=== PATIENT | male | born 1950 | race Caucasian/White ===

== ENCOUNTER 2025-05-05 16:50 | Inpatient (IN) | payer MEDICARE, SELFPAY ==
--- NOTE | ~2025-05-05 | CT_ITS ---
EXAMINATION: CT HEAD WITHOUT CONTRAST CLINICAL INFORMATION: Receptive aphasia, rule out stroke etiology. 75-year-old male. COMPARISON: None available. TECHNIQUE: Contiguous axial imaging was performed from the skull base to vertex without intravenous administration of contrast. This CT examination was performed using dose optimization techniques as appropriate, variously including the following: *Automated exposure control *Adjustment of mA and/or kV according to patient size (this includes techniques or standardized protocols for targeted exams where dose is matched to indication/reason for exam; i.e. extremities or head) *Use of iterative reconstruction technique FINDINGS: There is no evidence of intracranial hemorrhage or extra-axial fluid collection. There is no mass effect, or edema. No CT evidence of acute territorial infarct. Ventricles, sulci, and cisterns are normal in size and configuration for patient age. No hydrocephalus. No midline shift. Negative hyperdense MCA sign. Negative insular ribbon sign. Patchy periventricular and deep white matter hypoattenuation is consistent with moderate small vessel ischemic changes. There is an age-indeterminate lacunar type infarct in the right putamen nucleus. 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 Globes and orbital contents image normally. No extracranial soft tissue abnormalities. The paranasal sinuses, mastoid air cells, and tympanic cavities are normally aerated. No suspicious bony abnormalities. There are no acute fractures evident. CT/CT head/brain wo IV con IMPRESSION: 1. Age-indeterminate lacunar type infarct present in the right putamen nucleus. This could potentially be acute/subacute. 2. No intracranial hemorrhage or mass effect. No CT evidence of acute territorial infarct. 3. Moderate small vessel ischemic changes within the white matter. 4. 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 Electronically signed by: Jarrett Paz MD 05/09/2025 03:22 PM EDT
[2025-05-05 17:05] VITALS: BP 176/98; PULSE 78; RESP 16; TEMP 36.7; O2SAT 99
[2025-05-05 17:46] VITALS: BMI 25.2
--- NOTE | 2025-05-05 18:32 | PC.NURSE ---
pt arrved to unit at 1705. Skin/safety check performed, notable for several scabs on dorsal side of foot. Pt reports its from wearing shoes without socks. Vitals obtained, patient oriented to the unit and dinner order called in. Pts speech is tangential. He states he is here for extreme anxiety. He is currently eating with peers. Admission to be completed by uncoming staff.
[2025-05-05 20:00] VITALS: BP 152/85; PULSE 94; RESP 16; TEMP 36.8; O2SAT 98
--- NOTE | 2025-05-05 23:25 | PC.ADMIT ---
Per report from previous shift, Pt arrived on the unit at 1705. Transfer from [facility], admitting diagnosis Adjustment disorder with anxiety. Skin/safety check performed, notable for several scabs on dorsal side of foot. Pt reports its from wearing shoes without socks. Vitals obtained, patient oriented to the unit and dinner order called in. Pts speech is tangential. He states he is here for extreme anxiety. He is currently eating with peers. Per history given by patient, he was brought by ambulance to [facility] emergency room, after experiencing Gigantic anxiety , depression and insomnia, whereby he had not slept for two days. 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 Patient denies SI, HI and AVH. He requested medication to help him sleep, and got PRN Trazodone. Patient denies any medical diagnosis, and states that he is not currently prescribed any medications. Placed on 15 minute checks.
[2025-05-06 08:00] VITALS: BP 154/91; PULSE 80; RESP 18; TEMP 36.9; O2SAT 98
[2025-05-06 09:17] LABS: Hemoglobin A1C 133.3542 umol/L; Total Hemoglobin (HGBA1C) 3670.2182 umol/L
[2025-05-06 09:27] LABS: Cholesterol 167 mg/dL (<200); HDL Cholesterol 60 mg/dL (>40); Magnesium 2.0 mg/dL (1.6-2.6); Triglycerides 74 mg/dL (<150)
[2025-05-06 09:41] LABS: Free T4 (Free Thyroxine) 1.21 ng/dL (0.71-1.85); Thyroid Stimulating Hormone 0.85 uIU/mL (0.32-4.0)
[2025-05-06 09:57] LABS: Folate 9.8 ng/mL (> or = 4.0); Vitamin B12 213 pg/mL (200-900)
--- NOTE | 2025-05-06 10:33 | HO.PM.IMCN ---
History of Present Illness Data of Consult Service Date: 05/06/25 Primary Care Provider: Unknown Physician HPI Reason for consult: Medical management 75-year-old male with past medical history of adjustment disorder with anxiety admitted to [facility] with increased anxiety, depression and insomnia. He denied any suicidal ideation. He is admitted here for further treatment. Patient reports that he feels well, he is concerned about memory issues. Denies any medical problems, does not take any medications at home. On exam he denies any shortness of breath, chest pain, abdominal pain, or any other concerning symptoms. Does report that he has occasional dysuria. Denies any burning or pain with urination just reports that it takes him a little bit longer to void. He otherwise feels well, speech is rapid, anxious on exam. Review of Systems Review of Systems: Denies any shortness of breath, chest pain, dizziness, lightheadedness, abdominal pain or discomfort, nausea vomiting or diarrhea PMFSH Social History Household Members: Spouse Housing: Apartment Do you presently have visiting nurse or other home services: No Patient Tobacco Use Status: Never used Tobacco Smoked in Last 30 Days: No e-Cigarette/Vaping Use: Never Used Second Hand Smoke Exposure: No Currently Displaying Signs/Symptoms of Drug Intoxication Withdrawal: No Have you been hit, kicked, punched, or otherwise hurt by someone within the past year? If so, by whom?: No Do you feel safe in your current relationship?: Yes Is there a partner from a previous relationship who is making you feel unsafe now?: No Are you made to feel afraid or neglected: No Advance Directives: No Advance Directives Information Provided: Yes Do you have thoughts of harming others: None Do you have a plan to hurt others: No Plan Recently lost weight without trying: No How much weight loss: Not applicable Eating poorly because of decreased appetite: No Nutrition screen score: 0 Nutrition Risks: No Nutritional Risk Poor oral hygiene: No Meds Allergies Allergy/AdvReac Type Severity Reaction Status Date / Time No Known Allergies Allergy Verified 05/05/25 17:00 Active Medications: Current Medications Acetaminophen (Acetaminophen 325 Mg Tablet) 650 mg PO Q6H PRN PRN Reason: Headache/Pain, Scale 1-10 Al Hydroxide/Mg Hydroxide (Magnesium Hydrox/Alum Hydrox 30 Ml Oral.Susp) 30 ml PO Q6H PRN PRN Reason: Heartburn/Nausea Hydroxyzine HCl (Hydroxyzine Hcl 25 Mg Tablet) 25 mg PO Q6H PRN PRN Reason: mild anxiety Magnesium Hydroxide (Milk Of Magnesia 30 Ml Oral.Susp) 30 ml PO DAILY PRN PRN Reason: Constipation Nicotine Polacrilex (Nicotine Polacrilex 2 Mg Gum) 4 mg BUCCAL Q2H PRN PRN Reason: Nicotine Cravings Trazodone HCl (Trazodone Hcl 50 Mg Tablet) 50 mg PO BEDTIME MRX1 PRN PRN Reason: Insomnia Last Admin: 05/06/25 01:45 Dose: 50 mg Physical Exam Vital Signs and Narrative: Vital Signs: Last Vital Signs Temp 98.5 F 05/06/25 08:00 Pulse 80 05/06/25 08:00 Resp 18 05/06/25 08:00 BP 154/91 H 05/06/25 08:00 Pulse Ox 98 05/06/25 08:00 O2 Del Method Room Air 05/06/25 08:00 BMI result Body Mass Index 25.2 Alert and oriented X3, able to give good history. Anxious, rapid speech Neuro: CN II-X11 intact, no deficits, visual acuity intact EYES: PERRLA, EOM intact ENT: Hearing intact, lips moist, nares patent no epistaxis Cardiac: S1 S2 RRR, No ectopy Pulmonary: lungs clear to auscultation, No increased WOB. Abdominal: BS active in all 4 quadrants, no guarding or tenderness MSK: Strength 5/5 upper and lower extremities : Deferred Extremities: No edema in lower extremities, Steady gait Psych: mood stable, anxious. Skin: Warm and dry, Intact Results Labs 05/06/25 10:23 Labs: Laboratory Results - last 24 hr 05/06/25 08:33 Estimat Average Glucose 111 Hemoglobin A1c % 5.5 Magnesium 2.0 Triglycerides 74 Cholesterol 167 LDL Cholesterol, Calc 93 HDL Cholesterol 60 Vitamin B12 213 Folate 9.8 TSH 0.85 Free T4 1.21 Assessment and Plan (1) Anxiety: Status: Acute Plan Anxiety and depression Treatment per psychiatric team Consider MOCA Dysuria Check UA and PSA Consider Urology consult if abnormal Thank you for allowing me to participate in the care of this patient. Signing off at this time. Please reconsult of any acute concerns or issues arise
[2025-05-06 10:46] LABS: Anion Gap 12 (12-20); Blood Urea Nitrogen 12 mg/dL (9-16); Calcium 10.0 mg/dL (8.4-10.2); Carbon Dioxide 32 mmol/L (22-29); Chloride 103 mmol/L (96-108); Creatinine Clr Calc Pharmacy 80.3; Estimated Glomerular Filt Rate > 60; Potassium 3.8 mmol/L (3.3-5.1); Sodium 143 mmol/L (135-145)
[2025-05-06 13:43] LABS: Prostate Specific Antigen 1.06 ng/mL (<0.05-4.0)
--- NOTE | 2025-05-06 15:27 | P.HPPS_ITS ---
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 on presentation, pt c/o depression, lack of psych meds for months. no SI/HI. pt reported he had not slept for 2 nights and was experiencing severe anxiety. he reported amotivation and empty feeling. on eval by MD at [facility] [place] [place], pt is hyperverbal and slightly disorganized and hard to follow. he reports he has a poor memory and he clearly struggles to recall biographical facts. he identifies as target Sx said memory deficits, anxiety, and insomnia. he s agreeable to trial of zoloft for depression/anxiety, seroquel PRNs for acute anxiety, and trazodone for insomnia. in addition, he is agreeable to [facility] for cognitive screening. Past Psychiatric History: hosps: IOL for 1.5 years in 1971 SA: denies SIB: denies outpt: sporadic throughout his life. some in the past 5-10 years. reports someone from 5 was prescribing for him. Medical Evaluation Reviewed: Yes [facility] Narrative: Carpal Tunnel Syndrome Family History: brother - h/o psychiatric hospitalization, pt does not know the diagnosis Social History: lives with and their pets in [place]. has SSI income. 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 Substance History: denies use of all substances of abuse Trauma History: denies Diagnostics Vital Signs (24Hr): Vital Signs - 24 hr 05/05/25 17:05 05/05/25 20:00 05/06/25 08:00 Temperature 98.1 F 98.2 F 98.5 F Pulse Rate 78 94 80 Respiratory Rate 16 16 18 Blood Pressure 176/98 H 152/85 H 154/91 H Pulse Oximetry 99 98 98 Oxygen Delivery Method Room Air Room Air Room Air BMI result Body Mass Index 25.2 Labs 05/06/25 10:23 Labs: Laboratory Results - last 48 hr 05/06/25 05/06/25 05/06/25 08:33 10:23 12:52 Sodium 143 Potassium 3.8 Chloride 103 Carbon Dioxide 32 H Anion Gap 12 BUN 12 Creatinine 0.78 Estim Creat Clear Calc 80.3 Estimated GFR > 60 Random Glucose 102 Estimat Average Glucose 111 Hemoglobin A1c % 5.5 Calcium 10.0 Magnesium 2.0 Triglycerides 74 Cholesterol 167 LDL Cholesterol, Calc 93 HDL Cholesterol 60 Prostate Specific Ag 1.06 Vitamin B12 213 Folate 9.8 TSH 0.85 Free T4 1.21 Meds/Allergies Allergies Allergies Allergy/AdvReac Type Severity Reaction Status Date / Time No Known Allergies Allergy Verified 05/05/25 17:00 Mental Status Exam Mental Status Exam Narrative: disheveled, long white hair. cooperative no PMA/PMR. speech incr amount, nml rate and loudness. decr latency. thoughts circumstantial to tangential. affect flexible, normo-intense, non-labile. mood really anxious, haven't slept well. denies SI/SIBI/HI/AVH. Assessment & Plan Assessment & Plan (1) Anxiety disorder: Status: Acute Code(s): F41.9 - Anxiety disorder, unspecified Plan start zoloft 50 mg daily for anxiety/depression. start seroquel 12.5 mg Q4H PRN anxiety. start trazodone 100 mg QHS for insomnia. R/O Bipolar Disorder. unlikely as pt has not been hospitalized since 1971 and not on any mood stablizers for decades. eval cognition. pt likely has some degree of cognitive impairment. Patient educated on: diagnosis and medication risk/benefits Reason for continued inpatient stay Substantial Risk for: inability to function Statement Statement: I have reviewed the history and physical and performed a pertinent examination on my patient. No changes have occurred unless specified. If the History and Physical was not performed prior to admission, the Hospitalist's service will be consulted for completing the admission physical. Time Spent With Patient Time: Total time managing care of this patient today __55__ minutes.
[2025-05-06 19:10] VITALS: BP 157/83; PULSE 76; RESP 16; TEMP 36.7; O2SAT 98
[2025-05-07 07:52] VITALS: BP 132/77; PULSE 75; RESP 16; TEMP 36.6; O2SAT 97
--- NOTE | 2025-05-07 14:08 | HO.PSYCHPN ---
Subjective Subjective Date of Service: 05/07/25 Reason For Visit: adjustment disorder with anxiety Interim History: calm, cooperative, pleasant. agreeable to continue current mgmt aside from increase in HS trazodone to 150 mg for sleep. slept a bit better last night. per staff, poor concentration and memory. anxious energy. social. playing board games. hyperverbal. tangential. got atarax and trazodone last night, slept about 5 hours. Mental Status Exam Mental Status Exam Narrative: disheveled, long white hair. cooperative no PMA/PMR. speech incr amount, nml rate and loudness. decr latency. thoughts circumstantial to tangential. affect flexible, normo-intense, non-labile. mood improved. no SI/SIBI/HI/AVH expressed. Diagnostics Vital Signs (24Hr): Vital Signs - 24 hr 05/06/25 19:10 05/07/25 07:52 Temperature 98.0 F 97.8 F Pulse Rate 76 75 Respiratory Rate 16 16 Blood Pressure 157/83 H 132/77 Pulse Oximetry 98 97 Oxygen Delivery Method Room Air Room Air BMI result Body Mass Index 25.2 Labs 05/06/25 10:23 Labs: Laboratory Results - last 48 hr 05/06/25 05/06/25 05/06/25 08:33 10:23 12:52 Sodium 143 Potassium 3.8 Chloride 103 Carbon Dioxide 32 H Anion Gap 12 BUN 12 Creatinine 0.78 Estim Creat Clear Calc 80.3 Estimated GFR > 60 Random Glucose 102 Estimat Average Glucose 111 Hemoglobin A1c % 5.5 Calcium 10.0 Magnesium 2.0 Triglycerides 74 Cholesterol 167 LDL Cholesterol, Calc 93 HDL Cholesterol 60 Prostate Specific Ag 1.06 Vitamin B12 213 Folate 9.8 TSH 0.85 Free T4 1.21 Medications Medications Current Medications Acetaminophen (Acetaminophen 325 Mg Tablet) 650 mg PO Q6H PRN PRN Reason: Headache/Pain, Scale 1-10 Al Hydroxide/Mg Hydroxide (Magnesium Hydrox/Alum Hydrox 30 Ml Oral.Susp) 30 ml PO Q6H PRN PRN Reason: Heartburn/Nausea Hydroxyzine HCl (Hydroxyzine Hcl 25 Mg Tablet) 25 mg PO Q6H PRN On Hold: 05/07/25 10:13 PRN Reason: mild anxiety Last Admin: 05/07/25 05:03 Dose: 25 mg Magnesium Hydroxide (Milk Of Magnesia 30 Ml Oral.Susp) 30 ml PO DAILY PRN PRN Reason: Constipation Nicotine Polacrilex (Nicotine Polacrilex 2 Mg Gum) 4 mg BUCCAL Q2H PRN PRN Reason: Nicotine Cravings Quetiapine Fumarate (Quetiapine Fumarate 25 Mg Tablet) 12.5 mg PO Q4H PRN PRN Reason: anxiety Sertraline HCl (Sertraline Hcl 50 Mg Tablet) 50 mg PO DAILY [facility] Last Admin: 05/07/25 09:24 Dose: 50 mg Trazodone HCl (Trazodone Hcl 50 Mg Tablet) 50 mg PO BEDTIME PRN PRN Reason: Insomnia Trazodone HCl (Trazodone Hcl 50 Mg Tablet) 150 mg PO BEDTIME PEDRITO Allergies Allergies Allergy/AdvReac Type Severity Reaction Status Date / Time No Known Allergies Allergy Verified 05/05/25 17:00 Assessment & Plan Assessment & Plan (1) Anxiety disorder: Status: Acute Code(s): F41.9 - Anxiety disorder, unspecified Plan 05/06: start zoloft 50 mg daily for anxiety/depression. start seroquel 12.5 mg Q4H PRN anxiety. start trazodone 100 mg QHS for insomnia. R/O Bipolar Disorder. unlikely as pt has not been hospitalized since 1971 and not on any mood stabilizers for decades. eval cognition. pt likely has some degree of cognitive impairment. 05/07: [facility] /30, for moderate cognitive impairment. increase trazodone to 150 QHS for sleep. continue current mgmt otherwise. consider memantine/donepezil. Reason for continued inpatient stay Substantial Risk for: inability to function Time Spent With Patient Time: Total time managing care of this patient today __25__ minutes.
[2025-05-07 19:40] VITALS: BP 133/72; PULSE 97; TEMP 36.5; O2SAT 97
[2025-05-08 07:56] VITALS: BP 129/74; PULSE 67; RESP 18; TEMP 36.7; O2SAT 96
--- NOTE | 2025-05-08 14:51 | HO.PSYCHPN ---
Subjective Subjective Date of Service: 05/08/25 Reason For Visit: adjustment disorder with anxiety Interim History: extremely loquacious, tangential, moderately disorganized. confabulation. declines transfer to [facility]. agreeable to schedule seroquel 50 mg at HS, says he did sleep better last night than prior but awakened in the night still. per staff, +depression. hyperverbal. +anxiety. pleasant. slept 7 hours. got PRN seroquel at HS. Mental Status Exam Mental Status Exam Narrative: disheveled, long white hair. cooperative no PMA/PMR. speech incr amount, incr rate, nml loudness. decr latency. thoughts circumstantial to tangential. confabulation. affect flexible, normo-intense, non-labile. mood improved. no SI/SIBI/HI/AVH expressed. Diagnostics Vital Signs (24Hr): Vital Signs - 24 hr 05/07/25 19:40 05/08/25 07:56 Temperature 97.7 F 98.1 F Pulse Rate 97 67 Respiratory Rate 18 Blood Pressure 133/72 129/74 Pulse Oximetry 97 96 Oxygen Delivery Method Room Air Room Air BMI result Body Mass Index 25.2 Labs 05/06/25 10:23 Medications Medications Current Medications Acetaminophen (Acetaminophen 325 Mg Tablet) 650 mg PO Q6H PRN PRN Reason: Headache/Pain, Scale 1-10 Al Hydroxide/Mg Hydroxide (Magnesium Hydrox/Alum Hydrox 30 Ml Oral.Susp) 30 ml PO Q6H PRN PRN Reason: Heartburn/Nausea Hydroxyzine HCl (Hydroxyzine Hcl 25 Mg Tablet) 25 mg PO Q6H PRN On Hold: 05/07/25 10:13 PRN Reason: mild anxiety Last Admin: 05/07/25 05:03 Dose: 25 mg Magnesium Hydroxide (Milk Of Magnesia 30 Ml Oral.Susp) 30 ml PO DAILY PRN PRN Reason: Constipation Nicotine Polacrilex (Nicotine Polacrilex 2 Mg Gum) 4 mg BUCCAL Q2H PRN PRN Reason: Nicotine Cravings Quetiapine Fumarate (Quetiapine Fumarate 25 Mg Tablet) 12.5 mg PO Q4H PRN PRN Reason: anxiety Last Admin: 05/07/25 22:08 Dose: 12.5 mg Quetiapine Fumarate (Quetiapine Fumarate 50 Mg Tablet) 50 mg PO BEDTIME [facility]RITO Sertraline HCl (Sertraline Hcl 50 Mg Tablet) 50 mg PO DAILY [facility] Last Admin: 05/08/25 08:42 Dose: 50 mg Trazodone HCl (Trazodone Hcl 50 Mg Tablet) 50 mg PO BEDTIME PRN PRN Reason: Insomnia Trazodone HCl (Trazodone Hcl 50 Mg Tablet) 150 mg PO BEDTIME [facility] Last Admin: 05/07/25 22:09 Dose: 150 mg Allergies Allergies Allergy/AdvReac Type Severity Reaction Status Date / Time No Known Allergies Allergy Verified 05/05/25 17:00 Assessment & Plan Assessment & Plan (1) Anxiety disorder: Status: Acute Code(s): F41.9 - Anxiety disorder, unspecified Plan 05/06: start zoloft 50 mg daily for anxiety/depression. start seroquel 12.5 mg Q4H PRN anxiety. start trazodone 100 mg QHS for insomnia. R/O Bipolar Disorder. unlikely as pt has not been hospitalized since 1971 and not on any mood stabilizers for decades. eval cognition. pt likely has some degree of cognitive impairment. 05/07: [facility] 16/30, for moderate cognitive impairment. increase trazodone to 150 QHS for sleep. continue current mgmt otherwise. consider memantine/donepezil. 05/08: check ACLS. schedule seroquel 50 mg at HS to see if volubility and thought organization improve. otherwise continue current mgmt. Reason for continued inpatient stay Substantial Risk for: inability to function Time Spent With Patient Time: Total time managing care of this patient today __35__ minutes.
[2025-05-08 19:30] VITALS: BP 145/64; PULSE 85; RESP 16; TEMP 36.6; O2SAT 97
[2025-05-09 07:55] VITALS: BP 138/65; PULSE 94; RESP 16; TEMP 36.7; O2SAT 96
--- NOTE | 2025-05-09 14:03 | HO.PSYCHPN ---
Subjective Subjective Date of Service: 05/09/25 Reason For Visit: adjustment disorder with anxiety Interim History: slept better but not well. less hyperverbal. still confabulating. per staff, tangential. focused on memory impairment. slept all NOC. amenable to increase HS seroquel and to schedule low-dose seroquel throughout the day. per staff, tangential, focused on memory impairment. slept all NOC. Mental Status Exam Mental Status Exam Narrative: disheveled, long white hair. cooperative no PMA/PMR. speech incr amount, incr rate, nml loudness. decr latency. thoughts circumstantial to tangential. confabulation. affect flexible, normo-intense, non-labile. mood improved. no SI/SIBI/HI/AVH expressed. Diagnostics Vital Signs (24Hr): Vital Signs - 24 hr 05/08/25 19:30 05/09/25 07:55 Temperature 97.8 F 98.0 F Pulse Rate 85 94 Respiratory Rate 16 16 Blood Pressure 145/64 H 138/65 Pulse Oximetry 97 96 Oxygen Delivery Method Room Air Room Air BMI result Body Mass Index 25.2 Labs 05/06/25 10:23 Medications Medications Current Medications Acetaminophen (Acetaminophen 325 Mg Tablet) 650 mg PO Q6H PRN PRN Reason: Headache/Pain, Scale 1-10 Al Hydroxide/Mg Hydroxide (Magnesium Hydrox/Alum Hydrox 30 Ml Oral.Susp) 30 ml PO Q6H PRN PRN Reason: Heartburn/Nausea Hydroxyzine HCl (Hydroxyzine Hcl 25 Mg Tablet) 25 mg PO Q6H PRN On Hold: 05/07/25 10:13 PRN Reason: mild anxiety Last Admin: 05/07/25 05:03 Dose: 25 mg Magnesium Hydroxide (Milk Of Magnesia 30 Ml Oral.Susp) 30 ml PO DAILY PRN PRN Reason: Constipation Nicotine Polacrilex (Nicotine Polacrilex 2 Mg Gum) 4 mg BUCCAL Q2H PRN PRN Reason: Nicotine Cravings Quetiapine Fumarate (Quetiapine Fumarate 25 Mg Tablet) 12.5 mg PO Q4H PRN PRN Reason: anxiety Last Admin: 05/08/25 22:04 Dose: 12.5 mg Quetiapine Fumarate (Quetiapine Fumarate 25 Mg Tablet) 12.5 mg PO TID@0900,1300,1700 [facility] Last Admin: 05/09/25 13:16 Dose: 12.5 mg Quetiapine Fumarate (Quetiapine Fumarate 25 Mg Tablet) 75 mg PO BEDTIME [facility] Sertraline HCl (Sertraline Hcl 50 Mg Tablet) 50 mg PO DAILY [facility] Last Admin: 05/09/25 08:14 Dose: 50 mg Trazodone HCl (Trazodone Hcl 50 Mg Tablet) 50 mg PO BEDTIME PRN PRN Reason: Insomnia Last Admin: 05/08/25 22:03 Dose: 50 mg Trazodone HCl (Trazodone Hcl 50 Mg Tablet) 150 mg PO BEDTIME [facility] Last Admin: 05/08/25 22:03 Dose: 150 mg Allergies Allergies Allergy/AdvReac Type Severity Reaction Status Date / Time No Known Allergies Allergy Verified 05/05/25 17:00 Assessment & Plan Assessment & Plan (1) Anxiety disorder: Status: Acute Code(s): F41.9 - Anxiety disorder, unspecified Plan 05/06: start zoloft 50 mg daily for anxiety/depression. start seroquel 12.5 mg Q4H PRN anxiety. start trazodone 100 mg QHS for insomnia. R/O Bipolar Disorder. unlikely as pt has not been hospitalized since 1971 and not on any mood stabilizers for decades. eval cognition. pt likely has some degree of cognitive impairment. 05/07: [facility] 16/30, for moderate cognitive impairment. increase trazodone to 150 QHS for sleep. continue current mgmt otherwise. consider memantine/donepezil. 05/08: check ACLS. schedule seroquel 50 mg at HS to see if volubility and thought organization improve. otherwise continue current mgmt. 05/09: check ACLS. head CT to R/O stroke due to receptive aphasia. definitely less hyperverbal today. increase HS seroquel to 75 mg and schedule seroquel 12.5 mg TID at 0900, 1300, 1700. Reason for continued inpatient stay Substantial Risk for: inability to function Time Spent With Patient Time: Total time managing care of this patient today __35__ minutes.
[2025-05-09 20:00] VITALS: BP 120/69; PULSE 94; RESP 18; TEMP 36.7; O2SAT 97
[2025-05-10 07:35] VITALS: BP 148/68; PULSE 86; RESP 16; TEMP 36.6; O2SAT 96
--- NOTE | 2025-05-10 11:16 | HO.PSYCHPN ---
Subjective Subjective Date of Service: 05/10/25 Reason For Visit: adjustment disorder with anxiety Subjective Notes: Conditional Voluntary Interim History: Pt reports he is here because he was feeling very anxious. He also notes that he is more forgetful. He reports his mother had Alzheimer's. He does seem somnolent during the day- may decrease dose of seroquel. MOCA shows impairments in executive function (2/5), language repetition (3/6), orientation (3/6) and recall (0/5). Naming, language fluency are intact. He did not seem to have receptive aphasia. 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 Review of Systems Review of Systems Denies any shortness of breath, chest pain, dizziness, lightheadedness, abdominal pain or discomfort, nausea vomiting or diarrhea Mental Status Exam Mental Status Exam Narrative: Appearance: casually groomed, good hygiene, in NAD Behavior: cooperative, friendly Psychomotor: no gait disturbances, no resting or action tremor noted. Speech: mostly clear, regular rate/rhythm/volume, spontaneous TP: mostly linear, appropriate to questions asked TC: some awareness of forgetfulness which may exacerbate anxiety. Mood: better Affect: congruent, brightens at times SI: none HI: none VH/AH: no signs of psychosis Delusions: no overt signs of delusions Insight/judgment: fair x 2. Memory/cog: alert, oriented to idea that he is in the hospital and reason for this (anxiety/memory issues, worries he may have AD like his mother), month and year. MOCA 1630 shows impairments in executive function (2/5), language repetition (3/6), orientation (3/6) and recall (0/5). Naming, language fluency, abstraction are intact. Diagnostics Vital Signs (24Hr): Vital Signs - 24 hr 05/09/25 20:00 05/10/25 07:35 Temperature 98.1 F 97.8 F Pulse Rate 94 86 Respiratory Rate 18 16 Blood Pressure 120/69 148/68 H Pulse Oximetry 97 96 Oxygen Delivery Method Room Air Room Air BMI result Body Mass Index 25.2 Labs 05/06/25 10:23 Imaging Radiology Impressions: ITS Impressions Head CT 05/09/25 14:59 IMPRESSION: 1. Age-indeterminate lacunar type infarct present in the right putamen nucleus. This could potentially be acute/subacute. 2. No intracranial hemorrhage or mass effect. No CT evidence of acute territorial infarct. 3. Moderate small vessel ischemic changes within the white matter. 4. 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 Electronically signed by: Jarrett Paz MD 05/09/2025 03:22 PM EDT Medications Medications Current Medications Acetaminophen (Acetaminophen 325 Mg Tablet) 650 mg PO Q6H PRN PRN Reason: Headache/Pain, Scale 1-10 Al Hydroxide/Mg Hydroxide (Magnesium Hydrox/Alum Hydrox 30 Ml Oral.Susp) 30 ml PO Q6H PRN PRN Reason: Heartburn/Nausea Hydroxyzine HCl (Hydroxyzine Hcl 25 Mg Tablet) 25 mg PO Q6H PRN On Hold: 05/07/25 10:13 PRN Reason: mild anxiety Last Admin: 05/07/25 05:03 Dose: 25 mg Magnesium Hydroxide (Milk Of Magnesia 30 Ml Oral.Susp) 30 ml PO DAILY PRN PRN Reason: Constipation Nicotine Polacrilex (Nicotine Polacrilex 2 Mg Gum) 4 mg BUCCAL Q2H PRN PRN Reason: Nicotine Cravings Quetiapine Fumarate (Quetiapine Fumarate 25 Mg Tablet) 12.5 mg PO Q4H PRN PRN Reason: anxiety Last Admin: 05/08/25 22:04 Dose: 12.5 mg Quetiapine Fumarate (Quetiapine Fumarate 25 Mg Tablet) 12.5 mg PO TID@0900,1300,1700 REPLACED BY [facility] Last Admin: 05/10/25 08:42 Dose: 12.5 mg Quetiapine Fumarate (Quetiapine Fumarate 25 Mg Tablet) 75 mg PO BEDTIME PEDRITO Last Admin: 05/09/25 22:04 Dose: 75 mg Sertraline HCl (Sertraline Hcl 50 Mg Tablet) 50 mg PO DAILY REPLACED BY [facility] Last Admin: 05/10/25 08:41 Dose: 50 mg Trazodone HCl (Trazodone Hcl 50 Mg Tablet) 50 mg PO BEDTIME PRN PRN Reason: Insomnia Last Admin: 05/08/25 22:03 Dose: 50 mg Trazodone HCl (Trazodone Hcl 50 Mg Tablet) 150 mg PO BEDTIME REPLACED BY [facility] Last Admin: 05/09/25 22:03 Dose: 150 mg Allergies Allergies Allergy/AdvReac Type Severity Reaction Status Date / Time No Known Allergies Allergy Verified 05/05/25 17:00 Assessment & Plan Assessment & Plan (1) Major neurocognitive disorder due to multiple etiologies, with anxiety: Status: Acute Code(s): F02.84 - Dementia in other diseases classified elsewhere, unspecified severity, with anxiety (2) Anxiety disorder: Status: Acute Code(s): F41.9 - Anxiety disorder, unspecified Plan 05/06: start zoloft 50 mg daily for anxiety/depression. start seroquel 12.5 mg Q4H PRN anxiety. start trazodone 100 mg QHS for insomnia. R/O Bipolar Disorder. unlikely as pt has not been hospitalized since 1971 and not on any mood stabilizers for decades. eval cognition. pt likely has some degree of cognitive impairment. 05/07: MoCA , for moderate cognitive impairment. increase trazodone to 150 QHS for sleep. continue current mgmt otherwise. consider memantine/donepezil. 05/08: check ACLS. schedule seroquel 50 mg at HS to see if volubility and thought organization improve. otherwise continue current mgmt. 05/09: check ACLS. head CT to R/O stroke due to receptive aphasia. definitely less hyperverbal today. increase HS seroquel to 75 mg and schedule seroquel 12.5 mg TID at 0900, 1300, 1700. 05/10 seems somnolent with current dose of seroquel during the day. pattern of cognitive impairment may be mixed etiology AD/Vascular. start aricept 5mg po qhs. pending collateral information. seems less anxious. If possible complete ACL to assess functional cognitive and services that he may need to be safe in the community. Reason for continued inpatient stay Substantial Risk for: inability to function Time Spent With Patient Time: Total time managing care of this patient today ____ minutes.
--- NOTE | 2025-05-10 14:46 | PC.NURSE ---
Routine Neurology Consult ordered for ?Acute/Subacute Right Putamen Nucleus Infarct on Head CT. [employer] message sent to Dr. Ghislaine Rodriguez to notify.
[2025-05-10 20:00] VITALS: BP 139/76; PULSE 73; RESP 20; TEMP 36.7; O2SAT 98
[2025-05-11 08:00] VITALS: BP 100/62; PULSE 106; RESP 14; TEMP 36.8; O2SAT 96
--- NOTE | 2025-05-11 17:48 | HO.PSYCHPN ---
Subjective Subjective Date of Service: 05/11/25 Reason For Visit: adjustment disorder with anxiety Subjective Notes: Conditional Voluntary Interim History: Pt reports he is here because he was feeling very anxious. He also notes that he is more forgetful. He reports his mother had Alzheimer's. He does seem somnolent during the day- may decrease dose of seroquel. He had visit last evening with his brother. He reports brother has been going to see him more often as he is more forgetful. Review of Systems Review of Systems Denies any shortness of breath, chest pain, dizziness, lightheadedness, abdominal pain or discomfort, nausea vomiting or diarrhea Mental Status Exam Mental Status Exam Narrative: Appearance: casually groomed, good hygiene, in NAD Behavior: cooperative, friendly Psychomotor: no gait disturbances, no resting or action tremor noted. Speech: mostly clear, regular rate/rhythm/volume, spontaneous TP: mostly linear, appropriate to questions asked TC: some awareness of forgetfulness which may exacerbate anxiety. Mood: better Affect: congruent, brightens at times SI: none HI: none VH/AH: no signs of psychosis Delusions: no overt signs of delusions Insight/judgment: fair x 2. Memory/cog: alert, oriented to idea that he is in the hospital and reason for this (anxiety/memory issues, worries he may have AD like his mother), month and year. MOCA 16/30 shows impairments in executive function (2/5), language repetition (3/6), orientation (3/6) and recall (0/5). Naming, language fluency, abstraction are intact. Diagnostics Vital Signs (24Hr): Vital Signs - 24 hr 05/10/25 20:00 05/11/25 08:00 Temperature 98.1 F 98.2 F Pulse Rate 73 106 H Respiratory Rate 20 14 Blood Pressure 139/76 100/62 Pulse Oximetry 98 96 Oxygen Delivery Method Room Air Room Air BMI result Body Mass Index 25.2 Labs 05/06/25 10:23 Imaging Radiology Impressions: ITS Impressions Head CT 05/09/25 14:59 IMPRESSION: 1. Age-indeterminate lacunar type infarct present in the right putamen nucleus. This could potentially be acute/subacute. 2. No intracranial hemorrhage or mass effect. No CT evidence of acute territorial infarct. 3. Moderate small vessel ischemic changes within the white matter. 4. 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 Electronically signed by: Jarrett Paz MD 05/09/2025 03:22 PM EDT RP Medications Medications Current Medications Acetaminophen (Acetaminophen 325 Mg Tablet) 650 mg PO Q6H PRN PRN Reason: Headache/Pain, Scale 1-10 Last Admin: 05/10/25 22:06 Dose: 650 mg Al Hydroxide/Mg Hydroxide (Magnesium Hydrox/Alum Hydrox 30 Ml Oral.Susp) 30 ml PO Q6H PRN PRN Reason: Heartburn/Nausea Hydroxyzine HCl (Hydroxyzine Hcl 25 Mg Tablet) 25 mg PO Q6H PRN On Hold: 05/07/25 10:13 PRN Reason: mild anxiety Last Admin: 05/07/25 05:03 Dose: 25 mg Magnesium Hydroxide (Milk Of Magnesia 30 Ml Oral.Susp) 30 ml PO DAILY PRN PRN Reason: Constipation Nicotine Polacrilex (Nicotine Polacrilex 2 Mg Gum) 4 mg BUCCAL Q2H PRN PRN Reason: Nicotine Cravings Quetiapine Fumarate (Quetiapine Fumarate 25 Mg Tablet) 12.5 mg PO Q4H PRN PRN Reason: anxiety Last Admin: 05/11/25 04:21 Dose: 12.5 mg Quetiapine Fumarate (Quetiapine Fumarate 25 Mg Tablet) 12.5 mg PO TID@0900,1300,1700 [facility] Last Admin: 05/11/25 17:32 Dose: 12.5 mg Quetiapine Fumarate (Quetiapine Fumarate 25 Mg Tablet) 75 mg PO BEDTIME [facility] Last Admin: 05/10/25 22:08 Dose: 75 mg Sertraline HCl (Sertraline Hcl 50 Mg Tablet) 50 mg PO DAILY [facility] Last Admin: 05/11/25 08:50 Dose: 50 mg Trazodone HCl (Trazodone Hcl 50 Mg Tablet) 50 mg PO BEDTIME PRN PRN Reason: Insomnia Last Admin: 05/10/25 22:07 Dose: 50 mg Trazodone HCl (Trazodone Hcl 50 Mg Tablet) 150 mg PO BEDTIME [facility] Last Admin: 05/10/25 22:07 Dose: 150 mg Allergies Allergies Allergy/AdvReac Type Severity Reaction Status Date / Time No Known Allergies Allergy Verified 05/05/25 17:00 Assessment & Plan Assessment & Plan (1) Major neurocognitive disorder due to multiple etiologies, with anxiety: Status: Acute Code(s): F02.84 - Dementia in other diseases classified elsewhere, unspecified severity, with anxiety (2) Anxiety disorder: Status: Acute Code(s): F41.9 - Anxiety disorder, unspecified Plan 05/06: start zoloft 50 mg daily for anxiety/depression. start seroquel 12.5 mg Q4H PRN anxiety. start trazodone 100 mg QHS for insomnia. R/O Bipolar Disorder. unlikely as pt has not been hospitalized since 1971 and not on any mood stabilizers for decades. eval cognition. pt likely has some degree of cognitive impairment. 05/07: MoCA /, for moderate cognitive impairment. increase trazodone to 150 QHS for sleep. continue current mgmt otherwise. consider memantine/donepezil. 05/08: check ACLS. schedule seroquel 50 mg at HS to see if volubility and thought organization improve. otherwise continue current mgmt. 05/09: check ACLS. head CT to R/O stroke due to receptive aphasia. definitely less hyperverbal today. increase HS seroquel to 75 mg and schedule seroquel 12.5 mg TID at 0900, 1300, 1700. 05/10 seems somnolent with current dose of seroquel during the day. pattern of cognitive impairment may be mixed etiology AD/Vascular. start aricept 5mg po qhs. pending collateral information. seems less anxious. If possible complete ACL to assess functional cognitive and services that he may need to be safe in the community. 05/11 decrease seroquel to 12.5mg po daily, d/c other day time doses and continue night time. Reason for continued inpatient stay Substantial Risk for: inability to function Time Spent With Patient Time: Total time managing care of this patient today ____ minutes.
[2025-05-11 19:52] VITALS: BP 106/62; PULSE 86; RESP 16; TEMP 36.2; O2SAT 98
[2025-05-12 07:20] VITALS: BP 97/61; PULSE 93; RESP 14; TEMP 36.7; O2SAT 97
--- NOTE | 2025-05-12 11:11 | P.CNNE_ITS ---
History of Present Illness Data of Consult Service Date: 05/12/25 Primary Care Provider: Unknown Physician HPI Reason for consult: abnormal head CT 75 years old man admitted on psychiatric floor for behavioral symptomatology. For some reason, head CT was done that revealed some finding prompting this consultation. There was no recent complain of stroke-like symptom or seizure- like episode. There was no complaint of headache. Review of Systems 2 Review of Systems: No recent headache or head injury. [facility] Social History Social History Household Members: Spouse Housing: Apartment Do you presently have visiting nurse or other home services: No Patient Tobacco Use Status: Never used Tobacco Smoked in Last 30 Days: No e-Cigarette/Vaping Use: Never Used Second Hand Smoke Exposure: No Currently Displaying Signs/Symptoms of Drug Intoxication Withdrawal: No Have you been hit, kicked, punched, or otherwise hurt by someone within the past year? If so, by whom?: No Do you feel safe in your current relationship?: Yes Is there a partner from a previous relationship who is making you feel unsafe now?: No Are you made to feel afraid or neglected: No Advance Directives: No Advance Directives Information Provided: Yes Do you have thoughts of harming others: None Do you have a plan to hurt others: No Plan Recently lost weight without trying: No How much weight loss: Not applicable Eating poorly because of decreased appetite: No Nutrition screen score: 0 Nutrition Risks: No Nutritional Risk Poor oral hygiene: No service: No Sexual orientation: Straight/Heterosexual Meds Allergies Allergy/AdvReac Type Severity Reaction Status Date / Time No Known Allergies Allergy Verified 05/05/25 17:00 Active Medications: Current Medications Acetaminophen (Acetaminophen 325 Mg Tablet) 650 mg PO Q6H PRN PRN Reason: Headache/Pain, Scale 1-10 Last Admin: 05/10/25 22:06 Dose: 650 mg Al Hydroxide/Mg Hydroxide (Magnesium Hydrox/Alum Hydrox 30 Ml Oral.Susp) 30 ml PO Q6H PRN PRN Reason: Heartburn/Nausea Donepezil HCl (Donepezil Hcl 5 Mg Tablet) 5 mg PO BEDTIME PEDRITO Hydroxyzine HCl (Hydroxyzine Hcl 25 Mg Tablet) 25 mg PO Q6H PRN On Hold: 05/07/25 10:13 PRN Reason: mild anxiety Last Admin: 05/07/25 05:03 Dose: 25 mg Magnesium Hydroxide (Milk Of Magnesia 30 Ml Oral.Susp) 30 ml PO DAILY PRN PRN Reason: Constipation Nicotine Polacrilex (Nicotine Polacrilex 2 Mg Gum) 4 mg BUCCAL Q2H PRN PRN Reason: Nicotine Cravings Quetiapine Fumarate (Quetiapine Fumarate 25 Mg Tablet) 12.5 mg PO Q4H PRN PRN Reason: anxiety Last Admin: 05/11/25 04:21 Dose: 12.5 mg Quetiapine Fumarate (Quetiapine Fumarate 25 Mg Tablet) 75 mg PO BEDTIME PEDRITO Last Admin: 05/11/25 21:57 Dose: 75 mg Quetiapine Fumarate (Quetiapine Fumarate 25 Mg Tablet) 12.5 mg PO DAILY PEDRITO Sertraline HCl (Sertraline Hcl 50 Mg Tablet) 50 mg PO DAILY PEDRITO Last Admin: 05/12/25 08:34 Dose: 50 mg Trazodone HCl (Trazodone Hcl 50 Mg Tablet) 50 mg PO BEDTIME PRN PRN Reason: Insomnia Last Admin: 05/11/25 21:57 Dose: 50 mg Trazodone HCl (Trazodone Hcl 50 Mg Tablet) 150 mg PO BEDTIME PEDRITO Last Admin: 05/11/25 21:57 Dose: 150 mg Physical Exam 2 Vital Signs: Vital Signs: Last Vital Signs Temp 98.0 F 05/12/25 07:20 Pulse 93 05/12/25 07:20 Resp 14 05/12/25 07:20 BP 97/61 05/12/25 07:20 Pulse Ox 97 05/12/25 07:20 O2 Del Method Room Air 05/12/25 07:20 BMI result Body Mass Index 25.2 Neuro: Other: He is alert and awake with normal spontaneity of speech fluency comprehension and affect. When I saw him, he was walking around in the hallway. Affect was okay. Face was symmetrical. Many teeth were missing. Visual ramos are full. Extraocular muscles were intact. There was no pronator drift. Deep tendon reflexes were absent with flexor plantars. Speech was normal. Results Labs 05/06/25 10:23 Labs: His noncontrast head CT revealed moderately severe chronic microvascular ischemic changes including more so in right basal ganglia area. Microbiology Microbiology Results: Microbiology 05/06/25 16:45 Urine clean catch - Clean Catch Midstream Urine Culture - Final No growth. Assessment and Plan (1) Cerebral microvascular disease: Status: Acute likely hypertension related microvascular disease of brain. Mainstay of management is control of vascular risk factors including monitoring for hypertension and appropriate management, baby aspirin daily, and avoidance of chemical agents that could cause this kind of pathology such as alcohol and cocaine. Procedures Date of Service Date of Service: 05/12/25
--- NOTE | 2025-05-12 15:52 | HO.PSYCHPN ---
Subjective Subjective Date of Service: 05/12/25 Reason For Visit: adjustment disorder with anxiety Interim History: sleep improved, but still waking up 2+ times per night. agreeable to increase HS seroquel to 100 mg. per staff, +dep/anx. +meds. + grps. hyperverbal, loose associations. Mental Status Exam Mental Status Exam Narrative: disheveled, long white hair. cooperative no PMA/PMR. speech incr amount, incr rate, nml loudness. decr latency. thoughts circumstantial to tangential. confabulation. affect flexible, normo-intense, non-labile. mood improved. no SI/SIBI/HI/AVH expressed. Diagnostics Vital Signs (24Hr): Vital Signs - 24 hr 05/11/25 19:52 05/12/25 07:20 Temperature 97.1 F 98.0 F Pulse Rate 86 93 Respiratory Rate 16 14 Blood Pressure 106/62 97/61 Pulse Oximetry 98 97 Oxygen Delivery Method Room Air Room Air BMI result Body Mass Index 25.2 Labs 05/06/25 10:23 Imaging Radiology Impressions: ITS Impressions Head CT 05/09/25 14:59 IMPRESSION: 1. Age-indeterminate lacunar type infarct present in the right putamen nucleus. This could potentially be acute/subacute. 2. No intracranial hemorrhage or mass effect. No CT evidence of acute territorial infarct. 3. Moderate small vessel ischemic changes within the white matter. 4. 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 Electronically signed by: Jarrett Paz MD 05/09/2025 03:22 PM EDT Medications Medications Current Medications Acetaminophen (Acetaminophen 325 Mg Tablet) 650 mg PO Q6H PRN PRN Reason: Headache/Pain, Scale 1-10 Last Admin: 05/10/25 22:06 Dose: 650 mg Al Hydroxide/Mg Hydroxide (Magnesium Hydrox/Alum Hydrox 30 Ml Oral.Susp) 30 ml PO Q6H PRN PRN Reason: Heartburn/Nausea Donepezil HCl (Donepezil Hcl 5 Mg Tablet) 5 mg PO BEDTIME PEDRITO Hydroxyzine HCl (Hydroxyzine Hcl 25 Mg Tablet) 25 mg PO Q6H PRN On Hold: 05/07/25 10:13 PRN Reason: mild anxiety Last Admin: 05/07/25 05:03 Dose: 25 mg Magnesium Hydroxide (Milk Of Magnesia 30 Ml Oral.Susp) 30 ml PO DAILY PRN PRN Reason: Constipation Nicotine Polacrilex (Nicotine Polacrilex 2 Mg Gum) 4 mg BUCCAL Q2H PRN PRN Reason: Nicotine Cravings Quetiapine Fumarate (Quetiapine Fumarate 25 Mg Tablet) 12.5 mg PO Q4H PRN PRN Reason: anxiety Last Admin: 05/11/25 04:21 Dose: 12.5 mg Quetiapine Fumarate (Quetiapine Fumarate 25 Mg Tablet) 12.5 mg PO DAILY PEDRITO Quetiapine Fumarate (Quetiapine Fumarate 100 Mg Tablet) 100 mg PO BEDTIME PEDRITO Sertraline HCl (Sertraline Hcl 50 Mg Tablet) 50 mg PO DAILY P[facility]RITO Last Admin: 05/12/25 08:34 Dose: 50 mg Trazodone HCl (Trazodone Hcl 50 Mg Tablet) 50 mg PO BEDTIME PRN PRN Reason: Insomnia Last Admin: 05/11/25 21:57 Dose: 50 mg Trazodone HCl (Trazodone Hcl 50 Mg Tablet) 150 mg PO BEDTIME PEDRITO Last Admin: 05/11/25 21:57 Dose: 150 mg Allergies Allergies Allergy/AdvReac Type Severity Reaction Status Date / Time No Known Allergies Allergy Verified 05/05/25 17:00 Assessment & Plan Assessment & Plan (1) Cerebral microvascular disease: Status: Acute Code(s): I67.89 - Other cerebrovascular disease Assessment and Plan: likely hypertension related microvascular disease of brain. Mainstay of management is control of vascular risk factors including monitoring for hypertension and appropriate management, baby aspirin daily, and avoidance of chemical agents that could cause this kind of pathology such as alcohol and cocaine. (2) Major neurocognitive disorder due to multiple etiologies, with anxiety: Status: Acute Code(s): F02.84 - Dementia in other diseases classified elsewhere, unspecified severity, with anxiety (3) Anxiety disorder: Status: Acute Code(s): F41.9 - Anxiety disorder, unspecified Plan 05/06: start zoloft 50 mg daily for anxiety/depression. start seroquel 12.5 mg Q4H PRN anxiety. start trazodone 100 mg QHS for insomnia. R/O Bipolar Disorder. unlikely as pt has not been hospitalized since 1971 and not on any mood stabilizers for decades. eval cognition. pt likely has some degree of cognitive impairment. 05/07: MoCA , for moderate cognitive impairment. increase trazodone to 150 QHS for sleep. continue current mgmt otherwise. consider memantine/donepezil. 05/08: check ACLS. schedule seroquel 50 mg at HS to see if volubility and thought organization improve. otherwise continue current mgmt. 05/09: check ACLS. head CT to R/O stroke due to receptive aphasia. definitely less hyperverbal today. increase HS seroquel to 75 mg and schedule seroquel 12.5 mg TID at 0900, 1300, 1700. 05/10: seems somnolent with current dose of seroquel during the day. pattern of cognitive impairment may be mixed etiology AD/Vascular. start aricept 5mg po qhs. pending collateral information. seems less anxious. If possible complete ACL to assess functional cognitive and services that he may need to be safe in the community. 05/11: decrease seroquel to 12.5mg po daily, d/c other day time doses and continue night time. 05/12: see above for neuro consult recs. increase HS seroquel to 100 mg for sleep. ACL 4.2. continue current mgmt otherwise. Reason for continued inpatient stay Substantial Risk for: inability to function Time Spent With Patient Time: Total time managing care of this patient today __25__ minutes.
[2025-05-12 19:55] VITALS: BP 128/62; PULSE 80; TEMP 36.4; O2SAT 98
[2025-05-13 07:35] VITALS: BP 115/71; PULSE 97; RESP 16; TEMP 36.3; O2SAT 96
--- NOTE | 2025-05-13 15:25 | HO.PSYCHPN ---
Subjective Subjective Date of Service: 05/13/25 Reason For Visit: adjustment disorder with anxiety Interim History: no change in presentation. slightly slowed and more organized than at admission, but remains hyperverbal and lacking in intelligible content. c/o poor sleep, disrupted sleep. agreeable to increase seroquel to 150 QHS. per staff, social, attending groups. pleasant, brighter. slept 7 hours. D/C . Mental Status Exam Mental Status Exam Narrative: disheveled, long white hair. cooperative no PMA/PMR. speech incr amount, incr rate, nml loudness. decr latency. thoughts circumstantial to tangential. confabulation. affect flexible, normo-intense, non-labile. mood improved. no SI/SIBI/HI/AVH expressed. Diagnostics Vital Signs (24Hr): Vital Signs - 24 hr 05/12/25 19:55 05/13/25 07:35 Temperature 97.6 F 97.4 F Pulse Rate 80 97 Respiratory Rate 16 Blood Pressure 128/62 115/71 Pulse Oximetry 98 96 Oxygen Delivery Method Room Air Room Air BMI result Body Mass Index 25.2 Labs 05/06/25 10:23 Imaging Radiology Impressions: ITS Impressions Head CT 05/09/25 14:59 IMPRESSION: 1. Age-indeterminate lacunar type infarct present in the right putamen nucleus. This could potentially be acute/subacute. 2. No intracranial hemorrhage or mass effect. No CT evidence of acute territorial infarct. 3. Moderate small vessel ischemic changes within the white matter. 4. 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 Electronically signed by: Jarrett Paz MD 05/09/2025 03:22 PM EDT Medications Medications Current Medications Acetaminophen (Acetaminophen 325 Mg Tablet) 650 mg PO Q6H PRN PRN Reason: Headache/Pain, Scale 1-10 Last Admin: 05/10/25 22:06 Dose: 650 mg Al Hydroxide/Mg Hydroxide (Magnesium Hydrox/Alum Hydrox 30 Ml Oral.Susp) 30 ml PO Q6H PRN PRN Reason: Heartburn/Nausea Donepezil HCl (Donepezil Hcl 5 Mg Tablet) 5 mg PO BEDTIME PEDRITO Last Admin: 05/12/25 22:29 Dose: 5 mg Hydroxyzine HCl (Hydroxyzine Hcl 25 Mg Tablet) 25 mg PO Q6H PRN On Hold: 05/07/25 10:13 PRN Reason: mild anxiety Last Admin: 05/07/25 05:03 Dose: 25 mg Magnesium Hydroxide (Milk Of Magnesia 30 Ml Oral.Susp) 30 ml PO DAILY PRN PRN Reason: Constipation Nicotine Polacrilex (Nicotine Polacrilex 2 Mg Gum) 4 mg BUCCAL Q2H PRN PRN Reason: Nicotine Cravings Quetiapine Fumarate (Quetiapine Fumarate 25 Mg Tablet) 12.5 mg PO Q4H PRN PRN Reason: anxiety Last Admin: 05/13/25 15:18 Dose: 12.5 mg Quetiapine Fumarate (Quetiapine Fumarate 25 Mg Tablet) 12.5 mg PO DAILY PEDRITO Last Admin: 05/13/25 08:17 Dose: 12.5 mg Quetiapine Fumarate (Quetiapine Fumarate 50 Mg Tablet) 150 mg PO BEDTIME PEDRITO Sertraline HCl (Sertraline Hcl 50 Mg Tablet) 50 mg PO DAILY PEDRITO Last Admin: 05/13/25 08:17 Dose: 50 mg Trazodone HCl (Trazodone Hcl 50 Mg Tablet) 50 mg PO BEDTIME PRN PRN Reason: Insomnia Last Admin: 05/11/25 21:57 Dose: 50 mg Trazodone HCl (Trazodone Hcl 50 Mg Tablet) 150 mg PO BEDTIME PEDRITO Last Admin: 05/12/25 22:30 Dose: 150 mg Allergies Allergies Allergy/AdvReac Type Severity Reaction Status Date / Time No Known Allergies Allergy Verified 05/05/25 17:00 Assessment & Plan Assessment & Plan (1) Cerebral microvascular disease: Status: Acute Code(s): I67.89 - Other cerebrovascular disease Assessment and Plan: likely hypertension related microvascular disease of brain. Mainstay of management is control of vascular risk factors including monitoring for hypertension and appropriate management, baby aspirin daily, and avoidance of chemical agents that could cause this kind of pathology such as alcohol and cocaine. (2) Major neurocognitive disorder due to multiple etiologies, with anxiety: Status: Acute Code(s): F02.84 - Dementia in other diseases classified elsewhere, unspecified severity, with anxiety (3) Anxiety disorder: Status: Acute Code(s): F41.9 - Anxiety disorder, unspecified Plan 05/06: start zoloft 50 mg daily for anxiety/depression. start seroquel 12.5 mg Q4H PRN anxiety. start trazodone 100 mg QHS for insomnia. R/O Bipolar Disorder. unlikely as pt has not been hospitalized since 1971 and not on any mood stabilizers for decades. eval cognition. pt likely has some degree of cognitive impairment. 05/07: MoCA 30, for moderate cognitive impairment. increase trazodone to 150 QHS for sleep. continue current mgmt otherwise. consider memantine/donepezil. 05/08: check ACLS. schedule seroquel 50 mg at HS to see if volubility and thought organization improve. otherwise continue current mgmt. 05/09: check ACLS. head CT to R/O stroke due to receptive aphasia. definitely less hyperverbal today. increase HS seroquel to 75 mg and schedule seroquel 12.5 mg TID at 0900, 1300, 1700. 05/10: seems somnolent with current dose of seroquel during the day. pattern of cognitive impairment may be mixed etiology AD/Vascular. start aricept 5mg po qhs. pending collateral information. seems less anxious. If possible complete ACL to assess functional cognitive and services that he may need to be safe in the community. 05/11: decrease seroquel to 12.5mg po daily, d/c other day time doses and continue night time. 05/12: see above for neuro consult recs. increase HS seroquel to 100 mg for sleep. ACL 4.2. continue current mgmt otherwise. 05/13: c/o disrupted sleep. increase seroquel to 150 mg QHS. otherwise continue current mgmt. start ASA per neuro rec. Reason for continued inpatient stay Substantial Risk for: inability to function Time Spent With Patient Time: Total time managing care of this patient today __25__ minutes.
[2025-05-13 20:00] VITALS: BP 148/78; PULSE 97; RESP 16; TEMP 36.8; O2SAT 97
[2025-05-14 07:42] VITALS: BP 105/60; PULSE 87; RESP 17; TEMP 36.3; O2SAT 96
--- NOTE | 2025-05-14 13:16 | HO.PSYCHPN ---
Subjective Subjective Date of Service: 05/14/25 Reason For Visit: adjustment disorder with anxiety Interim History: Active on unit. social with peers. attending groups. medication compliant. presents with rapid speech, hyperverbal. circumstantial. Patient reports feeling fine today; denies SI/HI/VH/AH. per nursing, pt slept 8 hours last night. continue current tx plan. Medication Compliance: Yes Side effects from medications: No Attending Groups: Yes Mental Status Exam Mental Status Exam Patient Appearance: Disheveled Patient Orientation: Person, Place, Time and Situation Level of Consciousness: Awake and Alert Patient Behavior: Talkative, Cooperative and Good Eye Contact Mood Description: Calm Affect Description: Calm Ability to Follow Directions: Good Speech Pattern: Clear and Rapid Hallucinations: None Delusions: Not Present Thought Process: Racing Thought Content: positive for Circumstantial Diagnostics Vital Signs (24Hr): Vital Signs - 24 hr 05/13/25 20:00 05/14/25 07:42 Temperature 98.2 F 97.4 F Pulse Rate 97 87 Respiratory Rate 16 17 Blood Pressure 148/78 H 105/60 Pulse Oximetry 97 96 Oxygen Delivery Method Room Air Room Air BMI result Body Mass Index 25.2 Labs 05/06/25 10:23 Imaging Radiology Impressions: ITS Impressions Head CT 05/09/25 14:59 IMPRESSION: 1. Age-indeterminate lacunar type infarct present in the right putamen nucleus. This could potentially be acute/subacute. 2. No intracranial hemorrhage or mass effect. No CT evidence of acute territorial infarct. 3. Moderate small vessel ischemic changes within the white matter. 4. 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 Electronically signed by: Jarrett Paz MD 05/09/2025 03:22 PM EDT Medications Medications Current Medications Acetaminophen (Acetaminophen 325 Mg Tablet) 650 mg PO Q6H PRN PRN Reason: Headache/Pain, Scale 1-10 Last Admin: 05/10/25 22:06 Dose: 650 mg Al Hydroxide/Mg Hydroxide (Magnesium Hydrox/Alum Hydrox 30 Ml Oral.Susp) 30 ml PO Q6H PRN PRN Reason: Heartburn/Nausea Aspirin (Aspirin 81 Mg Tab.Chew) 81 mg PO DAILY REPLACED BY [facility] Last Admin: 05/14/25 09:14 Dose: 81 mg Donepezil HCl (Donepezil Hcl 5 Mg Tablet) 5 mg PO BEDTIME REPLACED BY [facility] Last Admin: 05/13/25 22:14 Dose: 5 mg Hydroxyzine HCl (Hydroxyzine Hcl 25 Mg Tablet) 25 mg PO Q6H PRN On Hold: 05/07/25 10:13 PRN Reason: mild anxiety Last Admin: 05/07/25 05:03 Dose: 25 mg Magnesium Hydroxide (Milk Of Magnesia 30 Ml Oral.Susp) 30 ml PO DAILY PRN PRN Reason: Constipation Nicotine Polacrilex (Nicotine Polacrilex 2 Mg Gum) 4 mg BUCCAL Q2H PRN PRN Reason: Nicotine Cravings Quetiapine Fumarate (Quetiapine Fumarate 25 Mg Tablet) 12.5 mg PO Q4H PRN PRN Reason: anxiety Last Admin: 05/13/25 15:18 Dose: 12.5 mg Quetiapine Fumarate (Quetiapine Fumarate 25 Mg Tablet) 12.5 mg PO DAILY REPLACED BY [facility] Last Admin: 05/14/25 09:13 Dose: 12.5 mg Quetiapine Fumarate (Quetiapine Fumarate 50 Mg Tablet) 150 mg PO BEDTIME PEDRITO Last Admin: 05/13/25 22:13 Dose: 150 mg Sertraline HCl (Sertraline Hcl 50 Mg Tablet) 50 mg PO DAILY PEDRITO Last Admin: 05/14/25 09:15 Dose: 50 mg Trazodone HCl (Trazodone Hcl 50 Mg Tablet) 50 mg PO BEDTIME PRN PRN Reason: Insomnia Last Admin: 05/11/25 21:57 Dose: 50 mg Trazodone HCl (Trazodone Hcl 50 Mg Tablet) 150 mg PO BEDTIME PEDRITO Last Admin: 05/13/25 22:13 Dose: 150 mg Allergies Allergies Allergy/AdvReac Type Severity Reaction Status Date / Time No Known Allergies Allergy Verified 05/05/25 17:00 Assessment & Plan Assessment & Plan (1) Cerebral microvascular disease: Status: Acute Code(s): I67.89 - Other cerebrovascular disease Assessment and Plan: likely hypertension related microvascular disease of brain. Mainstay of management is control of vascular risk factors including monitoring for hypertension and appropriate management, baby aspirin daily, and avoidance of chemical agents that could cause this kind of pathology such as alcohol and cocaine. (2) Major neurocognitive disorder due to multiple etiologies, with anxiety: Status: Acute Code(s): F02.84 - Dementia in other diseases classified elsewhere, unspecified severity, with anxiety (3) Anxiety disorder: Status: Acute Code(s): F41.9 - Anxiety disorder, unspecified Plan 05/06: start zoloft 50 mg daily for anxiety/depression. start seroquel 12.5 mg Q4H PRN anxiety. start trazodone 100 mg QHS for insomnia. R/O Bipolar Disorder. unlikely as pt has not been hospitalized since 1971 and not on any mood stabilizers for decades. eval cognition. pt likely has some degree of cognitive impairment. 05/07: MoCA , for moderate cognitive impairment. increase trazodone to 150 QHS for sleep. continue current mgmt otherwise. consider memantine/donepezil. 05/08: check ACLS. schedule seroquel 50 mg at HS to see if volubility and thought organization improve. otherwise continue current mgmt. 05/09: check ACLS. head CT to R/O stroke due to receptive aphasia. definitely less hyperverbal today. increase HS seroquel to 75 mg and schedule seroquel 12.5 mg TID at 0900, 1300, 1700. 05/10: seems somnolent with current dose of seroquel during the day. pattern of cognitive impairment may be mixed etiology AD/Vascular. start aricept 5mg po qhs. pending collateral information. seems less anxious. If possible complete ACL to assess functional cognitive and services that he may need to be safe in the community. 05/11: decrease seroquel to 12.5mg po daily, d/c other day time doses and continue night time. 05/12: see above for neuro consult recs. increase HS seroquel to 100 mg for sleep. ACL 4.2. continue current mgmt otherwise. 05/13: c/o disrupted sleep. increase seroquel to 150 mg QHS. otherwise continue current mgmt. start ASA per neuro rec. 05/14: Active on unit. social with peers. attending groups. medication compliant. presents with rapid speech, hyperverbal. circumstantial. Patient reports feeling fine today; denies SI/HI/VH/AH. per nursing, pt slept 8 hours last night. continue current tx plan. Patient educated on: diagnosis and medication risk/benefits Reason for continued inpatient stay Substantial Risk for: med/psych decompensation Time Spent With Patient Time: Total time managing care of this patient today _15___ minutes.
[2025-05-14 20:00] VITALS: BP 129/64; PULSE 100; RESP 16; TEMP 36.4; O2SAT 97
[2025-05-15 07:00] VITALS: BMI 25.2
[2025-05-15 07:45] VITALS: BP 138/60; PULSE 98; RESP 16; TEMP 36.4; O2SAT 96
--- NOTE | 2025-05-15 10:08 | PM.PSYDC ---
DS: Providers Provider Date of Service: 05/15/25 Date of admission: 05/05/25 16:50 Date of discharge: 05/15/25 Primary care physician: Unknown Physician Consults: 05/05/25 17:00 Consult to Hospitalist Routine Comment: [place]ing [place] [facility] Reason For Exam: Transfer pt 05/10/25 14:14 Consult to Neurology Routine Consulting Provider: [facility] Reason for consultation: ? acute/subacute R putamen nucleus infarct head CT Has provider been notified: Yes DS: Diagnosis Discharge Diagnosis (1) Cerebral microvascular disease: Status: Acute (2) Major neurocognitive disorder due to multiple etiologies, with anxiety: Status: Acute (3) Anxiety disorder: Status: Acute DS: Medications Discharge Medications Home Medications: Previous Rx's ?Medication ?Instructions ?Recorded aspirin 81 mg chewable tablet 81 mg PO DAILY 30 days #30 tabs 05/15/25 donepezil 5 mg tablet 5 mg PO BEDTIME 30 days #30 tabs 05/15/25 quetiapine 25 mg tablet See Rx Instructions .Route 05/15/25 .COMPLEX 30 days #60 tabs quetiapine 50 mg tablet 150 mg (3 x 50 mg) PO BEDTIME 30 05/15/25 days #90 tabs sertraline 50 mg tablet 50 mg PO DAILY 30 days #30 tabs 05/15/25 trazodone 50 mg tablet 150 mg (3 x 50 mg) PO BEDTIME 30 05/15/25 days #90 tabs Mental Status Exam Mental Status Exam Narrative: disheveled, long white hair. cooperative no PMA/PMR. speech incr amount, incr rate, nml loudness. decr latency. thoughts circumstantial to tangential. confabulation. affect flexible, normo-intense, non-labile. mood i'm happy. no SI/SIBI/HI/AVH. Data Data Completed and Pending Completed studies during hospitalization [Text1]: 05/06/25 16:45 Urine clean catch - Clean Catch Midstream Urine Culture - Final No growth. Imaging Diagnostic Imaging Impressions Head CT 05/09/25 14:59 IMPRESSION: 1. Age-indeterminate lacunar type infarct present in the right putamen nucleus. This could potentially be acute/subacute. 2. No intracranial hemorrhage or mass effect. No CT evidence of acute territorial infarct. 3. Moderate small vessel ischemic changes within the white matter. 4. 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 on presentation, pt c/o depression, lack of psych meds for months. no SI/HI. pt reported he had not slept for 2 nights and was experiencing severe anxiety. he reported amotivation and empty feeling. [place] [facility] is hyperverbal and slightly disorganized and hard to follow. he reports he has a poor memory and he clearly struggles to recall biographical facts. he identifies as target Sx said memory deficits, anxiety, and insomnia. he s agreeable to trial of zoloft for depression/anxiety, seroquel PRNs for acute anxiety, and trazodone for insomnia. in addition, he is agreeable to MoCA for cognitive screening. Past Psychiatric History: hosps: IOL for 1.5 years in 1971 SA: denies SIB: denies outpt: sporadic throughout his life. some in the past 5-10 years. reports someone from was prescribing for him. Medical Evaluation Reviewed: Yes COUNT INCLUDES THE [facility] Narrative: Carpal Tunnel Syndrome Family History: brother - h/o psychiatric hospitalization, pt does not know the diagnosis Social History: lives with and their pets in [place]. has SSI income. 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 Substance History: denies use of all substances of abuse Trauma History: denies Precis: 05/06: start zoloft 50 mg daily for anxiety/depression. start seroquel 12.5 mg Q4H PRN anxiety. start trazodone 100 mg QHS for insomnia. R/O Bipolar Disorder. unlikely as pt has not been hospitalized since 1971 and not on any mood stabilizers for decades. eval cognition. pt likely has some degree of cognitive impairment. 05/07: MoCA 16/30, for moderate cognitive impairment. increase trazodone to 150 QHS for sleep. continue current mgmt otherwise. consider memantine/donepezil. 05/08: check ACLS. schedule seroquel 50 mg at HS to see if volubility and thought organization improve. otherwise continue current mgmt. 05/09: check ACLS. head CT to R/O stroke due to receptive aphasia. definitely less hyperverbal today. increase HS seroquel to 75 mg and schedule seroquel 12.5 mg TID at 0900, 1300, 1700. 05/10: seems somnolent with current dose of seroquel during the day. pattern of cognitive impairment may be mixed etiology AD/Vascular. start aricept 5mg po qhs. pending collateral information. seems less anxious. If possible complete ACL to assess functional cognitive and services that he may need to be safe in the community. 05/11: decrease seroquel to 12.5mg po daily, d/c other day time doses and continue night time. 05/12: see above for neuro consult recs. increase HS seroquel to 100 mg for sleep. ACL 4.2. continue current mgmt otherwise. 05/13: c/o disrupted sleep. increase seroquel to 150 mg QHS. otherwise continue current mgmt. start ASA per neuro rec. 05/14: Active on unit. social with peers. attending groups. medication compliant. presents with rapid speech, hyperverbal. circumstantial. Patient reports feeling fine today; denies SI/HI/VH/AH. per nursing, pt slept 8 hours last night. continue current tx plan. 05/15: safe, stable. slept well. meds reviewed, reconciled, prescribed. discharged to outpt care as per plan. Time Spent with Patient Time attestation: Total time managing care of this patient today __35__ minutes. Discharge Plan Discharge Anticipated Discharge Date/Time: 05/15/25 10:05 Patient Disposition: Home, Self-Care Discharge Diagnosis: Major Neurocognitive Disorder Cerebral Microvascular Disease Anxiety Disorder Referrals: [facility] walk in clinic [Other] - 1 Week Referral Note: walk in hours are Monday-Monday 8am-8pm Please bring your discharge paperwork, ID and insurance card. [facility] [Provider Group] - 1 Week Referral Note: 05-13-25 [facility] was added to patients chart. Please call [phone] to schedule a follow up appt within 7-10 days of discharge. Discharge Medications: New quetiapine 25 mg Tablet See Rx Instructions .ROUTE .COMPLEX 30 Days Qty: 60 0RF Rx Instructions: take one half tab daily in the morning and one half tab three times a day as needed for anxiety. donepezil 5 mg Tablet 5 mg PO BEDTIME 30 Days Qty: 30 0RF trazodone 50 mg Tablet 150 mg PO BEDTIME 30 Days Qty: 90 0RF aspirin 81 mg Tablet,Chewable 81 mg PO DAILY 30 Days Qty: 30 0RF sertraline 50 mg Tablet 50 mg PO DAILY 30 Days Qty: 30 0RF quetiapine 50 mg Tablet 150 mg PO BEDTIME 30 Days Qty: 90 0RF Discharge Orders: Discharge Order (Routine); Ordered 05/15/25 Ordered By: Schuyler Smith Diet: Advance to usual diet Activity on Discharge: As tolerated Stand Alone Forms: Patient Portal Discharge page, Community Support Print Language: Berm[place] Care Plan Goals: remain safe and stable in the outpatient treatment setting Health Concerns: Major Neurocognitive Disorder Cerebral Microvascular Disease Plan of Treatment: take medications as prescribed, establish mental health services in your area Assessment: not at imminent risk of harm to self or others Discharge Date/Time: 05/15/25 10:57
== END 2025-05-15 10:57 | disposition home or self-care (01) | DRG 884 ==
LOC: HO.PM5 05-06 07:23 → HO.PADLT16 05-06 11:52
PROVIDERS: Clinical Nurse Specialist Psychiatric/Mental Health, Adult; Nurse Practitioner Family; Admitting Provider Psychiatry & Neurology Psychiatry; Visit Provider Psychiatry & Neurology Psychiatry
DX: F03.94 Unspecified dementia, unspecified severity, with anxiety (principal); Z79.82 Long term (current) use of aspirin; Z79.899 Other long term (current) drug therapy
CPT/HCPCS: 36415; 70450; 80048; 80061; 82607; 82746; 83036; 83735; 84153; 84439; 84443; 87086

== ENCOUNTER 2025-05-05 16:50 | Outpatient (BNV) | payer MEDICARE, SELFPAY | END 2025-05-09 14:59 | PROVIDERS: Admitting Provider Psychiatry & Neurology Psychiatry; Visit Provider Radiology Diagnostic Radiology | DX: I63.81 Other cerebral infarction due to occlusion or stenosis of small artery (principal) | CPT/HCPCS: 70450 ==

== ENCOUNTER → 2025-05-05 16:50 | Outpatient (BNV) | payer MEDICARE, SELFPAY | PROVIDERS: Admitting Provider Psychiatry & Neurology Psychiatry; Visit Provider Psychiatry & Neurology Psychiatry | DX: F41.9 Anxiety disorder, unspecified (principal) | CPT/HCPCS: 90792; 99232 ==

== ENCOUNTER → 2025-05-05 16:50 | Outpatient (BNV) | payer MEDICARE, SELFPAY | PROVIDERS: Admitting Provider Psychiatry & Neurology Psychiatry; Visit Provider Psychiatry & Neurology Neurology | DX: I67.89 Other cerebrovascular disease (principal) | CPT/HCPCS: 99222 ==

== ENCOUNTER → 2025-05-05 16:50 | Outpatient (BNV) | payer MEDICARE, SELFPAY | PROVIDERS: Admitting Provider Psychiatry & Neurology Psychiatry; Visit Provider Nurse Practitioner Family | DX: F41.9 Anxiety disorder, unspecified (principal) | CPT/HCPCS: 99221 ==

== ENCOUNTER 2025-07-30 10:47 | Inpatient (IN) | payer MEDICARE, SELFPAY ==
--- OUTSIDE RECORDS SUMMARY | 2025-07-28 18:28 | XMS_ITS | Encounter Summary ---
Author Organization [facility] Address [address] [place] [id number] Phone Care Team Providers Care Transfer Driver Name Role Phone Ingris Horn MD Primary Care Provid er Reason for Visit * Reason Comments Numbness Headache Fatigue Abdominal Pain Encounter Details Date Type Department Care Team ([facility] Contact Info) Description 07/28/2025 6:28 PM EDT - 07/28/2025 7:09 PM EDT Emergency [facility] [address] [place] [address] Discharge Disposition: Home or Self Care Social History Tobacco Use Types Packs/Day Years Used Date Smoking Tobacco: Never Smokeless Tobacco: Never Alcohol Use Standard Drinks/Week Comments Not Currently 0 (1 standard drink = 0.6 oz pur e alcohol) Education Answer Date Recorded Are you interested in more education? Not on freida e 05/02/2025 Are you concerned about learning? Not on file 05/02/2025 No 05/02/2025 No 05/02/2025 Food Answer Date Recorded Within the past 6 months we worried whether our food would run out before we got money to buy more. Never True 07/28/2025 Within the past 6 months the food we bought just didn't last and we didn't have enough money to get more. Never True Residential Stability Answer Date Recor ded What is your housing situation today? I have figueroa sing 07/28/2025 How many times have you move d in the past 12 months? Zero (I did not move) 07/28/2025 Paying for Meds Answer Date Recorded Do you have trouble paying for medicines? No 07/28/2025 Paying Utility Bills Answer Date Record ed Do you have trouble paying your heating or elect ricity bill? No 07/28/2025 Transportation Answer Date Recorded Has the lack of transportati on kept you from medical appointments or from getting medications? No 07/28/2025 Digital Access Answer Date Recorded No 07/28/2025 No 07/28/2025 Do you have reliable internet access at home? Un able to assess 07/28/2025 Do you have a device (e.g., phone, tablet, computer) with a working camera? Unable to assess 07/28/2025 Intimate Partner Violence Answer Date R ecorded Are you denied basic needs s uch as food, clothing, or medical care? No 07/28/2025 In the past 12 months have y ou been in a relationship with a person who hurts, threatens, or tries to control you? No 07/28/2025 Are you denied basic needs s uch as food, clothing, or medical care? No 07/28/2025 In the past 12 months have y ou been in a relationship with a person who hurts, threatens, or tries to control you? No 07/28/2025 Sex and Gender Information Value Date Recorded Sex Assigned at Male 06/04/2025 2:47 PM EDT Legal Sex Male 10:01 PM EDT Gender Identity Male 06/04/2025 2:47 PM EDT Sexual Orientation Straight 06/04/2025 2: 47 PM EDT documented as of this encounter Last Filed Vital Signs Vital Sign Reading Time Taken Comments Blood Pressure 138/86 07/28/2025 7:08 PM EDT Pulse 74 07/28/2025 7:08 PM EDT Temperature 36.3 C (97.3 F) 07/28/2025 7:08 PM EDT Respiratory Rate 16 07/28/2025 7:08 PM EDT Oxygen Saturation 98% 07/28/2025 7:08 PM EDT Inhaled Oxygen Concentration - - Weight - - Height - - Body Mass Index - - documented in this encounter Functional Status * Calculated C-SSRS Risk Score (Lifetime/Recent) Answer Date of Assessment Author No Risk Indicated 07/28/2025 11:41 AM EDT Magaly Zuniga RN * [place] Suicide Severity Rating Scale (Screener/Recent Self-Report) Question Answer Date of Assessment Author 1. Wish to be (Past 1 Month) No 07/28/2025 11:41 AM EDT Magaly Zuniga RN 2. Non-Specific Active Suici doris Thoughts (Past 1 Month) No 07/28/2025 11:41 AM EDT Brit Zuniga RN 6. Suicidal Behavior (Lifetime) No 11:41 AM EDT Magaly Zuniga RN documented as of this encounter Discharge Instructions * Discharge Instructions* Terrell Tripp PA-C - 07/28/2025 6:56 PM EDT An order for case management to call you was placed. If you care not contacted you can contact the hospital at the number on the discharge paperwork. * Attachments The following attachments cannot be sent through Care Everywhere. * Diarrhea (Northern Irish) * Memory Problems (PCOI) documented in this encounter Medications at Time of Discharge cholecalciferol (VITAMIN D3) 2,000 unit tablet Take 1 tablet (2,000 Units total) by mouth daily. 30 tablet 2 06/25/2025 docusate sodium (COLACE) 100 MG capsule Take 1 capsule (100 mg total) by mouth 2 (two) times a day. 60 capsule 2 06/25/2025 donepeziL (ARICEPT) 10 MG tablet Take 1 tablet (10 mg total) by mouth nightly at bedtime. 30 tablet 2 06/25/2025 lidocaine 4 % Place 1 patch onto the skin daily as needed for other (free text field) (Lower back pain). 30 patch 2 06/25/2025 QUEtiapine (SEROQUEL) 25 MG tabletIndication s:Severe episode of recurrent major depressive disorder, without psychotic features Take 0.5 tablets (12.5 mg total) by mouth daily with breakfast. Can take an additional 0.5 tablets (12.5 mg total) by mouth daily as needed for anxiety. 30 tablet 2 07/01/2025 QUEtiapine (SEROQUEL) 50 MG tabletIndication s:Severe episode of recurrent major depressive disorder, without psychotic features Take 3 tablets (150 mg total) by mouth nightly at bedtime. 90 tablet 2 07/01/2025 senna (SENOKOT) 8.6 mg tablet Take 2 tablets by mouth nightly at bedtime. 60 tablet 2 06/25/2025 sertraline (ZOLOFT) 100 MG tablet Take 1 tablet (100 mg total) by mouth every morning. 30 tablet 2 06/25/2025 traZODone (DESYREL) 50 MG tabletIndication s:Severe episode of recurrent major depressive disorder, without psychotic features Take 3 tablets (150 mg total) by mouth nightly at bedtime. 90 tablet 2 07/01/2025 documented as of this encounter ED Notes * Milla Lewis RN - 07/28/2025 7:09 PM EDT ED Discharge Nursing Note Reviewed D/C instructions with Pt. Pt verbalized understanding. Pt ambulated out of department withsteady gait. * Magaly Zuniga RN - 07/28/2025 11:38 AM EDT Patient states that he is having heaviness in his head and numbness all over and confusion. Patientalso fatigued and not sleeping well, patient states that he has been in for this before and seen [facility] as well. Also having abdominal pain off and on that he states he is concerned about because he does not have teeth so he cannot digest food as well. Patient states that in April he started having on and off memory issues. The numbness is in bilateral arms and legs. Moving all extremities equally * Terrell Tripp PA-C - 07/28/2025 11:35 AM EDT Chief Complaint Chief Complaint Patient presents with Numbness Headache Fatigue Abdominal Pain History of Present Illness The patient, León Marquez,is a 75 y.o. male who presents for evaluation of Numbness, Headache,Fatigue, and Abdominal Pain The patient presents with multiple complaints, states he is having heaviness in his head and numbness all over and confusion. The symptoms have been going on for many months and he has been seen at several different hospitals including here and at [facility] concerning the symptoms. He has been told to follow-up outpatient, he had also had a few inpatient stays at psychiatric facilities that [facility] and upstairs here. He is denying any suicidal or homicidal ideation but hedoes have bouts of insomnia, also complaining of intermittent bouts of abdominal pain and diarrhea that have been ongoing for some time, he has only 3 teeth left and the food he can eat does not substantial in nature. He does have an appointment next week with dentist/oral surgeon. He is currently living with his brother due to a divorce, he is having trouble caring for himself but his brother isassisting him. There is currently a plan in the works for him to get residence at a [facility] but that has not gone through yet. Patient states that he does not feel he is at risk for falling or accidentally harming himself due to his memory issues. Unless otherwise specified, I have reviewed and agree with the triage and nursing notes. ROS A ten point review of systems was negative except what was noted in the HPI. Review of Systems Past Medical History Past Medical History: Diagnosis Date Generalized anxiety disorder Past Surgical History Past Surgical History: Procedure Laterality Date KIDNEY SURGERY UNCODED SURGICAL HISTORY appdx Home Medications Prior to Admission medications Medication Sig cholecalciferol (VITAMIN D3) 2,000 unit tablet 2,000 Units, Oral, Daily docusate sodium (COLACE) 100 MG capsule 100 mg, Oral, 2 times daily donepeziL (ARICEPT) 10 MG tablet 10 mg, Oral, Nightly lidocaine 4 % 1 patch, Transdermal, Daily as needed QUEtiapine (SEROQUEL) 25 MG tablet 12.5 mg, Oral, Daily with breakfast, Can take an additional 0.5 tablets (12.5 mg total) by mouth daily as needed for anxiety. QUEtiapine (SEROQUEL) 50 MG tablet 150 mg, Oral, Nightly senna (SENOKOT) 8.6 mg tablet 2 tablets, Oral, Nightly sertraline (ZOLOFT) 100 MG tablet 100 mg, Oral, Every morning traZODone (DESYREL) 50 MG tablet 150 mg, Oral, Nightly Allergies No Known Allergies Social and Family History Social History Tobacco Use Smoking status: Never Smokeless tobacco: Never Substance Use Topics Alcohol use: Not Currently Social History Substance and Sexual Activity Drug Use Never No family history on file. Physical Exam Vital Signs: ED Triage Vitals Encounter Vitals Group BP 07/28/25 1138 (!) 154/78 Systolic BP Percentile -- Diastolic BP Percentile -- Heart Rate 07/28/25 1138 75 Respiratory Rate 07/28/25 1138 18 Temperature 07/28/25 1138 36.4 ??C (97.5 ??F) Temp Source 07/28/25 1428 Temporal SpO2 07/28/25 1138 98 % Physical Exam Constitutional: Appearance: He is well-developed. HENT: Head: Normocephalic. Eyes: Extraocular Movements: Extraocular movements intact. Pupils: Pupils are equal, round, and reactive to light. Neck: Trachea: No tracheal deviation. Cardiovascular: Rate and Rhythm: Normal rate. Pulmonary: Effort: Pulmonary effort is normal. No respiratory distress. Breath sounds: Normal breath sounds. Abdominal: Palpations: Abdomen is soft. Tenderness: There is no abdominal tenderness. Musculoskeletal: General: No deformity. Normal range of motion. Cervical back: Normal range of motion. Skin: General: Skin is warm and dry. Neurological: General: No focal deficit present. Mental Status: He is alert and oriented to person, place, and time. Cranial Nerves: No cranial nerve deficit. Coordination: Coordination normal. Laboratory Testing Results for orders placed or performed during the hospital encounter of 07/28/25 ECG 12-LEAD Result Value Ref Range Ventricular Rate EKG/MIN 78 BPM Atrial Rate 78 BPM ME Interval 206 ms QRS Duration 110 ms QT Interval 382 ms QTC Interval 435 ms P Savanna 43 degrees R Wave [place] -2 degrees T Wave [place] 48 degrees Lipase Specimen: Blood Result Value Ref Range LIPASE 53 16 - 63 U/L LFTs (hepatic panel) Specimen: Blood Result Value Ref Range ALKALINE PHOSPHATASE 84 39 - 117 U/L TOTAL BILIRUBIN 0.4 0.0 - 1.2 mg/dL DIRECT BILIRUBIN 0.1 0.0 - 0.2 mg/dL Bilirubin (Indirect) NOT CALCULATED 0 - 1.5 mg/dL AST 21 0 - 37 U/L ALT 16 0 - 40 U/L TOTAL PROTEIN 7.9 6.5 - 8.0 g/dL ALBUMIN 4.5 3.9 - 4.8 g/dL GLOBULIN 3.4 1 - 4.8 g/dL A/G Ratio 1.32 1.00 - 4.80 RATIO Basic metabolic panel Specimen: Blood Result Value Ref Range SODIUM 138 133 - 146 mmol/L CHLORIDE 104 96 - 108 mmol/L POTASSIUM 4.6 3.3 - 5.1 mmol/L CO2 24 21 - 35 mmol/L BUN 15 6 - 19 mg/dL CREATININE 0.70 0.5 - 1.5 mg/dL GLUCOSE 106 (H) 70 - 99 mg/dL CALCIUM 9.7 8.4 - 10.3 mg/dL EGFR 97 >59 mL/min/1.73m2 ANION GAP 15 10 - 20 mmol/L CBC and differential Specimen: Blood Result Value Ref Range WBC 6.81 4.00 - 11.00 K/uL RBC 4.65 4.50 - 5.90 M/uL HGB 14.0 13.5 - 17.5 g/dL HCT 43.6 41.0 - 53.0 % PLT 242 150 - 450 K/uL MCV 93.8 80.0 - 100.0 fL MCH 30.1 27.0 - 31.0 pg MCHC 32.1 32.0 - 36.0 g/dL RDW 14.9 (H) 11.5 - 14.5 % MPV 8.6 8.4 - 12.0 fL NRBC 0.00 0.00 /100 WBCs ABSOLUTE NRBC 0.00 0.00 K/uL DIFF METHOD Auto NEUTS 63.8 48.0 - 76.0 % LYMPHS 25.8 18.0 - 41.0 % MONOS 7.6 4.0 - 11.0 % EOS 1.8 0.0 - 5.0 % BASOS 0.9 0.0 - 1.5 % Granulocytes, immature (%) 0.1 0.0 - 0.9 % ABSOLUTE NEUTS 4.34 1.92 - 7.60 K/uL ABSOLUTE LYMPHS 1.76 0.72 - 4.10 K/uL ABSOLUTE MONOS 0.52 0.16 - 1.10 K/uL ABSOLUTE EOS 0.12 0.00 - 0.50 K/uL ABSOLUTE BASOS 0.06 0.00 - 0.15 K/uL Granulocytes, immature 0.01 0.00 - 0.09 K/uL Radiology Testing No orders to display [facility] Assessment and Plan: Patient evaluated for multiple complaints, concerns of memory issues and difficulty caring for himself thought the moment his housing situation is with his brother and his brother is assisting. Has had abdominal pain nausea and vomiting but this has been going on for months. He is afebrile and hemod ynamically stable here. His neurological and physical exams are reassuring with unremarkable, no focal deficits, no abdominal tenderness. Labs obtained were all within normal limits. Have several appointments coming up with his primary care and with oral surgery. He has had workups that other hospitals concerning the symptoms he is having today with no acute medical findings. Patient does feel safe going home with his brother, does not feel he would injure himself or be at risk for falls. We did discuss having case management contact him in to see if there are any other resources he may benefit from case management is not available at this time of the evening. Discharged in stable condition Attestation: Terrell Moreno PA-C, have seen this patient independently. This is a PA only visit Category 2 and 3: Independent Interpretation of Tests, Consideration of Tests, or External Discussion of Results: ECG: EKG studies were independently interpreted. Rate: 78 Rhythm: sinus rhythm T Wave Inversions: No ST Depressions: No ST Elevations: No Clinical Impressions as of 07/28/251907 Memory change Diarrhea, unspecified type Clinical Impression Diagnosis Description Comment Final diagnoses Memory change Memory change -- Diarrhea, unspecified type Diarrhea, unspecified type -- Disposition: Discharge Terrell Tripp PA-C 07/28/251911 documented in this encounter Plan of Treatment Not on file documented as of this encounter Procedures Procedure Name Priority Date/Time Associated Diagnosis Comments LFTS (HEPATIC PANEL) STAT 07/28/2025 12:18 PM EDT CBC AND DIFFERENTIAL STAT 07/28/2025 12:18 PM EDT LIPASE STAT 07/28/2025 12:18 PM EDT BASIC METABOLIC PANEL STAT 07/28/2025 12:18 PM EDT ECG 12-LEAD STAT 07/28/2025 11:47 AM EDT documented in this encounter Results * Lipase (07/28/2025 12:18 PM EDT) LIPASE 53 16 - 63 U/L [facility] Blood 07/28/2025 12:1 8 PM EDT 07/28/2025 12:27 PM EDT Wilmer Sterling MD LAB BLOOD ORDERABLES Final Result Performing Organization Address [facility] Co de Phone Number [address] [address] * LFTs (hepatic panel) (07/28/2025 12:18 PM EDT) ALKALINE PHOSPHATASE 84 39 - 117 U/L [facility] TOTAL BILIRUBIN 0.4 0.0 - 1.2 mg/dL [facility] DIRECT BILIRUBIN 0.1 0.0 - 0.2 mg/dL [facility] Bilirubin (Indirect) NOT CALCULATED 0 - 1.5 mg/dL [facility] AST 21 0 - 37 U/L [facility] ALT 16 0 - 40 U/L [facility] TOTAL PROTEIN 7.9 6.5 - 8.0 g/dL [facility] ALBUMIN 4.5 3.9 - 4.8 g/dL [facility] GLOBULIN 3.4 1 - 4.8 g/dL [facility] A/G Ratio 1.32 1.00 - 4.80 RATIO [facility] Blood 07/28/2025 12:1 8 PM EDT 07/28/2025 12:27 PM EDT us Wilmer Sterling MD LAB BLOOD ORDERABLES Final Result Performing Organization Address City/[facility] Co de Phone Number [address] [address] * (ABNORMAL) Basic metabolic panel (07/28/2025 12:18 PM EDT) SODIUM 138 133 - 146 mmol/L [facility] CHLORIDE 104 96 - 108 mmol/L [facility] POTASSIUM 4.6 3.3 - 5.1 mmol/L [facility] CO2 24 21 - 35 mmol/L [facility] BUN 15 6 - 19 mg/dL [facility] CREATININE 0.70 0.5 - 1.5 mg/dL [facility] GLUCOSE 106(H) 70 - 99 mg/dL [facility] CALCIUM 9.7 8.4 - 10.3 mg/dL [facility] EGFR 97 >59 mL/min/1.7 3m2 [facility] Comment:Estimated glomerular filtration rate calculated using the CKD-EPI refit equation. ANION GAP 15 10 - 20 mmol/L [facility] Blood 07/28/2025 12:1 8 PM EDT 07/28/2025 12:27 PM EDT us Wilmer Sterling MD LAB BLOOD ORDERABLES Final Result [address] [address] * (ABNORMAL) CBC and differential (07/28/2025 12:18 PM EDT) WBC 6.81 4.00 - 11.00 K/uL [facility] RBC 4.65 4.50 - 5.90 M/uL [facility] HGB 14.0 13.5 - 17.5 g/dL [facility] HCT 43.6 41.0 - 53.0 % [facility] PLT 242 150 - 450 K/uL [facility] MCV 93.8 80.0 - 100.0 fL [facility] MCH 30.1 27.0 - 31.0 pg [facility] MCHC 32.1 32.0 - 36.0 g/dL [facility] RDW 14.9(H) 11.5 - 14.5 % [facility] MPV 8.6 8.4 - 12.0 fL [facility] NRBC 0.00 0.00 /100 WBCs [facility] ABSOLUTE NRBC 0.00 0.00 K/uL [facility] DIFF METHOD Auto [facility] NEUTS 63.8 48.0 - 76.0 % [facility] LYMPHS 25.8 18.0 - 41.0 % [facility] MONOS 7.6 4.0 - 11.0 % [facility] EOS 1.8 0.0 - 5.0 % [facility] BASOS 0.9 0.0 - 1.5 % [facility] Granulocytes, immature (%) 0.1 0.0 - 0.9 % [facility] ABSOLUTE NEUTS 4.34 1.92 - 7.60 K/uL [facility] ABSOLUTE LYMPHS 1.76 0.72 - 4.10 K/uL [facility] ABSOLUTE MONOS 0.52 0.16 - 1.10 K/uL [facility] ABSOLUTE EOS 0.12 0.00 - 0.50 K/uL [facility] ABSOLUTE BASOS 0.06 0.00 - 0.15 K/uL [facility] Granulocytes, immature 0.01 0.00 - 0.09 K/uL [facility] Blood 07/28/2025 12:1 8 PM EDT 07/28/2025 12:27 PM EDT us Wilmer Sterling MD LAB BLOOD ORDERABLES Final Result Performing Organization Address City/State/[facility] Co de Phone Number [address] [address] * ECG 12-LEAD (07/28/2025 11:47 AM EDT) Ventricular Rate EKG/MIN 78 BPM [facility] Atrial Rate 78 BPM [facility] ME Interval 206 ms [facility] QRS Duration 110 ms [facility] QT Interval 382 ms [facility] QTC Interval 435 ms [facility] P [place] 43 degrees [facility] R Wave [place] -2 degrees [facility] T Wave [place] 48 degrees [facility] 07/28/2025 11:4 7 AM EDT 07/28/2025 1:26 PM EDT Narrative [facility] - 07/28/2025 1:26 PM EDT Normal sinus rhythm Possible Inferior infarct Abnormal ECG When compared with ECG of 30-May-2025 10:54, Significant changes have occurred Confirmed by Haseeb Roland ([id number]) on 07/28/2025 1:26:40 PM Wilmer Sterling MD ECG ORDERABLES Final Resul t EDWIN documented in this encounter Visit Diagnoses Diagnosis Memory change- Primary Memory loss Diarrhea, unspecified type documented in this encounter Administered Medications Inactive Administered Medications - up to 3 most recent administrations Medication Order MAR Action Action Date Dose Rate Site sodium chloride (NS) 0.9 % syringe flush 3 mL 3 mL, Intravenous, As needed, line care, Starting on Mon07/28/25 at 1143, Per Institutional IV Line Care Policy. documented in this encounter Active and Recently Administered Medications Times are shown in EDT. PRN Medication Order 07/26/2025 07/27/2025 07/28/2025 sodium chloride (NS) 0.9 % syringe flush 3 mL 3 mL, Intravenous, As needed, line care, Starting on Mon07/28/25 at 1143, Per Institutional IV Line Care Policy. documented in this encounter Care Teams Transfer Driver Relationship Specialty Start Date End Date Ingris Horn MD [address] [place] [address] PCP - General Family Medicine 05/29/25 documented as of this encounter Additional Source Comments The information contained in this document represents components of the legal health record. It is not the complete legal health record[facility]
--- NOTE | ~2025-07-30 | CT_ITS ---
EXAMINATION: CT HEAD WITHOUT CONTRAST CLINICAL INFORMATION: Rule out stroke. COMPARISON: 05/09/2025. TECHNIQUE: Contiguous axial imaging was performed from the skull base to vertex without intravenous administration of contrast. This CT examination was performed using dose optimization techniques as appropriate, variously including the following: *Automated exposure control *Adjustment of mA and/or kV according to patient size (this includes techniques or standardized protocols for targeted exams where dose is matched to indication/reason for exam; i.e. extremities or head) *Use of iterative reconstruction technique FINDINGS: There is no evidence of intracranial hemorrhage or extra-axial fluid collection. There is no mass effect, or edema. No CT evidence of acute territorial infarct. Ventricles, sulci, and cisterns are normal in size and configuration for patient age. No hydrocephalus. No midline shift. Negative hyperdense MCA sign. Negative insular ribbon sign. Patchy periventricular and deep white matter hypoattenuation is consistent with mild to moderate small vessel ischemic changes. 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 There is a small old infarct in the right parietal lobe. Globes and orbital contents image normally. No extracranial soft tissue abnormalities. Mild mucosal thickening present throughout the ethmoid and bilateral maxillary sinuses. The remainder of the paranasal sinuses are aerated normally. Mastoids and tympanic spaces are normally aerated. No suspicious bony abnormalities. There are no acute fractures evident. CT/CT head/brain wo IV con IMPRESSION: 1. No acute intracranial abnormality. 2. Mild to moderate small vessel ischemic changes within the white matter. 3. 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 4. Mild maxillary and ethmoid paranasal sinus disease. Electronically signed by: Jarrett Paz MD 08/06/2025 02:04 PM EDT
[2025-07-30 10:56] VITALS: BP 144/72; PULSE 72; RESP 16; TEMP 36.2; O2SAT 98; BMI 23.0
--- NOTE | 2025-07-30 11:03 | ED.GENADULT ---
HPI - General Adult General Chief complaint: Psychiatric Symptoms Stated complaint: psych eval Time Seen by Provider: 07/30/25 11:10 Source: patient Mode of arrival: ambulatory Limitations: no limitations History of Present Illness ED Provider: Elisha Hernandez PA-C HPI narrative: Patient is a 75 year old assigned male at with a history of anxiety, cerebral microvascular disease, and major neurocognitive disorder presenting to the emergency department today with increased depression. Patient states that he has been feeling more down as of lately. Patient denies any other complaints at this time. Related Data Home Medications ?Medication ?Instructions ?Recorded ?Confirmed donepezil 5 mg tablet 10 mg PO BEDTIME 07/30/25 07/30/25 potassium chloride 20 mEq 20 meq PO BID 07/30/25 07/30/25 tablet,extended release(part/cryst) quetiapine 25 mg tablet 25 mg PO DAILY 07/30/25 07/30/25 quetiapine 25 mg tablet 25 mg PO DAILY PRN Anxiety 07/30/25 07/30/25 sertraline 50 mg tablet 100 mg PO DAILY 07/30/25 07/30/25 Previous Rx's ?Medication ?Instructions ?Recorded quetiapine 50 mg tablet 150 mg (3 x 50 mg) PO BEDTIME 30 05/15/25 days #90 tabs trazodone 50 mg tablet 150 mg (3 x 50 mg) PO BEDTIME 30 05/15/25 days #90 tabs Allergies Allergy/AdvReac Type Severity Reaction Status Date / Time No Known Allergies Allergy Verified 07/30/25 11:00 Review of Systems Constitutional: Constitutional: Reports as per HPI Eyes: Eyes: Reports as per HPI ENT: Reports as per HPI Cardiovascular: Cardiovascular: Reports as per HPI Respiratory: Respiratory: Reports as per HPI Gastrointestinal: Gastrointestinal: Reports as per HPI Genitourinary: Genitourinary: Reports as per HPI Musculoskeletal: Musculoskeletal: Reports as per HPI Integumentary/Breasts: Skin/Breast: Reports as per HPI Neurologic: Reports as per HPI Psychiatric: Psychiatric: Reports as per HPI Endocrine: Endocrine: Reports as per HPI Hematologic/Lymphatic: Hematologic/Lymphatic: Reports as per HPI Allergic/Immunologic: Allergic/Immunologic: Reports as per HPI PMF Past Medical History Attestation statement: The following information was validated with the patient. Source: old records reviewed and nursing notes reviewed Medical History Anxiety Social History Social History Household Members: Family Housing: House Do you presently have visiting nurse or other home services: No Patient Tobacco Use Status: Never used Tobacco Smoked in Last 30 Days: No e-Cigarette/Vaping Use: Never Used Patient Interested in Nicotine Replacement: No Second Hand Smoke Exposure: No Use of substances other than those prescribed or required for medical reasons: No Have you been hit, kicked, punched, or otherwise hurt by someone within the past year? If so, by whom?: No Do you feel safe in your current relationship?: No Current Relationship Is there a partner from a previous relationship who is making you feel unsafe now?: No Are you made to feel afraid or neglected: No Advance Directives: Yes Advance Directives Information Provided: No Advance Directives on File: No Do you have a plan to hurt others: No Plan Recently lost weight without trying: Unsure How much weight loss: Not applicable Eating poorly because of decreased appetite: Yes Nutrition screen score: 3 Nutrition Risks: No Nutritional Risk Poor oral hygiene: No service: No Sexual orientation: Straight/Heterosexual Physical Exam ED Vital Signs: Vital Signs - 24 hr 07/30/25 18:11 07/31/25 06:22 Temperature 97.8 F 98.0 F Pulse Rate 99 71 Respiratory Rate 16 17 Blood Pressure 115/69 135/78 Pulse Oximetry 96 98 Oxygen Delivery Method Room Air Room Air BMI result Body Mass Index 23.0 Const General: cooperative, no acute distress, alert and awake Nutritional Appearance: well nourished Orientation/consciousness: patient oriented x3 HENMT Head: Yes normal to inspection and Yes atraumatic Ears: hearing grossly normal bilaterally and external ears normal General nose exam: Normal external nose present, no nasal discharge noted and no epistaxis Face and sinus: Yes normal facial exam, No abrasion and No laceration Mouth: Normal oral and palatal mucosa present, no drooling and no muffled voice Eyes General: appearance normal, both eyes and all related structures Periorbital: periorbital findings normal Eyelids: Yes eyelids normal Conjunctivae: conjunctivae normal Pupils: Equal, round and reactive pupils present EOM: EOMs intact bilaterally Neck Neck: Yes normal visual inspection and Yes full ROM Resp Effort & Inspection: normal respiratory effort and able to speak in complete sentences Neuro General: patient oriented x3, moves all extremities and CN's II-XI intact bilaterally Cranial nerves: Yes Equal, round and reactive pupils present Cognition (Neuro): normal cognition Extrem General: Yes normal to inspection, Yes full ROM and Yes capillary refill normal Psych Appearance: grossly normal Mental Status: mental status grossly normal Affect: Sad affect present and Anxious affect present Attitude: Guarded attititude/behavior present Course Course Course Narrative: RME: 75-year-old male presents to ED for increased depression and forgetful memories. Patient has had previous psych admissions in the past. Labs care team consult placed Reevaluation(s) Reevaluation #1: Time: 06:12 Date: 07/31/25 Provider: Suri Morrison DO Patient in physician observation for psychiatric evaluation.? No acute events reported overnight. No current complaints. VS stable.? Pending CARE team evaluation. Will continue to monitor. Reevaluation #2: Time: 17:08 Date: 07/31/25 Provider: Suri Morrison DO Physician observation ended at 1126am Patient to be admitted as inpatient to psychiatry. Medications Administered Generic Name Dose Route Start Last Admin Trade Name Freq PRN Reason Stop Dose Admin Donepezil HCl 10 mg 07/30/25 21:00 07/30/25 21:17 Donepezil Hcl 10 Mg Tablet PO 10 mg BEDTIME PEDRITO Administration Potassium Chloride 20 meq 07/30/25 21:00 07/31/25 08:05 Potassium Chloride Er 20 Meq Tab.Er.Prt PO 20 meq BID PEDRITO Administration Quetiapine Fumarate 25 mg 07/31/25 09:00 07/31/25 08:05 Quetiapine Fumarate 25 Mg Tablet PO 25 mg DAILY PEDRITO Administration Trazodone HCl 150 mg 07/30/25 21:00 07/30/25 21:17 Trazodone Hcl 50 Mg Tablet PO 150 mg BEDTIME PEDRITO Administration Discontinued Medications Generic Name Dose Route Start Last Admin Trade Name Freq PRN Reason Stop Dose Admin Influenza Virus Vaccine 0.5 ml 07/31/25 13:37 07/31/25 17:00 Flu Vacc [id number](6mo Up)/Pf 0.5 Ml Syringe IM 07/31/25 13:38 0.5 ml .ONCE ONE Administration Quetiapine Fumarate 150 mg 07/30/25 21:00 07/30/25 21:17 Quetiapine Fumarate 50 Mg Tablet PO 150 mg BEDTIME PEDRITO Administration Sertraline HCl 100 mg 07/31/25 09:00 07/31/25 08:05 Sertraline Hcl 100 Mg Tablet PO 100 mg DAILY PEDRITO Administration Medical Decision Making Medical Decision Making [facility] Narrative: Patient is a 75 year old assigned male at with a history of anxiety, cerebral microvascular disease, and major neurocognitive disorder presenting to the emergency department today with increased depression. Patient's physical exam was as noted in the physical exam portion of this note. Patient's blood work was unremarkable. Patient's urine showed no acute process. I explained my physical exam findings as well as all test results to the patient. I answered all questions asked by the patient. Patient placed in observation pending CARE team evaluation. Patient's disposition will be determined after CARE team evaluation. Differential Diagnosis Differential Diagnoses: The differential diagnosis associated with the presentation includes Depression SI Admission/Observation Consideration of admission/observation: Escalation of care including admission/observation considered Patient's disposition will be determined after CARE team evaluation. Lab Data [facility] Lab Attestation statement: I reviewed the patient's lab results. My interpretation of these results are in the MDM Rationale portion of this note. 07/30/25 12:01 07/30/25 12:01 Labs: Lab Results 07/30/25 Range/Units 12:01 WBC 7.8 (4.8-10.8) X10*3/uL RBC 4.46 L (4.60-5.80) X10*6/uL Hgb 13.8 L (14.0-18.0) g/dl Hct 41.3 L (42.0-52.0) % MCV 92.6 (80.0-98.0) fL MCH 30.9 (27.0-33.0) pg MCHC 33.4 (31.0-36.0) g/dl RDW 14.6 (11.0-16.0) % Plt Count 227 (160-400) X10*3/uL MPV 8.3 L (9.4-12.4) fL Immature Gran % (Auto) 0.4 (0.0-0.4) % Neut % (Auto) 72.8 (45-73) % Lymph % (Auto) 18.2 L (20-40) % [place] % (Auto) 6.0 (2-11) % Eos % (Auto) 1.8 (0-4) % Baso % (Auto) 0.8 (0-2) % Lymph # (Auto) 1.4 (1.2-4.9) X10*3/uL Union # (Auto) 0.5 (0.1-1.2) X10*3/uL Eos # (Auto) 0.1 (0.0-0.4) X10*3/uL Baso # (Auto) 0.1 (0.0-0.2) X10*3/uL Abs Immat Gran (auto) 0.03 (0.00-0.03) X10*3/uL Absolute Neuts (auto) 5.7 (2.0-8.3) x10*3/uL Absolute Nucleated RBC 0.000 (0.0-0.012) X10*3/uL Nucleated RBC % (auto) 0.0 (0.0-0.2) /100WBC Sodium 139 (135-145) mmol/L Potassium 4.2 (3.3-5.1) mmol/L Chloride 107 (96-108) mmol/L Carbon Dioxide 26 (22-29) mmol/L Anion Gap 10 L (12-20) BUN 14 (9-16) mg/dL Creatinine 0.82 (0.5-1.4) mg/dL Estim Creat Clear Calc 81.1 Estimated GFR > 60 Random Glucose 102 (60-115) mg/dL Calcium 9.7 (8.4-10.2) mg/dL Total Bilirubin 0.4 (0.0-1.0) mg/dL AST 21 (5-37) U/L ALT 18 (0-40) U/L Alkaline Phosphatase 77 (39-117) U/L Total Protein 7.7 (6.5-8.0) g/dL Albumin 4.5 (3.5-5.0) g/dL Urine Color Yellow Urine Appearance Clear Urine pH 5.0 (5.0-9.0) Ur Specific [place] 1.025 (1.005-1.025) Urine Protein Negative (Neg-Trace) mg/dL Urine Glucose (UA) Negative (Negative) mg/dL Urine Ketones Negative (Negative) mg/dL Urine Blood Negative (Negative) Urine Nitrite Negative (Negative) Ur Leukocyte Esterase Negative (Negative) Urine Opiates Screen Not Detected (Not Detect) Ur Buprenorphine Scrn Not Detected (Not Detect) ng/mL Ur Oxycodone Screen Not Detected (Not Detect) ng/mL Urine Methadone Screen Not Detected (Not Detect) ng/mL Urine Fentanyl Screen Not Detected (Not Detect) Ur Barbiturates Screen Not Detected (Not Detect) Ur Phencyclidine Scrn Not Detected (Not Detect) Ur Amphetamines Screen Not Detected (Not Detect) U Benzodiazepines Scrn Not Detected (Not Detect) Urine Cocaine Screen Not Detected (Not Detect) U Marijuana (THC) Screen Not Detected (Not Detect) Ethyl Alcohol < 10 mg/dL Discharge Plan Discharge Clinical Impression: Depression Qualifiers: Depression Type: other depression Qualified Code(s): F32.89 - Other specified depressive episodes Patient Disposition: Admitted As Inpatient Interventions: Admission Worksheet (ED) Last Done: 07/31/25 11:26 Discharge Date/Time: 07/31/25 11:27
--- NOTE | 2025-07-30 11:28 | MHC.EDTECH ---
Patient brought over to the POD, security went through patient belongings, belongings list completed,copy placed in chart, locked in the POD in locker # 7. Patient has eye glasses on,RN aware
--- NOTE | 2025-07-30 12:01 | MHC.EDTECH ---
Labs and urine obtained and sent to lab,
[2025-07-30 12:10] LABS: MANUAL DIFF FLAG NO
[2025-07-30 12:11] LABS: Hematocrit 41.3 % (42.0-52.0); Hemoglobin 13.8 g/dl (14.0-18.0); Imm Gran Abs Auto 0.03 X10*3/uL (0.00-0.03); Imm Gran Pct Auto 0.4 % (0.0-0.4); Lymphocytes Absolute Auto 1.4 X10*3/uL (1.2-4.9); Mean Corpuscular HGB Conc 33.4 g/dl (31.0-36.0); Mean Corpuscular Hemoglobin 30.9 pg (27.0-33.0); Mean Corpuscular Volume 92.6 fL (80.0-98.0); NRBC Abs Auto 0.000 X10*3/uL (0.0-0.012); NRBC Pct Auto 0.0 /100WBC (0.0-0.2); Platelet Count 227 X10*3/uL (160-400); Red Blood Count 4.46 X10*6/uL (4.60-5.80); White Blood Count 7.8 X10*3/uL (4.8-10.8)
[2025-07-30 12:14] LABS: Appearance Urine Clear; Glucose Urine UA Negative (Negative); PH 5.0 (5.0-9.0); Specific Gravity - Urine 1.025 (1.005-1.025)
[2025-07-30 12:27] LABS: Alanine Aminotransferase 18 U/L (0-40); Albumin Level 4.5 g/dL (3.5-5.0); Alkaline Phosphatase 77 U/L (39-117); Anion Gap 10 (12-20); Aspartate Amino Transferase 21 U/L (5-37); Blood Urea Nitrogen 14 mg/dL (9-16); Calcium 9.7 mg/dL (8.4-10.2); Carbon Dioxide 26 mmol/L (22-29); Chloride 107 mmol/L (96-108); Creatinine Clr Calc Pharmacy 81.1; Estimated Glomerular Filt Rate > 60; Potassium 4.2 mmol/L (3.3-5.1); Sodium 139 mmol/L (135-145); Total Protein 7.7 g/dL (6.5-8.0)
--- OUTSIDE RECORDS SUMMARY | 2025-07-30 14:25 | XMS_ITS | Clinical Summary ---
Author Organization [facility] Address [address] [facility] [address] [place] [id number] Phone Care Team Providers Care Can Doffer Name Role Phone Ingris Horn MD Primary Care Provid er Allergies No known active allergies Medications * This document contains information received from the source organization and may not represent a complete record from that organization. cholecalcifero l (VITAMIN D3) 2,000 unit tablet Take 1 tablet (2,000 Units total) by mouth daily. 30 tablet 2 5 Active docusate sodium (COLACE) 100 MG capsule Take 1 capsule (100 mg total) by mouth 2 (two) times a day. 60 capsule 2 5 Active donepeziL (ARICEPT) 10 MG tablet Take 1 tablet (10 mg total) by mouth nightly at bedtime. 30 tablet 2 5 Active senna (SENOKOT) 8.6 mg tablet Take 2 tablets by mouth nightly at bedtime. 60 tablet 2 5 Active sertraline (ZOLOFT) 100 MG tablet Take 1 tablet (100 mg total) by mouth every morning. 30 tablet 2 5 Active lidocaine 4 % Place 1 patch onto the skin daily as needed for other (free text field) (Lower back pain). 30 patch 2 5 Active QUEtiapine (SEROQUEL) 50 MG tabletIndicati ons:Severe episode of recurrent major depressive disorder, without psychotic features Take 3 tablets (150 mg total) by mouth nightly at bedtime. 90 tablet 2 5 Active QUEtiapine (SEROQUEL) 25 MG tabletIndicati ons:Severe episode of recurrent major depressive disorder, without psychotic features Take 0.5 tablets (12.5 mg total) by mouth daily with breakfast. Can take an additional 0.5 tablets (12.5 mg total) by mouth daily as needed for anxiety. 30 tablet 2 Active traZODone (DESYREL) 50 MG tabletIndicati ons:Severe episode of recurrent major depressive disorder, without psychotic features Take 3 tablets (150 mg total) by mouth nightly at bedtime. 90 tablet 2 5 Active traZODone (DESYREL) 50 MG tablet Take 150 mg by mouth nightly at bedtime. 07/01/20 25 Discontinu ed(Reorder ) QUEtiapine (SEROQUEL) 50 MG tablet Take 150 mg by mouth nightly at bedtime. 07/01/20 Discontinu ed(Reorder ) QUEtiapine (SEROQUEL) 25 MG tablet Take 12.5 mg by mouth daily with breakfast. 07/01/20 25 Discontinu ed(Reorder ) Active Problems Problem Noted Date Diagnosed Date Unspecified mood (affective) disorder 06/04/2025 Carpal tunnel syndrome 06/04/2025 Elevated blood pressure read ing without diagnosis of hypertension 06/04/2025 Gastroesophageal reflux disease 06/04/2025 Glucose intolerance (impaired glucose tolerance) 06/04/2025 Hyperlipidemia 06/04/2025 Hypertension 06/04/2025 Hypokalemia 06/04/2025 Nephrolithiasis 06/04/2025 Obesity 06/04/2025 Renal mass, right 06/04/2025 Major depressive disorder, recurrent 06/02/2025 Assessment & Plan (06/03/2025 3:47 PM EDT): Depression 05/29/2025 Assessment & Plan (06/03/2025 3:47 PM EDT): Psychiatry following, [facility] worsening psychiatric symptoms, inability to care for self. He expressed suicidal ideation (for access to care), found to meet criteria for geriatric psychiatry following extended ED stay; currently admitted for continued psychiatric stabilization and placement planning. CM and SW following 06/03 Patient now with suicidal ideation. - One-to-one sitter is - Suicide precautions - Psychiatry and RT consult - Continue donepezil, quetiapine, sertraline, trazodone. Assessment & Plan (06/02/2025 12:36 PM EDT): Psychiatry following, planning [facility] for worsening psychiatric symptoms, inability to care for self. He expressed suicidal ideation (for access to care), found to meet criteria for geriatric psychiatry following extended ED stay; currently admitted for continued psychiatric stabilization and placement planning. CM and SW following Continue donepezil, quetiapine, sertraline, trazodone. Assessment & Plan (06/01/2025 11:54 AM EDT): Psychiatry following, planning [facility] admission for worsening psychiatric symptoms, inability to care for self. He expressed suicidal ideation (for access to care), found to meet criteria for geriatric psychiatry following extended ED stay; currently admitted for continued psychiatric stabilization and placement planning. Continue donepezil, quetiapine, sertraline, trazodone. Assessment & Plan (05/31/2025 12:53 PM EDT): Psychiatry following, planning [facility] admission for worsening psychiatric symptoms, inability to care for self. He expressed suicidal ideation (for access to care), found to meet criteria for geriatric psychiatry following extended ED stay; currently admitted for continued psychiatric stabilization and placement planning. Continue donepezil, quetiapine, sertraline, trazodone. Anxiety 05/02/2025 Assessment & Plan (06/03/2025 3:47 PM EDT): Meds as above Assessment & Plan (06/02/2025 12:36 PM EDT): Meds as above Encounters * This document contains information received from the source organization and may not represent a complete record from that organization. Date Type Department Care Team Description 07/28/2025 6:28 PM EDT - 07/28/2025 7:09 PM EDT Emergency [facility] [address] [place] [address] Discharge Disposition: Home or Self Care 06/29/2025 12:37 PM EDT - 06/30/2025 10:57 AM EDT Emergency [facility] Emergency [address] [place] [address] Wei Gasca MD Kanter, MD Polina Kwok Peter, MD Discharge Disposition: Home or Self Care 06/28/2025 Home Care Visit [facility] [address] [place] [address] Chana Guerrero, RN TELEPHONE ENCOUNTER 06/27/2025 Home Care Visit [facility] [address] [place] [address] Radha Farmer, RN TELEPHONE ENCOUNTER 06/18/2025 Orders Only [facility] [address] [place] [address] Homehealth, Francesco Rodgers MD 05/29/2025 9:04 AM EDT - 06/04/2025 10:54 AM EDT Hospital Encounter [facility] [address] [place] [address] Eligio Alcantar MD Wilson, MD Jen Carter, MD Samuel Kwok, MD Campos Flores Olyn Amanda, MD Morse, Peter, MD Arepally, Sandeep, MD Russo, Margaret A, MD Albury, Lois C, MD Discharge Disposition: Psychiatric Hospital 05/02/2025 10:05 AM EDT - 05/05/2025 4:21 PM EDT Emergency [facility] Emergency [address] [place] [id number] Wei Gasca MD Kanter, MD Samuel Kwok, MD Edilia Flores, Evaristo Uribe MD, MPH, NAYELY Joe, Soni Rick MD, PhD Dayana, Dale Brown MD Discharge Disposition: Psychiatric Hospital from Last 3 Months Social History Tobacco Use Types Packs/Day Years Used Date Smoking Tobacco: Never Smokeless Tobacco: Never Tobacco Cessation:Counseling Given: Not Answered Alcohol Use Standard Drinks/Week Comments Not Currently [...] Orientation Straight 06/04/2025 2: 47 PM EDT Last Filed Vital Signs Vital Sign Reading Time Taken Comments Blood Pressure 138/86 07/28/2025 7:08 PM EDT Pulse 74 07/28/2025 7:08 PM EDT Temperature 36.3 C (97.3 F) 07/28/2025 7:08 PM EDT Respiratory Rate 16 07/28/2025 7:08 PM EDT Oxygen Saturation 98% 07/28/2025 7:08 PM EDT Inhaled Oxygen Concentration - - Weight 72.6 kg (160 lb) 06/29/2025 12:33 PM EDT Height 175.3 cm (5' 9 ) 06/29/2025 12:33 PM EDT Body Mass Index 23.63 06/29/2025 12:33 PM EDT Plan of Treatment Health Maintenance Due Date Last Done Comments BLOOD PRESSURE 1951 DEPRESSION SCREENING 1963 HEPATITIS C SCREENING 1969 COLOGUARD 1996 COLONOSCOPY 1996 COLORECTAL CANCER SCREENING 1996 FIT TEST 1996 FOBT 1996 SIGMOIDOSCOPY 1996 VIRTUAL COLONOSCOPY 1996 ZOSTER VACCINES (1 of 2) 2001 PNEUMOCOCCAL VACCINES (50+ years) (2 of 2 - PCV) 08/20/2019 08/20/2018 INFLUENZA VACCINE (#1) 2025 , 10/01/2021, 09/10/2019, Additional history exists COVID-19 VACCINE (4 - 2024- season) 2025 03/22/2022, 06/17/2021, 05/19/2021 RSV VACCINE (1 - 1-dose 75+ series) 2026 LIPID PANEL 06/05/2030 06/05/2025 Adult Td,Tdap Booster 04/01/2034 04/01/2024 SMOKING STATUS SCREENING (Once After 26 Yrs) Completed 06/04/2025 HEPATITIS A VACCINES Aged Out No long er eligible based on patient's age to complete this topic HIB VACCINES Aged Out No longer eligi ble based on patient's age to complete this topic MENINGOCOCCAL VACCINES (ACWY) Aged Out No longer eligible based on patient's age to complete this topic MENINGOCOCCAL VACCINES (B) Aged Out N o longer eligible based on patient's age to complete this topic Medical Devices Not on file Procedures Procedure Name Priority Date/Time Associated Diagnosis Comments LIPASE STAT 07/28/2025 12:18 PM EDT LFTS (HEPATIC PANEL) STAT 07/28/2025 12:18 PM EDT BASIC METABOLIC PANEL STAT 07/28/2025 12:18 PM EDT CBC AND DIFFERENTIAL STAT 07/28/2025 12:18 PM EDT ECG 12-LEAD STAT 07/28/2025 11:47 AM EDT MAGNESIUM STAT 06/29/2025 2:00 PM EDT BASIC METABOLIC PANEL STAT 06/29/2025 2:00 PM EDT CBC AND DIFFERENTIAL STAT 06/29/2025 2:00 PM EDT LAB ADD ON Routine 06/05/2025 6:41 AM EDT SYPHILIS ANTIBODY SCREEN ASSAY Routine 06/05/2025 6:41 AM EDT LAB ADD ON Routine 06/05/2025 6:41 AM EDT VITAMIN B12 Routine 06/05/2025 6:41 AM EDT FOLATE Routine 06/05/2025 6:41 AM EDT 25-OH VITAMIN D Routine 06/05/2025 6:41 AM EDT HEMOGLOBIN A1C Routine 06/05/2025 6:41 AM EDT LIPID PANEL Routine 06/05/2025 6:41 AM EDT TROPONIN STAT 05/30/2025 1:12 PM EDT TSH WITH REFLEX STAT 05/30/2025 11:27 AM EDT TROPONIN STAT 05/30/2025 11:27 AM EDT ECG 12-LEAD STAT 05/30/2025 10:54 AM EDT URINALYSIS W/REFLEX URINE CULTURE STAT 05/29/2025 9:20 AM EDT TOXICOLOGY SCREEN, URINE STAT 05/29/2025 9:20 AM EDT ETHANOL, BLOOD STAT 05/29/2025 8:07 AM EDT LFTS (HEPATIC PANEL) STAT 05/29/2025 8:07 AM EDT BASIC METABOLIC PANEL STAT 05/29/2025 8:07 AM EDT CBC AND DIFFERENTIAL STAT 05/29/2025 8:07 AM EDT URINALYSIS W/REFLEX URINE CULTURE STAT 05/03/2025 6:40 AM EDT TOXICOLOGY SCREEN, URINE STAT 05/03/2025 6:40 AM EDT BASIC METABOLIC PANEL Timed 05/02/2025 10:49 PM EDT MAGNESIUM STAT 05/02/2025 4:52 PM EDT BASIC METABOLIC PANEL STAT 05/02/2025 4:52 PM EDT ETHANOL, BLOOD STAT 05/02/2025 10:45 AM EDT MAGNESIUM STAT 05/02/2025 10:45 AM EDT LFTS (HEPATIC PANEL) STAT 05/02/2025 10:45 AM EDT BASIC METABOLIC PANEL STAT 05/02/2025 10:45 AM EDT CBC AND DIFFERENTIAL STAT 05/02/2025 10:45 AM EDT ECG 12-LEAD STAT 05/02/2025 10:44 AM EDT from Last 3 Months Results * LFTs (hepatic panel) (07/28/2025 12:18 PM EDT) Only the most recent of3 resultswithin the time period is included. ALKALINE PHOSPHATASE 84 39 - 117 U/L [facility] TOTAL BILIRUBIN 0.4 0.0 - 1.2 mg/dL [facility] DIRECT BILIRUBIN 0.1 0.0 - 0.2 mg/dL [facility] Bilirubin (Indirect) NOT CALCULATED 0 - 1.5 mg/dL [facility] AST 21 0 - 37 U/L [facility] ALT 16 0 - 40 U/L [facility] TOTAL PROTEIN 7.9 6.5 - 8.0 g/dL [facility] ALBUMIN 4.5 3.9 - 4.8 g/dL [facility] GLOBULIN 3.4 1 - 4.8 g/dL [facility] A/G Ratio 1.32 1.00 - 4.80 RATIO [facility] Blood 07/28/2025 12:1 8 PM EDT 07/28/2025 12:27 PM EDT us Wilmer Sterling MD LAB BLOOD ORDERABLES Final Result [facility] [address] [place] [address] * (ABNORMAL) CBC and differential (07/28/2025 12:18 PM EDT) Only the most recent of4 resultswithin the time period is included. WBC 6.81 4.00 - 11.00 K/uL [facility] RBC 4.65 4.50 - 5.90 M/uL [facility] HGB 14.0 13.5 - 17.5 g/dL [facility] HCT 43.6 41.0 - 53.0 % [facility] PLT 242 150 - 450 K/uL [facility] MCV 93.8 80.0 - 100.0 fL [facility] MCH 30.1 27.0 - 31.0 pg [facility] MCHC 32.1 32.0 - 36.0 g/dL [facility] RDW 14.9(H) 11.5 - 14.5 % [facility] MPV 8.6 8.4 - 12.0 fL [facility] NRBC 0.00 0.00 /100 WBCs [facility] ABSOLUTE NRBC 0.00 0.00 K/uL [facility] DIFF METHOD Auto [facility] NEUTS 63.8 48.0 - 76.0 % [facility] LYMPHS 25.8 18.0 - 41.0 % [facility] MONOS 7.6 4.0 - 11.0 % [facility] EOS 1.8 0.0 - 5.0 % [facility] BASOS 0.9 0.0 - 1.5 % [facility] Granulocytes, immature (%) 0.1 0.0 - 0.9 % [facility] ABSOLUTE NEUTS 4.34 1.92 - 7.60 K/uL [facility] ABSOLUTE LYMPHS 1.76 0.72 - 4.10 K/uL [facility] ABSOLUTE MONOS 0.52 0.16 - 1.10 K/uL [facility] ABSOLUTE EOS 0.12 0.00 - 0.50 K/uL [facility] ABSOLUTE BASOS 0.06 0.00 - 0.15 K/uL [facility] Granulocytes, immature 0.01 0.00 - 0.09 K/uL [facility] Blood 07/28/2025 12:1 8 PM EDT 07/28/2025 12:27 PM EDT us Wilmer [place] MD LAB BLOOD ORDERABLES Final Result [facility] [address] [place] [address] * Lipase (07/28/2025 12:18 PM EDT) Pathologist [facility] LIPASE 53 16 - 63 U/L [facility] Blood 07/28/2025 12:1 8 PM EDT 07/28/2025 12:27 PM EDT Wilmer [place] MD LAB BLOOD ORDERABLES Final Result Performing Organization Address City/[facility]/ZIP Co de Phone Number [address] [address] * (ABNORMAL) Basic metabolic panel (07/28/2025 12:18 PM EDT) Only the most recent of6 resultswithin the time period is included. [facility] SODIUM 138 133 - 146 mmol/L [facility] CHLORIDE 104 96 - 108 mmol/L [facility] POTASSIUM 4.6 3.3 - 5.1 mmol/L [facility] CO2 24 21 - 35 mmol/L [facility] BUN 15 6 - 19 mg/dL [facility] CREATININE 0.70 0.5 - 1.5 mg/dL [facility] GLUCOSE 106(H) 70 - 99 mg/dL [facility] CALCIUM 9.7 8.4 - 10.3 mg/dL [facility] EGFR 97 >59 mL/min/1.7 3m2 [facility] Comment:Estimated glomerular filtration rate calculated using the CKD-EPI refit equation. ANION GAP 15 10 - 20 mmol/L [facility] Blood 07/28/2025 12:1 8 PM EDT 07/28/2025 12:27 PM EDT Wilmer [place] MD LAB BLOOD ORDERABLES Final Result Performing Organization Address [facility] Co de Phone Number [address] [address] * ECG 12-LEAD (07/28/2025 11:47 AM EDT) Only the most recent of3 resultswithin the time period is included. Pathologist [facility] Ventricular Rate EKG/MIN 78 BPM [facility] Atrial Rate 78 BPM [facility] ND Interval 206 ms [facility] QRS Duration 110 ms [facility] QT Interval 382 ms [facility] QTC Interval 435 ms [facility] P [place] 43 degrees [facility] R Wave [place] -2 degrees [facility] T Wave [place] 48 degrees [facility] 07/28/2025 11:4 7 AM EDT 07/28/2025 1:26 PM EDT Narrative [facility] - 07/28/2025 1:26 PM EDT Normal sinus rhythm Possible Inferior infarct Abnormal ECG When compared with ECG of 30-May-2025 10:54, Significant changes have occurred Confirmed by Haseeb Roland ([id number]) on 07/28/2025 1:26:40 PM us Wilmer [place] MD ECG ORDERABLES Final Resul t Performing Organization Address City/[facility]/ZIP Co de Phone Number [facility] * Magnesium (06/29/2025 2:00 PM EDT) Only the most recent of3 resultswithin the time period is included. [facility] MAGNESIUM 2.0 1.6 - 2.6 mg/dL [facility] 06/29/2025 2:00 PM EDT 06/29/2025 2:08 PM EDT us Wei Gasca MD LAB BLOOD ORDERABLES Mylene l Result Performing Organization Address City/[facility] Co de Phone Number [address] [address] * Syphilis antibody screen (06/05/2025 6:41 AM EDT) [facility] T.PALLIDUM AB NEGATIVE NEGATIVE [facility] [address] Comment: (NOTE) No antibodies to T. pallidum (the agent causing syphilis) were detected in the specimen. This result, however, does not exclude very recent T. pallidum infection; testing of a second specimen, collected 2-4 weeks after this specimen, is recommended if the index of suspicion for recent infection is high. 06/05/2025 6:41 AM EDT 06/05/2025 7:05 AM EDT Fabiola Varner [facility] LAB BLOOD ORDERABLES Final Result [facility] [facility] [address] [facility] [address] [address], [facility] * (ABNORMAL) 25-OH vitamin D (06/05/2025 6:41 AM EDT) 25 OH VIT D (TOTAL) 19(L) 20 - 80 ng/mL [facility] Comment: REFERENCE RANGE: Optimal: 25-80 Suboptimal: 20-24 Deficient: <20 At risk for toxicity: >80 Blood 06/05/2025 6:41 AM EDT 06/05/2025 7:05 AM EDT Fabiola Varner [facility] LAB BLOOD ORDERABLES Final Result Performing Organization Address City/[facility]/ZIP Co de Phone Number [address] [phone] * Lab Add On: Hemoglobin a1c (06/05/2025 6:41 AM EDT) Only the most recent of2 resultswithin the time period is included. Pathologist [facility] TEST REQUESTED HEMOGLOBIN A1C [facility] Comments (Chemistry) UNABLE TO ADD ON TEST. [facility] Comment:TEST ALREADY ORDERED . SEE [id number] 06/05/2025 6:41 AM EDT 06/05/2025 8:56 AM EDT Fabiola Varner [facility] LAB [place] [address], [facility] [phone] * (ABNORMAL) Hemoglobin A1c (06/05/2025 6:41 AM EDT) Pathologist [facility] HEMOGLOBIN A1C 5.8(H) 4.2 - 5.6 % [facility] Comment:Hemoglobin A1c value s between 5.7 and 6.4% indicate an increased risk for diabetes. Values of 6.5% or greater are diagnostic of diabetes. CALC MEAN BLD GLUC 120 mg/dL [facility] Blood 06/05/2025 6:41 AM EDT 06/05/2025 7:06 AM EDT us Fabiolamagdaleno Varner [employer] LAB BLOOD ORDERABLES Final Result [address] [phone] * Folate (06/05/2025 6:41 AM EDT) FOLIC ACID 8.8 ng/mL [facility] Comment: REFERENCE RANGE: Normal: >3.9 Indeterm: 2.0-3.9 Deficient: <2.0 Blood 06/05/2025 6:41 AM EDT 06/05/2025 7:05 AM EDT us Fabiola Varner CNP LAB BLOOD ORDERABLES Final Result Performing Organization Address City/[facility]/ZIP Co de Phone Number [address] [phone] * Vitamin B12 (06/05/2025 6:41 AM EDT) VITAMIN B12 405 251 - 911 pg/mL [facility] Comment: Additional Interpretative Information: Deficiency Unlikely: >300 pg/mL Borderline: 200-300 pg/mL Low (c/w Deficiency): <200 pg/mL Blood 06/05/2025 6:41 AM EDT 06/05/2025 7:05 AM EDT us Fabiola Varner [employer] LAB BLOOD ORDERABLES Final Result [place] [id number] [phone] * Lipid panel (06/05/2025 6:41 AM EDT) HDL 51 >39 mg/dL [facility] CHOLESTEROL 168 0 - 200 mg/dL [facility] TRIGLYCERIDES 69 0 - 150 mg/dL [facility] LDL 103 <130 mg/dL [facility] Comment: REFERENCE RANGE: Adult >= 18 years: - Desirable: <100 - Above desirable: 100-129 - Borderline high: 130-159 - High: 160-189 - Very High: >=190 Pediatric 2-17 years: - Acceptable: <110 - Borderline high: 110-129 - High: >=130 Reference ranges have not been established for patients that are less than 24 months of age. CARDIAC RISK RATIO 3.3 <5 [facility] NON-HDL CHOLESTEROL 117 mg/dL [facility] Comment:Reference Range: The non-HDL Cholesterol value should not exceed the desired LDL-C by more than 30 mg/dl. Blood 06/05/2025 6:41 AM EDT 06/05/2025 7:05 AM EDT us Fabiola Varner CNP LAB BLOOD ORDERABLES Final Result Performing Organization Address [facility] Co de Phone Number [place] [id number], [facility] [phone] * (ABNORMAL) Troponin (05/30/2025 1:12 PM EDT) Only the most recent of2 resultswithin the time period is included. Troponin-T, HS Gen5 20(H) 0 - 14 ng/L [facility] Blood 05/30/2025 1:12 PM EDT 05/30/2025 1:13 PM EDT us Jonh [place] MD LAB BLOOD ORDERABLES Fin al Result [address] [address] * TSH with reflex (05/30/2025 11:27 AM EDT) Pathologist [facility] TSH 1.23 0.27 - 4.20 uIU/mL [facility] Blood 05/30/2025 11:2 7 AM EDT 05/30/2025 11:31 AM EDT us Brianna Lind PA-C LAB BLOOD ORDERABLES Final Result Performing Organization Address [facility] Co de Phone Number [address] [address] * (ABNORMAL) Urinalysis w/reflex Urine Culture (05/29/2025 9:20 AM EDT) Only the most recent of2 resultswithin the time period is included. Pathologist [facility] COLOR Yellow Yellow [facility] CLARITY Clear [facility] GLUCOSE Negative Negative [facility] BILI Negative Negative [facility] KETONES 1+(A) Negative [facility] SPECIFIC GRAVITY 1.010 1.005 - 1.030 [facility] BLOOD Trace(A) Negative [facility] PH 6.0 5.0 - 8.0 [facility] Protein-UA Negative Negative [facility] NITRITE Negative Negative [facility] Leukocyte esterase, ur Negative Negative [facility] Urine (Urine) 05/29/2025 9:2 0 AM EDT 05/29/2025 9:46 AM EDT us Eligio Alcantar MD URINE ORDERABLES F inal Result Performing Organization Address [facility] Co de Phone Number [address] [address] * Toxicology screen, urine (05/29/2025 9:20 AM EDT) Only the most recent of2 resultswithin the time period is included. Pathologist [facility] URINE CANNABINOIDS NONE DETECTED NONE DETECTED [facility] Comment:Cutoff: 50 ng/mL URINE COCAINE METAB NONE DETECTED NONE DETECTED [facility] Comment:Cutoff: 300 ng/mL URINE AMPHETAMINES NONE DETECTED NONE DETECTED [facility] Comment:Cutoff: 1000 ng/mL URINE METHADONE NONE DETECTED NONE DETECTED [facility] Comment:Cutoff: 300 ng/mL URINE OPIATES NONE DETECTED NONE DETECTED [facility] Comment:Cutoff: 300 ng/mL URINE PHENCYCLIDINE NONE DETECTED NONE DETECTED [facility] Comment:Cutoff: 25 ng/mL URINE OXYCODONE NONE DETECTED NONE DETECTED [facility] Comment:Cutoff: 300 ng/mL URINE BARBITURATES NONE DETECTED NONE DETECTED [facility] Comment:Cutoff: 200 ng/mL URINE BENZODIAZEPINE NONE DETECTED NONE DETECTED [facility] Comment:Cutoff: 200 ng/mL URINE BUPRENORPHINE NONE DETECTED NONE DETECTED [facility] Comment:Cutoff: 5 ng/mL Fentanyl, urine NONE DETECTED NONE DETECTED [facility] Comment: Cutoff: 5 ng/mL INTERPRETATION FOR TOXICOLOGY PANEL: These results are unconfirmed and should be used for Medical Treatment purposes only. Urine (Urine) 05/29/2025 9:2 0 AM EDT 05/29/2025 9:46 AM EDT us Eligio Alcantar MD URINE ORDERABLES F inal Result [address] [address] * Ethanol, blood (05/29/2025 8:07 AM EDT) Only the most recent of2 resultswithin the time period is included. ETHANOL <10 <10 mg/dL [facility] Blood 05/29/2025 8:07 AM EDT 05/29/2025 8:28 AM EDT us Eligio Alcantar MD LAB BLOOD ORDERABL ES Final Result Performing Organization Address City/[facility] Co de Phone Number [address] [address] from Last 3 Months Insurance Prem[employer] SUPPLEMENT MEDICARE PART A & B [employer] SUPPLEMENT MEDICARE PART A & B [employer] SUPPLEMENT MEDICARE PART A & B [employer] SUPPLEMENT MEDICARE PART A & B [employer] MEDEX SUPPLEMENT MEDICARE PART A & B [employer] SUPPLEMENT MEDICARE PART A & B Advance Directives For more information, please contact: [phone] (9AM - 5PM [facility], Monday-Monday) Documents on File Type Date Recorded 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 Healthcare Proxy 06/05/2025 11:49 AM Healthcare Proxy 06/02/2025 12:15 PM healt hcare proxy * Full Code (Latest Code Status on File) Date Activated Date Inactivated Comments 06/04/2025 2:21 PM Question Answer Comments Code Status Confirmed With: Other (specify below ) Code Status Communicated To: Other (specify belo w) Code Discussion Comments: Presumed * Full Code Date Activated Date Inactivated Comments 05/31/2025 12:52 PM 06/04/2025 2:21 PM Question Answer Comments Code Status Confirmed With: Patient Care Teams Can Doffer Relationship Specialty Start Date End Date Ingris Horn MD [address] [place] [id number] PCP - General Family Medicine 05/29/25 Additional Source Comments The information contained in this document represents components of the legal health record. It is not the complete legal health record.[facility]
[2025-07-30 14:32] LABS: Cannabinoid Screen Urine Not Detected (Not Detect)
[2025-07-30 18:11] VITALS: BP 115/69; PULSE 99; RESP 16; TEMP 36.6; O2SAT 96
--- NOTE | 2025-07-30 19:30 | PC.NURSE ---
Assumed care of patient at 1845, patient calm and cooperative, offering no complaints to this RN. Continue plan of care for IPLOC
--- NOTE | 2025-07-30 20:26 | PHA.MEDREC ---
Pharmacy Consult ? Medication Reconciliation Pharmacy has reviewed the medication reconciliation completed by nursing. La Nena Henderson, JaredD
[2025-07-30] MEDS: Potassium Chloride ER 20 MEQ TAB.ER.PRT PO (21:17)
--- NOTE | 2025-07-30 21:43 | PHA.MEDREC ---
Pharmacy Consult ? Medication Reconciliation Pharmacy has reviewed the medication reconciliation completed by nursing.
--- NOTE | 2025-07-31 03:57 | PC.NURSE ---
Patient appears to be sleeping, respirations even and unlabored, no apparent distress noted
[2025-07-31 06:22] VITALS: BP 135/78; PULSE 71; RESP 17; TEMP 36.7; O2SAT 98
--- NOTE | 2025-07-31 07:19 | PC.NURSE ---
Assumed care, report received. Pt is calm and cooperative, he is given breakfast, soft foods. He reports his teeth bothering him.
[2025-07-31] MEDS: Potassium Chloride ER 20 MEQ TAB.ER.PRT PO ×2 (08:05→22:00)
--- NOTE | 2025-07-31 09:08 | ECG_ITS ---
Test Reason : MED CLEARANCE Blood Pressure : */* mmHG Vent. Rate : 72 BPM Atrial Rate : 72 BPM P-R Int : 196 ms QRS Dur : 102 ms QT Int : 374 ms P-R-T Axes : 50 8 50 degrees QTcB Int : 409 ms Normal sinus rhythm cannot exclude old; Inferior infarct , age undetermined ; can also be normal variant. Abnormal ECG No previous ECGs available Referred By: Suri Morrison Electronically Signed By: CHRISTI SPARKS
--- NOTE | 2025-07-31 11:25 | P.HPPS_ITS ---
HPI Date of Service: 07/31/25 Chief Complaint: depression HPI Narrative: per CARE team willem pt self-presented c/o worsening depression and severe insomnia. he feels he has not slept in days, and describes himself as feeling empty and numb. he reports he has been having cognitive problems; at his stay on M3 in april of 2025 he was diagnosed with dementia. he endorsed amotivation and anhedonia as well as substantial weight loss from loss of appetite. on interview with MD, pt is a poor historian, appearing not to have access to his memories to a large degree. in addition, his thoughts seem to be somewhat disorganized, and he confabulates to fill the space when his memory fails him. he is able to communicate, however, that he is feeling terribly depressed and suicidal. his appetite has been affected such that he has lost a substantial amount of weight, and he believes he is only sleeping about an hour a night. he is desperate for sleep; he agrees to DC zoloft as there has been some question of bipolar diathesis in the past and to increase HS seroquel from 150 mg to 250 mg. he is open to having staff discuss his Hx and symptoms with his brother Jeannie, with whom pt lives and who has been supervising pt's medication administrations. he is feeling worse than when he left this facility in May, and does appear to be suffering. he was educated re ECT and asked to consider. Past Psychiatric History: hosps: IOL for 1.5 years in [address], [facility] M3 April 2025, [facility] between 05/2025 and 07/2025. SA: denies SIB: denies outpt: sporadic throughout his life. some in the past 5-10 years. presently has [employer] services. Medical Evaluation Reviewed: Yes [facility] Medical History Anxiety Family History: brother - h/o psychiatric hospitalization, pt does not know the diagnosis Social History: from , now living with his brother. has SSI income. Substance History: denies Trauma History: denies Diagnostics Vital Signs (24Hr): Vital Signs - 24 hr 07/30/25 18:11 07/31/25 06:22 Temperature 97.8 F 98.0 F Pulse Rate 99 71 Respiratory Rate 16 17 Blood Pressure 115/69 135/78 Pulse Oximetry 96 98 Oxygen Delivery Method Room Air Room Air BMI result Body Mass Index 23.0 Labs 07/30/25 12:01 07/30/25 12:01 Labs: Laboratory Results - last 48 hr 07/30/25 12:01 WBC 7.8 RBC 4.46 L Hgb 13.8 L Hct 41.3 L MCV 92.6 MCH 30.9 MCHC 33.4 RDW 14.6 Plt Count 227 MPV 8.3 L Immature Gran % (Auto) 0.4 Neut % (Auto) 72.8 Lymph % (Auto) 18.2 L Bates % (Auto) 6.0 Eos % (Auto) 1.8 Baso % (Auto) 0.8 Lymph # (Auto) 1.4 Bates # (Auto) 0.5 Eos # (Auto) 0.1 Baso # (Auto) 0.1 Abs Immat Gran (auto) 0.03 Absolute Neuts (auto) 5.7 Absolute Nucleated RBC 0.000 Nucleated RBC % (auto) 0.0 Sodium 139 Potassium 4.2 Chloride 107 Carbon Dioxide 26 Anion Gap 10 L BUN 14 Creatinine 0.82 Estim Creat Clear Calc 81.1 Estimated GFR > 60 Random Glucose 102 Calcium 9.7 Total Bilirubin 0.4 AST 21 ALT 18 Alkaline Phosphatase 77 Total Protein 7.7 Albumin 4.5 Urine Color Yellow Urine Appearance Clear Urine pH 5.0 Ur Specific Garrison 1.025 Urine Protein Negative Urine Glucose (UA) Negative Urine Ketones Negative Urine Blood Negative Urine Nitrite Negative Ur Leukocyte Esterase Negative Urine Opiates Screen Not Detected Ur Buprenorphine Scrn Not Detected Ur Oxycodone Screen Not Detected Urine Methadone Screen Not Detected Urine Fentanyl Screen Not Detected Ur Barbiturates Screen Not Detected Ur Phencyclidine Scrn Not Detected Ur Amphetamines Screen Not Detected U Benzodiazepines Scrn Not Detected Urine Cocaine Screen Not Detected U Marijuana (THC) Screen Not Detected Ethyl Alcohol < 10 Meds/Allergies Meds Home Medications ?Medication ?Instructions ?Recorded ?Confirmed ?Type donepezil 5 mg tablet 10 mg PO BEDTIME 07/30/25 History potassium chloride 20 mEq 20 meq PO BID 07/30/2507/30 History tablet,extended release(part/cryst) quetiapine 25 mg tablet 25 mg PO DAILY 07/30/2507/14 History quetiapine 25 mg tablet 25 mg PO DAILY PRN Anxiety 0 07/30/25 07/30/25 History sertraline 50 mg tablet 100 mg PO DAILY 07/30/25 History Allergies Allergies Allergy/AdvReac Type Severity Reaction Status Date / Time No Known Allergies Allergy Verified 07/30/25 11:00 Mental Status Exam Mental Status Exam Narrative: disheveled, long white hair. cooperative no PMA/PMR. speech incr amount, incr rate, nml loudness. decr latency. thoughts circumstantial to tangential. confabulation. affect flexible, normo-intense, non-labile. mood lost and out of it. depression. +SI. no SIBI/HI/AVH. Assessment & Plan Assessment & Plan (1) Major neurocognitive disorder due to multiple etiologies, with anxiety: Status: Acute Code(s): F02.84 - Dementia in other diseases classified elsewhere, unspecified severity, with anxiety (2) Cerebral microvascular disease: Status: Acute Code(s): I67.89 - Other cerebrovascular disease (3) Depression: Status: Acute Qualifiers: Depression Type: other depression Qualified Code(s): F32.89 - Other specified depressive episodes Code(s): F32.A - Depression, unspecified (4) Anxiety disorder: Status: Acute Code(s): F41.9 - Anxiety disorder, unspecified Plan stop zoloft due to concern for bipolar illness. increase HS seroquel to 250 mg for sleep. further Hx from brother Jeannie. Patient educated on: diagnosis, medication risk/benefits and ECT Reason for continued inpatient stay Substantial Risk for: harm to self and inability to function Statement Statement: I have reviewed the history and physical and performed a pertinent examination on my patient. No changes have occurred unless specified. If the History and Physical was not performed prior to admission, the Hospitalist's service will be consulted for completing the admission physical. Time Spent With Patient Time: Total time managing care of this patient today __55__ minutes.
[2025-07-31 11:47] VITALS: BP 141/66; PULSE 105; RESP 17; TEMP 36.4; O2SAT 99
[2025-07-31 11:54] VITALS: BMI 21.8
--- NOTE | 2025-07-31 13:48 | HO.PM.IMCN ---
History of Present Illness Data of Consult Service Date: 07/31/25 Primary Care Provider: Unknown Physician HPI Reason for consult: Medical management 75-year-old male with past medical history of adjustment disorder with anxiety, major neurocognitive disorder, cerebral microvascular disease presented to ED with increased depression. Review of initial workup in the ED demonstrates unremarkable blood work, no urine infection. Very mild anemia, no leukocytosis. No evidence of liver or kidney impairment. U tox is negative. No EtOH. Patient reports that he feels well, he is concerned about memory issues. Denies any medical problems, does not take any medications at home. On exam he denies any shortness of breath, chest pain, abdominal pain, or any other concerning symptoms. Does report that he has occasional dysuria. Denies any burning or pain with urination just reports that it takes him a little bit longer to void. He otherwise feels well, speech is rapid, anxious on exam. Reports that he has not been eating and drinking, living with his brother due to him getting a divorce from his . Review of Systems Review of Systems: Denies any shortness of breath, chest pain, dizziness, lightheadedness, abdominal pain or discomfort, nausea vomiting or diarrhea PMFSH Medical History Anxiety Social History Household Members: Family Housing: House Do you presently have visiting nurse or other home services: No Patient Tobacco Use Status: Never used Tobacco Smoked in Last 30 Days: No e-Cigarette/Vaping Use: Never Used Patient Interested in Nicotine Replacement: No Second Hand Smoke Exposure: No Use of substances other than those prescribed or required for medical reasons: No Have you been hit, kicked, punched, or otherwise hurt by someone within the past year? If so, by whom?: No Do you feel safe in your current relationship?: No Current Relationship Is there a partner from a previous relationship who is making you feel unsafe now?: No Are you made to feel afraid or neglected: No Advance Directives: Yes Advance Directives Information Provided: No Advance Directives on File: No Do you have a plan to hurt others: No Plan Recently lost weight without trying: Unsure How much weight loss: Not applicable Eating poorly because of decreased appetite: Yes Nutrition screen score: 3 Nutrition Risks: No Nutritional Risk Poor oral hygiene: No service: No Sexual orientation: Straight/Heterosexual Meds Allergies Allergy/AdvReac Type Severity Reaction Status Date / Time No Known Allergies Allergy Verified 07/30/25 11:00 Active Medications: Current Medications Acetaminophen (Acetaminophen 325 Mg Tablet) 650 mg PO Q6H PRN PRN Reason: Headache/Pain, Scale 1-10 Al Hydroxide/Mg Hydroxide (Magnesium Hydrox/Alum Hydrox 30 Ml Oral.Susp) 30 ml PO Q6H PRN PRN Reason: Heartburn/Nausea Donepezil HCl (Donepezil Hcl 10 Mg Tablet) 10 mg PO BEDTIME [facility] Last Admin: 07/30/25 21:17 Dose: 10 mg Magnesium Hydroxide (Milk Of Magnesia 30 Ml Oral.Susp) 30 ml PO DAILY PRN PRN Reason: Constipation Potassium Chloride (Potassium Chloride Er 20 Meq Tab.Er.Prt) 20 meq PO BID [facility] Last Admin: 07/31/25 08:05 Dose: 20 meq Quetiapine Fumarate (Quetiapine Fumarate 25 Mg Tablet) 25 mg PO DAILY PRN PRN Reason: Anxiety Quetiapine Fumarate (Quetiapine Fumarate 25 Mg Tablet) 25 mg PO DAILY [facility] Last Admin: 07/31/25 08:05 Dose: 25 mg Quetiapine Fumarate 200 mg/ (Quetiapine Fumarate 50 mg) 250 mg PO BEDTIME [facility] Trazodone HCl (Trazodone Hcl 50 Mg Tablet) 150 mg PO BEDTIME [facility] Last Admin: 07/30/25 21:17 Dose: 150 mg Home Medications ?Medication ?Instructions ?Recorded ?Confirmed ?Last Taken ?Type donepezil 5 mg tablet 10 mg PO BEDTIME 07/30/25 07/30/25 07/29/25 History potassium chloride 20 mEq 20 meq PO BID 07/30/25 07/30/25 07/29/25 History tablet,extended release(part/cryst) quetiapine 25 mg tablet 25 mg PO DAILY 07/30/25 07/30/25 07/29/25 History quetiapine 25 mg tablet 25 mg PO DAILY PRN Anxiety 07/30/25 07/30/25 Unknown History sertraline 50 mg tablet 100 mg PO DAILY 07/30/25 07/30/25 07/29/25 History Physical Exam Vital Signs and Narrative: Vital Signs: Last Vital Signs Temp 97.5 F 07/31/25 11:47 Pulse 105 H 07/31/25 11:47 Resp 17 07/31/25 11:47 BP 141/66 H 07/31/25 11:47 Pulse Ox 99 07/31/25 11:47 O2 Del Method Room Air 07/31/25 11:47 BMI result Body Mass Index 21.8 CONST: Alert and oriented, in NAD. Thin, unkempt appearance HEENT: Normocephalic, atraumatic, MMM, Eyes clear, Neck supple RESP: Lungs clear, RRR even and regular HEART:,RRR, S1, S2. No edema GI:Abdomen Soft NT, ND. + BS times four :Deferred SKIN: Warm dry and intact, no visible lesions or rashes NEURO:CN II-XII Intact bilaterally, Sensation intact. Speech clear PSYCH: Anxious Results Labs 07/30/25 12:01 07/30/25 12:01 Labs: Laboratory Results - last 24 hr 07/30/25 12:01 Urine Opiates Screen Not Detected Ur Buprenorphine Scrn Not Detected Ur Oxycodone Screen Not Detected Urine Methadone Screen Not Detected Urine Fentanyl Screen Not Detected Ur Barbiturates Screen Not Detected Ur Phencyclidine Scrn Not Detected Ur Amphetamines Screen Not Detected U Benzodiazepines Scrn Not Detected Urine Cocaine Screen Not Detected U Marijuana (THC) Screen Not Detected Assessment and Plan (1) Anxiety: Status: Inactive (2) Cerebral microvascular disease: Status: Acute Plan 75-year-old male with past medical history of depression and anxiety, cerebral microvascular disease, and major neurocognitive disorder presented to the ED with increased depression. He is admitted for further treatment on inpatient psychiatric unit Anxiety and depression/neurocognitive disorder/cerebral microvascular disease Treatment per psychiatric team Treatment for microvascular disease includes monitoring blood pressure and avoidance of chemical agents such as alcohol or drugs. Baby aspirin daily Continue donepezil Thank you for allowing me to participate in the care of this patient. Will follow as needed, please notify medical provider with any changes in condition or concerns.
[2025-07-31] MEDS: Flu Vacc TS2025-26(6mo up)/PF 0.5 ML SYRINGE IM (17:00)
--- NOTE | 2025-07-31 17:31 | PC.ADMIT ---
Patient was admitted from the POD on a CV for tx of Unspecified Depressive and Anxiety Disorder. Per crisis eval, pt self presented to the ED with reports of worsening depression, not sleeping and ongoing issues with his memory. Patient was most recently on M3 back in April with similar complaints. Patient is pleasant and cooperative during the admission, but a poor historian due to memory impairment. His thoughts are disorganized and he presents with occasional periods of trouble with word finding. Patient states he decided to come to the hospital because he has been feeling lost and out of it . Perseverating on his memory impairment, which he reports has gotten worse since his last admission here. Pt also reports his feelings of depression have increased, along with his lack of motivation . He states he has not been sleeping at night, and though he has been compliant with medications, he feels as though they have not been effective for both his sleep and his depression. Patient's tox screen was negative, BAL<10 and skin check unremarkable. Patient states his appetite has been poor, and was placed on a chopped diet while in the ED due to occasional difficulty with swallowing. He reports feelings of hopelessness and endorses passive SI, stating I just want to join my mom and dad , but denies any plan or intent. Denies HI/AVH, placed on 15 minute checks.
[2025-07-31 19:15] VITALS: BP 135/78; PULSE 86; RESP 16; TEMP 36.7; O2SAT 97
[2025-08-01] MEDS: Milk of Magnesia 30 ML ORAL.SUSP PO (06:06)
[2025-08-01 07:42] VITALS: BP 122/77; PULSE 91; RESP 18; TEMP 36.5; O2SAT 99
--- NOTE | 2025-08-01 09:45 | PC.NURSE ---
León declined morning medications despite education and encouragement. notified.
--- NOTE | 2025-08-01 14:24 | P.PNPSI_ITS ---
Subjective Subjective Date of Service: 08/01/25 Reason For Visit: depression Interim History: no change in presentation. staff report he slept all NOC, he says he didn't sleep at all. advised to let staff know if he is not sleeping. agreeable to more aggressive approach to appetite stimulation and insomnia. to pursue ECT monday if no progress made over the weekend. collateral obtained from brother. Mental Status Exam Mental Status Exam Narrative: disheveled, long white hair. cooperative no PMA/PMR. speech incr amount, incr rate, nml loudness. decr latency. thoughts circumstantial to tangential. confabulation. affect flexible, normo-intense, non-labile. mood depression. +SI. no SIBI/HI/AVH. Diagnostics Vital Signs (24Hr): Vital Signs - 24 hr 07/31/25 19:15 08/01/25 07:42 Temperature 98.0 F 97.7 F Pulse Rate 86 91 Respiratory Rate 16 18 Blood Pressure 135/78 122/77 Pulse Oximetry 97 99 Oxygen Delivery Method Room Air Room Air BMI result Body Mass Index 21.8 Labs 07/30/25 12:01 07/30/25 12:01 Labs: Laboratory Results - last 48 hr 07/30/25 12:01 Urine Opiates Screen Not Detected Ur Buprenorphine Scrn Not Detected Ur Oxycodone Screen Not Detected Urine Methadone Screen Not Detected Urine Fentanyl Screen Not Detected Ur Barbiturates Screen Not Detected Ur Phencyclidine Scrn Not Detected Ur Amphetamines Screen Not Detected U Benzodiazepines Scrn Not Detected Urine Cocaine Screen Not Detected U Marijuana (THC) Screen Not Detected Medications Medications Current Medications Acetaminophen (Acetaminophen 325 Mg Tablet) 650 mg PO Q6H PRN PRN Reason: Headache/Pain, Scale 1-10 Al Hydroxide/Mg Hydroxide (Magnesium Hydrox/Alum Hydrox 30 Ml Oral.Susp) 30 ml PO Q6H PRN PRN Reason: Heartburn/Nausea Aspirin (Aspirin Enteric Coated 81 Mg Tablet.) 81 mg PO DAILY [facility] Last Admin: 08/01/25 08:50 Dose: Not Given Chlorpromazine HCl (Chlorpromazine Hcl 100 Mg Tablet) 200 mg PO BEDTIME [facility] Chlorpromazine HCl (Chlorpromazine Hcl 100 Mg Tablet) 100 mg PO BEDTIME PRN PRN Reason: insomnia Donepezil HCl (Donepezil Hcl 10 Mg Tablet) 10 mg PO BEDTIME [facility] Last Admin: 07/31/25 22:02 Dose: 10 mg Magnesium Hydroxide (Milk Of Magnesia 30 Ml Oral.Susp) 30 ml PO DAILY PRN PRN Reason: Constipation Last Admin: 08/01/25 06:06 Dose: 30 ml Mirtazapine (Mirtazapine 30 Mg Tablet) 30 mg PO BEDTIME [facility] Potassium Chloride (Potassium Chloride Er 20 Meq Tab.Er.Prt) 20 meq PO BID [facility] Last Admin: 08/01/25 08:50 Dose: Not Given Quetiapine Fumarate (Quetiapine Fumarate 25 Mg Tablet) 25 mg PO DAILY PRN PRN Reason: Anxiety Last Admin: 08/01/25 06:06 Dose: 25 mg Allergies Allergies Allergy/AdvReac Type Severity Reaction Status Date / Time No Known Allergies Allergy Verified 07/30/25 11:00 Assessment & Plan Assessment & Plan (1) Major neurocognitive disorder due to multiple etiologies, with anxiety: Status: Acute Code(s): F02.84 - Dementia in other diseases classified elsewhere, unspecified severity, with anxiety (2) Cerebral microvascular disease: Status: Acute Code(s): I67.89 - Other cerebrovascular disease (3) Depression: Qualifiers: Depression Type: other depression Qualified Code(s): F32.89 - Other specified depressive episodes Status: Acute Code(s): F32.A - Depression, unspecified (4) Anxiety disorder: Status: Acute Code(s): F41.9 - Anxiety disorder, unspecified Plan 07/31: stop zoloft due to concern for bipolar illness. increase HS seroquel to 250 mg for sleep. further Hx from brother Jeannie. 08/01: no Hx C/W bipolar disorder per collateral obtained from brother. per brother, pt is low intelligence and marginally functional. he reports gradual cognitive decline but clear depression having developed in the past year or so. supportive of ECT. DC trazodone and seroquel. start remeron 30 QHS and thorazine 200 QHS with repeat of 100 mg as needed. if no progress made in appetite and sleep, pursue ECT as of monday. Reason for continued inpatient stay Substantial Risk for: harm to self and inability to function Time Spent With Patient Time: Total time managing care of this patient today __35__ minutes.
[2025-08-01 20:00] VITALS: BP 136/87; PULSE 88; RESP 16; TEMP 36.9; O2SAT 96
[2025-08-02 08:00] VITALS: BP 135/87; PULSE 95; RESP 20; TEMP 36.9; O2SAT 98
[2025-08-02] MEDS: Potassium Chloride ER 20 MEQ TAB.ER.PRT PO (08:54)
[2025-08-02] MEDS: Aspirin Enteric Coated 81 MG TABLET.DR PO (08:54)
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
[2025-08-02 20:00] VITALS: BP 144/83; PULSE 122; RESP 18; TEMP 36.8; O2SAT 97
[2025-08-02] MEDS: Potassium Chloride Packet 20 MEQ PACKET PO (21:00)
[2025-08-03 07:25] VITALS: BP 118/72; PULSE 124; RESP 14; TEMP 36.5; O2SAT 96
[2025-08-03] MEDS: Aspirin Enteric Coated 81 MG TABLET.DR PO (09:51)
[2025-08-03] MEDS: Potassium Chloride Packet 20 MEQ PACKET PO ×2 (09:51→21:21)
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
[2025-08-03 19:35] VITALS: BP 131/75; PULSE 105; RESP 18; TEMP 36.9; O2SAT 96
[2025-08-04 08:13] VITALS: BP 125/69; PULSE 134; RESP 16; TEMP 36.7; O2SAT 97
[2025-08-04] MEDS: Aspirin Enteric Coated 81 MG TABLET.DR PO (08:41)
[2025-08-04] MEDS: Potassium Chloride Packet 20 MEQ PACKET PO ×2 (08:41→20:52)
--- NOTE | 2025-08-04 11:00 | HO.ECTCONS_ITS ---
History of Present Illness Data of Consult Service Date: 08/04/25 Primary Care Provider: Unknown Physician HPI Reason for consult: ECT consult 75-year-old male with past medical history of adjustment disorder with anxiety, major neurocognitive disorder, cerebral microvascular disease presented to ED with increased depression. Review of initial workup in the ED demonstrates unremarkable blood work, no urine infection. Very mild anemia, no leukocytosis. No evidence of liver or kidney impairment. U tox is negative. No EtOH. Patient reports that he feels well, he is concerned about memory issues. Denies any medical problems, does not take any medications at home. On exam he denies any shortness of breath, chest pain, abdominal pain, or any other concerning symptoms. Patient is being seen due to evaluation for ECT treatment. Patient has never had ECT treatment in the past. Denies any WATKINS, orthopnea, PND. ?Denies history of cerebral hemorrhage or ischemic stroke, space-occupying intracranial lesion, or TBI.? No significant cardiac history including CAD, IA, or heart arrhythmias.? No severe pulmonary conditions.?Denies history PAD or bleeding disorders. No previous complications from anesthesia.? EKG reviewed, NSR, no ischemic changes. QTc 409. ? Patient denies chest pain/pressure, palpitations.? No shortness of breath or difficulty breathing.? Denies lightheadedness or dizziness.? No fever, chills, nausea, vomiting, abdominal pain.? Ambulating with a steady gait on the unit.? Review of Systems 2 Review of Systems: Denies any shortness of breath, chest pain, dizziness, lightheadedness, abdominal pain or discomfort, nausea vomiting or diarrhea PMFSH Medical History Anxiety Social History Household Members: Family Housing: House Do you presently have visiting nurse or other home services: No Comment: 5 min checks Patient Tobacco Use Status: Never used Tobacco Smoked in Last 30 Days: No e-Cigarette/Vaping Use: Never Used Patient Interested in Nicotine Replacement: No Second Hand Smoke Exposure: No Use of substances other than those prescribed or required for medical reasons: No Currently Displaying Signs/Symptoms of Drug Intoxication Withdrawal: No Have you been hit, kicked, punched, or otherwise hurt by someone within the past year? If so, by whom?: No Do you feel safe in your current relationship?: No Current Relationship Is there a partner from a previous relationship who is making you feel unsafe now?: No Are you made to feel afraid or neglected: No Advance Directives: Yes Advance Directives Information Provided: No Advance Directives on File: No Do you have thoughts of harming others: None Do you have a plan to hurt others: No Plan Recently lost weight without trying: Unsure How much weight loss: Not applicable Eating poorly because of decreased appetite: Yes Nutrition screen score: 3 Nutrition Risks: No Nutritional Risk Poor oral hygiene: No service: No Sexual orientation: Straight/Heterosexual Meds Allergies Allergy/AdvReac Type Severity Reaction Status Date / Time No Known Allergies Allergy Verified 07/30/25 11:00 Active Medications: Current Medications Acetaminophen (Acetaminophen 325 Mg Tablet) 650 mg PO Q6H PRN PRN Reason: Headache/Pain, Scale 1-10 Al Hydroxide/Mg Hydroxide (Magnesium Hydrox/Alum Hydrox 30 Ml Oral.Susp) 30 ml PO Q6H PRN PRN Reason: Heartburn/Nausea Aspirin (Aspirin Enteric Coated 81 Mg Tablet.Dr) 81 mg PO DAILY [facility] Last Admin: 08/04/25 08:41 Dose: 81 mg Chlorpromazine HCl (Chlorpromazine Hcl 100 Mg Tablet) 200 mg PO BEDTIME [facility] Last Admin: 08/03/25 21:22 Dose: 200 mg Chlorpromazine HCl (Chlorpromazine Hcl 100 Mg Tablet) 100 mg PO BEDTIME PRN PRN Reason: insomnia Donepezil HCl (Donepezil Hcl 10 Mg Tablet) 10 mg PO BEDTIME [facility] Last Admin: 08/03/25 21:22 Dose: 10 mg Magnesium Hydroxide (Milk Of Magnesia 30 Ml Oral.Susp) 30 ml PO DAILY PRN PRN Reason: Constipation Last Admin: 08/01/25 06:06 Dose: 30 ml Mirtazapine (Mirtazapine 30 Mg Tablet) 30 mg PO BEDTIME [facility] Last Admin: 08/03/25 21:23 Dose: 30 mg Potassium Chloride (Potassium Chloride Packet 20 Meq Packet) 20 meq PO BID [facility] Last Admin: 08/04/25 08:41 Dose: 20 meq Quetiapine Fumarate (Quetiapine Fumarate 25 Mg Tablet) 25 mg PO DAILY PRN PRN Reason: Anxiety Last Admin: 08/02/25 18:58 Dose: 25 mg Home Medications ?Medication ?Instructions ?Recorded ?Confirmed ?Last Taken ?Type donepezil 5 mg tablet 10 mg PO BEDTIME 07/30/2507/29/25 History potassium chloride 20 mEq 20 meq PO BID 07/30/2507/3007/29/25 History tablet,extended release(part/cryst) quetiapine 25 mg tablet 25 mg PO DAILY 07/30/2507/1407/29/25 History quetiapine 25 mg tablet 25 mg PO DAILY PRN Anxiety 0 07/30/25 07/30/25 Unknown History sertraline 50 mg tablet 100 mg PO DAILY 07/30/2507/29/25 History Physical Exam 2 Vital Signs and Narrative: Vital Signs: Last Vital Signs Temp 98.0 F 08/04/25 08:13 Pulse 134 H 08/04/25 08:13 Resp 16 08/04/25 08:13 BP 125/69 08/04/25 08:13 Pulse Ox 97 08/04/25 08:13 O2 Del Method Room Air 08/04/25 08:13 BMI result Body Mass Index 21.8 CONST: Alert and oriented, in NAD. Thin disheveled HEENT: Normocephalic, atraumatic, MMM, Eyes clear, Neck supple RESP: Lungs clear, RRR even and regular HEART:,RRR, S1, S2. No edema GI:Abdomen Soft NT, ND. + BS times four :Deferred SKIN: Warm dry and intact, no visible lesions or rashes NEURO:CN II-XII Intact bilaterally, Sensation intact. Speech clear PSYCH: Anxious Results Labs 07/30/25 12:01 07/30/25 12:01 Assessment and Plan (1) Anxiety: Status: Inactive (2) Cerebral microvascular disease: Status: Acute Plan 75-year-old male with past medical history of depression and anxiety, cerebral microvascular disease, and major neurocognitive disorder presented to the ED with increased depression. He is admitted for further treatment on inpatient psychiatric unit Anxiety and depression/neurocognitive disorder/cerebral microvascular disease Treatment per psychiatric team Treatment for microvascular disease includes monitoring blood pressure and avoidance of chemical agents such as alcohol or drugs. Baby aspirin daily Continue donepezil ECT risk stratification Patient without previous problems with anesthesia, has never had ECT. RCRI 0 points, no further cardiac workup or treatment indicated at this time. Patient denies any past problems with anesthesia. EKG showing QTc 409, no evidence of ischemic changes Based on stated PMH, HPI, and physical exam, there are no There are no obvious contraindications to the planned procedure. Thank you for allowing me to participate in the care of this patient. Will follow as needed, please notify medical provider with any changes in condition or concerns.
--- NOTE | 2025-08-04 12:33 | P.PNPSI_ITS ---
Subjective Subjective Date of Service: 08/04/25 Reason For Visit: depression Interim History: remains tangential, overwrought, depressed, passive SI. reluctantly agreeable to pursue ECT. per staff, pleasant, cooperative. appears sad. some dep/anx. foggy, racing thoughts. slept 8 hours. Mental Status Exam Mental Status Exam Narrative: disheveled, long white hair. cooperative no PMA/PMR. speech incr amount, incr rate, nml loudness. decr latency. thoughts circumstantial to tangential. confabulation. affect flexible, normo-intense, non-labile. mood depression. +SI. no SIBI/HI/AVH. Diagnostics Vital Signs (24Hr): Vital Signs - 24 hr 08/03/25 19:35 08/04/25 08:13 Temperature 98.5 F 98.0 F Pulse Rate 105 H 134 H Respiratory Rate 18 16 Blood Pressure 131/75 125/69 Pulse Oximetry 96 97 Oxygen Delivery Method Room Air Room Air BMI result Body Mass Index 21.8 Labs 07/30/25 12:01 07/30/25 12:01 Medications Medications Current Medications Acetaminophen (Acetaminophen 325 Mg Tablet) 650 mg PO Q6H PRN PRN Reason: Headache/Pain, Scale 1-10 Al Hydroxide/Mg Hydroxide (Magnesium Hydrox/Alum Hydrox 30 Ml Oral.Susp) 30 ml PO Q6H PRN PRN Reason: Heartburn/Nausea Aspirin (Aspirin Enteric Coated 81 Mg Tablet.) 81 mg PO DAILY [facility] Last Admin: 08/04/25 08:41 Dose: 81 mg Chlorpromazine HCl (Chlorpromazine Hcl 100 Mg Tablet) 200 mg PO BEDTIME [facility] Last Admin: 08/03/25 21:22 Dose: 200 mg Chlorpromazine HCl (Chlorpromazine Hcl 100 Mg Tablet) 100 mg PO BEDTIME PRN PRN Reason: insomnia Donepezil HCl (Donepezil Hcl 10 Mg Tablet) 10 mg PO BEDTIME [facility] Last Admin: 08/03/25 21:22 Dose: 10 mg Magnesium Hydroxide (Milk Of Magnesia 30 Ml Oral.Susp) 30 ml PO DAILY PRN PRN Reason: Constipation Last Admin: 08/01/25 06:06 Dose: 30 ml Mirtazapine (Mirtazapine 30 Mg Tablet) 30 mg PO BEDTIME [facility] Last Admin: 08/03/25 21:23 Dose: 30 mg Potassium Chloride (Potassium Chloride Packet 20 Meq Packet) 20 meq PO BID [facility] Last Admin: 08/04/25 08:41 Dose: 20 meq Quetiapine Fumarate (Quetiapine Fumarate 25 Mg Tablet) 25 mg PO DAILY PRN PRN Reason: Anxiety Last Admin: 08/02/25 18:58 Dose: 25 mg Allergies Allergies Allergy/AdvReac Type Severity Reaction Status Date / Time No Known Allergies Allergy Verified 07/30/25 11:00 Assessment & Plan Assessment & Plan (1) Anxiety: Status: Inactive Code(s): F41.9 - Anxiety disorder, unspecified (2) Cerebral microvascular disease: Status: Acute Code(s): I67.89 - Other cerebrovascular disease Assessment and Plan: 75-year-old male with past medical history of depression and anxiety, cerebral microvascular disease, and major neurocognitive disorder presented to the ED with increased depression. He is admitted for further treatment on inpatient psychiatric unit Anxiety and depression/neurocognitive disorder/cerebral microvascular disease Treatment per psychiatric team Treatment for microvascular disease includes monitoring blood pressure and avoidance of chemical agents such as alcohol or drugs. Baby aspirin daily Continue donepezil ECT risk stratification Patient without previous problems with anesthesia, has previously undergone ECT RCRI 0 points, no further cardiac workup or treatment indicated at this time. Patient denies any past problems with anesthesia. EKG showing QTc WNL, no evidence of ischemic changes Based on stated PMH, HPI, and physical exam, there are no There are no obvious contraindications to the planned procedure. Plan 07/31: stop zoloft due to concern for bipolar illness. increase HS seroquel to 250 mg for sleep. further Hx from brother Jeannie. 08/01: no Hx C/W bipolar disorder per collateral obtained from brother. per brother, pt is low intelligence and marginally functional. he reports gradual cognitive decline but clear depression having developed in the past year or so. supportive of ECT. DC trazodone and seroquel. start remeron 30 QHS and thorazine 200 QHS with repeat of 100 mg as needed. if no progress made in appetite and sleep, pursue ECT as of monday. 08/02: Continue current management and treatment plan. ECT considered next week. 08/03: Changed to 5 min checks. continue current management and treatment plan. 08/04: staff charting pt sleeping well, pt states he just lies in bed and does not sleep at all. reporting poor appetite. pt agrees to ECT. per hospitalist note, risk stratification suitable to pursue ECT. will order for weds. Reason for continued inpatient stay Substantial Risk for: harm to self and inability to function Time Spent With Patient Time: Total time managing care of this patient today __25__ minutes.
[2025-08-04 20:00] VITALS: BP 129/75; PULSE 96; RESP 18; TEMP 36.6; O2SAT 97
[2025-08-05 07:34] VITALS: BP 123/80; PULSE 115; RESP 18; TEMP 36.2; O2SAT 98
[2025-08-05] MEDS: Potassium Chloride Packet 20 MEQ PACKET PO ×2 (10:01→21:28)
[2025-08-05] MEDS: Aspirin Enteric Coated 81 MG TABLET.DR PO (10:01)
--- NOTE | 2025-08-05 14:09 | P.PNPSI_ITS ---
Subjective Subjective Date of Service: 08/05/25 Reason For Visit: depression Interim History: c/o poor sleep and appetite. says he slept maybe 1.5-2 hours last night. says he's trying to eat more. agreeable to increase remeron to 45 mg for sleep and appetite. per staff, taking meds. having sexual urges toward roommate. +AH. isolative. ECT [place]. Mental Status Exam Mental Status Exam Narrative: disheveled, long white hair. cooperative no PMA/PMR. speech incr amount, nml rate, nml loudness. decr latency. thoughts circumstantial to tangential. confabulation. affect flexible, normo-intense, non-labile. mood depression. +SI. no SIBI/HI/AVH. Diagnostics Vital Signs (24Hr): Vital Signs - 24 hr 08/04/25 20:00 08/05/25 07:34 Temperature 97.9 F 97.2 F Pulse Rate 96 115 H Respiratory Rate 18 18 Blood Pressure 129/75 123/80 Pulse Oximetry 97 98 Oxygen Delivery Method Room Air Room Air BMI result Body Mass Index 21.8 Labs 07/30/25 12:01 07/30/25 12:01 Medications Medications Current Medications Acetaminophen (Acetaminophen 325 Mg Tablet) 650 mg PO Q6H PRN PRN Reason: Headache/Pain, Scale 1-10 Al Hydroxide/Mg Hydroxide (Magnesium Hydrox/Alum Hydrox 30 Ml Oral.Susp) 30 ml PO Q6H PRN PRN Reason: Heartburn/Nausea Aspirin (Aspirin Enteric Coated 81 Mg Tablet.) 81 mg PO DAILY [facility] Last Admin: 08/05/25 10:01 Dose: 81 mg Chlorpromazine HCl (Chlorpromazine Hcl 100 Mg Tablet) 200 mg PO BEDTIME [facility] Last Admin: 08/04/25 20:53 Dose: 200 mg Chlorpromazine HCl (Chlorpromazine Hcl 100 Mg Tablet) 100 mg PO BEDTIME PRN PRN Reason: insomnia Donepezil HCl (Donepezil Hcl 10 Mg Tablet) 10 mg PO BEDTIME [facility] Last Admin: 08/04/25 20:53 Dose: 10 mg Magnesium Hydroxide (Milk Of Magnesia 30 Ml Oral.Susp) 30 ml PO DAILY PRN PRN Reason: Constipation Last Admin: 08/01/25 06:06 Dose: 30 ml Mirtazapine (Mirtazapine 15 Mg Tablet) 45 mg PO BEDTIME [facility] Potassium Chloride (Potassium Chloride Packet 20 Meq Packet) 20 meq PO BID [facility] Last Admin: 08/05/25 10:01 Dose: 20 meq Quetiapine Fumarate (Quetiapine Fumarate 25 Mg Tablet) 25 mg PO DAILY PRN PRN Reason: Anxiety Last Admin: 08/02/25 18:58 Dose: 25 mg Allergies Allergies Allergy/AdvReac Type Severity Reaction Status Date / Time No Known Allergies Allergy Verified 07/30/25 11:00 Assessment & Plan Assessment & Plan (1) Anxiety: Status: Inactive Code(s): F41.9 - Anxiety disorder, unspecified (2) Cerebral microvascular disease: Status: Acute Code(s): I67.89 - Other cerebrovascular disease Assessment and Plan: 75-year-old male with past medical history of depression and anxiety, cerebral microvascular disease, and major neurocognitive disorder presented to the ED with increased depression. He is admitted for further treatment on inpatient psychiatric unit Anxiety and depression/neurocognitive disorder/cerebral microvascular disease Treatment per psychiatric team Treatment for microvascular disease includes monitoring blood pressure and avoidance of chemical agents such as alcohol or drugs. Baby aspirin daily Continue donepezil ECT risk stratification Patient without previous problems with anesthesia, has never had ECT. RCRI 0 points, no further cardiac workup or treatment indicated at this time. Patient denies any past problems with anesthesia. EKG showing QTc 409, no evidence of ischemic changes Based on stated PMH, HPI, and physical exam, there are no There are no obvious contraindications to the planned procedure. Plan 07/31: stop zoloft due to concern for bipolar illness. increase HS seroquel to 250 mg for sleep. further Hx from brother Jeannie. 08/01: no Hx C/W bipolar disorder per collateral obtained from brother. per brother, pt is low intelligence and marginally functional. he reports gradual cognitive decline but clear depression having developed in the past year or so. supportive of ECT. DC trazodone and seroquel. start remeron 30 QHS and thorazine 200 QHS with repeat of 100 mg as needed. if no progress made in appetite and sleep, pursue ECT as of monday. 08/02: Continue current management and treatment plan. ECT considered next week. 08/03: Changed to 5 min checks. continue current management and treatment plan. 9/22: staff charting pt sleeping well, pt states he just lies in bed and does not sleep at all. reporting poor appetite. pt agrees to ECT. per hospitalist note, risk stratification suitable to pursue ECT. will order for . 08/05: no change in presentation. having sexual urges toward roommate. will plan to sleep in sensory room until single available. NPO past MN in case added on to morning ECT schedule. may be transferring to [facility] soon. Reason for continued inpatient stay Substantial Risk for: harm to self and inability to function Time Spent With Patient Time: Total time managing care of this patient today __35__ minutes.
[2025-08-05 20:00] VITALS: BP 131/75; PULSE 106; RESP 18; TEMP 36.9; O2SAT 97
[2025-08-06] VITALS (11 sets, daily range): BP systolic 96–146; BP diastolic 60–93; PULSE 72–134; RESP 16–26; TEMP 36.2–36.5; O2SAT 95–100
--- NOTE | 2025-08-06 07:25 | MHC.SHP ---
Pre-Procedural Eval Section A - 24 Hr Update-Section A only Date of Service: 08/06/25 The patient is an INPATIENT: Yes Changes since office visit: Yes Changes in Medication and Yes Patient answered all questions; No Cold of Flu in the past 2 weeks and No New Medical Problems The patient has been examined within 24 hours of the surgical procedure. The History & Physical has been completed within 30 days and I have reviewed it.: Yes Section B - Complete if H&P > 30 days Chief Complaint: depression Allergies: Allergies Allergy/AdvReac Type Severity Reaction Status Date / Time No Known Allergies Allergy Verified 07/30/25 11:00 Plan I have reviewed the history and physical and performed a pertinent physical examination on my patient. No changes have occurred unless specified. Time Spent With Patient Time: Total time managing care of this patient today ____ minutes.
--- NOTE | 2025-08-06 08:20 | P.CONAN_ITS ---
[facility] Active Problems Active Problems: All Active Problems (Updated 07/30/25 @ 14:28 by JOE Laura) Depression (Acute) Cerebral microvascular disease (Acute) Major neurocognitive disorder due to multiple etiologies, with anxiety (Acute) Anxiety disorder (Acute) Past Medical History Medical History Anxiety Family History Family history of problems with anesthesia: No Surgical History History of Problems with Anesthesia: No Social History Social History Household Members: Family Housing: House Do you presently have visiting nurse or other home services: No Comment: 5 min checks Patient Tobacco Use Status: Never used Tobacco Smoked in Last 30 Days: No e-Cigarette/Vaping Use: Never Used Patient Interested in Nicotine Replacement: No Second Hand Smoke Exposure: No Use of substances other than those prescribed or required for medical reasons: No Currently Displaying Signs/Symptoms of Drug Intoxication Withdrawal: No Have you been hit, kicked, punched, or otherwise hurt by someone within the past year? If so, by whom?: No Do you feel safe in your current relationship?: No Current Relationship Is there a partner from a previous relationship who is making you feel unsafe now?: No Are you made to feel afraid or neglected: No Advance Directives: Yes Advance Directives Information Provided: No Advance Directives on File: No Do you have thoughts of harming others: None Do you have a plan to hurt others: No Plan Recently lost weight without trying: Unsure How much weight loss: Not applicable Eating poorly because of decreased appetite: Yes Nutrition screen score: 3 Nutrition Risks: No Nutritional Risk Poor oral hygiene: No service: No Sexual orientation: Straight/Heterosexual Meds Allergies Allergy/AdvReac Type Severity Reaction Status Date / Time No Known Allergies Allergy Verified 07/30/25 11:00 Active Medications: Current Medications Acetaminophen (Acetaminophen 325 Mg Tablet) 650 mg PO Q6H PRN PRN Reason: Headache/Pain, Scale 1-10 Al Hydroxide/Mg Hydroxide (Magnesium Hydrox/Alum Hydrox 30 Ml Oral.Susp) 30 ml PO Q6H PRN PRN Reason: Heartburn/Nausea Aspirin (Aspirin Enteric Coated 81 Mg Tablet.Dr) 81 mg PO DAILY [facility] Last Admin: 08/05/25 10:01 Dose: 81 mg Chlorpromazine HCl (Chlorpromazine Hcl 100 Mg Tablet) 200 mg PO BEDTIME [facility] Last Admin: 08/05/25 21:28 Dose: 200 mg Chlorpromazine HCl (Chlorpromazine Hcl 100 Mg Tablet) 100 mg PO BEDTIME PRN PRN Reason: insomnia Donepezil HCl (Donepezil Hcl 10 Mg Tablet) 10 mg PO BEDTIME [facility] Last Admin: 08/05/25 21:28 Dose: 10 mg Lactated Ringer's (Lr) 1,000 mls @ 50 mls/hr IVCONT .Q20H [facility] Magnesium Hydroxide (Milk Of Magnesia 30 Ml Oral.Susp) 30 ml PO DAILY PRN PRN Reason: Constipation Last Admin: 08/01/25 06:06 Dose: 30 ml Mirtazapine (Mirtazapine 15 Mg Tablet) 45 mg PO BEDTIME [facility] Last Admin: 08/05/25 21:28 Dose: 45 mg Naloxone HCl (Naloxone Hcl 0.4 Mg/Ml Vial) 0.04 mg IVPUSH Q5M PRN PRN Reason: Excessive sedation or RR < 8 Potassium Chloride (Potassium Chloride Packet 20 Meq Packet) 20 meq PO BID [facility] Last Admin: 08/05/25 21:28 Dose: 20 meq Quetiapine Fumarate (Quetiapine Fumarate 25 Mg Tablet) 25 mg PO DAILY PRN PRN Reason: Anxiety Last Admin: 08/02/25 18:58 Dose: 25 mg Home Medications ?Medication ?Instructions ?Recorded ?Confirmed ?Last Taken ?Type donepezil 5 mg tablet 10 mg PO BEDTIME 07/30/2507/29/25 History potassium chloride 20 mEq 20 meq PO BID 07/30/2507/3007/29/25 History tablet,extended release(part/cryst) quetiapine 25 mg tablet 25 mg PO DAILY 07/30/2507/1407/29/25 History quetiapine 25 mg tablet 25 mg PO DAILY PRN Anxiety 0 07/30/25 07/30/25 Unknown History sertraline 50 mg tablet 100 mg PO DAILY 07/30/2507/29/25 History Exam Height,Weight and Vital Signs: Height 5 ft 10 in Weight 69.003 kg Last Vital Signs Temp 97.4 F 08/06/25 07:45 Pulse 134 H 08/06/25 07:45 Resp 18 08/06/25 07:45 BP 96/60 08/06/25 07:45 Pulse Ox 96 08/06/25 07:45 O2 Del Method Room Air 08/06/25 07:45 Pertinent Lab Results Pertinent Lab Results: Laboratory Tests 07/30/25 12:01 WBC 7.8 RBC 4.46 L Hgb 13.8 L Hct 41.3 L MCV 92.6 MCH 30.9 MCHC 33.4 RDW 14.6 Plt Count 227 MPV 8.3 L Immature Gran % (Auto) 0.4 Neut % (Auto) 72.8 Lymph % (Auto) 18.2 L [place] % (Auto) 6.0 Eos % (Auto) 1.8 Baso % (Auto) 0.8 Lymph # (Auto) 1.4 [place] # (Auto) 0.5 Eos # (Auto) 0.1 Baso # (Auto) 0.1 Abs Immat Gran (auto) 0.03 Absolute Neuts (auto) 5.7 Absolute Nucleated RBC 0.000 Nucleated RBC % (auto) 0.0 Sodium 139 Potassium 4.2 Chloride 107 Carbon Dioxide 26 Anion Gap 10 L BUN 14 Creatinine 0.82 Estim Creat Clear Calc 81.1 Estimated GFR > 60 Random Glucose 102 Calcium 9.7 Total Bilirubin 0.4 AST 21 ALT 18 Alkaline Phosphatase 77 Total Protein 7.7 Albumin 4.5 Urine Color Yellow Urine Appearance Clear Urine pH 5.0 Ur Specific [place] 1.025 Urine Protein Negative Urine Glucose (UA) Negative Urine Ketones Negative Urine Blood Negative Urine Nitrite Negative Ur Leukocyte Esterase Negative Urine Opiates Screen Not Detected Ur Buprenorphine Scrn Not Detected Ur Oxycodone Screen Not Detected Urine Methadone Screen Not Detected Urine Fentanyl Screen Not Detected Ur Barbiturates Screen Not Detected Ur Phencyclidine Scrn Not Detected Ur Amphetamines Screen Not Detected U Benzodiazepines Scrn Not Detected Urine Cocaine Screen Not Detected U Marijuana (THC) Screen Not Detected Ethyl Alcohol < 10 Airway Mallampati Class: II (missing multiple teeth) TM Dist: >3cm Neck ROM: Full Heart: rrr Lungs: cta Assessment and Plan Assessment Anesthesia Assessment: Anesthesia Plan Discussed and Chart Reviewed Final Anesthetic Review Family History of Problems with Anesthesia: No History of Problems with Anesthesia: No NPO: Yes ASA Class: III Final Preanesthetic Review: No Changes in Pt Med Stat, Meds/Allgs Chart Reviewed and Consent Obtained/Reviewed Patient Risk: Intermediate Procedure Risk: Intermediate Anesthetic Plan Anesthetic Plan: GA Disposition: Standard PACU
--- NOTE | 2025-08-06 08:34 | MHC.SHP ---
Pre-Procedural Eval Section A - 24 Hr Update-Section A only Date of Service: 08/06/25 Changes since office visit: Yes New Medical Problems, Yes Changes in Medication and Yes Patient answered all questions; No Cold of Flu in the past 2 weeks The patient has been examined within 24 hours of the surgical procedure. The History & Physical has been completed within 30 days and I have reviewed it.: Yes Section B - Complete if H&P > 30 days Chief Complaint: depression Allergies: Allergies Allergy/AdvReac Type Severity Reaction Status Date / Time No Known Allergies Allergy Verified 07/30/25 11:00 Plan I have reviewed the history and physical and performed a pertinent physical examination on my patient. No changes have occurred unless specified. Time Spent With Patient Time: Total time managing care of this patient today ____ minutes.
--- NOTE | 2025-08-06 08:55 | HO.ECTPROC ---
ECT Procedure Note Diagnosis/Treatment Date of Service: 08/06/25 Diagnosis: Major Depressive Disorder Current Treatment Number: 1 Treatment: Series Interval Clinical Notes: Patient somewhat lethargic depressed understood treatment of electroconvulsive therapy for depression risks benefits had been reviewed patient able to give informed consent. Some cognitive dulling noted. Patient did have a pause he had been given 5 mg of esmolol pretreatment he did not require atropine or Robinul. His EEG was 100 seconds he was given propofol at 60 seconds to stop Seizure Time: Total time managing care of this patient today _30___ minutes. ECT Settings Device: THYMATRON DGx Program/Pulse Width: 0.25 Energy Percent: 100 Seizure Duration By EEG (in seconds): 100 Medications Administration General Anesthetic: Etomidate (14) Muscle Relaxant: Succinylcholine (80) Ancillary Medications Cardiovascular Medications: Esmolol (10 pre tx do not give next tx) Miscillaneous Medications: Propofol (30) Airway Management Airway Management: Bag Mask Ventilation Treatment Recommendations Notes: Decreased energy next treatment do not give beta-elbert pretreatment have Robinul or atropine on hand Pt Tolerated Procedure w/o Issue: Yes
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
--- NOTE | 2025-08-06 14:26 | HO.PM.IMPN ---
Subjective Subjective Date of Service: 08/06/25 Interval History: Asked by Psychiatry to see patient for question delirium. On exam patient appears to be in psychological distress, feeling depressed about things he has done in his life. He alert and oriented x4. No behavioral issues. Does continue to report that he is having issues with his memory. Denies any shortness of breath, dizziness, lightheadedness or any other concerning symptoms Review of Systems Denies any shortness of breath, chest pain, dizziness, lightheadedness, abdominal pain or discomfort, nausea vomiting or diarrhea Physical Exam Exam: Exam: CONST: Alert and oriented, in NAD. Disheveled HEENT: Normocephalic, atraumatic, MMM, Eyes clear, Neck supple RESP: Lungs clear, RRR even and regular HEART:,RRR, S1, S2. No edema GI:Abdomen Soft NT, ND. + BS times four :Deferred SKIN: Warm dry and intact, no visible lesions or rashes NEURO:CN II-XII Intact bilaterally, Sensation intact. Speech clear PSYCH: Depressed affect Vital Signs: Vital Signs: Last Vital Signs Temp 97.7 F 08/06/25 10:15 Pulse 100 08/06/25 10:15 Resp 16 08/06/25 10:15 BP 132/70 08/06/25 10:15 Pulse Ox 96 08/06/25 10:15 O2 Del Method Room Air 08/06/25 09:45 O2 Flow Rate 4 08/06/25 09:00 BMI result Body Mass Index 21.8 Objective Data Active Medications Acetaminophen (Acetaminophen 325 Mg Tablet) 650 mg PO Q6H PRN PRN Reason: Headache/Pain, Scale 1-10 Al Hydroxide/Mg Hydroxide (Magnesium Hydrox/Alum Hydrox 30 Ml Oral.Susp) 30 ml PO Q6H PRN PRN Reason: Heartburn/Nausea Aspirin (Aspirin Enteric Coated 81 Mg Tablet.) 81 mg PO DAILY [facility], [facility] Last Admin: 08/06/25 10:29 Dose: Not Given Documented By: ONEYDA Non-Admin Reason: Patient Refused Chlorpromazine HCl (Chlorpromazine Hcl 100 Mg Tablet) 200 mg PO BEDTIME PEDRITO Last Admin: 08/05/25 21:28 Dose: 200 mg Documented By: KYAW Chlorpromazine HCl (Chlorpromazine Hcl 100 Mg Tablet) 100 mg PO BEDTIME PRN PRN Reason: insomnia Donepezil HCl (Donepezil Hcl 10 Mg Tablet) 10 mg PO BEDTIME PEDRITO Last Admin: 08/05/25 21:28 Dose: 10 mg Documented By: KYAW Lorazepam (Lorazepam 0.5 Mg Tablet) 0.5 mg PO TID PEDRITO Magnesium Hydroxide (Milk Of Magnesia 30 Ml Oral.Susp) 30 ml PO DAILY PRN PRN Reason: Constipation Last Admin: 08/01/25 06:06 Dose: 30 ml Documented By: EARLENE Mirtazapine (Mirtazapine 15 Mg Tablet) 45 mg PO BEDTIME PEDRITO Last Admin: 08/05/25 21:28 Dose: 45 mg Documented By: KYAW Potassium Chloride (Potassium Chloride Packet 20 Meq Packet) 20 meq PO BID PEDRITO Last Admin: 08/06/25 10:29 Dose: Not Given Documented By: ONEYDA Non-Admin Reason: Patient Refused Quetiapine Fumarate (Quetiapine Fumarate 25 Mg Tablet) 25 mg PO DAILY PRN PRN Reason: Anxiety Last Admin: 08/02/25 18:58 Dose: 25 mg Documented By: DOSTALD Labs 07/30/25 12:01 07/30/25 12:01 Assessment and Plan (1) Major neurocognitive disorder due to multiple etiologies, with anxiety: Status: Acute Plan 75-year-old male with past medical history of depression and anxiety, cerebral microvascular disease, and major neurocognitive disorder presented to the ED with increased depression. He is admitted for further treatment on inpatient psychiatric unit Anxiety and depression/neurocognitive disorder/cerebral microvascular disease Treatment per psychiatric team Treatment for microvascular disease includes monitoring blood pressure and avoidance of chemical agents such as alcohol or drugs. Baby aspirin daily Continue donepezil We will obtain labs to rule out any medical reason for increased depression Was supposed to start ECT treatment however it was felt that he was unable to consent. Recommend MOCA eval for cognition Thank you for allowing me to participate in the care of this patient. Will follow as needed, please notify medical provider with any changes in condition or concerns. Quality Stroke Does the patient have a stroke diagnosis?: No VTE Prior VTE?: No VTE Risk Level:: Medical - low VTE Device Contraindication: Treatment Not Indicated VTE Drug Contraindication: Treatment Not Indicated
[2025-08-06 16:02] LABS: MANUAL DIFF FLAG NO
[2025-08-06 16:04] LABS: Hematocrit 40.8 % (42.0-52.0); Hemoglobin 14.0 g/dl (14.0-18.0); Imm Gran Abs Auto 0.01 X10*3/uL (0.00-0.03); Imm Gran Pct Auto 0.2 % (0.0-0.4); Lymphocytes Absolute Auto 1.0 X10*3/uL (1.2-4.9); Mean Corpuscular HGB Conc 34.3 g/dl (31.0-36.0); Mean Corpuscular Hemoglobin 30.8 pg (27.0-33.0); Mean Corpuscular Volume 89.9 fL (80.0-98.0); NRBC Abs Auto 0.000 X10*3/uL (0.0-0.012); NRBC Pct Auto 0.0 /100WBC (0.0-0.2); Platelet Count 210 X10*3/uL (160-400); Red Blood Count 4.54 X10*6/uL (4.60-5.80); White Blood Count 4.5 X10*3/uL (4.8-10.8)
[2025-08-06 16:18] LABS: Alanine Aminotransferase 11 U/L (0-40); Albumin Level 4.1 g/dL (3.5-5.0); Alkaline Phosphatase 84 U/L (39-117); Anion Gap 11 (12-20); Aspartate Amino Transferase 20 U/L (5-37); Blood Urea Nitrogen 19 mg/dL (9-16); Calcium 9.5 mg/dL (8.4-10.2); Carbon Dioxide 28 mmol/L (22-29); Chloride 102 mmol/L (96-108); Creatinine Clr Calc Pharmacy 72.7; Estimated Glomerular Filt Rate > 60; Potassium 4.4 mmol/L (3.3-5.1); Sodium 137 mmol/L (135-145); Total Protein 7.3 g/dL (6.5-8.0)
[2025-08-06] MEDS: Potassium Chloride Packet 20 MEQ PACKET PO (21:49)
[2025-08-07 07:00] VITALS: BMI 47.2
[2025-08-07 08:00] VITALS: BP 136/84; PULSE 110; RESP 18; TEMP 36.3; O2SAT 95
[2025-08-07] MEDS: Potassium Chloride Packet 20 MEQ PACKET PO ×2 (09:41→21:07)
[2025-08-07] MEDS: Aspirin Enteric Coated 81 MG TABLET.DR PO (09:42)
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
[2025-08-07 15:38] LABS: Appearance Urine Clear; Glucose Urine UA Negative (Negative); PH 5.5 (5.0-9.0); Specific Gravity - Urine 1.025 (1.005-1.025); UMIC TRIGGER UACC YES
[2025-08-07 20:00] VITALS: BP 100/65; PULSE 114; RESP 16; TEMP 36.4; O2SAT 97
[2025-08-08] VITALS (10 sets, daily range): BP systolic 113–158; BP diastolic 73–95; PULSE 73–110; RESP 14–18; TEMP 36.1–36.8; O2SAT 96–100; BMI 20.4
[2025-08-08] MEDS: Lactated Ringers 1,000 ML 50 ML IVCONT (06:47)
--- NOTE | 2025-08-08 07:01 | HO.ANESPROP2 ---
[facility] Active Problems Active Problems: All Active Problems Depression (Acute) Cerebral microvascular disease (Acute) Major neurocognitive disorder due to multiple etiologies, with anxiety (Acute) Anxiety disorder (Acute) Past Medical History Medical History Anxiety Family History Family history of problems with anesthesia: No Surgical History History of Problems with Anesthesia: No Social History Social History Household Members: Family Housing: House Do you presently have visiting nurse or other home services: No Comment: 5 minute safety checks. Patient Tobacco Use Status: Never used Tobacco Smoked in Last 30 Days: No e-Cigarette/Vaping Use: Never Used Patient Interested in Nicotine Replacement: No Second Hand Smoke Exposure: No Use of substances other than those prescribed or required for medical reasons: No Currently Displaying Signs/Symptoms of Drug Intoxication Withdrawal: No Have you been hit, kicked, punched, or otherwise hurt by someone within the past year? If so, by whom?: No Do you feel safe in your current relationship?: No Current Relationship Is there a partner from a previous relationship who is making you feel unsafe now?: No Are you made to feel afraid or neglected: No Are you DNR?: No Advance Directives: No (Pt states Brother is health care proxy, Jeannie Marquez. no copy in chart) Advance Directives Information Provided: No Advance Directives on File: No Do you have thoughts of harming others: None Do you have a plan to hurt others: No Plan Recently lost weight without trying: Unsure How much weight loss: Not applicable Eating poorly because of decreased appetite: Yes Nutrition screen score: 3 Nutrition Risks: No Nutritional Risk Poor oral hygiene: No service: No Sexual orientation: Straight/Heterosexual Meds Allergies Allergy/AdvReac Type Severity Reaction Status Date / Time No Known Allergies Allergy Verified 07/30/25 11:00 Active Medications: Current Medications Acetaminophen (Acetaminophen 325 Mg Tablet) 650 mg PO Q6H PRN PRN Reason: Headache/Pain, Scale 1-10 Al Hydroxide/Mg Hydroxide (Magnesium Hydrox/Alum Hydrox 30 Ml Oral.Susp) 30 ml PO Q6H PRN PRN Reason: Heartburn/Nausea Aspirin (Aspirin Enteric Coated 81 Mg Tablet.) 81 mg PO DAILY PEDRITO Last Admin: 08/07/25 09:42 Dose: 81 mg Chlorpromazine HCl (Chlorpromazine Hcl 100 Mg Tablet) 200 mg PO BEDTIME PEDRITO Last Admin: 08/07/25 21:07 Dose: 200 mg Chlorpromazine HCl (Chlorpromazine Hcl 100 Mg Tablet) 100 mg PO BEDTIME PRN PRN Reason: insomnia Donepezil HCl (Donepezil Hcl 10 Mg Tablet) 10 mg PO BEDTIME PEDRITO Last Admin: 08/07/25 21:07 Dose: 10 mg Lactated Ringer's (Lr) 1,000 mls @ 50 mls/hr IVCONT .Q20H PEDRITO Last Admin: 08/08/25 06:47 Dose: 50 mls/hr Lorazepam (Lorazepam 0.5 Mg Tablet) 0.5 mg PO TID PEDRITO On Hold: 08/07/25 17:00 Last Admin: 08/07/25 16:17 Dose: 0.5 mg Magnesium Hydroxide (Milk Of Magnesia 30 Ml Oral.Susp) 30 ml PO DAILY PRN PRN Reason: Constipation Last Admin: 08/01/25 06:06 Dose: 30 ml Mirtazapine (Mirtazapine 15 Mg Tablet) 45 mg PO BEDTIME PEDRITO Last Admin: 08/07/25 21:07 Dose: 45 mg Naloxone HCl (Naloxone Hcl 0.4 Mg/Ml Vial) 0.04 mg IVPUSH Q5M PRN PRN Reason: Excessive sedation or RR < 8 Potassium Chloride (Potassium Chloride Packet 20 Meq Packet) 20 meq PO BID PEDRITO Last Admin: 08/07/25 21:07 Dose: 20 meq Quetiapine Fumarate (Quetiapine Fumarate 25 Mg Tablet) 25 mg PO DAILY PRN PRN Reason: Anxiety Last Admin: 08/02/25 18:58 Dose: 25 mg Home Medications ?Medication ?Instructions ?Recorded ?Confirmed ?Last Taken ?Type donepezil 5 mg tablet 10 mg PO BEDTIME 07/30/25 07/30/25 07/29/25 History potassium chloride 20 mEq 20 meq PO BID 07/30/25 07/30/25 07/29/25 History tablet,extended release(part/cryst) quetiapine 25 mg tablet 25 mg PO DAILY 07/30/25 07/30/25 07/29/25 History quetiapine 25 mg tablet 25 mg PO DAILY PRN Anxiety 07/30/25 07/30/25 Unknown History sertraline 50 mg tablet 100 mg PO DAILY 07/30/25 07/30/25 07/29/25 History Exam Height,Weight and Vital Signs: Height 5 ft 10 in Weight 64.41 kg Last Vital Signs Temp 97.6 F 08/08/25 06:37 Pulse 104 H 08/08/25 06:37 Resp 18 08/08/25 06:37 BP 115/75 08/08/25 06:37 Pulse Ox 99 08/08/25 06:37 O2 Del Method Room Air 08/07/25 20:00 O2 Flow Rate 4 08/06/25 09:00 Pertinent Lab Results Pertinent Lab Results: Laboratory Tests 07/30/25 08/06/25 08/07/25 12:01 15:31 15:20 WBC 7.8 4.5 L RBC 4.46 L 4.54 L Hgb 13.8 L 14.0 Hct 41.3 L 40.8 L MCV 92.6 89.9 MCH 30.9 30.8 MCHC 33.4 34.3 RDW 14.6 14.7 Plt Count 227 210 MPV 8.3 L 8.8 L Immature Gran % (Auto) 0.4 0.2 Neut % (Auto) 72.8 66.9 Lymph % (Auto) 18.2 L 21.4 [place] % (Auto) 6.0 9.7 Eos % (Auto) 1.8 1.1 Baso % (Auto) 0.8 0.7 Lymph # (Auto) 1.4 1.0 L [place] # (Auto) 0.5 0.4 Eos # (Auto) 0.1 0.1 Baso # (Auto) 0.1 0.0 Abs Immat Gran (auto) 0.03 0.01 Absolute Neuts (auto) 5.7 3.0 Absolute Nucleated RBC 0.000 0.000 Nucleated RBC % (auto) 0.0 0.0 Sodium 139 137 Potassium 4.2 4.4 Chloride 107 102 Carbon Dioxide 26 28 Anion Gap 10 L 11 L BUN 14 19 H Creatinine 0.82 0.87 Estim Creat Clear Calc 81.1 72.7 Estimated GFR > 60 > 60 Random Glucose 102 110 Calcium 9.7 9.5 Total Bilirubin 0.4 0.6 AST 21 20 ALT 18 11 Alkaline Phosphatase 77 84 Total Protein 7.7 7.3 Albumin 4.5 4.1 Urine Color Yellow Cancelled Urine Appearance Clear Urine pH 5.0 Ur Specific [place] 1.025 Urine Protein Negative Urine Glucose (UA) Negative Urine Ketones Negative Urine Blood Negative Urine Nitrite Negative Ur Leukocyte Esterase Negative Urine RBC Urine WBC Ur Squamous Epith Cells Urine Bacteria Hyaline Casts Urine Opiates Screen Not Detected Ur Buprenorphine Scrn Not Detected Ur Oxycodone Screen Not Detected Urine Methadone Screen Not Detected Urine Fentanyl Screen Not Detected Ur Barbiturates Screen Not Detected Ur Phencyclidine Scrn Not Detected Ur Amphetamines Screen Not Detected U Benzodiazepines Scrn Not Detected Urine Cocaine Screen Not Detected U Marijuana (THC) Screen Not Detected Ethyl Alcohol < 10 08/07/25 08/07/25 08/07/25 15:20 15:20 15:20 WBC RBC Hgb Hct MCV MCH MCHC RDW Plt Count MPV Immature Gran % (Auto) Neut % (Auto) Lymph % (Auto) [place] % (Auto) Eos % (Auto) Baso % (Auto) Lymph # (Auto) [place] # (Auto) Eos # (Auto) Baso # (Auto) Abs Immat Gran (auto) Absolute Neuts (auto) Absolute Nucleated RBC Nucleated RBC % (auto) Sodium Potassium Chloride Carbon Dioxide Anion Gap BUN Creatinine Estim Creat Clear Calc Estimated GFR Random Glucose Calcium Total Bilirubin AST ALT Alkaline Phosphatase Total Protein Albumin Urine Color Yellow Urine Appearance Cancelled Clear Urine pH Cancelled 5.5 Ur Specific [place] Cancelled Urine Protein Urine Glucose (UA) Urine Ketones Urine Blood Urine Nitrite Ur Leukocyte Esterase Urine RBC Urine WBC Ur Squamous Epith Cells Urine Bacteria Hyaline Casts Urine Opiates Screen Ur Buprenorphine Scrn Ur Oxycodone Screen Urine Methadone Screen Urine Fentanyl Screen Ur Barbiturates Screen Ur Phencyclidine Scrn Ur Amphetamines Screen U Benzodiazepines Scrn Urine Cocaine Screen U Marijuana (THC) Screen Ethyl Alcohol 08/07/25 08/07/25 08/07/25 15:20 15:20 15:20 WBC RBC Hgb Hct MCV MCH MCHC RDW Plt Count MPV Immature Gran % (Auto) Neut % (Auto) Lymph % (Auto) [place] % (Auto) Eos % (Auto) Baso % (Auto) Lymph # (Auto) [place] # (Auto) Eos # (Auto) Baso # (Auto) Abs Immat Gran (auto) Absolute Neuts (auto) Absolute Nucleated RBC Nucleated RBC % (auto) Sodium Potassium Chloride Carbon Dioxide Anion Gap BUN Creatinine Estim Creat Clear Calc Estimated GFR Random Glucose Calcium Total Bilirubin AST ALT Alkaline Phosphatase Total Protein Albumin Urine Color Urine Appearance Urine pH Ur Specific [place] 1.025 Urine Protein Cancelled Negative Urine Glucose (UA) Cancelled Negative Urine Ketones Cancelled Urine Blood Urine Nitrite Ur Leukocyte Esterase Urine RBC Urine WBC Ur Squamous Epith Cells Urine Bacteria Hyaline Casts Urine Opiates Screen Ur Buprenorphine Scrn Ur Oxycodone Screen Urine Methadone Screen Urine Fentanyl Screen Ur Barbiturates Screen Ur Phencyclidine Scrn Ur Amphetamines Screen U Benzodiazepines Scrn Urine Cocaine Screen U Marijuana (THC) Screen Ethyl Alcohol 08/07/25 08/07/25 08/07/25 15:20 15:20 15:20 WBC RBC Hgb Hct MCV MCH MCHC RDW Plt Count MPV Immature Gran % (Auto) Neut % (Auto) Lymph % (Auto) [place] % (Auto) Eos % (Auto) Baso % (Auto) Lymph # (Auto) [place] # (Auto) Eos # (Auto) Baso # (Auto) Abs Immat Gran (auto) Absolute Neuts (auto) Absolute Nucleated RBC Nucleated RBC % (auto) Sodium Potassium Chloride Carbon Dioxide Anion Gap BUN Creatinine Estim Creat Clear Calc Estimated GFR Random Glucose Calcium Total Bilirubin AST ALT Alkaline Phosphatase Total Protein Albumin Urine Color Urine Appearance Urine pH Ur Specific [place] Urine Protein Urine Glucose (UA) Urine Ketones Trace Urine Blood Cancelled Trace H Urine Nitrite Cancelled Negative Ur Leukocyte Esterase Cancelled Urine RBC Urine WBC Ur Squamous Epith Cells Urine Bacteria Hyaline Casts Urine Opiates Screen Ur Buprenorphine Scrn Ur Oxycodone Screen Urine Methadone Screen Urine Fentanyl Screen Ur Barbiturates Screen Ur Phencyclidine Scrn Ur Amphetamines Screen U Benzodiazepines Scrn Urine Cocaine Screen U Marijuana (THC) Screen Ethyl Alcohol 08/07/25 15:20 WBC RBC Hgb Hct MCV MCH MCHC RDW Plt Count MPV Immature Gran % (Auto) Neut % (Auto) Lymph % (Auto) [place] % (Auto) Eos % (Auto) Baso % (Auto) Lymph # (Auto) [place] # (Auto) Eos # (Auto) Baso # (Auto) Abs Immat Gran (auto) Absolute Neuts (auto) Absolute Nucleated RBC Nucleated RBC % (auto) Sodium Potassium Chloride Carbon Dioxide Anion Gap BUN Creatinine Estim Creat Clear Calc Estimated GFR Random Glucose Calcium Total Bilirubin AST ALT Alkaline Phosphatase Total Protein Albumin Urine Color Urine Appearance Urine pH Ur Specific [place] Urine Protein Urine Glucose (UA) Urine Ketones Urine Blood Urine Nitrite Ur Leukocyte Esterase Negative Urine RBC 3-5 H Urine WBC 0-5 Ur Squamous Epith Cells 0-2 Urine Bacteria None Seen Hyaline Casts 0-2 Urine Opiates Screen Ur Buprenorphine Scrn Ur Oxycodone Screen Urine Methadone Screen Urine Fentanyl Screen Ur Barbiturates Screen Ur Phencyclidine Scrn Ur Amphetamines Screen U Benzodiazepines Scrn Urine Cocaine Screen U Marijuana (THC) Screen Ethyl Alcohol Airway Mallampati Class: II (missing multiple teeth) TM Dist: >3cm Neck ROM: Full Heart: rrr Lungs: cta Assessment and Plan Assessment Anesthesia Assessment: Anesthesia Plan Discussed and Chart Reviewed Final Anesthetic Review Family History of Problems with Anesthesia: No History of Problems with Anesthesia: No NPO: Yes ASA Class: III Final Preanesthetic Review: No Changes in Pt Med Stat, Meds/Allgs Chart Reviewed and Consent Obtained/Reviewed Patient Risk: Intermediate Procedure Risk: Intermediate Anesthetic Plan Anesthetic Plan: GA Disposition: Standard PACU
--- NOTE | 2025-08-08 07:34 | MHC.SHP ---
Pre-Procedural Eval Section A - 24 Hr Update-Section A only Date of Service: 08/08/25 Changes since office visit: Yes New Medical Problems, Yes Changes in Medication and Yes Patient answered all questions; No Cold of Flu in the past 2 weeks The patient has been examined within 24 hours of the surgical procedure. The History & Physical has been completed within 30 days and I have reviewed it.: Yes Section B - Complete if H&P > 30 days Chief Complaint: depression Allergies: Allergies Allergy/AdvReac Type Severity Reaction Status Date / Time No Known Allergies Allergy Verified 07/30/25 11:00 Plan I have reviewed the history and physical and performed a pertinent physical examination on my patient. No changes have occurred unless specified. Time Spent With Patient Time: Total time managing care of this patient today ____ minutes.
--- NOTE | 2025-08-08 07:47 | HO.ECTPROC ---
ECT Procedure Note Diagnosis/Treatment Date of Service: 08/08/25 Diagnosis: Major Depressive Disorder Previous ECT Date: 08/06/25 Current Treatment Number: 2 Treatment: Series Interval Clinical Notes: Patient does seem to have a vega affect more alert esmolol was not given pretreatment for ECT 2. Patient still had a vagal mediated pause. Discussed with anesthesia option of atropine or Robinul pretreatment for the next treatment otherwise the patient did tolerate treatment without difficulty Time: Total time managing care of this patient today ____ minutes. ECT Settings Device: THYMATRON DGx Electrode Placement: Right Unilateral Program/Pulse Width: 0.25 Energy Percent: 60 Seizure Duration By EEG (in seconds): 38 Medications Administration General Anesthetic: Etomidate (14) Muscle Relaxant: Succinylcholine (80) Airway Management Airway Management: Bag Mask Ventilation Treatment Recommendations No Changes Recommended: No change
[2025-08-08] MEDS: Aspirin Enteric Coated 81 MG TABLET.DR PO (09:12)
[2025-08-08] MEDS: Potassium Chloride Packet 20 MEQ PACKET PO ×2 (09:13→22:38)
--- NOTE | 2025-08-08 09:33 | PC.NURSE ---
León returned from ECT to the unit at approximately 9am. He was alert and oriented x 3. He denied any headache but reported a slight upset stomach. He was given his morning medications with water. He is ambulating with a steady gait and used the bathroom. Breakfast was called and awaiting delivery.
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
[2025-08-09 07:34] VITALS: BP 116/70; PULSE 99; RESP 16; TEMP 36.3; O2SAT 96
[2025-08-09] MEDS: Potassium Chloride Packet 20 MEQ PACKET PO ×2 (09:59→21:50)
[2025-08-09] MEDS: Aspirin Enteric Coated 81 MG TABLET.DR PO (10:00)
[2025-08-09 19:15] VITALS: BP 113/66; PULSE 113; RESP 16; TEMP 36.6; O2SAT 98
[2025-08-09 19:59] VITALS: BP 130/77; PULSE 102; RESP 18; O2SAT 97
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
--- NOTE | 2025-08-09 23:40 | PC.NURSE ---
At approx. 1955 pt was sitting in a chair in the common area. Pt was wearing hospital socks, however they appeared to be worn and had lost their industrial analyst. As pt attempted to stand his foot slid, however he was able to maintain his balance against the wall and lower himself onto his buttocks in a controlled fall, which was witnessed by staff members. Pt denied any injury or physical complaints. Vitals were stable: 130/77, 102, 18, O2 97%. No loss of consciousness, pt was a&o x4, talking to staff throughout assessment with clear speech. Provider consultant, , notified, as well as RN production control supervisor, Zarina Collins. Pt was administered new yellow socks, per high fall risk protocol.
[2025-08-10 06:46] VITALS: BP 130/77; PULSE 102; RESP 18; O2SAT 97
[2025-08-10 08:00] VITALS: BP 96/55; PULSE 87; RESP 16; TEMP 36.3; O2SAT 96
[2025-08-10 09:04] VITALS: BP 119/75; PULSE 92; RESP 16; TEMP 36.3; O2SAT 100
[2025-08-10] MEDS: Aspirin Enteric Coated 81 MG TABLET.DR PO (09:07)
[2025-08-10] MEDS: Potassium Chloride Packet 20 MEQ PACKET PO ×2 (09:08→21:03)
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
[2025-08-10 19:43] VITALS: BP 117/67; PULSE 103; RESP 18; TEMP 36.4; O2SAT 99
[2025-08-11] VITALS (10 sets, daily range): BP systolic 99–135; BP diastolic 66–83; PULSE 80–102; RESP 16–23; TEMP 36.3–36.5; O2SAT 96–100
--- NOTE | 2025-08-11 07:07 | HO.ANESPROP2 ---
HPI - Anesthesia Eval Consult details Narrative: for ECT [facility] Active Problems Active Problems: All Active Problems (Updated 07/30/25 @ 14:28 by JOE Laura) Depression (Acute) Cerebral microvascular disease (Acute) Major neurocognitive disorder due to multiple etiologies, with anxiety (Acute) Anxiety disorder (Acute) Past Medical History Medical History Anxiety Family History Family history of problems with anesthesia: No Surgical History History of Problems with Anesthesia: No Social History Social History Household Members: Family Housing: House Do you presently have visiting nurse or other home services: No Patient Tobacco Use Status: Never used Tobacco Smoked in Last 30 Days: No e-Cigarette/Vaping Use: Never Used Patient Interested in Nicotine Replacement: No Second Hand Smoke Exposure: No Use of substances other than those prescribed or required for medical reasons: No Currently Displaying Signs/Symptoms of Drug Intoxication Withdrawal: No Have you been hit, kicked, punched, or otherwise hurt by someone within the past year? If so, by whom?: No Do you feel safe in your current relationship?: No Current Relationship Is there a partner from a previous relationship who is making you feel unsafe now?: No Are you made to feel afraid or neglected: No Are you DNR?: No Advance Directives: No (Pt states Brother is health care proxy, Jeannie Marquez. no copy in chart) Advance Directives Information Provided: No Advance Directives on File: No Do you have thoughts of harming others: None Do you have a plan to hurt others: No Plan Recently lost weight without trying: Unsure How much weight loss: Not applicable Eating poorly because of decreased appetite: Yes Nutrition screen score: 3 Nutrition Risks: No Nutritional Risk Poor oral hygiene: No service: No Sexual orientation: Straight/Heterosexual Meds Allergies Allergy/AdvReac Type Severity Reaction Status Date / Time No Known Allergies Allergy Verified 07/30/25 11:00 Active Medications: Current Medications Acetaminophen (Acetaminophen 325 Mg Tablet) 650 mg PO Q6H PRN PRN Reason: Headache/Pain, Scale 1-10 Al Hydroxide/Mg Hydroxide (Magnesium Hydrox/Alum Hydrox 30 Ml Oral.Susp) 30 ml PO Q6H PRN PRN Reason: Heartburn/Nausea Aspirin (Aspirin Enteric Coated 81 Mg Tablet.) 81 mg PO DAILY [facility] Last Admin: 08/10/25 09:07 Dose: 81 mg Chlorpromazine HCl (Chlorpromazine Hcl 100 Mg Tablet) 100 mg PO BEDTIME PEDRITO Last Admin: 08/10/25 20:47 Dose: 100 mg Chlorpromazine HCl (Chlorpromazine Hcl 25 Mg Tablet) 50 mg PO BEDTIME PRN PRN Reason: insomnia Donepezil HCl (Donepezil Hcl 10 Mg Tablet) 10 mg PO BEDTIME PEDRITO Last Admin: 08/10/25 20:47 Dose: 10 mg Magnesium Hydroxide (Milk Of Magnesia 30 Ml Oral.Susp) 30 ml PO DAILY PRN PRN Reason: Constipation Last Admin: 08/01/25 06:06 Dose: 30 ml Mirtazapine (Mirtazapine 15 Mg Tablet) 45 mg PO BEDTIME PEDRITO Last Admin: 08/10/25 20:47 Dose: 45 mg Potassium Chloride (Potassium Chloride Packet 20 Meq Packet) 20 meq PO BID [facility] Last Admin: 08/10/25 21:03 Dose: 20 meq Quetiapine Fumarate (Quetiapine Fumarate 25 Mg Tablet) 25 mg PO DAILY PRN PRN Reason: Anxiety Last Admin: 08/02/25 18:58 Dose: 25 mg Home Medications ?Medication ?Instructions ?Recorded ?Confirmed ?Last Taken ?Type donepezil 5 mg tablet 10 mg PO BEDTIME 07/30/25 07/30/25 07/29/25 History potassium chloride 20 mEq 20 meq PO BID 07/30/25 07/30/25 07/29/25 History tablet,extended release(part/cryst) quetiapine 25 mg tablet 25 mg PO DAILY 07/30/25 07/30/25 07/29/25 History quetiapine 25 mg tablet 25 mg PO DAILY PRN Anxiety 07/30/25 07/30/25 Unknown History sertraline 50 mg tablet 100 mg PO DAILY 07/30/25 07/30/25 07/29/25 History Exam Height,Weight and Vital Signs: Height 5 ft 10 in Weight 64.41 kg Last Vital Signs Temp 97.3 F 08/11/25 06:23 Pulse 89 08/11/25 06:23 Resp 16 08/11/25 06:23 BP 135/83 08/11/25 05:19 Pulse Ox 98 08/11/25 06:23 O2 Del Method Room Air 08/11/25 06:23 O2 Flow Rate 2 08/08/25 08:19 Pertinent Lab Results Pertinent Lab Results: Laboratory Tests 07/30/25 08/06/25 08/07/25 12:01 15:31 15:20 WBC 7.8 4.5 L RBC 4.46 L 4.54 L Hgb 13.8 L 14.0 Hct 41.3 L 40.8 L MCV 92.6 89.9 MCH 30.9 30.8 MCHC 33.4 34.3 RDW 14.6 14.7 Plt Count 227 210 MPV 8.3 L 8.8 L Immature Gran % (Auto) 0.4 0.2 Neut % (Auto) 72.8 66.9 Lymph % (Auto) 18.2 L 21.4 Imperial % (Auto) 6.0 9.7 Eos % (Auto) 1.8 1.1 Baso % (Auto) 0.8 0.7 Lymph # (Auto) 1.4 1.0 L [place] # (Auto) 0.5 0.4 Eos # (Auto) 0.1 0.1 Baso # (Auto) 0.1 0.0 Abs Immat Gran (auto) 0.03 0.01 Absolute Neuts (auto) 5.7 3.0 Absolute Nucleated RBC 0.000 0.000 Nucleated RBC % (auto) 0.0 0.0 Sodium 139 137 Potassium 4.2 4.4 Chloride 107 102 Carbon Dioxide 26 28 Anion Gap 10 L 11 L BUN 14 19 H Creatinine 0.82 0.87 Estim Creat Clear Calc 81.1 72.7 Estimated GFR > 60 > 60 Random Glucose 102 110 Calcium 9.7 9.5 Total Bilirubin 0.4 0.6 AST 21 20 ALT 18 11 Alkaline Phosphatase 77 84 Total Protein 7.7 7.3 Albumin 4.5 4.1 Urine Color Yellow Cancelled Urine Appearance Clear Urine pH 5.0 Ur Specific [place] 1.025 Urine Protein Negative Urine Glucose (UA) Negative Urine Ketones Negative Urine Blood Negative Urine Nitrite Negative Ur Leukocyte Esterase Negative Urine RBC Urine WBC Ur Squamous Epith Cells Urine Bacteria Hyaline Casts Urine Opiates Screen Not Detected Ur Buprenorphine Scrn Not Detected Ur Oxycodone Screen Not Detected Urine Methadone Screen Not Detected Urine Fentanyl Screen Not Detected Ur Barbiturates Screen Not Detected Ur Phencyclidine Scrn Not Detected Ur Amphetamines Screen Not Detected U Benzodiazepines Scrn Not Detected Urine Cocaine Screen Not Detected U Marijuana (THC) Screen Not Detected Ethyl Alcohol < 10 08/07/25 08/07/25 08/07/25 15:20 15:20 15:20 WBC RBC Hgb Hct MCV MCH MCHC RDW Plt Count MPV Immature Gran % (Auto) Neut % (Auto) Lymph % (Auto) [place] % (Auto) Eos % (Auto) Baso % (Auto) Lymph # (Auto) [place] # (Auto) Eos # (Auto) Baso # (Auto) Abs Immat Gran (auto) Absolute Neuts (auto) Absolute Nucleated RBC Nucleated RBC % (auto) Sodium Potassium Chloride Carbon Dioxide Anion Gap BUN Creatinine Estim Creat Clear Calc Estimated GFR Random Glucose Calcium Total Bilirubin AST ALT Alkaline Phosphatase Total Protein Albumin Urine Color Yellow Urine Appearance Cancelled Clear Urine pH Cancelled 5.5 Ur Specific [place] Cancelled Urine Protein Urine Glucose (UA) Urine Ketones Urine Blood Urine Nitrite Ur Leukocyte Esterase Urine RBC Urine WBC Ur Squamous Epith Cells Urine Bacteria Hyaline Casts Urine Opiates Screen Ur Buprenorphine Scrn Ur Oxycodone Screen Urine Methadone Screen Urine Fentanyl Screen Ur Barbiturates Screen Ur Phencyclidine Scrn Ur Amphetamines Screen U Benzodiazepines Scrn Urine Cocaine Screen U Marijuana (THC) Screen Ethyl Alcohol 08/07/25 08/07/25 08/07/25 15:20 15:20 15:20 WBC RBC Hgb Hct MCV MCH MCHC RDW Plt Count MPV Immature Gran % (Auto) Neut % (Auto) Lymph % (Auto) [place] % (Auto) Eos % (Auto) Baso % (Auto) Lymph # (Auto) [place] # (Auto) Eos # (Auto) Baso # (Auto) Abs Immat Gran (auto) Absolute Neuts (auto) Absolute Nucleated RBC Nucleated RBC % (auto) Sodium Potassium Chloride Carbon Dioxide Anion Gap BUN Creatinine Estim Creat Clear Calc Estimated GFR Random Glucose Calcium Total Bilirubin AST ALT Alkaline Phosphatase Total Protein Albumin Urine Color Urine Appearance Urine pH Ur Specific [place] 1.025 Urine Protein Cancelled Negative Urine Glucose (UA) Cancelled Negative Urine Ketones Cancelled Urine Blood Urine Nitrite Ur Leukocyte Esterase Urine RBC Urine WBC Ur Squamous Epith Cells Urine Bacteria Hyaline Casts Urine Opiates Screen Ur Buprenorphine Scrn Ur Oxycodone Screen Urine Methadone Screen Urine Fentanyl Screen Ur Barbiturates Screen Ur Phencyclidine Scrn Ur Amphetamines Screen U Benzodiazepines Scrn Urine Cocaine Screen U Marijuana (THC) Screen Ethyl Alcohol 08/07/25 08/07/25 08/07/25 15:20 15:20 15:20 WBC RBC Hgb Hct MCV MCH MCHC RDW Plt Count MPV Immature Gran % (Auto) Neut % (Auto) Lymph % (Auto) [place] % (Auto) Eos % (Auto) Baso % (Auto) Lymph # (Auto) [place] # (Auto) Eos # (Auto) Baso # (Auto) Abs Immat Gran (auto) Absolute Neuts (auto) Absolute Nucleated RBC Nucleated RBC % (auto) Sodium Potassium Chloride Carbon Dioxide Anion Gap BUN Creatinine Estim Creat Clear Calc Estimated GFR Random Glucose Calcium Total Bilirubin AST ALT Alkaline Phosphatase Total Protein Albumin Urine Color Urine Appearance Urine pH Ur Specific [place] Urine Protein Urine Glucose (UA) Urine Ketones Trace Urine Blood Cancelled Trace H Urine Nitrite Cancelled Negative Ur Leukocyte Esterase Cancelled Urine RBC Urine WBC Ur Squamous Epith Cells Urine Bacteria Hyaline Casts Urine Opiates Screen Ur Buprenorphine Scrn Ur Oxycodone Screen Urine Methadone Screen Urine Fentanyl Screen Ur Barbiturates Screen Ur Phencyclidine Scrn Ur Amphetamines Screen U Benzodiazepines Scrn Urine Cocaine Screen U Marijuana (THC) Screen Ethyl Alcohol 08/07/25 15:20 WBC RBC Hgb Hct MCV MCH MCHC RDW Plt Count MPV Immature Gran % (Auto) Neut % (Auto) Lymph % (Auto) [place] % (Auto) Eos % (Auto) Baso % (Auto) Lymph # (Auto) [place] # (Auto) Eos # (Auto) Baso # (Auto) Abs Immat Gran (auto) Absolute Neuts (auto) Absolute Nucleated RBC Nucleated RBC % (auto) Sodium Potassium Chloride Carbon Dioxide Anion Gap BUN Creatinine Estim Creat Clear Calc Estimated GFR Random Glucose Calcium Total Bilirubin AST ALT Alkaline Phosphatase Total Protein Albumin Urine Color Urine Appearance Urine pH Ur Specific [place] Urine Protein Urine Glucose (UA) Urine Ketones Urine Blood Urine Nitrite Ur Leukocyte Esterase Negative Urine RBC 3-5 H Urine WBC 0-5 Ur Squamous Epith Cells 0-2 Urine Bacteria None Seen Hyaline Casts 0-2 Urine Opiates Screen Ur Buprenorphine Scrn Ur Oxycodone Screen Urine Methadone Screen Urine Fentanyl Screen Ur Barbiturates Screen Ur Phencyclidine Scrn Ur Amphetamines Screen U Benzodiazepines Scrn Urine Cocaine Screen U Marijuana (THC) Screen Ethyl Alcohol Airway Mallampati Class: II TM Dist: >3cm Neck ROM: Full Denture: Upper Partial: Lower Heart: ok Lungs: ok Assessment and Plan Assessment Anesthesia Assessment: Anesthesia Plan Discussed and Chart Reviewed Final Anesthetic Review Family History of Problems with Anesthesia: No History of Problems with Anesthesia: No NPO: Yes ASA Class: III Final Preanesthetic Review: No Changes in Pt Med Stat, Meds/Allgs Chart Reviewed, Consent Obtained/Reviewed and Anes Risks/Benef Reviewed Patient Risk: Intermediate Procedure Risk: Intermediate Anesthetic Plan Anesthetic Plan: GA and Agree w/ Assess. and Plan Disposition: Standard PACU
--- NOTE | 2025-08-11 07:38 | MHC.SHP ---
Pre-Procedural Eval Section A - 24 Hr Update-Section A only Date of Service: 08/11/25 Changes since office visit: Yes New Medical Problems, Yes Changes in Medication and Yes Patient answered all questions; No Cold of Flu in the past 2 weeks The patient has been examined within 24 hours of the surgical procedure. The History & Physical has been completed within 30 days and I have reviewed it.: Yes Section B - Complete if H&P > 30 days Chief Complaint: depression Allergies: Allergies Allergy/AdvReac Type Severity Reaction Status Date / Time No Known Allergies Allergy Verified 07/30/25 11:00 Plan I have reviewed the history and physical and performed a pertinent physical examination on my patient. No changes have occurred unless specified. Time Spent With Patient Time: Total time managing care of this patient today ____ minutes.
--- NOTE | 2025-08-11 07:43 | HO.ECTPROC ---
ECT Procedure Note Diagnosis/Treatment Date of Service: 08/11/25 Diagnosis: Major Depressive Disorder Current Treatment Number: 3 Treatment: Series Interval Clinical Notes: pt better tolerating tx Time: Total time managing care of this patient today ____ minutes. ECT Settings Device: THYMATRON DGx Electrode Placement: Right Unilateral Program/Pulse Width: 0.25 Energy Percent: 100 Seizure Duration By EEG (in seconds): 64 Medications Administration General Anesthetic: Etomidate (14) Muscle Relaxant: Succinylcholine (80) Airway Management Airway Management: Bag Mask Ventilation Treatment Recommendations No Changes Recommended: No change Pt Tolerated Procedure w/o Issue: Yes
[2025-08-11] MEDS: Aspirin Enteric Coated 81 MG TABLET.DR PO (09:00)
[2025-08-11] MEDS: Potassium Chloride Packet 20 MEQ PACKET PO ×2 (09:00→20:42)
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
[2025-08-11] MEDS: Milk of Magnesia 30 ML ORAL.SUSP PO (11:13)
[2025-08-12 07:46] VITALS: BP 120/67; PULSE 90; RESP 20; TEMP 36.6; O2SAT 98
[2025-08-12] MEDS: Aspirin Enteric Coated 81 MG TABLET.DR PO (08:29)
[2025-08-12] MEDS: Potassium Chloride Packet 20 MEQ PACKET PO ×2 (08:29→20:17)
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
[2025-08-12 20:00] VITALS: BP 105/68; PULSE 95; RESP 16
[2025-08-13] VITALS (9 sets, daily range): BP systolic 100–144; BP diastolic 56–89; PULSE 55–111; RESP 16; TEMP 36.1–36.9; O2SAT 96–98
--- NOTE | 2025-08-13 06:57 | P.CONAN_ITS ---
[facility] Active Problems Active Problems: All Active Problems Depression (Acute) Cerebral microvascular disease (Acute) Major neurocognitive disorder due to multiple etiologies, with anxiety (Acute) Anxiety disorder (Acute) Past Medical History Medical History Anxiety Family History Family history of problems with anesthesia: No Surgical History History of Problems with Anesthesia: No Social History Social History Household Members: Family Housing: House Do you presently have visiting nurse or other home services: No Patient Tobacco Use Status: Never used Tobacco Smoked in Last 30 Days: No e-Cigarette/Vaping Use: Never Used Patient Interested in Nicotine Replacement: No Second Hand Smoke Exposure: No Use of substances other than those prescribed or required for medical reasons: No Currently Displaying Signs/Symptoms of Drug Intoxication Withdrawal: No Have you been hit, kicked, punched, or otherwise hurt by someone within the past year? If so, by whom?: No Do you feel safe in your current relationship?: No Current Relationship Is there a partner from a previous relationship who is making you feel unsafe now?: No Are you made to feel afraid or neglected: No Are you DNR?: No Advance Directives: No (Pt states Brother is health care proxy, Jeannie Marquez. no copy in chart) Advance Directives Information Provided: No Advance Directives on File: No Do you have thoughts of harming others: None Do you have a plan to hurt others: No Plan Recently lost weight without trying: Unsure How much weight loss: Not applicable Eating poorly because of decreased appetite: Yes Nutrition screen score: 3 Nutrition Risks: No Nutritional Risk Poor oral hygiene: No service: No Sexual orientation: Straight/Heterosexual Meds Allergies Allergy/AdvReac Type Severity Reaction Status Date / Time No Known Allergies Allergy Verified 07/30/25 11:00 Active Medications: Current Medications Acetaminophen (Acetaminophen 325 Mg Tablet) 650 mg PO Q6H PRN PRN Reason: Headache/Pain, Scale 1-10 Last Admin: 08/11/25 09:13 Dose: 650 mg Al Hydroxide/Mg Hydroxide (Magnesium Hydrox/Alum Hydrox 30 Ml Oral.Susp) 30 ml PO Q6H PRN PRN Reason: Heartburn/Nausea Artificial Tears (Artificial Tears 15 Ml Drops) 2 drop EYE-BOTH Q4H PRN PRN Reason: Dry Eyes Aspirin (Aspirin Enteric Coated 81 Mg Tablet.Dr) 81 mg PO DAILY [facility] Last Admin: 08/12/25 08:29 Dose: 81 mg Chlorpromazine HCl (Chlorpromazine Hcl 100 Mg Tablet) 100 mg PO BEDTIME [facility] Last Admin: 08/12/25 20:18 Dose: 100 mg Chlorpromazine HCl (Chlorpromazine Hcl 25 Mg Tablet) 50 mg PO BEDTIME PRN PRN Reason: insomnia Docusate Sodium (Docusate Sodium 100 Mg Capsule) 100 mg PO BID PRN PRN Reason: Constipation Last Admin: 08/11/25 13:09 Dose: 100 mg Donepezil HCl (Donepezil Hcl 10 Mg Tablet) 10 mg PO BEDTIME [facility] Last Admin: 08/12/25 20:18 Dose: 10 mg Lactated Ringer's (Lr) 1,000 mls @ 50 mls/hr IVCONT .Q20H [facility] Magnesium Hydroxide (Milk Of Magnesia 30 Ml Oral.Susp) 30 ml PO DAILY PRN PRN Reason: Constipation Last Admin: 08/11/25 11:13 Dose: 30 ml Mirtazapine (Mirtazapine 15 Mg Tablet) 45 mg PO BEDTIME [facility] Last Admin: 08/12/25 20:18 Dose: 45 mg Naloxone HCl (Naloxone Hcl 0.4 Mg/Ml Vial) 0.04 mg IVPUSH Q5M PRN PRN Reason: Excessive sedation or RR < 8 Potassium Chloride (Potassium Chloride Packet 20 Meq Packet) 20 meq PO BID [facility] Last Admin: 08/12/25 20:17 Dose: 20 meq Quetiapine Fumarate (Quetiapine Fumarate 25 Mg Tablet) 25 mg PO DAILY PRN PRN Reason: Anxiety Last Admin: 08/02/25 18:58 Dose: 25 mg Home Medications ?Medication ?Instructions ?Recorded ?Confirmed ?Last Taken ?Type donepezil 5 mg tablet 10 mg PO BEDTIME 07/30/2507/29/25 History potassium chloride 20 mEq 20 meq PO BID 07/30/2507/3007/29/25 History tablet,extended release(part/cryst) quetiapine 25 mg tablet 25 mg PO DAILY 07/30/2507/1407/29/25 History quetiapine 25 mg tablet 25 mg PO DAILY PRN Anxiety 0 07/30/25 07/30/25 Unknown History sertraline 50 mg tablet 100 mg PO DAILY 07/30/2507/29/25 History Exam Height,Weight and Vital Signs: Height 5 ft 10 in Weight 64.41 kg Last Vital Signs Temp 97 F 08/13/25 06:33 Pulse 83 08/13/25 06:33 Resp 16 08/13/25 06:33 BP 132/76 08/13/25 06:33 Pulse Ox 96 08/13/25 06:33 O2 Del Method Room Air 08/13/25 06:33 O2 Flow Rate 2 08/11/25 08:05 Pertinent Lab Results Pertinent Lab Results: Laboratory Tests 07/30/25 08/06/25 08/07/25 12:01 15:31 15:20 WBC 7.8 4.5 L RBC 4.46 L 4.54 L Hgb 13.8 L 14.0 Hct 41.3 L 40.8 L MCV 92.6 89.9 MCH 30.9 30.8 MCHC 33.4 34.3 RDW 14.6 14.7 Plt Count 227 210 MPV 8.3 L 8.8 L Immature Gran % (Auto) 0.4 0.2 Neut % (Auto) 72.8 66.9 Lymph % (Auto) 18.2 L 21.4 [place] % (Auto) 6.0 9.7 Eos % (Auto) 1.8 1.1 Baso % (Auto) 0.8 0.7 Lymph # (Auto) 1.4 1.0 L [place] # (Auto) 0.5 0.4 Eos # (Auto) 0.1 0.1 Baso # (Auto) 0.1 0.0 Abs Immat Gran (auto) 0.03 0.01 Absolute Neuts (auto) 5.7 3.0 Absolute Nucleated RBC 0.000 0.000 Nucleated RBC % (auto) 0.0 0.0 Sodium 139 137 Potassium 4.2 4.4 Chloride 107 102 Carbon Dioxide 26 28 Anion Gap 10 L 11 L BUN 14 19 H Creatinine 0.82 0.87 Estim Creat Clear Calc 81.1 72.7 Estimated GFR > 60 > 60 Random Glucose 102 110 Calcium 9.7 9.5 Total Bilirubin 0.4 0.6 AST 21 20 ALT 18 11 Alkaline Phosphatase 77 84 Total Protein 7.7 7.3 Albumin 4.5 4.1 Urine Color Yellow Cancelled Urine Appearance Clear Urine pH 5.0 Ur Specific [place] 1.025 Urine Protein Negative Urine Glucose (UA) Negative Urine Ketones Negative Urine Blood Negative Urine Nitrite Negative Ur Leukocyte Esterase Negative Urine RBC Urine WBC Ur Squamous Epith Cells Urine Bacteria Hyaline Casts Urine Opiates Screen Not Detected Ur Buprenorphine Scrn Not Detected Ur Oxycodone Screen Not Detected Urine Methadone Screen Not Detected Urine Fentanyl Screen Not Detected Ur Barbiturates Screen Not Detected Ur Phencyclidine Scrn Not Detected Ur Amphetamines Screen Not Detected U Benzodiazepines Scrn Not Detected Urine Cocaine Screen Not Detected U Marijuana (THC) Screen Not Detected Ethyl Alcohol < 10 08/07/25 08/07/25 08/07/25 15:20 15:20 15:20 WBC RBC Hgb Hct MCV MCH MCHC RDW Plt Count MPV Immature Gran % (Auto) Neut % (Auto) Lymph % (Auto) [place] % (Auto) Eos % (Auto) Baso % (Auto) Lymph # (Auto) [place] # (Auto) Eos # (Auto) Baso # (Auto) Abs Immat Gran (auto) Absolute Neuts (auto) Absolute Nucleated RBC Nucleated RBC % (auto) Sodium Potassium Chloride Carbon Dioxide Anion Gap BUN Creatinine Estim Creat Clear Calc Estimated GFR Random Glucose Calcium Total Bilirubin AST ALT Alkaline Phosphatase Total Protein Albumin Urine Color Yellow Urine Appearance Cancelled Clear Urine pH Cancelled 5.5 Ur Specific [place] Cancelled Urine Protein Urine Glucose (UA) Urine Ketones Urine Blood Urine Nitrite Ur Leukocyte Esterase Urine RBC Urine WBC Ur Squamous Epith Cells Urine Bacteria Hyaline Casts Urine Opiates Screen Ur Buprenorphine Scrn Ur Oxycodone Screen Urine Methadone Screen Urine Fentanyl Screen Ur Barbiturates Screen Ur Phencyclidine Scrn Ur Amphetamines Screen U Benzodiazepines Scrn Urine Cocaine Screen U Marijuana (THC) Screen Ethyl Alcohol 08/07/25 08/07/25 08/07/25 15:20 15:20 15:20 WBC RBC Hgb Hct MCV MCH MCHC RDW Plt Count MPV Immature Gran % (Auto) Neut % (Auto) Lymph % (Auto) [place] % (Auto) Eos % (Auto) Baso % (Auto) Lymph # (Auto) [place] # (Auto) Eos # (Auto) Baso # (Auto) Abs Immat Gran (auto) Absolute Neuts (auto) Absolute Nucleated RBC Nucleated RBC % (auto) Sodium Potassium Chloride Carbon Dioxide Anion Gap BUN Creatinine Estim Creat Clear Calc Estimated GFR Random Glucose Calcium Total Bilirubin AST ALT Alkaline Phosphatase Total Protein Albumin Urine Color Urine Appearance Urine pH Ur Specific [place] 1.025 Urine Protein Cancelled Negative Urine Glucose (UA) Cancelled Negative Urine Ketones Cancelled Urine Blood Urine Nitrite Ur Leukocyte Esterase Urine RBC Urine WBC Ur Squamous Epith Cells Urine Bacteria Hyaline Casts Urine Opiates Screen Ur Buprenorphine Scrn Ur Oxycodone Screen Urine Methadone Screen Urine Fentanyl Screen Ur Barbiturates Screen Ur Phencyclidine Scrn Ur Amphetamines Screen U Benzodiazepines Scrn Urine Cocaine Screen U Marijuana (THC) Screen Ethyl Alcohol 08/07/25 08/07/25 08/07/25 15:20 15:20 15:20 WBC RBC Hgb Hct MCV MCH MCHC RDW Plt Count MPV Immature Gran % (Auto) Neut % (Auto) Lymph % (Auto) [place] % (Auto) Eos % (Auto) Baso % (Auto) Lymph # (Auto) [place] # (Auto) Eos # (Auto) Baso # (Auto) Abs Immat Gran (auto) Absolute Neuts (auto) Absolute Nucleated RBC Nucleated RBC % (auto) Sodium Potassium Chloride Carbon Dioxide Anion Gap BUN Creatinine Estim Creat Clear Calc Estimated GFR Random Glucose Calcium Total Bilirubin AST ALT Alkaline Phosphatase Total Protein Albumin Urine Color Urine Appearance Urine pH Ur Specific [place] Urine Protein Urine Glucose (UA) Urine Ketones Trace Urine Blood Cancelled Trace H Urine Nitrite Cancelled Negative Ur Leukocyte Esterase Cancelled Urine RBC Urine WBC Ur Squamous Epith Cells Urine Bacteria Hyaline Casts Urine Opiates Screen Ur Buprenorphine Scrn Ur Oxycodone Screen Urine Methadone Screen Urine Fentanyl Screen Ur Barbiturates Screen Ur Phencyclidine Scrn Ur Amphetamines Screen U Benzodiazepines Scrn Urine Cocaine Screen U Marijuana (THC) Screen Ethyl Alcohol 08/07/25 15:20 WBC RBC Hgb Hct MCV MCH MCHC RDW Plt Count MPV Immature Gran % (Auto) Neut % (Auto) Lymph % (Auto) [place] % (Auto) Eos % (Auto) Baso % (Auto) Lymph # (Auto) [place] # (Auto) Eos # (Auto) Baso # (Auto) Abs Immat Gran (auto) Absolute Neuts (auto) Absolute Nucleated RBC Nucleated RBC % (auto) Sodium Potassium Chloride Carbon Dioxide Anion Gap BUN Creatinine Estim Creat Clear Calc Estimated GFR Random Glucose Calcium Total Bilirubin AST ALT Alkaline Phosphatase Total Protein Albumin Urine Color Urine Appearance Urine pH Ur Specific [place] Urine Protein Urine Glucose (UA) Urine Ketones Urine Blood Urine Nitrite Ur Leukocyte Esterase Negative Urine RBC 3-5 H Urine WBC 0-5 Ur Squamous Epith Cells 0-2 Urine Bacteria None Seen Hyaline Casts 0-2 Urine Opiates Screen Ur Buprenorphine Scrn Ur Oxycodone Screen Urine Methadone Screen Urine Fentanyl Screen Ur Barbiturates Screen Ur Phencyclidine Scrn Ur Amphetamines Screen U Benzodiazepines Scrn Urine Cocaine Screen U Marijuana (THC) Screen Ethyl Alcohol Airway Mallampati Class: II (has three teeth, one bottom, 2 on top) TM Dist: >3cm Neck ROM: Full Heart: rrr Lungs: cta Assessment and Plan Assessment Anesthesia Assessment: Anesthesia Plan Discussed and Chart Reviewed Final Anesthetic Review Family History of Problems with Anesthesia: No History of Problems with Anesthesia: No NPO: Yes ASA Class: III Final Preanesthetic Review: No Changes in Pt Med Stat, Meds/Allgs Chart Reviewed and Consent Obtained/Reviewed Patient Risk: Intermediate Procedure Risk: Intermediate Anesthetic Plan Anesthetic Plan: GA Disposition: Standard PACU
--- NOTE | 2025-08-13 08:08 | MHC.SHP ---
Pre-Procedural Eval Section A - 24 Hr Update-Section A only Date of Service: 08/13/25 Changes since office visit: Yes New Medical Problems, Yes Changes in Medication and Yes Patient answered all questions; No Cold of Flu in the past 2 weeks The patient has been examined within 24 hours of the surgical procedure. The History & Physical has been completed within 30 days and I have reviewed it.: Yes Section B - Complete if H&P > 30 days Chief Complaint: depression Allergies: Allergies Allergy/AdvReac Type Severity Reaction Status Date / Time No Known Allergies Allergy Verified 07/30/25 11:00 Plan I have reviewed the history and physical and performed a pertinent physical examination on my patient. No changes have occurred unless specified. Time Spent With Patient Time: Total time managing care of this patient today ____ minutes.
[2025-08-13] MEDS: Potassium Chloride Packet 20 MEQ PACKET PO ×2 (10:45→21:28)
[2025-08-13] MEDS: Aspirin Enteric Coated 81 MG TABLET.DR PO (10:45)
[2025-08-13 12:45] LABS: MANUAL DIFF FLAG NO
[2025-08-13 12:50] LABS: Hematocrit 43.5 % (42.0-52.0); Hemoglobin 14.4 g/dl (14.0-18.0); Imm Gran Abs Auto 0.02 X10*3/uL (0.00-0.03); Imm Gran Pct Auto 0.2 % (0.0-0.4); Lymphocytes Absolute Auto 1.1 X10*3/uL (1.2-4.9); Mean Corpuscular HGB Conc 33.1 g/dl (31.0-36.0); Mean Corpuscular Hemoglobin 30.4 pg (27.0-33.0); Mean Corpuscular Volume 92.0 fL (80.0-98.0); NRBC Abs Auto 0.000 X10*3/uL (0.0-0.012); NRBC Pct Auto 0.0 /100WBC (0.0-0.2); Platelet Count 289 X10*3/uL (160-400); Red Blood Count 4.73 X10*6/uL (4.60-5.80); White Blood Count 9.2 X10*3/uL (4.8-10.8)
[2025-08-13 13:01] LABS: Alanine Aminotransferase 6 U/L (0-40); Albumin Level 4.4 g/dL (3.5-5.0); Alkaline Phosphatase 101 U/L (39-117); Anion Gap 11 (12-20); Aspartate Amino Transferase 18 U/L (5-37); Blood Urea Nitrogen 13 mg/dL (9-16); Calcium 9.9 mg/dL (8.4-10.2); Carbon Dioxide 31 mmol/L (22-29); Chloride 103 mmol/L (96-108); Creatinine Clr Calc Pharmacy 72.0; Estimated Glomerular Filt Rate > 60; Potassium 4.6 mmol/L (3.3-5.1); Sodium 140 mmol/L (135-145); Total Protein 8.0 g/dL (6.5-8.0)
[2025-08-13] MEDS: Milk of Magnesia 30 ML ORAL.SUSP PO (14:04)
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
[2025-08-14 07:00] VITALS: BMI 21.8
[2025-08-14 07:39] VITALS: BP 122/70; PULSE 103; RESP 16; TEMP 36.3; O2SAT 97
[2025-08-14] MEDS: Aspirin Enteric Coated 81 MG TABLET.DR PO (08:20)
[2025-08-14] MEDS: Potassium Chloride Packet 20 MEQ PACKET PO ×2 (08:20→22:05)
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
[2025-08-14 19:14] VITALS: BP 104/57; PULSE 93; RESP 16; TEMP 37.1; O2SAT 98
--- NOTE | 2025-08-14 22:10 | HO.ECTPROC ---
ECT Procedure Note Diagnosis/Treatment Date of Service: 08/13/25 Diagnosis: Major Depressive Disorder Previous ECT Date: 08/12/25 Current Treatment Number: 4 Interval Clinical Notes: Patient shows clear improvement in mood vega affect more energy. Does have mild cognitive impairment. Patient treated right unilateral given Robinul 0.2 mg post treatments secondary to postop bradycardia Time: Total time managing care of this patient today _30___ minutes. ECT Settings Device: THYMATRON DGx Electrode Placement: Right Unilateral Program/Pulse Width: 0.50 Energy Percent: 100 Seizure Duration By EEG (in seconds): 67 Medications Administration General Anesthetic: Etomidate (14) Muscle Relaxant: Succinylcholine (80) Ancillary Medications Cardiovascular Medications: Glycopyrrolate Airway Management Airway Management: Bag Mask Ventilation Treatment Recommendations Program/Pulse Width: 0.25 Notes: Postop patient did have noted delirium which cleared after a few hours
[2025-08-15] VITALS (10 sets, daily range): BP systolic 114–165; BP diastolic 69–85; PULSE 63–108; RESP 16–22; TEMP 36.4–36.9; O2SAT 94–98
[2025-08-15] MEDS: Lactated Ringers 1,000 ML 50 ML IVCONT (06:44)
--- NOTE | 2025-08-15 06:48 | HO.ANESPROP2 ---
[facility] Active Problems Active Problems: All Active Problems Depression (Acute) Cerebral microvascular disease (Acute) Major neurocognitive disorder due to multiple etiologies, with anxiety (Acute) Anxiety disorder (Acute) Past Medical History Medical History Anxiety Family History Family history of problems with anesthesia: No Surgical History History of Problems with Anesthesia: No Social History Social History Household Members: Family Housing: House Do you presently have visiting nurse or other home services: No Patient Tobacco Use Status: Never used Tobacco Smoked in Last 30 Days: No e-Cigarette/Vaping Use: Never Used Patient Interested in Nicotine Replacement: No Second Hand Smoke Exposure: No Use of substances other than those prescribed or required for medical reasons: No Currently Displaying Signs/Symptoms of Drug Intoxication Withdrawal: No Have you been hit, kicked, punched, or otherwise hurt by someone within the past year? If so, by whom?: No Do you feel safe in your current relationship?: No Current Relationship Is there a partner from a previous relationship who is making you feel unsafe now?: No Are you made to feel afraid or neglected: No Are you DNR?: No Advance Directives: No (Pt states Brother is health care proxy, Jeannie Marquez. no copy in chart) Advance Directives Information Provided: No Advance Directives on File: No Do you have thoughts of harming others: None Do you have a plan to hurt others: No Plan Recently lost weight without trying: Unsure How much weight loss: Not applicable Eating poorly because of decreased appetite: Yes Nutrition screen score: 3 Nutrition Risks: No Nutritional Risk Poor oral hygiene: No service: No Sexual orientation: Straight/Heterosexual Meds Allergies Allergy/AdvReac Type Severity Reaction Status Date / Time No Known Allergies Allergy Verified 07/30/25 11:00 Active Medications: Current Medications Acetaminophen (Acetaminophen 325 Mg Tablet) 650 mg PO Q6H PRN PRN Reason: Headache/Pain, Scale 1-10 Last Admin: 08/11/25 09:13 Dose: 650 mg Al Hydroxide/Mg Hydroxide (Magnesium Hydrox/Alum Hydrox 30 Ml Oral.Susp) 30 ml PO Q6H PRN PRN Reason: Heartburn/Nausea Artificial Tears (Artificial Tears 15 Ml Drops) 2 drop EYE-BOTH Q4H PRN PRN Reason: Dry Eyes Aspirin (Aspirin Enteric Coated 81 Mg Tablet.Dr) 81 mg PO DAILY [facility] Last Admin: 08/14/25 08:20 Dose: 81 mg Chlorpromazine HCl (Chlorpromazine Hcl 100 Mg Tablet) 100 mg PO BEDTIME [facility] Last Admin: 08/14/25 22:06 Dose: 100 mg Chlorpromazine HCl (Chlorpromazine Hcl 25 Mg Tablet) 50 mg PO BEDTIME PRN PRN Reason: insomnia Docusate Sodium (Docusate Sodium 100 Mg Capsule) 100 mg PO BID PRN PRN Reason: Constipation Last Admin: 08/13/25 10:45 Dose: 100 mg Donepezil HCl (Donepezil Hcl 10 Mg Tablet) 10 mg PO BEDTIME [facility] Last Admin: 08/14/25 22:05 Dose: 10 mg Lactated Ringer's (Lr) 1,000 mls @ 50 mls/hr IVCONT .Q20H [facility] Last Admin: 08/15/25 06:44 Dose: 50 mls/hr Magnesium Hydroxide (Milk Of Magnesia 30 Ml Oral.Susp) 30 ml PO DAILY PRN PRN Reason: Constipation Last Admin: 08/13/25 14:04 Dose: 30 ml Mirtazapine (Mirtazapine 15 Mg Tablet) 45 mg PO BEDTIME [facility] Last Admin: 08/14/25 22:06 Dose: 45 mg Naloxone HCl (Naloxone Hcl 0.4 Mg/Ml Vial) 0.04 mg IVPUSH Q5M PRN PRN Reason: Excessive sedation or RR < 8 Potassium Chloride (Potassium Chloride Packet 20 Meq Packet) 20 meq PO BID [facility] Last Admin: 08/14/25 22:05 Dose: 20 meq Quetiapine Fumarate (Quetiapine Fumarate 25 Mg Tablet) 25 mg PO DAILY PRN PRN Reason: Anxiety Last Admin: 08/02/25 18:58 Dose: 25 mg Home Medications ?Medication ?Instructions ?Recorded ?Confirmed ?Last Taken ?Type donepezil 5 mg tablet 10 mg PO BEDTIME 07/30/25 07/30/25 07/29/25 History potassium chloride 20 mEq 20 meq PO BID 07/30/25 07/30/25 07/29/25 History tablet,extended release(part/cryst) quetiapine 25 mg tablet 25 mg PO DAILY 07/30/25 07/30/25 07/29/25 History quetiapine 25 mg tablet 25 mg PO DAILY PRN Anxiety 07/30/25 07/30/25 Unknown History sertraline 50 mg tablet 100 mg PO DAILY 07/30/25 07/30/25 07/29/25 History Exam Height,Weight and Vital Signs: Height 5 ft 10 in Weight 68.855 kg Last Vital Signs Temp 98.1 F 08/15/25 06:35 Pulse 89 08/15/25 06:35 Resp 18 08/15/25 06:35 BP 124/74 08/15/25 06:35 Pulse Ox 98 08/15/25 06:35 O2 Del Method Room Air 08/15/25 06:35 O2 Flow Rate 2 08/13/25 08:50 Pertinent Lab Results Pertinent Lab Results: Laboratory Tests 07/30/25 08/06/25 08/07/25 12:01 15:31 15:20 WBC 7.8 4.5 L RBC 4.46 L 4.54 L Hgb 13.8 L 14.0 Hct 41.3 L 40.8 L MCV 92.6 89.9 MCH 30.9 30.8 MCHC 33.4 34.3 RDW 14.6 14.7 Plt Count 227 210 MPV 8.3 L 8.8 L Immature Gran % (Auto) 0.4 0.2 Neut % (Auto) 72.8 66.9 Lymph % (Auto) 18.2 L 21.4 [place] % (Auto) 6.0 9.7 Eos % (Auto) 1.8 1.1 Baso % (Auto) 0.8 0.7 Lymph # (Auto) 1.4 1.0 L [place] # (Auto) 0.5 0.4 Eos # (Auto) 0.1 0.1 Baso # (Auto) 0.1 0.0 Abs Immat Gran (auto) 0.03 0.01 Absolute Neuts (auto) 5.7 3.0 Absolute Nucleated RBC 0.000 0.000 Nucleated RBC % (auto) 0.0 0.0 Sodium 139 137 Potassium 4.2 4.4 Chloride 107 102 Carbon Dioxide 26 28 Anion Gap 10 L 11 L BUN 14 19 H Creatinine 0.82 0.87 Estim Creat Clear Calc 81.1 72.7 Estimated GFR > 60 > 60 Random Glucose 102 110 Calcium 9.7 9.5 Total Bilirubin 0.4 0.6 AST 21 20 ALT 18 11 Alkaline Phosphatase 77 84 Total Protein 7.7 7.3 Albumin 4.5 4.1 Urine Color Yellow Cancelled Urine Appearance Clear Urine pH 5.0 Ur Specific [place] 1.025 Urine Protein Negative Urine Glucose (UA) Negative Urine Ketones Negative Urine Blood Negative Urine Nitrite Negative Ur Leukocyte Esterase Negative Urine RBC Urine WBC Ur Squamous Epith Cells Urine Bacteria Hyaline Casts Urine Opiates Screen Not Detected Ur Buprenorphine Scrn Not Detected Ur Oxycodone Screen Not Detected Urine Methadone Screen Not Detected Urine Fentanyl Screen Not Detected Ur Barbiturates Screen Not Detected Ur Phencyclidine Scrn Not Detected Ur Amphetamines Screen Not Detected U Benzodiazepines Scrn Not Detected Urine Cocaine Screen Not Detected U Marijuana (THC) Screen Not Detected Ethyl Alcohol < 10 08/07/25 08/07/25 08/07/25 15:20 15:20 15:20 WBC RBC Hgb Hct MCV MCH MCHC RDW Plt Count MPV Immature Gran % (Auto) Neut % (Auto) Lymph % (Auto) [place] % (Auto) Eos % (Auto) Baso % (Auto) Lymph # (Auto) [place] # (Auto) Eos # (Auto) Baso # (Auto) Abs Immat Gran (auto) Absolute Neuts (auto) Absolute Nucleated RBC Nucleated RBC % (auto) Sodium Potassium Chloride Carbon Dioxide Anion Gap BUN Creatinine Estim Creat Clear Calc Estimated GFR Random Glucose Calcium Total Bilirubin AST ALT Alkaline Phosphatase Total Protein Albumin Urine Color Yellow Urine Appearance Cancelled Clear Urine pH Cancelled 5.5 Ur Specific [place] Cancelled Urine Protein Urine Glucose (UA) Urine Ketones Urine Blood Urine Nitrite Ur Leukocyte Esterase Urine RBC Urine WBC Ur Squamous Epith Cells Urine Bacteria Hyaline Casts Urine Opiates Screen Ur Buprenorphine Scrn Ur Oxycodone Screen Urine Methadone Screen Urine Fentanyl Screen Ur Barbiturates Screen Ur Phencyclidine Scrn Ur Amphetamines Screen U Benzodiazepines Scrn Urine Cocaine Screen U Marijuana (THC) Screen Ethyl Alcohol 08/07/25 08/07/25 08/07/25 15:20 15:20 15:20 WBC RBC Hgb Hct MCV MCH MCHC RDW Plt Count MPV Immature Gran % (Auto) Neut % (Auto) Lymph % (Auto) [place] % (Auto) Eos % (Auto) Baso % (Auto) Lymph # (Auto) [place] # (Auto) Eos # (Auto) Baso # (Auto) Abs Immat Gran (auto) Absolute Neuts (auto) Absolute Nucleated RBC Nucleated RBC % (auto) Sodium Potassium Chloride Carbon Dioxide Anion Gap BUN Creatinine Estim Creat Clear Calc Estimated GFR Random Glucose Calcium Total Bilirubin AST ALT Alkaline Phosphatase Total Protein Albumin Urine Color Urine Appearance Urine pH Ur Specific [place] 1.025 Urine Protein Cancelled Negative Urine Glucose (UA) Cancelled Negative Urine Ketones Cancelled Urine Blood Urine Nitrite Ur Leukocyte Esterase Urine RBC Urine WBC Ur Squamous Epith Cells Urine Bacteria Hyaline Casts Urine Opiates Screen Ur Buprenorphine Scrn Ur Oxycodone Screen Urine Methadone Screen Urine Fentanyl Screen Ur Barbiturates Screen Ur Phencyclidine Scrn Ur Amphetamines Screen U Benzodiazepines Scrn Urine Cocaine Screen U Marijuana (THC) Screen Ethyl Alcohol 08/07/25 08/07/25 08/07/25 15:20 15:20 15:20 WBC RBC Hgb Hct MCV MCH MCHC RDW Plt Count MPV Immature Gran % (Auto) Neut % (Auto) Lymph % (Auto) [place] % (Auto) Eos % (Auto) Baso % (Auto) Lymph # (Auto) [place] # (Auto) Eos # (Auto) Baso # (Auto) Abs Immat Gran (auto) Absolute Neuts (auto) Absolute Nucleated RBC Nucleated RBC % (auto) Sodium Potassium Chloride Carbon Dioxide Anion Gap BUN Creatinine Estim Creat Clear Calc Estimated GFR Random Glucose Calcium Total Bilirubin AST ALT Alkaline Phosphatase Total Protein Albumin Urine Color Urine Appearance Urine pH Ur Specific [place] Urine Protein Urine Glucose (UA) Urine Ketones Trace Urine Blood Cancelled Trace H Urine Nitrite Cancelled Negative Ur Leukocyte Esterase Cancelled Urine RBC Urine WBC Ur Squamous Epith Cells Urine Bacteria Hyaline Casts Urine Opiates Screen Ur Buprenorphine Scrn Ur Oxycodone Screen Urine Methadone Screen Urine Fentanyl Screen Ur Barbiturates Screen Ur Phencyclidine Scrn Ur Amphetamines Screen U Benzodiazepines Scrn Urine Cocaine Screen U Marijuana (THC) Screen Ethyl Alcohol 08/07/25 08/13/25 15:20 12:38 WBC 9.2 RBC 4.73 Hgb 14.4 Hct 43.5 MCV 92.0 MCH 30.4 MCHC 33.1 RDW 14.1 Plt Count 289 D MPV 8.4 L Immature Gran % (Auto) 0.2 Neut % (Auto) 80.6 H Lymph % (Auto) 11.7 L [place] % (Auto) 4.7 Eos % (Auto) 2.3 Baso % (Auto) 0.5 Lymph # (Auto) 1.1 L [place] # (Auto) 0.4 Eos # (Auto) 0.2 Baso # (Auto) 0.1 Abs Immat Gran (auto) 0.02 Absolute Neuts (auto) 7.4 Absolute Nucleated RBC 0.000 Nucleated RBC % (auto) 0.0 Sodium 140 Potassium 4.6 Chloride 103 Carbon Dioxide 31 H Anion Gap 11 L BUN 13 Creatinine 0.82 Estim Creat Clear Calc 72.0 Estimated GFR > 60 Random Glucose 138 H Calcium 9.9 Total Bilirubin 0.5 AST 18 ALT 6 Alkaline Phosphatase 101 Total Protein 8.0 Albumin 4.4 Urine Color Urine Appearance Urine pH Ur Specific [place] Urine Protein Urine Glucose (UA) Urine Ketones Urine Blood Urine Nitrite Ur Leukocyte Esterase Negative Urine RBC 3-5 H Urine WBC 0-5 Ur Squamous Epith Cells 0-2 Urine Bacteria None Seen Hyaline Casts 0-2 Urine Opiates Screen Ur Buprenorphine Scrn Ur Oxycodone Screen Urine Methadone Screen Urine Fentanyl Screen Ur Barbiturates Screen Ur Phencyclidine Scrn Ur Amphetamines Screen U Benzodiazepines Scrn Urine Cocaine Screen U Marijuana (THC) Screen Ethyl Alcohol Airway Mallampati Class: II (only has 3 teeth (2 top, 1-bottom)) TM Dist: >3cm Neck ROM: Full Heart: rrr Lungs: cta Assessment and Plan Assessment Anesthesia Assessment: Anesthesia Plan Discussed and Chart Reviewed Final Anesthetic Review Family History of Problems with Anesthesia: No History of Problems with Anesthesia: No NPO: Yes ASA Class: III Final Preanesthetic Review: No Changes in Pt Med Stat, Meds/Allgs Chart Reviewed and Consent Obtained/Reviewed Patient Risk: Intermediate Procedure Risk: Intermediate Anesthetic Plan Anesthetic Plan: GA Disposition: Standard PACU
--- NOTE | 2025-08-15 07:29 | MHC.SHP ---
Pre-Procedural Eval Section A - 24 Hr Update-Section A only Date of Service: 08/15/25 The patient is an INPATIENT: Yes Changes since office visit: Yes New Medical Problems, Yes Changes in Medication and Yes Patient answered all questions; No Cold of Flu in the past 2 weeks The patient has been examined within 24 hours of the surgical procedure. The History & Physical has been completed within 30 days and I have reviewed it.: Yes Section B - Complete if H&P > 30 days Chief Complaint: depression Allergies: Allergies Allergy/AdvReac Type Severity Reaction Status Date / Time No Known Allergies Allergy Verified 07/30/25 11:00 Plan I have reviewed the history and physical and performed a pertinent physical examination on my patient. No changes have occurred unless specified. Time Spent With Patient Time: Total time managing care of this patient today ____ minutes.
--- NOTE | 2025-08-15 07:31 | HO.ECTPROC ---
ECT Procedure Note Diagnosis/Treatment Date of Service: 08/15/25 Diagnosis: Major Depressive Disorder Previous ECT Date: 08/12/25 Current Treatment Number: 5 Treatment: Series Interval Clinical Notes: Patient shows clear improvement in mood vega affect more energy Does have cognitive processing issues change to 2 wk ect dosing ? if needed may benefit from cholinesterase inhib Time: Total time managing care of this patient today 30____ minutes. ECT Settings Device: THYMATRON DGx Electrode Placement: Right Unilateral Program/Pulse Width: 0.25 Energy Percent: 50 Seizure Duration By EEG (in seconds): 69 Medications Administration General Anesthetic: Etomidate (14) Muscle Relaxant: Succinylcholine (80) Ancillary Medications Cardiovascular Medications: Glycopyrrolate (0.2 pre tx) Airway Management Airway Management: Bag Mask Ventilation Treatment Recommendations Program/Pulse Width: 0.25 Notes: monitor for robinal induced confusion given to prevent bradycardia
[2025-08-15] MEDS: Potassium Chloride Packet 20 MEQ PACKET PO ×2 (09:19→21:33)
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
--- NOTE | 2025-08-15 17:54 | PC.NURSE ---
I attempted to collect a urine sample from pt today. He was unable to follow directions. I asked him to use the wipe to cleanse his penis and then urinate in the cup before returning it to me. He opened the wipe, put it in the cup and returned it to me.
[2025-08-15 18:57] LABS: Appearance Urine Cloudy; Glucose Urine UA Negative (Negative); PH 7.0 (5.0-9.0); Specific Gravity - Urine 1.020 (1.005-1.025); UMIC TRIGGER UA YES
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
[2025-08-16 07:39] VITALS: BP 141/70; PULSE 70; RESP 18; TEMP 36.6; O2SAT 99
[2025-08-16] MEDS: Potassium Chloride Packet 20 MEQ PACKET PO ×2 (08:10→20:33)
[2025-08-16 20:00] VITALS: BP 97/58; PULSE 80; RESP 14; TEMP 36.4; O2SAT 98
[2025-08-17 07:57] VITALS: BP 111/67; PULSE 78; RESP 14; TEMP 36.5; O2SAT 96
[2025-08-17] MEDS: Potassium Chloride Packet 20 MEQ PACKET PO ×2 (08:36→21:09)
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
[2025-08-17 20:00] VITALS: BP 107/64; PULSE 104; RESP 17; TEMP 37.2; O2SAT 100
[2025-08-18 07:10] VITALS: BP 131/72; PULSE 84; RESP 14; TEMP 36.5; O2SAT 99
[2025-08-18] MEDS: Potassium Chloride Packet 20 MEQ PACKET PO ×2 (08:30→20:53)
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
[2025-08-18 20:00] VITALS: BP 128/64; PULSE 107; RESP 16; TEMP 36.5; O2SAT 99
[2025-08-19 07:30] VITALS: BP 130/77; PULSE 83; RESP 20; TEMP 36.3; O2SAT 99
[2025-08-19] MEDS: Potassium Chloride Packet 20 MEQ PACKET PO ×2 (09:10→20:55)
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
[2025-08-19 20:36] VITALS: BP 129/79; PULSE 89; RESP 16; TEMP 36.5; O2SAT 89
[2025-08-20 08:00] VITALS: BP 113/68; PULSE 85; RESP 16; TEMP 36.3; O2SAT 96
[2025-08-20] MEDS: Potassium Chloride Packet 20 MEQ PACKET PO (09:08)
--- NOTE | 2025-08-20 10:54 | PM.PSYDC ---
DS: Providers Provider Date of Service: 08/20/25 Date of admission: 07/31/25 10:09 Date of discharge: 08/20/25 Primary care physician: Unknown Physician Attending physician on admission: Schuyler Smith Consults: 08/04/25 10:50 Consult to Hospitalist Routine Comment: Consulting Provider: [facility] Reason For Exam: ECT risk strat 08/06/25 13:27 Consult to Hospitalist Routine Comment: please medical eval for change in mental status Consulting Provider: [facility] Reason For Exam: deteriorating MS; developing delirium? Attending physician on discharge: Shahana Galvan DS: Diagnosis Discharge Diagnosis (1) Major neurocognitive disorder due to multiple etiologies, with anxiety: Status: Acute (2) Depression: Status: Acute (3) Anxiety disorder: Status: Acute DS: Medications Discharge Medications Home Medications: Previous Rx's ?Medication ?Instructions ?Recorded aspirin 81 mg chewable tablet 81 mg PO DAILY 30 days #30 tabs 08/20/25 chlorpromazine 100 mg tablet 100 mg PO BEDTIME 30 days #30 tabs 08/20/25 donepezil 10 mg tablet 10 mg PO BEDTIME 30 days #30 tabs 08/20/25 mirtazapine 45 mg tablet 45 mg PO BEDTIME 30 days #30 tabs 08/20/25 potassium chloride 20 mEq oral 20 meq PO BID 30 days #60 ea 08/20/25 packet Mental Status Exam Mental Status Exam Narrative: Appearance: Dressed in [facility] suzie. Long hair. somewhat disheveled. Good eye contact Attitude: Cooperative, pleasant Speech: Fluent and within normal limits Motor activity: Calm and without any tics, tremors or dyskinesias. Steady gait Mood: okay Affect: appropriate, reactive, generally bright Thought process: Generally goal directed Thought content: Denies SI, thoughts of non-suicidal self harm or violent ideation. Perception: Denies AH/VH and does not appear to respond to internal stimuli Insight: fair Judgment: fair Data Imaging Diagnostic Imaging Impressions Head CT 08/06/25 13:41 IMPRESSION: 1. No acute intracranial abnormality. 2. Mild to moderate small vessel ischemic changes within the white matter. 3. 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 4. Mild maxillary and ethmoid paranasal sinus disease. Electronically signed by: Jarrett Paz MD 08/06/2025 02:04 PM EDT Cardiology Testing Reason for Exam: prolong qtc Test Reason : MED CLEARANCE Blood Pressure : */* mmHG Vent. Rate : 72 BPM Atrial Rate : 72 BPM P-R Int : 196 ms QRS Dur : 102 ms QT Int : 374 ms P-R-T Axes : 50 8 50 degrees QTcB Int : 409 ms Normal sinus rhythm cannot exclude old; Inferior infarct , age undetermined ; can also be normal variant. DS: Summary Hospital Course Hospital Course: Mr. Marquez is a 75 yo white male with h/o depression, anxiety, major neurocognitive disorder and cerebral microvascular disease who self-presented to the ED due to worsening depression and severe insomnia and was admitted to [facility] psychiatric unit on a CV for safety and stabilizatin. He endorsed feeling empty, numb, anhedonia, amotivation, significant weight loss due to loss of appetite and SI. Per collateral information gathered from pt's brother, pt is marginally functional and has low IQ (according to notes from previous covering psychiatrist). He reported a gradual cognitive decline with clear depression having developed in the past year. Pt was continued on the following home medications: ASA 81 mg qd, donepezil 10 mg qhs, KCl 20 meq bid. Sertraline (home med) was stopped due to concern for potential bipolar disorder (later determined to be unlikely) by the admitting psychiatrist and Seroquel was titrated to 250 mg for insomnia on admission. Trazodone and Seroquel were discontinued on the following day due to minimal benefit. Pt was started on Remeron 30 mg qhs & thorazine 200 mg qhs + repeat 100 mg prn for severe insomnia. Pt was graduallly tapered off of the thorazine as his sleep improved, as he reported excessive daytime sedation and heaviness with jacqui thorazine. Pt started right unilateral ECT on 08/05. The day after his 2nd ECT, he reported a significant improvement in mood, was eating/sleeping better, was visible in the milieu for much of the day. He underwent a total of 5 ECT treatments, (last on 08/15), with excellent effect in treating symptoms of depression. Pt denied any symptoms of depression or any SI when this [employer] functional tester took over his care on 08/11. He did present with increased confusion and some disinhibition for a couple hours after returning from his last two ECTs but otherwise tolerated the treatment well. On review of pt's chart, he had a MoCA on 05/11/25 during a previous psychiatric admission (prior to ECT) and scored 16/30. showed impairments in executive function (2/5), language repetition (3/6), orientation (3/6) and recall (0/5). Naming, language fluency, abstraction are intact. MoCA done on day of discharge (08/20/25)- scored 12/30 + extra point for <12 yr education = 13/30 total exec function 0/5, recall 0/5, orientation 4/6, serial 7's 0/3 (was unable to list months in reverse when given this task as an alternative to serial 7s) Status at Discharge Functional status at discharge: independent ambulation Overall status at discharge: patient is progressing back to baseline Time Spent with Patient Time attestation: Total time managing care of this patient today __60__ minutes. Time spent: Greater than 30 minutes Discharge Plan Discharge Anticipated Discharge Date/Time: 08/20/25 11:00 Patient Disposition: Home, Self-Care Discharge Diagnosis: major depressive disorder, recurrent, moderate major neurocognitive disorder with anxiety Referrals: [facility] [Other] - 1 Week Referral Note: walk in hours are Monday-Monday 8am-8pm, weekends 9am-6pm Please bring your insurance card, ID and discharge paperwork. [facility] [Provider Group] - 1 Week Referral Note: 08-18-25 [facility] was added to patients chart. Please call [phone] to schedule a follow up appt within 7-10 days of discharge. No release or PCP on file. Discharge Medications: New donepezil 10 mg Tablet 10 mg PO BEDTIME 30 Days Qty: 30 0RF aspirin 81 mg Tablet,Chewable 81 mg PO DAILY 30 Days Qty: 30 0RF chlorpromazine 100 mg Tablet 100 mg PO BEDTIME 30 Days Qty: 30 0RF potassium chloride 20 mEq Packet 20 meq PO BID 30 Days Qty: 60 0RF mirtazapine 45 mg tablet 45 mg PO BEDTIME 30 Days Qty: 30 0RF Discontinued trazodone 50 mg Tablet 150 mg PO BEDTIME 30 Days Qty: 90 0RF quetiapine 50 mg Tablet 150 mg PO BEDTIME 30 Days Qty: 90 0RF donepezil 5 mg tablet 10 mg PO BEDTIME sertraline 50 mg tablet 100 mg PO DAILY potassium chloride 20 mEq tablet,ER particles/crystals 20 meq PO BID quetiapine 25 mg tablet 25 mg PO DAILY quetiapine 25 mg tablet 25 mg PO DAILY PRN (Reason: Anxiety) Discharge Orders: Discharge Order (Routine); Ordered 08/20/25 Ordered By: Shahana Galvan Diet: Regular diet Activity on Discharge: As tolerated Stand Alone Forms: Patient Portal Discharge page, Community Support Print Language: [place] Care Plan Goals: Take your medications as prescribed. Maintain safe behaviors Practice coping skills Follow up with your outpatient providers and reach out to them as needed Health Concerns: Depression Major neurocognitive disorder/dementia Plan of Treatment: Follow up with your psychiatric provider, PCP and other outpatient providers Take your medication as prescribed Assessment: Risk assessment at the time of discharge: Patient was interviewed on the day of discharge and found to be fully oriented, without any SI or violent ideation. Pt has improved insight and judgment and plans to continue treatment Pt is not at imminent risk of harm to self or others and has a safety plan that includes presenting to the closest ER or calling 911 if feeling unsafe. Pt has been observed closely by unit staff and has not engaged in any behaviors that suggest dangerous to self or others and has demonstrated appropriate bheaviors and impulse control. Discharge Date/Time: 08/20/25 11:25
== END 2025-08-20 11:25 | disposition home or self-care (01) | DRG 885 ==
LOC: HO.ED 13:39 → HO.PADLT16 07-31 10:18
PROVIDERS: Nurse Practitioner Family; Physician Assistant; Psychiatry & Neurology Psychiatry; Admitting Provider Psychiatry & Neurology Psychiatry; Emergency Provider Emergency Medicine; Visit Provider Psychiatry & Neurology Psychiatry
PROC: GZB4ZZZ Other Electroconvulsive Therapy (ICD-10-PCS; CPT 90870; principal; 2025-08-06 08:30)
DX: F33.1 Major depressive disorder, recurrent, moderate (principal); I67.89 Other cerebrovascular disease; F03.94 Unspecified dementia, unspecified severity, with anxiety; Z23 Encounter for immunization; Z79.82 Long term (current) use of aspirin; Z79.899 Other long term (current) drug therapy
CPT/HCPCS: 36415; 70450; 80053; 80307; 81001; 81003; 85025; 90656; 90870; 93005; 99285; J0330; J0461; J1596; J1805; J2704; J7120; S9485

== ENCOUNTER → 2025-07-31 09:08 | Outpatient (BNV) | payer MEDICARE, SELFPAY | PROVIDERS: Admitting Provider Psychiatry & Neurology Psychiatry; Emergency Provider Emergency Medicine; Visit Provider Internal Medicine | DX: R94.31 Abnormal electrocardiogram [ECG] [EKG] (principal); Z13.6 Encounter for screening for cardiovascular disorders | CPT/HCPCS: 93010 ==

== ENCOUNTER 2025-07-31 10:09 | Outpatient (BNV) | payer MEDICARE, SELFPAY | END 2025-08-06 13:41 | PROVIDERS: Admitting Provider Psychiatry & Neurology Psychiatry; Emergency Provider Emergency Medicine; Visit Provider Radiology Diagnostic Radiology | DX: I67.82 Cerebral ischemia (principal); R90.82 White matter disease, unspecified | CPT/HCPCS: 70450 ==

== ENCOUNTER → 2025-07-31 10:09 | Outpatient (BNV) | payer MEDICARE, SELFPAY | PROVIDERS: Admitting Provider Psychiatry & Neurology Psychiatry; Emergency Provider Emergency Medicine; Visit Provider Psychiatry & Neurology Psychiatry | DX: F33.2 Major depressive disorder, recurrent severe without psychotic features (principal) | CPT/HCPCS: 90870 ==

== ENCOUNTER → 2025-07-31 10:09 | Outpatient (BNV) | payer MEDICARE, SELFPAY | PROVIDERS: Admitting Provider Psychiatry & Neurology Psychiatry; Emergency Provider Emergency Medicine; Visit Provider Nurse Practitioner Family | DX: F41.9 Anxiety disorder, unspecified (principal); I67.89 Other cerebrovascular disease | CPT/HCPCS: 99221 ==

== ENCOUNTER → 2025-07-31 10:09 | Outpatient (BNV) | payer MEDICARE, SELFPAY | PROVIDERS: Admitting Provider Psychiatry & Neurology Psychiatry; Emergency Provider Emergency Medicine; Visit Provider Psychiatry & Neurology Psychiatry | DX: F02.84 Dementia in other diseases classified elsewhere, unspecified severity, with anxiety (principal); F32.89 Other specified depressive episodes; F41.9 Anxiety disorder, unspecified | CPT/HCPCS: 99222; 99231; 99232 ==

== ENCOUNTER 2025-10-06 08:18 | Outpatient (REF) | payer MEDICARE, SELFPAY ==
--- OUTSIDE RECORDS SUMMARY | 2025-10-01 10:45 | XMS_ITS | Encounter Summary ---
Author Organization [employer] Address [address] [place] [address] 7t [place] [address] Care Team Providers Care Hall Manager Name Role Phone Zully Todd MD Primary Care Pro vider Reason for Referral * Consultation (STAT) - Authorized Specialty Diagnoses / Procedures Referred By Rebekah de león Referred To Contact General Surgery Diagnoses Unilateral inguinal hernia without obstruction or gangrene, recurrence not specified Zully Todd MD [address] [place] [address] Phone: tel: fax: [facility] General Surgeons [address] 3rd Floor [place], [place] Phone: tel: fax: Referral ID Status Reason Start Date Expiration Date Visits Requested Visits Authorized [id number] Authorized Specialty Services Required 10/01/2026 1 1 * Imaging (STAT) - Authorized Specialty Diagnoses / Procedures Referred By Rebekah de león Referred To Contact Radiology Diagnoses Right groin pain Unilateral inguinal hernia without obstruction or gangrene, recurrence not specified Procedures US Groin Right Zully Todd MD [address] [place] [address] Phone: tel: fax: [facility] [address] [place] [phone] Phone: tel: fax: Referral ID Status Reason Start Date Expiration Date V isits Requested Visits Authorized [id number] Authorized 10/01/2025 10/01/2026 1 1 * Consultation (Routine) - Authorized Specialty Diagnoses / Procedures Referred By Contac t Referred To Contact Neurology Diagnoses Dementia with other behavioral disturbance, unspecified dementia severity, unspecified dementia type (CMS/HCC) (HCC) Zully Todd MD [address] [place] [address] Phone: tel: fax: [facility] Referral ID Status Reason Start Date Expiration Date Visits Requested Visits Authorized [id number] Authorized Specialty Services Required 5 10/01/2026 1 1 * Consultation (Routine) - Authorized Specialty Diagnoses / Procedures Referred By Rebekah t Referred To Contact Gastroenterology Diagnoses Colon cancer screening Zully Todd MD [address] [place] [address] Phone: tel: fax: [facility] Referral ID Status Reason Start Date Expiration Date Visits Requested Visits Authorized [id number] Authorized Specialty Services Required 5 10/01/2026 1 1 Encounter Details Date Type Department Care Team ([facility] st Contact Info) Description 10/01/2025 10:45 AM EST Office Visit [facility] [address] [place] [address] [phone] Zully Todd MD [address] [place] [address] [phone] Colon cancer screening (Primary Dx); Dementia with other behavioral disturbance, unspecified dementia severity, unspecified dementia type (CMS/HCC) (HCC); Right groin pain; Unilateral inguinal hernia without obstruction or gangrene, recurrence not specified; Encounter for immunization; Dietary counseling; Exercise counseling; Neurocognitive disorder; 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); Health care maintenance; Elevated blood pressure reading; Right inguinal pain; Weight loss; Constipation, unspecified constipation type; Bilateral carpal tunnel syndrome Social History Tobacco Use Types Packs/Day Years Used Date Smoking Tobacco: Never Alcohol Use Standard Drinks/Week Comments Not Currently 0 (1 standard drink = 0.6 oz pur e alcohol) Depression Answer Date Recorded Patient Health Questionnaire-9 Score 1 09/02/2025 Patient Health Questionnaire-9 Score 1 09/02/2025 Last PHQ-9: Questionnaire Data Not on file 1 Depression Answer Date Recorded Patient Health Questionnaire-2 Score 0 09/02/2025 Sex and Gender Information Value Date Recorded Sex Assigned at Male 08/27/2025 12:48 PM EDT Legal Sex Male 12:41 PM EDT Gender Identity Male 08/27/2025 12:48 PM EDT Sexual Orientation Straight 08/27/2025 12 :48 PM EDT documented as of this encounter Last Filed Vital Signs Vital Sign Reading Time Taken Comments Blood Pressure 130/78 10/01/2025 10:42 AM EST Pulse 102 10/01/2025 10:42 AM EST Temperature 36.2 C (97.1 F) 10/01/2025 10:42 AM EST Respiratory Rate 20 10/01/2025 10:42 AM EST Oxygen Saturation 96% 10/01/2025 10:42 AM EST Inhaled Oxygen Concentration - - Weight 73.1 kg (161 lb 3.2 oz) 10/01/2025 10:42 AM EST Height 170 cm (5' 6.93 ) 10/01/2025 10:42 AM EST Body Mass Index 25.3 10/01/2025 10:42 AM EST documented in this encounter Progress Notes * Zully Su MD - 10/01/2025 10:45 AM EST Subjective Patient ID: León Marquez is a 75 y.o. male who presents for sick visit HPI FULL CODE,Brother is Health care proxy and Power of sports fitness and wellness director Currently living at assisted living since yesterday 75 yo M from w PMX of Severe Depression/Anxiety ,Cognitive disorder - dementia,severe CTS, nephrolithiasis , right renal oncocytoma Comes for sick visit Reports having pain for last 2 months on and off localized in right groin ,yesterday c/o pain ,can be intense up to 07/23 ,occurs several times a week , not feeling mass sensation,denies diagnosis of hernia ,no history of surgeries before in area ,described as constant when having pain, denies associated w N/V/D,chronic constipation not associate w pain ,no melenas no BRPR ,denies any urinary symptoms States pain starts sometimes when picks up objects or stretching Crrently asymptomatic ----- From medical records obtained from [facility] 07/[facility]/25 Patient with history of depression, anxiety, major neurocognitive disorder/dementia and cerebral microvascular disease was admitted for worsening depression and severe insomnia. There is mention frombrother's information that patient has low IQ and is having worsening gradual cognitive decline in the past year. During hospitalization patient was started on mirtazapine and Thorazine for insomnia and for severedepression started on electroconvulsive therapy for which he underwent 5 ECT treatments last on August 15. There is mention of MoCA test in April 2025 scored /, repeated August 202024 scored / -CT head 07/2025 no acute intracranial abnormality. Mild to moderate small vessel ischemic changes within the white matter. 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 Mild maxillary and ethmoid fornasal sinus disease. ------- Assessment and Plan: Health care maintenance -Annual exam 09/02/25 -colonoscopy: > 5 y ago per pt was told to repeat in 5 y --requested [place] records--No records ableto obtained --referred to GI today -PSA ordered pd to get result -vaccines: Flu vaccine 07/2025 , P13 2015 . COVID 19 booster 08/2025 .Tdap 03/2024 Advised to get at px RSV and shingrix vaccines ,P20 today in office -Discussed today w pt and reports to be FULL CODE,also Brother is Health care proxy and Power of sports fitness and wellness director-Shreyas Marquez -they will bribg info to medical records -pt on ASA states for primary prevention and on K + states chronically for hypokalemia ? -advised pt to get done already ordered at last apt annual labs ,records to evaluation cause -Will not be ableto continue to refill K + until get chem result back -has enough for another 2 weeks -Pd to get annual labs ordered at last apt in 08/2025 Severe Depression/Anxiety PHQ9 1,SEYMOUR 0 Denies SI During hospitalization patient was started on mirtazapine and Thorazine for insomnia and for severedepression started on electroconvulsive therapy for which he underwent 5 ECT treatments last on August 15. -Continue for now Chlorpromazine 100 mg HS, mirtazapine 45 mg HS --refilled meds today to nw px? for now until can establish care w psychiatrist -Saw ( Ben Rick ) 08/2025 External OP therapy referral and OP psychiatry Referral to [facility] Central Intake -- gave info to pt 's brother today to call for apt Cognitive disorder -dementia? Noted very poor memory From medical records obtained from [facility] 07/31/25 Patient with history of depression, anxiety, major neurocognitive disorder/dementia and cerebral microvascular disease was admitted for worsening depression and severe insomnia. There is mention frombrother's information that patient has low IQ and is having worsening gradual cognitive decline in the past year. There is mention of MoCA test in April 2025 scored , repeated August 202024 scored 11/11 -CT head 07/2025 no acute intracranial abnormality. Mild to moderate small vessel ischemic changes within the white matter. 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 Mild maxillary and ethmoid fornasal sinus disease. -continue Donepezil 10 mg daily -referred today to neurologist Constipation -colace for chronic constipation -states was taking maybe thant but run out if ongoinf carlos a loss will do CT abdominal /Pelvis -referred to GI today Right inguinal pain Symptoms possible from hernia and on exam seems bulging with valsalva -start w right inguinal groin US STAT ans surgery referral done today -Alarm sign and symptoms described w pt -if neg will do CT abdominal/pelvis and consider CTA -pd chem ,noted strong pulse in aorta but no symptoms ,smoked in life for 3mo but no more Weight loss -lost 8 pounds in last month ,pt reports has No teeth no able to eat well for it also thinks associated w anxiety Denies other alarming symptoms ,no LDN on exam Pt has history of right renal oncocytoma from problem list reconciliation -not able to get previousP records -oncocytoma is benign condition but if ongoing weight loss will repeat image at next visit States already started care w dentist for dentures and just started living since yesterday at a living facility where get meals -- will f here in 4 weeks to monitor weight if noted worsening will further investigate w CT abdominal/Pelvis w contrast CTS-severe Bl S/p surgery of right hand before and was advised for left hand but never had procedure Noted atrophy of thenar region in left hand and reports chronic numbness and tingling -offered hand surgeon referral today but wants to hold for now -requested today PA sp for DME today for left hand wrist brace Elevated BP Noted normal BP today Not on BP meds -brother has BP machine at home and will check BP on pt at least weekly and bring at next apt to monitor Review of Systems Right inguinal pain on and off Weight loss noted Anxiety Chronic constipation Objective BP 130/78 (BP Location: Left arm, Patient Position: Sitting, BP Cuff Size: Adult) Pulse 102 Temp 97.1 ??F (36.2 ??C) (Temporal) Resp 20 Ht 5' 6.93 (1.7 m) Wt 161 lb 3.2 oz (73.1 kg) [id number]% BMI 25.30 kg/m?? Physical Exam Constitutional: General: He is not in acute distress. Appearance: Normal appearance. He is not toxic-appearing or diaphoretic. HENT: Head: Normocephalic. Eyes: Pupils: Pupils are equal, round, and reactive to light. Cardiovascular: Rate and Rhythm: Regular rhythm. Pulmonary: Effort: Pulmonary effort is normal. Breath sounds: Normal breath sounds. Abdominal: General: There is no distension. Palpations: Abdomen is soft. There is no mass. Tenderness: There is no abdominal tenderness. There is no guarding or rebound. Comments: Apparent bulging in right inguinal area w valsalva , no otherwise masses no LDN Normal genital examination Strong abdominal aortic pulse but no mass sensation Genitourinary: Penis: Normal. Testes: Normal. Musculoskeletal: Cervical back: Neck supple. Right lower leg: No edema. Left lower leg: No edema. Comments: Atrophy of left thenar eminence Skin: General: Skin is warm. Findings: No rash. Neurological: Mental Status: He is alert. Assessment/Plan Problem List Items Addressed This Visit Depression Relevant Medications chlorproMAZINE (Thorazine) 100 MG tablet mirtazapine (Remeron) 45 MG tablet Neurocognitive disorder Relevant Medications chlorproMAZINE (Thorazine) 100 MG tablet donepezil (Aricept) 10 MG tablet mirtazapine (Remeron) 45 MG tablet Health care maintenance Elevated blood pressure reading Carpal tunnel syndrome Relevant Medications chlorproMAZINE (Thorazine) 100 MG tablet donepezil (Aricept) 10 MG tablet mirtazapine (Remeron) 45 MG tablet Right inguinal pain Relevant Medications docusate sodium (Colace) 100 MG capsule Weight loss Constipation Relevant Medications docusate sodium (Colace) 100 MG capsule Other Visit Diagnoses Colon cancer screening - Primary Relevant Medications docusate sodium (Colace) 100 MG capsule Other Relevant Orders Referral to Gastroenterology Dementia with other behavioral disturbance, unspecified dementia severity, unspecified dementia type (CMS/HCC) ([facility]) Relevant Medications chlorproMAZINE (Thorazine) 100 MG tablet donepezil (Aricept) 10 MG tablet mirtazapine (Remeron) 45 MG tablet Other Relevant Orders Referral to Neurology Right groin pain Relevant Medications docusate sodium (Colace) 100 MG capsule Other Relevant Orders US Groin Right Unilateral inguinal hernia without obstruction or gangrene, recurrence not specified Relevant Medications docusate sodium (Colace) 100 MG capsule Other Relevant Orders US Groin Right Referral to General Surgery Encounter for immunization Relevant Medications Aspirin Low Dose 81 MG chewable tablet Other Relevant Orders PCV-20 VACCINE 6 wks + (Completed) Dietary counseling Exercise counseling documented in this encounter Plan of Treatment Upcoming Encounters Date Type Department Care Team (Late st Contact Info) Description 10/29/2025 11:15 AM EST Office Visit [address] [address] Zully Todd MD [address] [place] [address] 12/16/2025 10:00 AM EST Office Visit [address] [address] Zully Todd MD [address] [place] [address] 12/25/2025 9:30 AM EST Office Visit [facility] [address] [place], [place] [phone] Zully Todd MD [address] [place] [phone] Scheduled Orders Name Type Priority Associated Diagnoses Orde r Schedule US Groin Right Imaging STAT Right groin pain Unilateral inguinal hernia without obstruction or gangrene, recurrence not specified Expected: 10/01/2025, Expires: 10/01/2026 Scheduled Referrals Name Type Priority Associated Diagnoses Order Schedule Referral to Gastroenterology Outpatient Referral Routine Colon cancer screening Expected: 10/01/2025 (Approximate), Expires: 10/01/2026 Referral to Neurology Outpatient Referral Routine Dementia with other behavioral disturbance, unspecified dementia severity, unspecified dementia type (CMS/HCC) ([facility]) Expected: 10/01/2025 (Approximate), Expires: 10/01/2026 Referral to General Surgery Outpatient Referral STAT Unilateral inguinal hernia without obstruction or gangrene, recurrence not specified Expected: 10/01/2025 (Approximate), Expires: 10/01/2026 documented as of this encounter Visit Diagnoses Diagnosis Colon cancer screening- Primary Special screening for malignant neoplasms, colon Dementia with other behavioral disturbance, unspecified dementia severity, unspecified dementia type (CMS/HCC) (HCC) Right groin pain Abdominal pain, right lower quadrant Unilateral inguinal hernia without obstruction or gangrene, recurrence not specified Encounter for immunization Dietary counseling Dietary surveillance and counseling Exercise counseling Neurocognitive disorder Unspecified persistent mental disorders due to conditions classified elsewhere 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) Health care maintenance Elevated blood pressure reading Elevated blood pressure reading without diagnosis of hypertension Right inguinal pain Abdominal pain, right lower quadrant Weight loss Loss of weight Constipation, unspecified constipation type Bilateral carpal tunnel syndrome Carpal tunnel syndrome documented in this encounter Additional Health Concerns Assessment Noted Time PHQ-9 Depression Total Score: 1 09/02/20 25 11:03 AM EDT documented as of this encounter Care Teams Hall Manager Relationship Specialty Start Date End Date Zully Todd MD [address] [place] [phone] PCP - General Internal Medicine 09/02/25 documented as of this encounter
--- OUTSIDE RECORDS SUMMARY | 2025-10-06 08:26 | XMS_ITS | Clinical Summary ---
Author Organization [facility] Address [address] [place] [phone] Phone Care Team Providers Care Cooler Servicer Name Role Phone Ingris Horn MD Primary Care Provid er Allergies No known active allergies Medications * This document contains information received from the source organization and may not represent a complete record from that organization. cholecalciferol (VITAMIN D3) 2,000 unit tablet Take [...] 2 5 Active QUEtiapine (SEROQUEL) 50 MG tabletIndicatio ns:Severe episode of recurrent major depressive disorder, without psychotic features Take 3 tablets (150 mg total) by mouth nightly at bedtime. 90 tablet 2 5 Active QUEtiapine (SEROQUEL) 25 MG tabletIndicatio ns:Severe episode of recurrent major depressive disorder, without psychotic features Take 0.5 tablets (12.5 mg total) by mouth daily with breakfast. Can take an additional 0.5 tablets (12.5 mg total) by mouth daily as needed for anxiety. 30 tablet 2 Active traZODone (DESYREL) 50 MG tabletIndicatio ns:Severe episode of recurrent major depressive disorder, without psychotic features Take 3 tablets (150 mg total) by mouth nightly at bedtime. 90 tablet 2 Active Active Problems Problem Noted Date Diagnosed Date [...] (06/03/2025 3:47 PM EDT): Psychiatry following, planning Geripsych medicine [...] 12:36 PM EDT): Meds as above Encounters Date Type Department Care Team Description 07/28/2025 6:28 PM EDT - 07/28/2025 7:09 PM EDT Emergency [facility] [address] [place] [phone] Discharge Disposition: Home or Self Care from Last 3 Months Social History Tobacco [...] your housing situation today? I have figueroa posada 07/28/2025 How many times have you move [...] 10/01/2021, 09/10/2019, Additional history exists COVID-19 VACCINE ( - 2024- season) 2025 03/22/2022, 06/17/2021, 05/19/2021 [...] 07/28/2025 12:18 PM EDT BASIC METABOLIC PANEL (BMP) STAT 07/28/2025 12:18 PM EDT CBC AND DIFFERENTIAL STAT 07/28/2025 12:18 PM EDT ECG 12-LEAD STAT 07/28/2025 11:47 AM EDT LIPID PANEL Routine 06/05/2025 6:41 AM EDT from Last 3 Months or Most Recently Relevant to Health Maintenance Results * LFTs (hepatic panel) (07/28/2025 12:18 PM EDT) ALKALINE PHOSPHATASE 84 39 - 117 U/L [facility] TOTAL BILIRUBIN 0.4 0.0 - 1.2 mg/dL [facility] DIRECT BILIRUBIN 0.1 0.0 - 0.2 mg/dL [facility] Bilirubin (Indirect) NOT CALCULATED 0 - 1.5 mg/dL [facility] AST 21 0 - 37 U/L [facility] ALT 16 0 - 40 U/L [facility] TOTAL PROTEIN 7.9 6.5 - 8.0 g/dL [facility] ALBUMIN 4.5 3.9 - 4.8 g/dL [facility] GLOBULIN 3.4 1 - 4.8 g/dL [facility] A/G Ratio 1.32 1.00 - 4.80 RATIO [facility] Blood 07/28/2025 12:1 8 PM EDT 07/28/2025 12:27 PM EDT us Wilmer Sterling MD LAB BLOOD BKR ORDERABLES Fi nal Result [facility] [address] [place] [address] * (ABNORMAL) CBC and differential (07/28/2025 12:18 PM EDT) WBC 6.81 4.00 - 11.00 K/uL [facility] RBC 4.65 4.50 - 5.90 M/uL [facility] HGB 14.0 13.5 - 17.5 g/dL [facility] HCT 43.6 41.0 - 53.0 % [facility] PLT 242 150 - 450 K/uL [facility] MCV 93.8 80.0 - 100.0 fL [facility] MCH 30.1 27.0 - 31.0 pg [facility] MCHC 32.1 32.0 - 36.0 g/dL [facility] RDW 14.9(H) 11.5 - 14.5 % [facility] MPV 8.6 8.4 - 12.0 fL [facility] NRBC 0.00 0.00 /100 WBCs [facility] ABSOLUTE NRBC 0.00 0.00 K/uL [facility] DIFF METHOD Auto [facility] NEUTS 63.8 48.0 - 76.0 % [facility] LYMPHS 25.8 18.0 - 41.0 % [facility] MONOS 7.6 4.0 - 11.0 % [facility] EOS 1.8 0.0 - 5.0 % [facility] BASOS 0.9 0.0 - 1.5 % [facility] Granulocytes, immature (%) 0.1 0.0 - 0.9 % [facility] ABSOLUTE NEUTS 4.34 1.92 - 7.60 K/uL [facility] ABSOLUTE LYMPHS 1.76 0.72 - 4.10 K/uL [facility] ABSOLUTE MONOS 0.52 0.16 - 1.10 K/uL [facility] ABSOLUTE EOS 0.12 0.00 - 0.50 K/uL [facility] ABSOLUTE BASOS 0.06 0.00 - 0.15 K/uL [facility] Granulocytes, immature 0.01 0.00 - 0.09 K/uL [facility] Blood 07/28/2025 12:1 8 PM EDT 07/28/2025 12:27 PM EDT us Wilmer Sterling MD LAB BLOOD BKR ORDERABLES Fi nal Result [facility] [address] [address] * Lipase (07/28/2025 12:18 PM EDT) LIPASE 53 16 - 63 U/L [facility] Blood 07/28/2025 12:1 8 PM EDT 07/28/2025 12:27 PM EDT us Wilmer Sterling MD LAB BLOOD BKR ORDERABLES Fi nal Result [address] [address] * (ABNORMAL) Basic metabolic panel (07/28/2025 12:18 PM EDT) Pathologist [facility] SODIUM 138 133 - 146 mmol/L [facility] CHLORIDE 104 96 - 108 mmol/L [facility] POTASSIUM 4.6 3.3 - 5.1 mmol/L [facility] CO2 24 21 - 35 mmol/L [facility] BUN 15 6 - 19 mg/dL [facility] CREATININE 0.70 0.5 - 1.5 mg/dL [facility] GLUCOSE 106(H) 70 - 99 mg/dL [facility] CALCIUM 9.7 8.4 - 10.3 mg/dL [facility] EGFR 97 >59 mL/min/1.7 3m2 [facility] Comment:Estimated glomerular filtration rate calculated using the CKD-EPI refit equation. ANION GAP 15 10 - 20 mmol/L [facility] Blood 07/28/2025 12:1 8 PM EDT 07/28/2025 12:27 PM EDT us Wilmer Sterling MD LAB BLOOD BKR ORDERABLES Fi nal Result [address] [address] * ECG 12-LEAD (07/28/2025 11:47 AM EDT) Ventricular Rate EKG/MIN 78 BPM [facility] Atrial Rate 78 BPM [facility] SC Interval 206 ms [facility] QRS Duration 110 ms [facility] QT Interval 382 ms [facility] QTC Interval 435 ms [facility] P Hastings 43 degrees [facility] R Wave [place] -2 degrees [facility] T Wave [place] 48 degrees [facility] 07/28/2025 11:4 7 AM EDT 07/28/2025 1:26 PM EDT Narrative [facility] - 07/28/2025 1:26 PM EDT Normal sinus rhythm Possible Inferior infarct Abnormal ECG When compared with ECG of 30-May-2025 10:54, Significant changes have occurred Confirmed by Haseeb Roland ([id number]) on 07/28/2025 1:26:40 PM us Wilmer Sterling MD ECG ORDERABLES Final Resul t Performing Organization Address City/[facility] Co de Phone Number [facility] * Lipid panel (06/05/2025 6:41 AM EDT) HDL 51 >39 mg/dL [facility] CHOLESTEROL 168 0 - 200 mg/dL [facility] TRIGLYCERIDES 69 0 - 150 mg/dL [facility] LDL 103 <130 mg/dL [facility] Comment: REFERENCE RANGE: Adult >= 18 years: - Desirable: <100 - Above desirable: 100-129 - Borderline high: 130-159 - High: 160-189 - Very High: >=190 Pediatric 2-17 years: - Acceptable: <110 - Borderline high: 110-129 - High: >=130 Reference ranges have not been established for patients that are less than 24 months of age. CARDIAC RISK RATIO 3.3 <5 [facility] NON-HDL CHOLESTEROL 117 mg/dL [facility] Comment:Reference Range: The non-HDL Cholesterol value should not exceed the desired LDL-C by more than 30 mg/dl. Blood 06/05/2025 6:41 AM EDT 06/05/2025 7:05 AM EDT us Fabiola Varner GOLF COURSE PATROLLER LAB BLOOD BKR ORDERABLES F inal Result [place] [id number], [facility] [phone] from Last 3 Months or Most Recently Relevant to Health Maintenance Insurance [employer]EX SUPPLEMENT MEDICARE PART A & B [employer] SUPPLEMENT MEDICARE PART A & B [employer] SUPPLEMENT MEDICARE PART A & B [employer] SUPPLEMENT MEDICARE PART A & B [employer] SUPPLEMENT MEDICARE PART A & B [employer] MEDEX SUPPLEMENT MEDICARE PART A & B MEDICARE PART A & B [employer] MEDEX SUPPLEMENT Advance Directives For more information, please contact: [phone] (9AM - 5PM [facility], Monday-Monday) Documents on File Type Date Recorded Patient Strategy Lead Expl anation Healthcare Proxy 06/05/2025 11:49 AM [...] Code Status Confirmed With: Patient Care Teams Cooler Servicer Relationship Specialty Start Date End Date Ingris Horn MD [address] [address] PCP - General Family Medicine 05/29/25 Additional Source Comments The information contained in this document represents components of the legal health record. It is not the complete legal health record.[facility]
--- OUTSIDE RECORDS SUMMARY | 2025-10-06 08:27 | XMS_ITS | Encounter Summary ---
Author Organization [employer] Address [address] [facility] 7[address] [place] [address] Care Team Providers Care Cleat Thrower Name Role Phone Zully Todd MD Primary Care Pro vider Encounter Details Date Type Department Care Team (Latest Contact Info) Description 10/01/2025 Travel Social History Tobacco Use Types Packs/Day Years [...] PM EDT documented as of this encounter Plan of Treatment Upcoming Encounters Date Type Department Care Team (Late st Contact Info) Description 10/29/2025 11:15 AM EST Office Visit [facility] MEDICINE [address] [place] [address] Zully Todd MD [address] [place] [phone] 12/16/2025 10:00 AM EST Office Visit [facility] MEDICINE [address] [place] [address] Zully Todd MD [address] [place] [address] [phone] 12/25/2025 9:30 AM EST Office Visit [facility] MEDICINE [address] [place], [place] [phone] Zully Todd MD [address] [place] [phone] documented as of this encounter Visit Diagnoses Not on filedocumented in this encounter Additional Health Concerns Assessment Noted Time PHQ-9 Depression Total Score: 1 09/02/20 11:03 AM EDT documented as of this encounter Care Teams Cleat Thrower Relationship Specialty Start Date End Date Zully Todd MD [address] [place] [address] [phone] PCP - General Internal Medicine 09/02/25 documented as of this encounter
--- OUTSIDE RECORDS SUMMARY | 2025-10-06 08:27 | XMS_ITS | Encounter Summary ---
Author Organization [employer] Address [address] [place] [address] [address] [place] [address] Care Team Providers Care Human Resources Benefits Specialist Name Role Phone Zully Todd MD Primary Care Pro vider Reason for Visit * Reason Onset Date Comments Med Refill 09/30/2025 Encounter Details Date Type Department Care Team (Late st Contact Info) Description 09/30/2025 Telephone [facility] MEDICINE [address] [place] [address] [phone] Zully Todd MD [address] [place] [address] Med Refill Social History Tobacco Use Types Packs/Day Years [...] PM EDT documented as of this encounter Miscellaneous Notes * Telephone Encounter - Eusebia Turner LPN - 09/30/2025 9:25 AM EST Medications were sent to [facility] on 09/02/25 90 day supply to [facility] for refills. * Telephone Encounter - Clarita Julio - 09/30/2025 9:13 AM EST TC from pt requesting medication refill. Medications needing refill : - Aspirin Low Dose 81 MG chewable tablet - chlorproMAZINE (Thorazine) 100 MG tablet - donepezil (Aricept) 10 MG tablet - mirtazapine (Remeron) 45 MG tablet - potassium chloride CR (K-Tab) 20 MEQ ER tablet To be sent to: - [facility] [address], [place] [address] Pt is going in to a program today, they medication documented in this encounter Plan of Treatment Upcoming Encounters Date Type Department Care Team (Late st Contact Info) Description 10/29/2025 11:15 AM EST Office Visit [address] [address] Zully Todd MD [address] [place] [phone] 12/16/2025 10:00 AM EST Office Visit [address] [address] Zully Todd MD [address] [place] [phone] 12/25/2025 9:30 AM EST Office Visit [address] [address] Zully Todd MD [address] [place] [phone] documented as of this encounter Visit Diagnoses Not on filedocumented in this encounter Additional Health Concerns Assessment Noted Time PHQ-9 Depression Total Score: 1 09/02/20 11:03 AM EDT documented as of this encounter Care Teams Human Resources Benefits Specialist Relationship Specialty Start Date End Date Zully Todd MD [address] [place] [phone] PCP - General Internal Medicine 09/02/25 documented as of this encounter
--- OUTSIDE RECORDS SUMMARY | 2025-10-06 08:27 | XMS_ITS | Clinical Summary ---
Author Organization [employer] Address [address] [facility] 7[address] [place] [address] Care Team Providers Care Application Software Developer Name Role Phone Zully Todd MD Primary Care Pro vider Allergies No known active allergies Medications * This document contains information received from the source organization and may not represent a complete record from that organization. Aspirin Low Dose 81 MG chewable tablet Chew 1 tablet (81 mg) Once per day. 90 tablet 10/01/20 25 Active chlorproMAZIN E (Thorazine) 100 MG tablet Take 1 tablet (100 mg) by mouth at bedtime. 90 tablet 10/01/20 25 Active donepezil (Aricept) 10 MG tablet Take 1 tablet (10 mg) by mouth at bedtime. 90 tablet 10/01/20 25 Active mirtazapine (Remeron) 45 MG tablet Take 1 tablet (45 mg) by mouth at bedtime. 90 tablet 10/01/20 25 Active docusate sodium (Colace) 100 MG capsule Take 1 tab po bid prn constipation 60 capsule 3 10/01/20 25 Active potassium chloride CR (K-Tab) 20 MEQ ER tablet TAKE 1 TABLET BY MOUTH TWICE A DAY 60 tablet 10/02/20 25 Active Aspirin Low Dose 81 MG chewable tablet Chew 1 tablet (81 mg) Once per day. 90 tablet 09/02/20 25 025 Discontinued(R eorder (will not trigger notification to Pharmacy)) potassium chloride CR (K-Tab) 20 MEQ ER tablet Take 1 tablet (20 mEq) by mouth 2 times daily. 60 tablet 09/02/20 25 025 Discontinued(R eorder (will not trigger notification to Pharmacy)) chlorproMAZIN E (Thorazine) 100 MG tablet Take 1 tablet (100 mg) by mouth at bedtime. 90 tablet 09/02/20 25 025 Discontinued(R eorder (will not trigger notification to Pharmacy)) donepezil (Aricept) 10 MG tablet Take 1 tablet (10 mg) by mouth at bedtime. 90 tablet 09/02/20 25 025 Discontinued(R eorder (will not trigger notification to Pharmacy)) mirtazapine (Remeron) 45 MG tablet Take 1 tablet (45 mg) by mouth at bedtime. 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 Date Type Department Care Team Description 10/02/2025 Refill [facility] MEDICINE [address] [place] [address] Zully Todd MD 10/01/2025 10:45 AM EST Office Visit [facility] MEDICINE [address] [place] [address] Zully Todd MD Colon cancer screening (Primary Dx); Dementia with [...] unspecified constipation type; Bilateral carpal tunnel syndrome 10/01/2025 Travel 09/30/2025 Telephone [facility] MEDICINE [address] [place] [address] Zully Todd MD Nurse Triage 09/30/[address] [address] Zully Todd MD Med Refill 09/04/2025 Orders Only [address] [phone] Zully Todd MD 09/02/2025 10:15 AM EDT Office Visit [address] [phone] Zully Todd MD 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) (Primary Dx); Anxiety; Neurocognitive disorder; Annual physical exam; Unspecified sexually transmitted disease; Encounter for screening for other viral diseases; Encounter for immunization; Health care maintenance; Elevated blood pressure reading 09/02/2025 Travel 09/01/2025 Telephone [facility] [address] [place], [place] [phone] Dolores Alcantar MA chartprep from Last 3 Months Immunizations Immunization Administration Dates Next Due Influenza Whole 10/29/2015 Influenza injectable quadriv alent preservative free 10/01/2021,09/10/2019 Influenza, High Dose Seasona l, Preservative Free 11/05/2024 Influenza, IIV3, injectable 11/05/2024,1 12/01/2020,10/30/2017,08/16,09/13/2015,01/10/2014,11/16/2012 Influenza, seasonal, injecta ble, preservative free 07/31/2025,10/30/2017 Pfizer Covid-19 Vaccine 12+ 09/02/2025 Pneumococcal Conjugate PCV 13 06/14/2016 Pneumococcal Conjugate PCV 20 10/01/2025 Pneumococcal Polysaccharide PPSV23 08/20/2018 Tdap 04/01/2024,07/03/2011 Social History Tobacco Use Types Packs/Day Years Used Date Smoking Tobacco: Never Tobacco Cessation:Counseling Given: Not Answered [...] Orientation Straight 08/27/2025 12 :48 PM EDT Last Filed Vital Signs Vital [...] Mass Index 25.3 10/01/2025 10:42 AM EST Plan of Treatment Upcoming Encounters Date Type Department Care Team (Late st Contact Info) Description 10/29/2025 11:15 AM EST Office Visit [address] [address] Zully Todd MD [address] [place] [phone] 12/16/2025 10:00 AM EST Office Visit [address] [address] Zully Todd MD [address] [place] [address] 12/25/2025 9:30 AM EST Office Visit [address] [address] Zully Todd MD [address] [facility] [place] [address] Health Maintenance Due Date Last Done Comments CT Colonography 1951 Colonoscopy 1950 Colorectal Cancer Screening 1950 FIT DNA/Cologuard 1950 FIT 1950 FOBT 1950 Lipid Panel 1950 SDOH Screening 1950 Sigmoidoscopy 1950 Hepatitis C Screening 1969 Zoster Vaccines (1 of 2) 2001 COVID-19 Vaccine ( season) 2026 09/02/2025, 03/22/2022, 06/17/2021, Additional history exists RSV Patients and Patients Aged 60 years or older (1 - 1-dose 75+ series) 2026 Alcohol/Substance Use Screening 09/02/2026 09/02/2025 Depression Screening 09/02/2026 09/02/2025, 09/02/20 25 Tobacco Screening 09/02/2026 09/02/2025 DTaP/Tdap/Td Vaccines (3 - Td or Tdap) 04/01/2034 04/01/2024, 07/03/2011 Influenza Vaccine Completed 07/31/2025, , 11/05/2024, Additional history exists Pneumococcal Vaccine: 50+ Years Completed 10/01/2025, 08/20/2018, 06/14/2016 HIB Vaccines Aged Out No longer eligi ble based on patient's age to complete this topic HPV Vaccines Aged Out No longer eligi ble based on patient's age to complete this topic Hepatitis A Vaccines Aged Out No long er eligible based on patient's age to complete this topic Hepatitis B Vaccines Aged Out No long er eligible based on patient's age to complete this topic IPV Vaccines Aged Out No longer eligi ble based on patient's age to complete this topic Meningococcal B Vaccine Aged Out No l onger eligible based on patient's age to complete this topic Meningococcal Vaccine Aged Out No chre jered eligible based on patient's age to complete this topic RSV under 20 months Aged Out No longe r eligible based on patient's age to complete this topic Rotavirus Vaccines Aged Out No longer eligible based on patient's age to complete [place] [id number] Advance Directives Documents on File Type Date Recorded Patient Siding Mechanic Expl anation Advance Directives and Living Will 10/01/2025 11:54 AM Health care Proxy Power of Able Seaman 10/01/2025 11:[address] [facility] er of transactional attorney Care Teams Application Software Developer Relationship Specialty Start Date End Date Zully Todd MD [address] [place] [address] [phone] PCP - General Internal Medicine 09/02/25
--- OUTSIDE RECORDS SUMMARY | 2025-10-06 08:27 | XMS_ITS | Encounter Summary ---
Author Organization [employer] Address [address] [place] [address] [address] [place] [address] Care Team Providers Care Photoengraving Proofer Apprentice Name Role Phone Zully Todd MD Primary Care Pro vider Reason for Visit * Reason Onset Date Comments Med Refill 10/02/2025 Encounter Details Date Type Department Care Team (Late st Contact Info) Description 10/02/[address] [facility] MEDICINE [address] [place] [address] Zully Todd MD [address] [place] [address] Social History Tobacco Use Types Packs/Day Years [...] Telephone Encounter - Eusebia Turner LPN - 10/02/2025 9:46 AM EST Last seen 10/01/25. * Telephone Encounter - Patrice Sanchez - 10/02/2025 9:41 AM EST TC from pt requesting medication refill. Medications needing refill: potassium chloride CR (K-Tab) 20 MEQ ER tablet To be sent to: [facility] [address] [place] [address] documented in this encounter Plan of Treatment Upcoming Encounters Date Type Department Care Team (Late st Contact Info) Description 10/29/2025 11:15 AM EST Office Visit [address] [address] Zully Todd MD [address] [place] [phone] 12/16/2025 10:00 AM EST Office Visit [address] [address] Zully Todd MD [address] [place] [address] 12/25/2025 9:30 AM EST Office Visit [address] [address] Zully Todd MD [address] [place] [phone] documented as of this encounter Visit Diagnoses Not on filedocumented in this encounter Additional Health Concerns Assessment Noted Time PHQ-9 Depression Total Score: 1 09/02/20 11:03 AM EDT documented as of this encounter Care Teams Photoengraving Proofer Apprentice Relationship Specialty Start Date End Date Zully Todd MD [address] [place] [phone] PCP - General Internal Medicine 09/02/25 documented as of this encounter
[2025-10-06 11:10] LABS: MANUAL DIFF FLAG NO
[2025-10-06 11:29] LABS: Hematocrit 41.2 % (42.0-52.0); Hemoglobin 13.1 g/dl (14.0-18.0); Imm Gran Abs Auto 0.01 X10*3/uL (0.00-0.03); Imm Gran Pct Auto 0.3 % (0.0-0.4); Lymphocytes Absolute Auto 1.3 X10*3/uL (1.2-4.9); Mean Corpuscular HGB Conc 31.8 g/dl (31.0-36.0); Mean Corpuscular Hemoglobin 30.6 pg (27.0-33.0); Mean Corpuscular Volume 96.3 fL (80.0-98.0); NRBC Abs Auto 0.000 X10*3/uL (0.0-0.012); NRBC Pct Auto 0.0 /100WBC (0.0-0.2); Platelet Count 248 X10*3/uL (160-400); Red Blood Count 4.28 X10*6/uL (4.60-5.80); White Blood Count 3.7 X10*3/uL (4.8-10.8)
[2025-10-06 12:19] LABS: Folate 9.4 ng/mL (> or = 4.0); Prostate Specific Antigen 0.83 ng/mL (<0.05-4.0); Vitamin B12 240 pg/mL (200-900)
[2025-10-06 12:22] LABS: Syphilis Screen Nonreactive (Nonreactive)
[2025-10-06 12:28] LABS: HBS Num1 1.02 mIU/mL (0-7.99); HBc Num1 0.13 S/CO (0.00-0.79); HBsAGNum1 0.34 S/CO (0.00-0.99); HIV Num 1 0.08 S/CO (0.00-0.99); Hepatitis B Surface Antigen Negative (Negative); ~HepC Num1 0.11 S/CO (0.00-0.79); ~Hepatitis B Surface Antibody NONREACTIVE (Nonreactive); ~Hepatitis C Antibody Nonreactive (Nonreactive)
[2025-10-06 12:55] LABS: CT PCR Urine NOT DETECTED (Not Detect.); NG PCR Urine NOT DETECTED (Not Detect.)
[2025-10-06 14:59] LABS: Alanine Aminotransferase 8 U/L (0-40); Albumin Level 4.3 g/dL (3.5-5.0); Alkaline Phosphatase 83 U/L (39-117); Anion Gap 10 (12-20); Aspartate Amino Transferase 22 U/L (5-37); Blood Urea Nitrogen 13 mg/dL (9-16); Calcium 9.2 mg/dL (8.4-10.2); Carbon Dioxide 28 mmol/L (22-29); Chloride 107 mmol/L (96-108); Cholesterol 159 mg/dL (<200); Estimated Glomerular Filt Rate > 60; HDL Cholesterol 52 mg/dL (>40); Potassium 4.3 mmol/L (3.3-5.1); Sodium 141 mmol/L (135-145); Total Protein 7.0 g/dL (6.5-8.0); Triglycerides 61 mg/dL (<150)
[2025-10-07 15:02] LABS: Iron 75 mcg/dL (45-160); Percent Iron Saturation 34 % (15-50); Total Iron Binding Capacity 222 mcg/dL (228-428); Unsaturated Iron Binding 147 ug/dL
[2025-10-07 15:17] LABS: Ferritin 96 ng/mL (20-250)
== END 2025-10-06 08:19 | disposition home or self-care (01) ==
LOC: HO.HHCL 08:18
PROVIDERS: PCP Student in an Organized Health Care Education/Training Program; Visit Provider Student in an Organized Health Care Education/Training Program
DX: Z00.00 Encounter for general adult medical examination without abnormal findings (principal); Z12.5 Encounter for screening for malignant neoplasm of prostate; Z11.59 Encounter for screening for other viral diseases; Z13.1 Encounter for screening for diabetes mellitus; Z13.6 Encounter for screening for cardiovascular disorders; A64 Unspecified sexually transmitted disease; D64.9 Anemia, unspecified; Z72.89 Other problems related to lifestyle
CPT/HCPCS: 36415; 80053; 80061; 82570; 82607; 82728; 82746; 83036; 83540; 84153; 84443; 85025; 86704; 86706; 86780; 86803; 87340; 87389; 87491; 87591

== ENCOUNTER 2025-10-07 09:03 | Outpatient (REF) | payer MEDICARE, SELFPAY ==
--- OUTSIDE RECORDS SUMMARY | 2025-10-01 10:45 | XMS_ITS | Encounter Summary ---
Author Organization [employer] Address [address] [place] [address] 7[address] [place] [address] Care Team Providers Care First Line Production Supervisor Name Role Phone Zully Todd MD Primary Care Pro vider Reason for Referral * Consultation (STAT) - Authorized Specialty Diagnoses / Procedures Referred By Rebekah de león Referred To Contact General Surgery Diagnoses Unilateral inguinal hernia without obstruction or gangrene, recurrence not specified Zully Todd MD [address] [place] [address] Phone: tel: fax: [facility] General Surgeons [address] Floor [place], [place] Phone: tel: fax: Referral ID Status Reason Start Date Expiration Date Visits Requested Visits Authorized [id number] Authorized Specialty Services Required 10/01/2026 1 1 * Imaging (STAT) - Authorized Specialty Diagnoses / Procedures Referred By Rebekah de león Referred To Contact Radiology Diagnoses Right groin pain Unilateral inguinal hernia without obstruction or gangrene, recurrence not specified Procedures US Groin Right Zully Todd MD [address] [place] [address] Phone: tel: fax: [facility] [address] [place] [phone] Phone: tel: fax: Referral ID Status Reason Start Date Expiration Date V isits Requested Visits Authorized [id number] Authorized 10/01/2025 10/01/2026 1 1 * Consultation (Routine) - Authorized Specialty Diagnoses / Procedures Referred By Contac t Referred To Contact Neurology Diagnoses Dementia with other behavioral disturbance, unspecified dementia severity, unspecified dementia type (CMS/HCC) (HCC) Zully Todd MD [address] [place] [address] Phone: tel: fax: [facility] Referral ID Status Reason Start Date Expiration Date Visits Requested Visits Authorized [id number] Authorized Specialty Services Required 5 10/01/2026 1 1 * Consultation (Routine) - Authorized Specialty Diagnoses / Procedures Referred By Rebekah t Referred To Contact Gastroenterology Diagnoses Colon cancer screening Zully Todd MD [address] [place] [phone] Phone: tel: fax: [facility] Referral ID Status Reason Start Date Expiration Date Visits Requested Visits Authorized [id number] Authorized Specialty Services Required 5 10/01/2026 1 1 Encounter Details Date Type Department Care Team ([facility] st Contact Info) Description 10/01/2025 10:45 AM EST Office Visit [facility] [address] [place] [phone] Zully Todd MD [address] [place] [address] [phone] Colon cancer screening (Primary Dx); Dementia with [...] is Health care proxy and Power of carpenter maintenance Currently living at assisted living since yesterday [...] asymptomatic ----- From medical records obtained from [facility] 07/31/25 Patient with history of depression, anxiety, [...] is Health care proxy and Power of carpenter maintenance-Shreyas Marquez -they will bribg info to medical [...] therapy referral and OP psychiatry Referral to [facility] Central Intake -- gave info to pt 's brother today to call for apt Cognitive disorder -dementia? Noted very poor memory From medical records obtained from [facility] 07/31/25 Patient with history of depression, anxiety, [...] Wt 161 lb 3.2 oz (73.1 kg) [id number]% BMI 25.30 kg/m?? Physical Exam Constitutional: General: [...] unspecified dementia severity, unspecified dementia type (CMS/HCC) ([facility]) Relevant Medications chlorproMAZINE (Thorazine) 100 MG tablet [...] Description 10/29/2025 11:15 AM EST Office Visit [address] [address] Zully Todd MD [address] [place] [address] 12/16/2025 10:00 AM EST Office Visit [address] [address] Zully Todd MD [address] [place] [address] 12/25/2025 9:30 AM EST Office Visit [facility] [address] [place], [place] [phone] Zully Todd MD [address] [place] [phone] Scheduled Orders Name Type Priority Associated [...] unspecified dementia severity, unspecified dementia type (CMS/HCC) ([facility]) Expected: 10/01/2025 (Approximate), Expires: 10/01/2026 Referral to [...] documented as of this encounter Care Teams First Line Production Supervisor Relationship Specialty Start Date End Date Zully Todd MD [address] [place] [phone] PCP - General Internal Medicine 09/02/25 documented as of this encounter
--- NOTE | ~2025-10-07 | US_ITS ---
CLINICAL HISTORY: RIGHT GROIN PAIN,UNILAT.HERNIA WITHOUT OBSTRUCTION Exam: Ultrasound of the superficial soft tissues of the right groin, for evaluation of the pain. Comparison: None. Findings: In the region of the pain there is a bowel containing hernia with hernia sac measured at up to 4.5 x 4.0 x 2.3 cm. The neck is measured at 12 mm thickness. Visualized bowel loops reveal no abnormal distention within the hernia sac. Impression: 1. Right groin or inguinal hernia containing bowel loops, measuring up to 4.5 cm. This document has been electronically signed by: Franky Lamb MD on 10/07/2025 17:38:56
--- OUTSIDE RECORDS SUMMARY | 2025-10-07 09:45 | XMS_ITS | Encounter Summary ---
Author Organization [employer] Address [address] [place] [address] [address] [place] [address] Care Team Providers Care Button Maker Name Role Phone Zully Todd MD Primary Care Pro vider Reason for Visit * Reason Onset Date Comments Med Refill 10/02/2025 Encounter Details Date Type Department Care Team (Late st Contact Info) Description 10/02/2025 Refill [facility] MEDICINE [address] [place] [address] Zully Todd MD [address] [place] [address] Social History Tobacco Use Types Packs/Day Years [...] tablet To be sent to: [facility] [address] [place] [address] documented in this encounter Plan of Treatment Upcoming Encounters Date Type Department Care Team (Late st Contact Info) Description 10/29/2025 11:15 AM EST Office Visit [address] [address] Zully Todd MD [address] [place] [address] 12/16/2025 10:00 AM EST Office Visit [address] [address] Zully Todd MD [address] [place] [address] 12/25/2025 9:30 AM EST Office Visit [address] [address] Zully Todd MD [address] [place] [phone] documented as of this encounter Visit Diagnoses Not on filedocumented in this encounter Additional Health Concerns Assessment Noted Time PHQ-9 Depression Total Score: 1 09/02/20 11:03 AM EDT documented as of this encounter Care Teams Button Maker Relationship Specialty Start Date End Date Zully Todd MD [address] [place] [phone] PCP - General Internal Medicine 09/02/25 documented as of this encounter
--- OUTSIDE RECORDS SUMMARY | 2025-10-07 09:45 | XMS_ITS | Clinical Summary ---
Author Organization [employer] Address [address] [facility] 7[address] [place] [address] Care Team Providers Care Dictating Machine Mechanic Name Role Phone Zully Todd MD Primary [...] Type Department Care Team Description 10/02/2025 Refill [facility] [address] [place] [address] Zully Todd MD 10/01/2025 10:45 AM EST Office Visit [facility] [address] [place] [address] Zully Todd MD Colon cancer screening (Primary [...] carpal tunnel syndrome 10/01/2025 Travel 09/30/2025 Telephone [facility] [address] [place] [address] Zully Todd MD Nurse Triage 09/30/[address] [address] Zully Todd MD Med Refill 09/04/2025 Orders Only [address] [phone] Zully Todd MD 09/02/2025 10:15 AM EDT Office Visit [address] [phone] Zully Todd MD 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) (Primary Dx); Anxiety; Neurocognitive disorder; Annual physical exam; Unspecified sexually transmitted disease; Encounter for screening for other viral diseases; Encounter for immunization; Health care maintenance; Elevated blood pressure reading 09/02/2025 Travel 09/01/2025 Telephone [facility] [address] [place], [place] [phone] Dolores Alcantar MA chartprep from Last 3 [...] Description 10/29/2025 11:15 AM EST Office Visit [address] [address] Zully Todd MD [address] [place] [phone] 12/16/2025 10:00 AM EST Office Visit [address] [address] Zully Todd MD [address] [place] [address] 12/25/2025 9:30 AM EST Office Visit [address] [address] Zully Todd MD [address] [facility] [place] [address] Health Maintenance Due Date Last Done Comments CT Colonography 1951 Colonoscopy 1951 Colorectal Cancer Screening 1951 FIT DNA/Cologuard 1951 FIT 1951 FOBT 1951 SDOH Screening 1950 Sigmoidoscopy 1950 Zoster Vaccines (1 of 2) 2001 COVID-19 Vaccine ( season) 2026 09/02/2025, 03/22/2022, 06/17/2021, Additional history exists RSV Patients and Patients Aged 60 years or older (1 - 1-dose 75+ series) 2026 Alcohol/Substance Use Screening 09/02/2026 09/02/2025 Depression Screening 09/02/2026 09/02/2025, 09/02/20 25 Tobacco Screening 09/02/2026 09/02/2025 Lipid Panel 10/06/2030 10/06/2025 DTaP/Tdap/Td Vaccines (3 - Td or Tdap) 04/01/2034 04/01/2024, 07/03/2011 Influenza Vaccine Completed 07/31/2025, , 11/05/2024, Additional history exists Pneumococcal Vaccine: 50+ Years Completed 10/01/2025, 08/20/2018, 06/14/2016 Hepatitis C Screening Completed 10/06/2025 HIB Vaccines Aged Out No longer eligi [...] this topic Meningococcal Vaccine Aged Out No cher jered eligible based on patient's age to complete this topic RSV under 20 months Aged Out No longe r eligible based on patient's age to complete this topic Rotavirus Vaccines Aged Out No longer eligible based on patient's age to complete this topic Procedures Procedure Name Priority Date/Time Associated Diagnosis Comments PSA, TOTAL Routine 10/06/2025 8:24 AM EST Annual physical exam VITAMIN B12/FOLATE, SERUM PANEL Routine 10/06/2025 8:24 AM EST Annual physical exam TSH W/REFLEX TO FT4 Routine 10/06/2025 8 :24 AM EST Annual physical exam SYPHILIS SCREEN Routine 10/06/2025 8:24 AM EST Annual physical exam LIPID PANEL, STANDARD Routine 10/06/2025 8:24 AM EST Annual physical exam HIV 1/2 ANTIGEN/ANTIBODY, FOURTH GENERATION W/RFL Routine 10/06/2025 8:24 AM EST Annual physical exam HEPATITIS C AB W/REFL TO HCV RNA, QN, PCR Routine 10/06/2025 8:24 AM EST Annual physical exam HEPATITIS B SURFACE ANTIGEN, EIA Routine 10/06/2025 8:24 AM EST Annual physical exam Encounter for screening for other viral diseases HEPATITIS B SURFACE ANTIBODY, QUALITATIVE Routine 10/06/2025 8:24 AM EST Annual physical exam Encounter for screening for other viral diseases HEPATITIS B CORE AB TOTAL Routine 10/06/2025 8:24 AM EST Annual physical exam Unspecified sexually transmitted disease HEMOGLOBIN A1C Routine 10/06/2025 8:24 AM EST Annual physical exam COMPREHENSIVE METABOLIC PANEL Routine 10/06/2025 8:24 AM EST Annual physical exam CBC WITH AUTO DIFFERENTIAL Routine 10/06/2025 8:24 AM EST Annual physical exam ALBUMIN, RANDOM URINE W/CREATININE Routine 10/06/2025 8:24 AM EST Annual physical exam CHLAMYDIA/TRICHOMONAS/ NEISSERIA GONORRHOEAE, PCR, URINE Routine 10/06/2025 8:24 AM EST Annual physical exam from Last 3 Months Results * Chlamydia/Trichomonas/Neisseria gonorrhoeae, PCR, Urine (10/06/2025 8:24 AM EST) CT PCR, Urine NOT DETECTED Not Detect. [facility] Comment:A not detected test result does not exclude the possibilityof infection because test results can be affected byimproper specimen collection, concurrent antibiotic therapy,or the number of organisms in the specimen which may bebelow the sensitivity of the test. As with many diagnostictests, results from the Xpert CT/NG assay should beinterpreted in conjunction with other laboratory andclinical data available to the clinician.The Xpert CT/NG assay should not be used for the evaluationof suspected sexual abuse or for other medico-legalindications. Additional testing is recommended in anycircumstance when false positive or false negative resultscould lead to adverse medical, social or psychologicalconsequences. NG PCR, Urine NOT DETECTED Not Detect. [facility] Comment:A not detected test result does not exclude the possibilityof infection because test results can be affected byimproper specimen collection, concurrent antibiotic therapy,or the number of organisms in the specimen which may bebelow the sensitivity of the test. As with many diagnostictests, results from the Xpert CT/NG assay should beinterpreted in conjunction with other laboratory andclinical data available to the clinician.The Xpert CT/NG assay should not be used for the evaluationof suspected sexual abuse or for other medico-legalindications. Additional testing is recommended in anycircumstance when false positive or false negative resultscould lead to adverse medical, social or psychologicalconsequences. Urine (Urine, Random) 10/06/2025 8:24 AM EST 10/06/2025 11:12 AM EST us Zully Su MD LAB URINE ORDERAB LES Final Result [facility] [address] [place] [phone] * Syphilis Screen (10/06/2025 8:24 AM EST) Syphilis Screen Nonreactive Nonreactive [facility] Blood 10/06/2025 8:24 AM EST 10/06/2025 11:01 AM EST us Zully Su MD LAB BLOOD ORDERAB LES Final Result Performing Organization Address [facility] Co de Phone Number [facility] [address] [place] [phone] * Vitamin B12 (Cobalamin) and Folate Panel, Serum (10/06/2025 8:24 AM EST) Pathologist [facility] Vitamin B12 240 200 - 900 pg/mL [facility] Comment:NORMAL 200-900 PG/ML INDETERMINATE 160-199 PG/ML DEFICIENT < 160 PG/ML Folate 9.4 > or = 4.0 ng/mL [facility] Comment:Reference Values:> o r = 4.0 ng/mL< 4.0 ng/mL suggests folate deficiency Methotrexate, aminopterin and folinic acid(leucovorin) are chemotherapeutic agents whose molecularstructures are similar to folate; therefore, the Architectfolate assay cannot be used for patients using these drugs. Blood 10/06/2025 8:24 AM EST 10/06/2025 11:01 AM EST us Zully Su MD LAB BLOOD ORDERAB LES Final Result Performing Organization Address City/[facility] Co de Phone Number [facility] [address] [place] [phone] * TSH with Reflex to Free T4 (10/06/2025 8:24 AM EST) TSH reflex Free T4 1.49 0.32 - 4.0 uIU/mL [facility] Blood 10/06/2025 8:24 AM EST 10/06/2025 11:01 AM EST us Zully Su MD LAB BLOOD ORDERAB LES Final Result Performing Organization Address [facility] Co de Phone Number [facility] [address] [place] [phone] * Albumin, Random Urine W/Creatinine (10/06/2025 8:24 AM EST) Creatinine, Urine 92.08 mg/dL [facility] Microalbumin Urine <5.0 mg/L [facility] Microalbum Creatinine Ratio Ur TNP <30 ug/mg cr [facility] Comment:Unable to calculate albumin/creatinine ratio due to lowmicroalbumin or creatinine result. Urine (Urine, Random) 10/06/2025 8:24 AM EST 10/06/2025 11:04 AM EST us Zully Su MD LAB URINE ORDERAB LES Final Result Performing Organization Address [facility] de Phone Number [facility] [address] [place] [phone] * (ABNORMAL) CBC auto differential (10/06/2025 8:24 AM EST) White Blood Count 3.7(L) 4.8 - 10.8 X10*3/uL [facility] Red Blood Count 4.28(L) 4.60 - 5.80 X10*6/uL [facility] Hemoglobin 13.1(L) 14.0 - 18.0 g/dl [facility] Hematocrit 41.2(L) 42.0 - 52.0 % [facility] Mean Corpuscular Volume 96.3 80.0 - 98.0 fL [facility] Mean Corpuscular Hemoglobin 30.6 27.0 - 33.0 pg [facility] Mean Corpuscular HGB Conc 31.8 31.0 - 36.0 g/dl [facility] Red Cell Distribution Width 13.8 11.0 - 16.0 % [facility] Platelet Count 248 160 - 400 X10*3/uL [facility] Mean Platelet Volume 8.9(L) 9.4 - 12.4 fL [facility] Neutrophils Percent Auto 55.0 45 - 73 % [facility] Imm Gran Pct Auto 0.3 0.0 - 0.4 % [facility] Lymphocytes Percent Auto 33.9 20 - 40 % [facility] Monocytes Percent Auto 6.2 2 - 11 % [facility] Eosinophils Percent Auto 3.0 0 - 4 % [facility] Basophils Percent Auto 1.6 0 - 2 % [facility] NRBC Pct Auto 0.0 0.0 - 0.2 /100WBC [facility] Neutrophils Absolute Auto 2.0 2.0 - 8.3 x10*3/uL [facility] Imm Gran Abs Auto 0.01 0.00 - 0.03 X10*3/uL [facility] Lymphocytes Absolute Auto 1.3 1.2 - 4.9 X10*3/uL [facility] Monocytes Absolute Auto 0.2 0.1 - 1.2 X10*3/uL [facility] Eosinophils Absolute Auto 0.1 0.0 - 0.4 X10*3/uL [facility] Basophils Absolute Auto 0.1 0.0 - 0.2 X10*3/uL [facility] NRBC Abs Auto 0.000 0.0 - 0.012 X10*3/uL [facility] Blood Venous blood specimen / Unknown 10/06/2025 8:24 AM EST 10/06/2025 11:01 AM EST us Zully Su MD LAB BLOOD ORDERAB LES Final Result [facility] [address] [place] [phone] * Hepatitis C Antibody with Reflex to HCV, RNA, Quantitative, Real-Time PCR (10/06/2025 8:24 AM EST) Hepatitis C Antibody Nonreactive Nonreactive [facility] Comment:Antibodies to HCV no t detected; does not exclude early acuteHCV infection. Blood Venous blood specimen / Unknown 10/06/2025 8:24 AM EST 10/06/2025 11:01 AM EST us Zully Su MD LAB BLOOD ORDERAB LES Final Result Performing Organization Address City/[facility]/ZIP Co de Phone Number [facility] [address] [place] [phone] * Hepatitis B surface antigen, EIA (10/06/2025 8:24 AM EST) Hepatitis B Surface Ag Negative Negative [facility] Blood Venous blood specimen / Unknown 10/06/2025 8:24 AM EST 10/06/2025 11:01 AM EST us Zully Su MD LAB BLOOD ORDERAB LES Final Result Performing Organization Address City/[facility]/ZIP Co de Phone Number [facility] [address] [place] [phone] * Hepatitis B Core Antibody, Total (10/06/2025 8:24 AM EST) Hepatitis B Core Antibody Nonreactive Nonreactive [facility] Blood Venous blood specimen / Unknown 10/06/2025 8:24 AM EST 10/06/2025 11:01 AM EST us Zully Su MD LAB BLOOD ORDERAB LES Final Result Performing Organization Address City/[facility]/ZIP Co de Phone Number [facility] [address] [place] [phone] * HIV-1/2 Antigen and Antibodies, Fourth Generation, with Reflexes (10/06/2025 8:24 AM EST) Pathologist [facility] HIV AB/AG Nonreactive Nonreactive [facility] Comment:HIV-1 p24 Ag and/or HIV-1/HIV-2 Ab not detected.A test result that is nonreactive does not exclude thepossibility of exposure to or infection with HIV-1 and/orHIV-2. Nonreactive results in this assay for individualswith prior exposure to HIV-1 and/or HIV-2 may be due toantigen and antibody levels that are below the limit ofdetection of this assay.The [email or web address] HIV Ag/Ab Combo assay result andsupplemental assay results should be interpreted inconjunction with the patient's clinical presentation,history and other laboratory results. If the results areinconsistent with clinical evidence, additional testing issuggested to confirm the result. Blood Venous blood specimen / Unknown 10/06/2025 8:24 AM EST 10/06/2025 11:01 AM EST us Zully Su MD LAB BLOOD ORDERAB LES Final Result Performing Organization Address City/[facility]/ZIP Co de Phone Number [facility] [address] [place] [phone] * Hepatitis B Surface Antibody, Qualitative (10/06/2025 8:24 AM EST) [facility] ~Hepatitis B Surface Antibody NONREACTIVE Nonreactive [facility] Comment:Nonreactive: < 8.00 mIU/mL Blood Venous blood specimen / Unknown 10/06/2025 8:24 AM EST 10/06/2025 11:01 AM EST us Zully Su MD LAB BLOOD ORDERAB LES Final Result Performing Organization Address City/[facility]/ZIP Co de Phone Number [facility] [address] [place] [phone] * PSA,Total (10/06/2025 8:24 AM EST) [facility] Prostate Specific Antigen 0.83 <0.05 - 4.0 ng/mL [facility] Comment:PSA methodology: Abb santiago Alinity i ChemiluminescentMicroparticle Immunoassay (CMIA) Blood Venous blood specimen / Unknown 10/06/2025 8:24 AM EST 10/06/2025 11:01 AM EST us Zully Su MD LAB BLOOD ORDERAB LES Final Result Performing Organization Address City/[facility]/ZIP Co de Phone Number [facility] [address] [place] [phone] * Hemoglobin A1c (10/06/2025 8:24 AM EST) Hemoglobin A1c 5.5 <6.0 % [facility] Comment:Hemoglobin A1C Refer ence Range Adults: 4.8 - 6.0 % Non diabetic: < 6.0 % Goal: < 7.0 %Additional Action Suggested: > 8.0 %Note: Hemoglobin A1c results are invalid for patients with abnormal amounts of HbF. Blood transfusions may impact the HbA1c concentration in the patient sample. Estimated Average Glucose 111 mg/dL [facility] Comment:eAG = Estimated ave rage glucose which is %A1C expressed asaverage glucose, using the formula of the X5U-IocwfjeLimrnrl Glucose study (ADAG), Diabetes Care, Vol.31,#8,Jun. 2007 Blood Venous blood specimen / Unknown 10/06/2025 8:24 AM EST 10/06/2025 11:01 AM EST us Zully Su MD LAB BLOOD ORDERAB LES Final Result Performing Organization Address City/[facility]/ZIP Co de Phone Number [facility] [address] [place] [phone] * Lipid Panel, Standard (10/06/2025 8:24 AM EST) Triglycerides 61 <150 mg/dL [facility] Comment:Desirable Triglyceri de: less than 150 mg/dLBorderline High Triglyceride 150-199 mg/dLHigh Triglyceride: 200-499 mg/dLVery High Triglyceride: greater than or equal to 5OO mg/dL Cholesterol 159 <200 mg/dL [facility] Comment:Desirable Cholestero l: less than 200 mg/dLBorderline High Cholesterol: 200-239 mg/dLHigh Cholesterol: greater than 239 mg/dL LDL Cholesterol Calculated 95 <100 mg/dL [facility] Comment:Desirable LDL: less than 100 mg/dLNear Optimal/Above Optimal LDL: 110- 129 mg/dLBorderline High LDL: 130-159 mg/dLHigh LDL: 160-189 mg/dLVery High LDL: greater than or equal to 190 mg/dL HDL Cholesterol 52 >40 mg/dL [facility] Comment:Desirable HDL: great er than 40 mg/dL Note: This HDL assay may give artificially low results in patients with liver disease. Blood Venous blood specimen / Unknown 10/06/2025 8:24 AM EST 10/06/2025 11:01 AM EST Zully Su MD LAB BLOOD ORDERAB LES Final Result [facility] [address] [place], [place] [phone] * (ABNORMAL) Comprehensive Metabolic Panel (10/06/2025 8:24 AM EST) Sodium 141 135 - 145 mmol/L [facility] Potassium 4.3 3.3 - 5.1 mmol/L [facility] Chloride 107 96 - 108 mmol/L [facility] Carbon Dioxide 28 22 - 29 mmol/L [facility] Anion Gap 10(L) 12 - 20 [facility] Urea Nitrogen (BUN) 13 9 - 16 mg/dL [facility] Creatinine, Serum 0.88 0.5 - 1.4 mg/dL [facility] Estimated Glomerular Filt Rate >60 [facility] Comment:Chronic Kidney Disea se: Estimated GFR < 60 mL/min/1.47w2Fxpspk Kidney Disease: Estimated GFR < 15 mL/min/1.73m2 Glucose 95 60 - 115 mg/dL [facility] Calcium 9.2 8.4 - 10.2 mg/dL [facility] Bilirubin, Total 0.4 0.0 - 1.0 mg/dL [facility] Aspartate Amino Transferase 22 5 - 37 U/L [facility] Alanine Aminotransferase 8 0 - 40 U/L [facility] Total Protein 7.0 6.5 - 8.0 g/dL [facility] Albumin Level 4.3 3.5 - 5.0 g/dL [facility] Alkaline Phosphatase 83 39 - 117 U/L [facility] Blood Venous blood specimen / Unknown 10/06/2025 8:24 AM EST 10/06/2025 11:01 AM EST Zully Su MD LAB BLOOD ORDERAB LES Final Result [facility] [address] [place] [phone] from Last 3 Months Insurance [place] [address] [place] [id number] Advance Directives Documents on File Type Date Recorded Patient Excel Expert Expl anation Advance Directives and Living Will 10/01/2025 11:54 AM Health care Proxy Power of Mmd Unit Teacher 10/01/2025 11:53 AM Pow er of regulatory attorney Care Teams Dictating Machine Mechanic Relationship Specialty Start Date End Date Zully Todd MD [address] [place] [address] PCP - General Internal Medicine 09/02/25
--- OUTSIDE RECORDS SUMMARY | 2025-10-07 09:45 | XMS_ITS | Encounter Summary ---
Author Organization [employer] Address [address] [place] [address] [address] [place] [address] Care Team Providers Care Communications Officer Name Role Phone Zully Todd MD Primary Care Pro vider Reason for Visit * Reason Onset Date Comments Med Refill 09/30/2025 Encounter Details Date Type Department Care Team (Late st Contact Info) Description 09/30/2025 Telephone [facility] [address] [place] [address] [phone] Zully Todd MD [address] [place] [address] Med Refill Social History Tobacco Use Types [...] 9:25 AM EST Medications were sent to [facility] on 09/02/25 90 day supply to [facility] for refills. * Telephone Encounter - Clarita [...] be sent to: - [facility] [address], [place] [address] Pt is going in to a program today, they medication documented in this encounter Plan of Treatment Upcoming Encounters Date Type Department Care Team (Late st Contact Info) Description 10/29/2025 11:15 AM EST Office Visit [address] [address] Zully Todd MD [address] [place] [phone] 12/16/2025 10:00 AM EST Office Visit [address] [address] Zully Todd MD [address] [place] [phone] 12/25/2025 9:30 AM EST Office Visit [address] [address] Zully Todd MD [address] [place] [phone] documented as of this encounter Visit Diagnoses Not on filedocumented in this encounter Additional Health Concerns Assessment Noted Time PHQ-9 Depression Total Score: 1 09/02/20 11:03 AM EDT documented as of this encounter Care Teams Communications Officer Relationship Specialty Start Date End Date Zully Todd MD [address] [place] [phone] PCP - General Internal Medicine 09/02/25 documented as of this encounter
== END 2025-10-07 09:04 | disposition home or self-care (01) ==
LOC: HO.US 09:03
PROVIDERS: PCP Student in an Organized Health Care Education/Training Program; Visit Provider Student in an Organized Health Care Education/Training Program
DX: K40.90 Unilateral inguinal hernia, without obstruction or gangrene, not specified as recurrent (principal); R10.31 Right lower quadrant pain
CPT/HCPCS: 76857

== ENCOUNTER 2025-10-21 09:58 | Outpatient (AMB) | payer MEDICARE, SELFPAY ==
--- NOTE | 2025-10-21 09:59 | MHC.OFFVIS ---
Vital Signs 10/21/25 10:09 Height 5 ft 8 in Weight 170 lb 8 oz BMI 25.9 BP 124/73 Blood Pressure Location Rt brachial Position Standing Pulse 129 H Intake Visit Reasons: unilateral ingunial hernia Intake Note: Patient presents for an assessment for unilateral inguinal hernia. Pt c/o; right groin, reports bulge, occasional discomfort, denies changes to bowel movements. 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 He is able to manually reduce it. He finds it painful and he desires repair. He is not naive to abdominal surgery in the past and has had several procedures. He has a bit of a poor historian and does not remember for what reason specifically but he has had a partial right nephrectomy at an outside facility, what sounds like a cystoscopy also at an outside facility and a very remote open appendectomy. He reports no prominence at the these procedures. Apparently he does not require any sort of follow-up. [facility], [facility] Medical History Anxiety Surgical History History of bladder surgery Social History Household Members: Family Housing: House Do you presently have visiting nurse or other home services: No Patient Tobacco Use Status: Never used Tobacco e-Cigarette/Vaping Use: Never Used Second Hand Smoke Exposure: No service: No Sexual orientation: Straight/Heterosexual Review of Systems Const All systems reviewed & are unremarkable except as noted in HPI and below Physical Exam Vital Signs: Last Vital Signs Pulse 129 H 10/21/25 10:09 BP 124/73 10/21/25 10:09 BMI result Body Mass Index 25.9 Const General: cooperative, healthy appearing and comfortable Orientation/consciousness: oriented to person, oriented to place and oriented to time HEENT Head: Yes normal to inspection, Yes normocephalic and Yes atraumatic Ears: hearing grossly normal bilaterally General nose exam: Normal external nose present Eyes Pupils: Equal, round and reactive pupils present EOM: EOMs intact bilaterally Neck Neck: Yes normal visual inspection Chest Chest palpation & inspection: normal inspection of the chest Resp Effort & Inspection: normal respiratory effort and able to speak in complete sentences Cardio Rate: regular rate Rhythm: regular rhythm GI Other: Soft, scalp nontender nondistended. Small easily reducible right inguinal hernia. His umbilicus is surgically altered with palpable suture material underneath skin. He does not know what this is from. He has a remote well-healed and faint appendectomy scar McBurney's point. He has a right upper lateral flank scar with possible shallow asymptomatic hernia associated with it from what he describes as a partial nephrectomy. He reports this does not bother him and he does not want anything done with it. Abdomen image:  1. Reducible right inguinal hernia 2. Right partial nephrectomy scar with possible hernia (asymptomatic) 3. Surgically altered umbilicus with suture material palpable at umbilicus Neuro General: oriented to person, oriented to place and oriented to time Cranial nerves: Yes CN's II-XII intact bilaterally and Yes Equal, round and reactive pupils present Assessment & Plan Assessment & Plan (1) Inguinal hernia: Code(s): K40.90 - Unilateral inguinal hernia, without obstruction or gangrene, not specified as recurrent Category: Medical Plan: Offered the patient intervention in the form of laparoscopic right inguinal hernia repair. I reviewed with him the risks involved with such an endeavor. These include but are not limited to the risk of recurrence, the risk of bleeding, the risk of infection, risk of damage to surrounding structures both recognized and unrecognized at the time of surgery, the risk of damage to the spermatic cord resulting in testicular compromise and the risks of the surgery would not solve his current problems with pain were all reviewed with him in detail. He indicated that he understood. He told me that he carefully considered his options. He indicated that he understood and accepted the risks he described as inherent to surgery and lastly he indicated that despite the risks he is still wished to proceed with operative repair of his right inguinal hernia. Coding Level of Care Code New Pt Level 3 (09847) Diagnoses Inguinal hernia K40.90 Time Spent (min) 30 Comment Patient visit record review and coordination of care time
[2025-10-21 10:09] VITALS: BP 124/73; PULSE 129; BMI 25.9
== END 2025-10-21 10:28 | disposition home or self-care (01) ==
LOC: HO.HGS 09:59
PROVIDERS: PCP Student in an Organized Health Care Education/Training Program; Visit Provider Surgery
DX: K40.90 Unilateral inguinal hernia, without obstruction or gangrene, not specified as recurrent (principal)
CPT/HCPCS: 99203

== ENCOUNTER → 2025-10-21 09:58 | Outpatient (BNVA) | payer MEDICARE, SELFPAY | PROVIDERS: PCP Student in an Organized Health Care Education/Training Program; Visit Provider Surgery | DX: K40.90 Unilateral inguinal hernia, without obstruction or gangrene, not specified as recurrent (principal) | CPT/HCPCS: 99202 ==

== ENCOUNTER 2025-10-28 10:22 | Outpatient (REF) | payer MEDICARE, SELFPAY ==
[2025-10-28 11:53] LABS: Alanine Aminotransferase 12 U/L (0-40); Albumin Level 4.3 g/dL (3.5-5.0); Alkaline Phosphatase 90 U/L (39-117); Anion Gap 10 (12-20); Aspartate Amino Transferase 19 U/L (5-37); Blood Urea Nitrogen 16 mg/dL (9-16); Calcium 9.7 mg/dL (8.4-10.2); Carbon Dioxide 31 mmol/L (22-29); Chloride 104 mmol/L (96-108); Estimated Glomerular Filt Rate > 60; Magnesium 2.0 mg/dL (1.6-2.6); Potassium 4.3 mmol/L (3.3-5.1); Sodium 141 mmol/L (135-145); Total Protein 7.1 g/dL (6.5-8.0)
--- OUTSIDE RECORDS SUMMARY | 2025-10-28 13:04 | XMS_ITS | Clinical Summary ---
Author Organization [facility] Address [address] [facility] [address] [place] [phone] Phone Care Team Providers Care Datacap Developer Name Role Phone Ingris Horn MD Primary [...] (06/02/2025 12:36 PM EDT): Meds as above Social History Tobacco Use Types Packs/Day Years [...] Procedure Name Priority Date/Time Associated Diagnosis Comments LIPID PANEL Routine 06/05/2025 6:41 AM EDT from Last 3 Months or Most Recently Relevant to Health Maintenance Results * Lipid panel (06/05/2025 6:41 AM EDT) HDL 51 >39 mg/dL [facility] CHOLESTEROL 168 0 - 200 mg/dL [facility] TRIGLYCERIDES 69 0 - 150 mg/dL [facility] LDL 103 <130 mg/dL [facility] Comment: REFERENCE RANGE: Adult >= 18 years: - Desirable: <100 - Above desirable: 100-129 - Borderline high: 130-159 - High: 160-189 - Very High: >=190 Pediatric 2-17 years: - Acceptable: <110 - Borderline high: 110-129 - High: >=130 Reference ranges have not been established for patients that are less than 24 months of age. CARDIAC RISK RATIO 3.3 <5 N [facility] NON-HDL CHOLESTEROL 117 mg/dL [facility] Comment:Reference Range: The non-HDL Cholesterol value should not exceed the desired LDL-C by more than 30 mg/dl. Blood 06/05/2025 6:41 AM EDT 06/05/2025 7:05 AM EDT us Fabiola Varner WIRE MILL OPERATOR LAB BLOOD BKR [place] [address], [facility] [phone] from Last 3 Months or Most Recently Relevant to Health Maintenance Insurance [employer] MEDEX SUPPLEMENT MEDICARE PART A & B [employer] MEDEX SUPPLEMENT MEDICARE PART A & B [employer] MEDEX SUPPLEMENT MEDICARE PART A & B [employer] MEDEX SUPPLEMENT MEDICARE PART A & B [employer] MEDEX SUPPLEMENT MEDICARE PART A & B Member Subscriber Plan / Payer ( fective 2016-Present) Name:León Marquez Member ID:[id number] Relation to Subscriber:Self Name:León Marquez Subscriber ID:[id number] Payer ID:[id number] Group ID:Not on file Type:Medicare Address: [employer] [address] [place] [phone] [employer] MEDEX SUPPLEMENT MEDICARE PART A & B Member Subscriber Plan / Payer ( fective 2016-Present) Name:León Marquez Member ID:[id number] Relation to Subscriber:Self Name:León Marquez Subscriber ID:[id number] Payer ID:[id number] Group ID:Not on file Type:Medicare Address: [employer] [address] [place] [phone] MEDICARE PART A & B [employer] MEDEX SUPPLEMENT [employer] Address: [facility] [id number] [place] [address] Advance Directives For more information, please contact: [phone] (9AM - 5PM [facility], Monday-Monday) Documents on File Type Date Recorded Patient Bull Bucker Expl anation Healthcare Proxy 06/05/2025 11:49 AM [...] Code Status Confirmed With: Patient Care Teams Datacap Developer Relationship Specialty Start Date End Date Gamaria esther, Mmaserame Kemily, MD [address] [place] [address] PCP - General Family Medicine 05/29/25 Additional Source Comments The information contained in this document represents components of the legal health record. It is not the complete legal health record.[facility]
--- OUTSIDE RECORDS SUMMARY | 2025-10-28 13:05 | XMS_ITS | Encounter Summary ---
Author Organization [employer] Address [address] [place] [address] [address] [place] [address] Care Team Providers Care Staffing Coordinator Name Role Phone Zully Todd MD Primary Care Pro vider Reason for Visit * Reason Onset Date Comments Med Refill 09/30/2025 Encounter Details Date Type Department Care Team (Late st Contact Info) Description 09/30/2025 Telephone [facility] [address] [place] [address] [phone] Zully Todd MD [address] [place] [address] Med Refill Social History Tobacco Use Types [...] 9:25 AM EST Medications were sent to [facility] on 09/02/25 90 day supply to [facility] for refills. * Telephone Encounter - Clarita [...] be sent to: - [facility] [address], [place] [address] Pt is going in to a program today, they medication documented in this encounter Plan of Treatment Upcoming Encounters Date Type Department Care Team (Late st Contact Info) Description 10/29/2025 11:15 AM EST Office Visit [address] [address] Zully Todd MD [address] [place] [phone] 12/05/2025 2:00 PM EST Office Visit [address] [address] Jaycee Morales NP [address] [place] [phone] 12/16/2025 10:00 AM EST Office Visit [address] [address] Zully Todd MD [address] [place] [phone] 12/25/2025 9:30 AM EST Office Visit [address] [address] Zully Todd MD [address] [place] [phone] documented as of this encounter Visit Diagnoses Not on filedocumented in this encounter Additional Health Concerns Assessment Noted Time PHQ-9 Depression Total Score: 1 09/02/20 11:03 AM EDT documented as of this encounter Care Teams Staffing Coordinator Relationship Specialty Start Date End Date Zully Todd MD [address] [place] [phone] PCP - General Internal Medicine 09/02/25 documented as of this encounter
--- OUTSIDE RECORDS SUMMARY | 2025-10-28 13:05 | XMS_ITS | Encounter Summary ---
Author Organization [employer] Address [address] [place] [address] [address] [place] [address] Care Team Providers Care Therapy Manager Name Role Phone Zully Todd MD Primary Care Pro vider Reason for Visit * Reason Onset Date Comments pre op 10/24/2025 Encounter Details Date Type Department Care Team (Late st Contact Info) Description 10/24/2025 Telephone [facility] [address] [place] [phone] Zully Todd MD [address] [place] [address] pre op Social History Tobacco Use Types Packs/Day Years [...] encounter Miscellaneous Notes * Telephone Encounter - Pablo Phelps - 10/28/2025 10:11 AM EST Jovi Quiroz at facility agreed to pre-op on 12/05 with CLAUDINE Quiroz will make pt aware. * Telephone Encounter - Josse Sanchez - 10/24/2025 9:50 AM EST Date of Surgery: waiting on pre op to book date Surgical procedure being done: laparoscopic right inguinal hernia Type of anesthesia: general anesthesia Lab needed: Yes EKG: Yes Surgeon's name: lex Facility name: [facility] Surgeon's office number: [phone] Surgeon's office fax number: [phone] Contact name (person you spoke with): Gabriella Last office note from surgeon requested: Yes Send Message to Pablo Phelps documented in this encounter Plan of Treatment Upcoming Encounters Date Type Department Care Team ([facility] st Contact Info) Description 10/29/2025 11:15 AM EST Office Visit [address] [address] Zully Todd MD [address] [place] [phone] 12/05/2025 2:00 PM EST Office Visit [address] [address] Jaycee Morales NP [address] [place] [phone] 12/16/2025 10:00 AM EST Office Visit [address] [address] Zully Todd MD [address] [place] [phone] 12/25/2025 9:30 AM EST Office Visit [address] [address] Zully Todd MD [address] [place] [phone] documented as of this encounter Visit Diagnoses Not on filedocumented in this encounter Additional Health Concerns Assessment Noted Time PHQ-9 Depression Total Score: 1 09/02/20 11:03 AM EDT documented as of this encounter Care Teams Therapy Manager Relationship Specialty Start Date End Date Zully Todd MD [address] [place] [phone] PCP - General Internal Medicine 09/02/25 documented as of this encounter
--- OUTSIDE RECORDS SUMMARY | 2025-10-28 13:05 | XMS_ITS | Clinical Summary ---
Author Organization [employer] Address [address] [facility] [address] [place] [address] Care Team Providers Care Hog Worker Name Role Phone Zully Todd MD Primary [...] 3 10/01/20 25 Active potassium chloride CR (Klor-Con M20) 20 MEQ ER tablet Take 1 tablet (20 mEq) by mouth Once per day. 30 tablet 10/13/20 25 Active Aspirin Low Dose 81 MG [...] MOUTH TWICE A DAY 60 tablet 10/02/20 025 Discontinued Active Problems Problem Noted Date Diagnosed Date [...] organization. Date Type Department Care Team Description 10/28/2025 Telephone [facility] [address] [place] [address] Marlyn Kong MA 10/27/2025 Refill [facility] [address] [place] [address] Zully Todd MD 10/27/2025 Telephone [facility] [address] [place] [address] Zully Todd MD Med Refill 10/24/2025 Telephone [facility] [address] [place] [address] Zully Todd MD pre op 10/17/2025 Refill [facility] [address] [place] [address] Zully Todd MD 10/14/2025 Telephone [facility] [address] [place], [place] [address] Zully Todd MD Durable Medical Equipment (Wrist brace) 10/13/2025 Orders Only [facility] [address] [place] [address] Zully Todd MD Hypokalemia (Primary Dx) 10/10/2025 Orders Only [facility] [address] [place], [place] [address] Zully Todd MD 10/10/2025 Refill [facility] [address] [place] [address] Zully Todd MD 10/07/2025 Results Follow-Up [facility] [address] [place] [address] Zully Todd MD US Pelvis Limited 10/07/2025 Orders Only [facility] [address] [place], [place] [address] Zully Todd MD 10/07/2025 Results Follow-Up [facility] [address] [facility] [place] [address] Zully Todd MD Chlamydia/Trichomonas /Neisseria gonorrhoeae, PCR, Urine, Albumin, Random Urine W/Creatinine, CBC auto differential, Additional followed-up results: 12 10/02/2025 Refill [facility] [address] [place], [place] [address] Zully Todd MD 10/01/2025 10:45 AM EST Office Visit [facility] [address] [place], [place] [address] Zully Todd MD Colon cancer screening (Primary [...] carpal tunnel syndrome 10/01/2025 Travel 09/30/2025 Telephone [facility] [address] [place] [address] Zully Todd MD Nurse Triage 09/30/2025 Telephone [facility] [address] [place] [address] Zully Todd MD Med Refill 09/04/2025 Orders Only [address] [phone] Zully Todd MD 09/02/2025 10:15 AM EDT Office Visit [address] [phone] Zully Todd MD Moderate episode of recurrent major depressive disorder (CMS/HCC) ([facility]) (Primary Dx); Anxiety; Neurocognitive disorder; Annual physical exam; Unspecified sexually transmitted disease; Encounter for screening for other viral diseases; Encounter for immunization; Health care maintenance; Elevated blood pressure reading 09/02/2025 Travel 09/01/2025 Telephone [facility] [address] [place], [place] [phone] Dolores Alcantar MA chartprep from Last 3 [...] Description 10/29/2025 11:15 AM EST Office Visit [facility] [address] [place] [address] Zully Todd MD [address] [place] [address] 12/05/2025 2:00 PM EST Office Visit [facility] [address] [place] [address] Jaycee Morales NP [address] [place] [address] 12/16/2025 10:00 AM EST Office Visit [facility] [address] [place] [address] Zully Todd MD [address] [place], [place] [phone] 12/25/2025 9:30 AM EST Office Visit [facility] [address] [place], [place] [phone] Zully Todd MD [address] [place], [place] [phone] Health Maintenance Due Date Last Done Comments [...] Procedure Name Priority Date/Time Associated Diagnosis Comments MAGNESIUM Routine 10/28/2025 10:26 AM EST Hypokalemia COMPREHENSIVE METABOLIC PANEL Routine 10/28/2025 10:26 AM EST Hypokalemia US PELVIS LIMITED Routine 10/07/2025 5:3 8 PM EST FERRITIN Routine 10/06/2025 8:24 AM EST Low hemoglobin and low hematocrit IRON AND TOTAL IRON BINDING CAPACITY Routine 10/06/2025 8:24 AM EST Low hemoglobin and low hematocrit PSA, TOTAL Routine 10/06/2025 8:24 AM EST [...] exam from Last 3 Months Results * Magnesium (10/28/2025 10:26 AM EST) Magnesium 2.0 1.6 - 2.6 mg/dL [facility] Blood Venous blood specimen / Unknown 10/28/2025 10:26 AM EST 10/28/2025 11:25 AM EST us Zully Su MD LAB BLOOD ORDERAB LES Final Result [facility] [address] [place] [phone] * (ABNORMAL) Comprehensive Metabolic Panel (10/28/2025 10:26 AM EST) Only the most recent of2 resultswithin the time period is included. Sodium 141 135 - 145 mmol/L [facility] Potassium 4.3 3.3 - 5.1 mmol/L [facility] Chloride 104 96 - 108 mmol/L [facility] Carbon Dioxide 31(H) 22 - 29 mmol/L [facility] Anion Gap 10(L) 12 - 20 [facility] Urea Nitrogen (BUN) 16 9 - 16 mg/dL [facility] Creatinine, Serum 0.88 0.5 - 1.4 mg/dL [facility] Estimated Glomerular Filt Rate >60 [facility] Comment:Chronic Kidney Disea se: Estimated GFR < 60 mL/min/[id number] Kidney Disease: Estimated GFR < 15 mL/min/1.73m2 Glucose 88 60 - 115 mg/dL [facility] Calcium 9.7 8.4 - 10.2 mg/dL [facility] Bilirubin, Total 0.3 0.0 - 1.0 mg/dL [facility] Aspartate Amino Transferase 19 5 - 37 U/L [facility] Alanine Aminotransferase 12 0 - 40 U/L [facility] Total Protein 7.1 6.5 - 8.0 g/dL [facility] Albumin Level 4.3 3.5 - 5.0 g/dL [facility] Alkaline Phosphatase 90 39 - 117 U/L [facility] Blood Venous blood specimen / Unknown 10/28/2025 10:26 AM EST 10/28/2025 11:25 AM EST us Zully Su MD LAB BLOOD ORDERAB LES Final Result [facility] [address] [place] [phone] * US Pelvis Limited (10/07/2025 5:38 PM EST) Anatomical Region Laterality Modality Pelvis Ultrasound 10/07/2025 5:38 PM EST Narrative 10/07/2025 5:40 PM EST [address] [address] Ultrasound Report Signed Patient: León Marquez MR#: [id number] : 1950 Acct:[id number] Age/Sex: 75 / M ADM Date: 10/07/25 Loc: HO.US Attending Dr: Zully Su MD Ordering Physician: Zully Todd MD Date of Service: 10/07/25 Procedure(s): US pelvic limited Accession Number(s): [id number] cc: Zully Todd MD Reason for Exam: RIGHT GROIN PAIN,UNILAT.HERNIA WITHOUT OBSTRUCTION CLINICAL HISTORY: RIGHT GROIN PAIN,UNILAT.HERNIA WITHOUT OBSTRUCTION Exam: Ultrasound of the superficial soft tissues of the right groin, for evaluation of the pain. Comparison: None. Findings: In the region of the pain there is a bowel containing hernia with hernia sac measured at up to 4.5 x 4.0 x 2.3 cm. The neck is measured at 12 mm thickness. Visualized bowel loops reveal no abnormal distention within the hernia sac. Impression: 1. Right groin or inguinal hernia containing bowel loops, measuring up to 4.5 cm. This document has been electronically signed by: Franky Lamb MD on 10/07/2025 17:38:56 Dictated By: Franky Lamb MD Signed By: <Electronically signed by Franky Lamb MD in OV> 10/07/25 1740 DD/ 1738 TD/TT: 10/07/25 1738 User Support Analyst: Procedure Note Donotuseinterpreter, Image - 10/07/[address] [address] Ultrasound Report Signed Patient: León MarquezMR#: [id number] : 1950cct:[id number] Age/Sex: 75 / MADM Date: 10/07/25 Loc: HO.US Attending Dr: Zully Su MD Ordering Physician: Zully Todd MD Date of Service: 10/07/25 Procedure(s): US pelvic limited Accession Number(s): [id number] cc: Zully Todd MD Reason for Exam: RIGHT GROIN PAIN,UNILAT.HERNIA WITHOUT OBSTRUCTION CLINICAL HISTORY: RIGHT GROIN PAIN,UNILAT.HERNIA WITHOUT OBSTRUCTION Exam: Ultrasound of the superficial soft tissues of the right groin, for evaluation of the pain. Comparison: None. Findings: In the region of the pain there is a bowel containing hernia with hernia sac measured at up to 4.5 x 4.0 x 2.3 cm. The neck is measured at 12 mm thickness. Visualized bowel loops reveal no abnormal distention within the hernia sac. Impression: 1. Right groin or inguinal hernia containing bowel loops, measuring up to 4.5 cm. This document has been electronically signed by: Franky Lamb MD on 10/07/2025 17:38:56 Dictated By: Franky Lamb MD Signed By: <Electronically signed by Franky Lamb MD in OV> 10/07/25 1740 DD/ 1738 TD/TT: 10/07/25 1738 User Support Analyst: Zully Su MD IM US PROCEDURES Final Result * Chlamydia/Trichomonas/Neisseria gonorrhoeae, PCR, Urine (10/06/2025 8:24 AM EST) CT PCR, Urine NOT DETECTED Not Detect. [facility] Comment:A not detected test result does [...] NG PCR, Urine NOT DETECTED Not Detect. [facility] Comment:A not detected test result does [...] 8:24 AM EST 10/06/2025 11:12 AM EST Zully Su MD LAB URINE ORDERAB LES Final Result Performing Organization Address [facility] Co de Phone Number [facility] [address] [place] [phone] * Syphilis Screen (10/06/2025 8:24 AM EST) [facility] Syphilis Screen Nonreactive Nonreactive [facility] Blood 10/06/2025 8:24 AM EST 10/06/2025 11:01 AM EST Zully Su MD LAB BLOOD ORDERAB LES Final Result Performing Organization Address [facility] Co de Phone Number [facility] [address] [place] [phone] * Vitamin B12 (Cobalamin) and Folate Panel, Serum (10/06/2025 8:24 AM EST) Pathologist [facility] Vitamin B12 240 200 - 900 pg/mL [facility] Comment:NORMAL 200-900 PG/ML INDETERMINATE 160-199 PG/ML DEFICIENT < 160 PG/ML Folate 9.4 > or = 4.0 ng/mL [facility] Comment:Reference Values:> o r = 4.0 ng/mL< 4.0 ng/mL suggests folate deficiency Methotrexate, aminopterin and folinic acid(leucovorin) are chemotherapeutic agents whose molecularstructures are similar to folate; therefore, the Architectfolate assay cannot be used for patients using these drugs. Blood 10/06/2025 8:24 AM EST 10/06/2025 11:01 AM EST us Zully Su MD LAB BLOOD ORDERAB LES Final Result Performing Organization Address [facility] Co de Phone Number [facility] [address] [place] [phone] * TSH with Reflex to Free T4 (10/06/2025 8:24 AM EST) TSH reflex Free T4 1.49 0.32 - 4.0 uIU/mL [facility] Blood 10/06/2025 8:24 AM EST 10/06/2025 11:01 AM EST us Zully Su MD LAB BLOOD ORDERAB LES Final Result Performing Organization Address [facility] Co de Phone Number [facility] [address] [place] [phone] * Albumin, Random Urine W/Creatinine (10/06/2025 8:24 AM EST) Creatinine, Urine 92.08 mg/dL [facility] Microalbumin Urine <5.0 mg/L [facility] Microalbum Creatinine Ratio Ur TNP <30 ug/mg cr [facility] Comment:Unable to calculate albumin/creatinine ratio due to lowmicroalbumin or creatinine result. Urine (Urine, Random) 10/06/2025 8:24 AM EST 10/06/2025 11:04 AM EST Zully Su MD LAB URINE ORDERAB LES Final Result [facility] [address] [place], [place] [phone] * (ABNORMAL) CBC auto differential (10/06/2025 8:24 AM EST) White Blood Count 3.7(L) 4.8 - 10.8 X10*3/uL [facility] Red Blood Count 4.28(L) 4.60 - 5.80 X10*6/uL [facility] Hemoglobin 13.1(L) 14.0 - 18.0 g/dl [facility] Hematocrit 41.2(L) 42.0 - 52.0 % [facility] Mean Corpuscular Volume 96.3 80.0 - 98.0 fL [facility] Mean Corpuscular Hemoglobin 30.6 27.0 - 33.0 pg [facility] Mean Corpuscular HGB Conc 31.8 31.0 - 36.0 g/dl [facility] Red Cell Distribution Width 13.8 11.0 - 16.0 % [facility] Platelet Count 248 160 - 400 X10*3/uL [facility] Mean Platelet Volume 8.9(L) 9.4 - 12.4 fL [facility] Neutrophils Percent Auto 55.0 45 - 73 % [facility] Imm Gran Pct Auto 0.3 0.0 - 0.4 % [facility] Lymphocytes Percent Auto 33.9 20 - 40 % [facility] Monocytes Percent Auto 6.2 2 - 11 % [facility] Eosinophils Percent Auto 3.0 0 - 4 % [facility] Basophils Percent Auto 1.6 0 - 2 % [facility] NRBC Pct Auto 0.0 0.0 - 0.2 /100WBC [facility] Neutrophils Absolute Auto 2.0 2.0 - 8.3 x10*3/uL [facility] Imm Gran Abs Auto 0.01 0.00 - 0.03 X10*3/uL [facility] Lymphocytes Absolute Auto 1.3 1.2 - 4.9 X10*3/uL [facility] Monocytes Absolute Auto 0.2 0.1 - 1.2 X10*3/uL [facility] Eosinophils Absolute Auto 0.1 0.0 - 0.4 X10*3/uL [facility] Basophils Absolute Auto 0.1 0.0 - 0.2 X10*3/uL [facility] NRBC Abs Auto 0.000 0.0 - 0.012 X10*3/uL [facility] Blood Venous blood specimen / Unknown 10/06/2025 8:24 AM EST 10/06/2025 11:01 AM EST Zully Su MD LAB BLOOD ORDERAB LES Final Result Performing Organization Address [facility] Co de Phone Number [facility] [address] [place] [phone] * Hepatitis C Antibody with Reflex to HCV, RNA, Quantitative, Real-Time PCR (10/06/2025 8:24 AM EST) Hepatitis C Antibody Nonreactive Nonreactive [facility] Comment:Antibodies to HCV no t detected; does not exclude early acuteHCV infection. Blood Venous blood specimen / Unknown 10/06/2025 8:24 AM EST 10/06/2025 11:01 AM EST us Zully Su MD LAB BLOOD ORDERAB LES Final Result Performing Organization Address City/[facility]/ZIP Co de Phone Number [facility] [address] [place] [phone] * (ABNORMAL) Iron And Total Iron Binding Capacity (10/06/2025 8:24 AM EST) Iron 75 45 - 160 mcg/dL [facility] Total Iron Binding Capacity 222(L) 228 - 428 mcg/dL [facility] Percent Iron Saturation 34 15 - 50 % [facility] Unsaturated Iron Binding 147 ug/dL [facility] Blood Venous blood specimen / Unknown 10/06/2025 8:24 AM EST 10/07/2025 2:40 PM EST Zully Su MD LAB BLOOD ORDERAB LES Final Result Performing Organization Address [facility] Co de Phone Number [facility] [address] [place] [phone] * Hepatitis B surface antigen, EIA (10/06/2025 8:24 AM EST) Hepatitis B Surface Ag Negative Negative [facility] Blood Venous blood specimen / Unknown 10/06/2025 8:24 AM EST 10/06/2025 11:01 AM EST us Zully Su MD LAB BLOOD ORDERAB LES Final Result Performing Organization Address [facility] Co wi Phone Number [facility] [address] [place] [phone] * Hepatitis B Core Antibody, Total (10/06/2025 8:24 AM EST) Hepatitis B Core Antibody Nonreactive Nonreactive [facility] Blood Venous blood specimen / Unknown 10/06/2025 8:24 AM EST 10/06/2025 11:01 AM EST Zully Su MD LAB BLOOD ORDERAB LES Final Result Performing Organization Address [facility] Co de Phone Number [facility] [address] [place] [phone] * HIV-1/2 Antigen and Antibodies, Fourth Generation, with Reflexes (10/06/2025 8:24 AM EST) HIV AB/AG Nonreactive Nonreactive [facility] Comment:HIV-1 p24 Ag and/or HIV-1/HIV-2 Ab not detected.A test result that is nonreactive does not exclude thepossibility of exposure to or infection with HIV-1 and/orHIV-2. Nonreactive results in this assay for individualswith prior exposure to HIV-1 and/or HIV-2 may be due toantigen and antibody levels that are below the limit ofdetection of this assay.The [place] Alinity HIV Ag/Ab Combo assay result andsupplemental assay results should be interpreted inconjunction with the patient's clinical presentation,history and other laboratory results. If the results areinconsistent with clinical evidence, additional testing issuggested to confirm the result. Blood Venous blood specimen / Unknown 10/06/2025 8:24 AM EST 10/06/2025 11:01 AM EST Zully Su MD LAB BLOOD ORDERAB LES Final Result Performing Organization Address City/[facility]/ZIP Co de Phone Number [facility] [address] [place] [phone] * Hepatitis B Surface Antibody, Qualitative (10/06/2025 8:24 AM EST) ~Hepatitis B Surface Antibody NONREACTIVE Nonreactive [facility] Comment:Nonreactive: < 8.00 mIU/mL Blood Venous blood specimen / Unknown 10/06/2025 8:24 AM EST 10/06/2025 11:01 AM EST Zully Su MD LAB BLOOD ORDERAB LES Final Result Performing Organization Address City/[facility]/ZIP Co de Phone Number [facility] [address] [place] [phone] * PSA,Total (10/06/2025 8:24 AM EST) Prostate Specific Antigen 0.83 <0.05 - 4.0 ng/mL [facility] Comment:PSA methodology: Abb santiago Alinity i ChemiluminescentMicroparticle Immunoassay (CMIA) Blood Venous blood specimen / Unknown 10/06/2025 8:24 AM EST 10/06/2025 11:01 AM EST us Zully Su MD LAB BLOOD ORDERAB LES Final Result Performing Organization Address [facility] Co de Phone Number [facility] [address] [place] [phone] * Hemoglobin A1c (10/06/2025 8:24 AM EST) Hemoglobin A1c 5.5 <6.0 % [facility] Comment:Hemoglobin A1C Refer ence Range Adults: 4.8 - 6.0 % Non diabetic: < 6.0 % Goal: < 7.0 %Additional Action Suggested: > 8.0 %Note: Hemoglobin A1c results are invalid for patients with abnormal amounts of HbF. Blood transfusions may impact the HbA1c concentration in the patient sample. Estimated Average Glucose 111 mg/dL [facility] Comment:eAG = Estimated ave rage glucose which is %A1C expressed asaverage glucose, using the formula of the X1Z-ObgiyclTyuweho Glucose study (ADAG), Diabetes Care, Vol.31,#8,Jun. 2007 Blood Venous blood specimen / Unknown 10/06/2025 8:24 AM EST 10/06/2025 11:01 AM EST us Zully Su MD LAB BLOOD ORDERAB LES Final Result Performing Organization Address [facility] Co de Phone Number [facility] [address] [place] [phone] * Ferritin (10/06/2025 8:24 AM EST) Ferritin 96 20 - 250 ng/mL [facility] Blood Venous blood specimen / Unknown 10/06/2025 8:24 AM EST 10/07/2025 2:40 PM EST Zully Su MD LAB BLOOD ORDERAB LES Final Result Performing Organization Address [facility] Co de Phone Number [facility] [address] [place] [phone] * Lipid Panel, Standard (10/06/2025 8:24 AM EST) Triglycerides 61 <150 mg/dL [facility] Comment:Desirable Triglyceri de: less than 150 mg/dLBorderline High Triglyceride 150-199 mg/dLHigh Triglyceride: 200-499 mg/dLVery High Triglyceride: greater than or equal to 5OO mg/dL Cholesterol 159 <200 mg/dL [facility] Comment:Desirable Cholestero l: less than 200 mg/dLBorderline High Cholesterol: 200-239 mg/dLHigh Cholesterol: greater than 239 mg/dL LDL Cholesterol Calculated 95 <100 mg/dL [facility] Comment:Desirable LDL: less than 100 mg/dLNear Optimal/Above Optimal LDL: 110- 129 mg/dLBorderline High LDL: 130-159 mg/dLHigh LDL: 160-189 mg/dLVery High LDL: greater than or equal to 190 mg/dL HDL Cholesterol 52 >40 mg/dL [facility] Comment:Desirable HDL: great er than 40 mg/dL Note: This HDL assay may give artificially low results in patients with liver disease. Blood Venous blood specimen / Unknown 10/06/2025 8:24 AM EST 10/06/2025 11:01 AM EST us Zully Su MD LAB BLOOD ORDERAB LES Final Result [facility] [address] [place] [phone] from Last 3 Months Insurance MEDICARE Advance Directives Documents on File Type Date Recorded Patient Certified Substance Abuse Counselor Expl anation Advance Directives and Living Will 10/01/2025 11:54 AM Health care Proxy Power of Ecommerce Manager 10/01/2025 11:53 AM Pow er of document review attorney Care Teams Hog Worker Relationship Specialty Start Date End Date Zully Todd MD [address] [place] [phone] PCP - General Internal Medicine 09/02/25
--- OUTSIDE RECORDS SUMMARY | 2025-10-28 13:05 | XMS_ITS | Encounter Summary ---
Author Organization [employer] Address [address] [place] [address] [address] [place] [address] Care Team Providers Care Success Coach Name Role Phone Zully Todd MD Primary Care Pro vider Reason for Visit * Reason Onset Date Comments Med Refill 10/27/2025 Encounter Details Date Type Department Care Team (Late st Contact Info) Description 10/27/2025 Telephone [facility] [address] [place], [place] [phone] Zully Todd MD [address] [place] [address] Med Refill Social History Tobacco Use Types [...] Telephone Encounter - Eusebia Turner LPN - 10/27/2025 12:27 PM EST Medication pended to PCP. * Telephone Encounter - Jing Williamson - 10/27/2025 12:23 PM EST Tc from [place] [facility] requesting a med refill : potassium chloride CR (Klor-Con M20) 20 MEQ ER tablet PCP DR. Martinez documented in this encounter Plan of Treatment Upcoming Encounters Date Type Department Care Team (Late st Contact Info) Description 10/29/2025 11:15 AM EST Office Visit [address] [address] Zully Todd MD [address] [place] [phone] 12/05/2025 2:00 PM EST Office Visit [address] [address] Jaycee Morales NP [address] [place] [address] 12/16/2025 10:00 AM EST Office Visit [address] [address] Zully Todd MD [address] [place] [address] 12/25/2025 9:30 AM EST Office Visit [address] [address] Zully Todd MD [address] [place] [phone] documented as of this encounter Visit Diagnoses Not on filedocumented in this encounter Additional Health Concerns Assessment Noted Time PHQ-9 Depression Total Score: 1 09/02/20 25 11:03 AM EDT documented as of this encounter Care Teams Success Coach Relationship Specialty Start Date End Date Zully Todd MD [address] [place] [phone] PCP - General Internal Medicine 09/02/25 documented as of this encounter
--- OUTSIDE RECORDS SUMMARY | 2025-10-28 13:05 | XMS_ITS | Encounter Summary ---
Author Organization [employer] Address [address] [place] [address] 7 [place] [address] Care Team Providers Care Match Marker Name Role Phone Zully Todd MD Primary Care Pro vider Reason for Visit * Reason Comments Med Refill Encounter Details Date Type Department Care Team (Late st Contact Info) Description 10/17/2025 Refill [facility] MEDICINE [address] [place] [address] [phone] Zully Todd MD [address] [place] [address] [phone] Social History Tobacco Use Types Packs/Day Years [...] Description 10/29/2025 11:15 AM EST Office Visit [facility] MEDICINE [address] [place] [address] [phone] Zully Todd MD [address] [place], [place] [phone] 12/05/2025 2:00 PM EST Office Visit [address] [place] [address] Jaycee Morales NP [address] [place] [address] 12/16/2025 10:00 AM EST Office Visit [address] [address] Zully Todd MD [address] [place] [address] 12/25/2025 9:30 AM EST Office Visit [address] [address] Zully Todd MD [address] [place] [address] documented as of this encounter Visit Diagnoses Not on filedocumented in this encounter Additional Health Concerns Assessment Noted Time PHQ-9 Depression Total Score: 1 09/02/20 11:03 AM EDT documented as of this encounter Care Teams Match Marker Relationship Specialty Start Date End Date Zully Todd MD [address] [place] [phone] PCP - General Internal Medicine 09/02/25 documented as of this encounter
--- OUTSIDE RECORDS SUMMARY | 2025-10-28 13:05 | XMS_ITS | Encounter Summary ---
Author Organization [employer] Address [address] [facility] [address] [place] [address] Care Team Providers Care Barrel Dedenting Machine Operator Name Role Phone Zully Todd MD Primary Care Pro vider Reason for Visit * Reason Comments Med Refill Encounter Details Date Type Department Care Team (Late st Contact Info) Description 10/27/2025 Refill [facility] MEDICINE [address] [place], [place] [phone] Zully Todd MD [address] [place] [address] Social History Tobacco Use Types Packs/Day Years [...] encounter Miscellaneous Notes * Telephone Encounter - Lovely Molina RN - 10/28/2025 10:14 AM EST Telephone call placed to pt's [facility]. Spoke with Endy who states they didn't have enough for 30 day supply so gave pt 14 days of pills so he is due for a refill. Inquired if they can just use last script but he states they can't because they technically already did to give him the partial fill. Will need a refill to give him more Please can you check w pharmacy I prescribed for daily use on 10/13/2025 this is too soon refill Thanks * Telephone Encounter - Eusebia Turner LPN - 10/27/2025 12:26 PM EST Last seen 10/01/25. documented in this encounter Plan of Treatment Upcoming Encounters Date Type Department Care Team (Late st Contact Info) Description 10/29/2025 11:15 AM EST Office Visit [address] [address] Zully Todd MD [address] [place] [address] 12/05/2025 2:00 PM EST Office Visit [address] [address] Jaycee Morales NP [address] [place] [address] 12/16/2025 10:00 AM EST Office Visit [address] [address] Zully Todd MD [address] [place] [address] 12/25/2025 9:30 AM EST Office Visit [address] [address] Zully Todd MD [address] [place] [address] documented as of this encounter Visit Diagnoses Not on filedocumented in this encounter Additional Health Concerns Assessment Noted Time PHQ-9 Depression Total Score: 1 09/02/20 11:03 AM EDT documented as of this encounter Care Teams Barrel Dedenting Machine Operator Relationship Specialty Start Date End Date Zully Todd MD [address] [place] [phone] PCP - General Internal Medicine 09/02/25 documented as of this encounter
== END 2025-10-28 10:23 | disposition home or self-care (01) ==
LOC: HO.HHCL 10:22
PROVIDERS: PCP Student in an Organized Health Care Education/Training Program; Visit Provider Student in an Organized Health Care Education/Training Program
DX: E87.6 Hypokalemia (principal)
CPT/HCPCS: 36415; 80053; 83735

== ENCOUNTER 2025-11-05 10:25 | Outpatient (REF) | payer MEDICARE, SELFPAY ==
--- OUTSIDE RECORDS SUMMARY | 2025-11-05 10:34 | XMS_ITS | Clinical Summary ---
Author Organization [facility] Address [address] [facility] [address] [place] [phone] Phone Care Team Providers Care Technical Translator Name Role Phone Ingris Horn MD Primary [...] EDT) HDL 51 >39 mg/dL [facility] ER CHOLESTEROL 168 0 - 200 mg/dL [facility] TRIGLYCERIDES 69 0 - 150 mg/dL [facility] LDL 103 <130 mg/dL [facility] Comment: REFERENCE RANGE: Adult >= 18 years: - Desirable: <100 - Above desirable: 100-129 - Borderline high: 130-159 - High: 160-189 - Very High: >=190 Pediatric 2-17 years: - Acceptable: <110 - Borderline high: 110-129 - High: >=130 Reference ranges have not been established for patients that are less than 24 months of age. CARDIAC RISK RATIO 3.3 <5 [facility] NON-HDL CHOLESTEROL 117 mg/dL [facility] Comment:Reference Range: The non-HDL Cholesterol value should not exceed the desired LDL-C by more than 30 mg/dl. Blood 06/05/2025 6:41 AM EDT 06/05/2025 7:05 AM EDT us Fabiola Varner [employer] [facility] BLOOD BKR ORDERAB[place] [address], [place]UST [phone] from Last 3 Months or Most Recently Relevant to Health Maintenance Insurance [employer]OSS MEDEX SUPPLEMENT MEDICARE PART A & B [employer] MEDEX SUPPLEMENT MEDICARE PART A & B [employer] MED[employer] SUPPLEMENT MEDICARE PART A & B Member Subscriber Plan / Payer (Ef fective 2016-Present) Name:León Marquez Member ID:[id number] Relation to Subscriber:Self Name:León Marquez Subscriber ID:[id number] Payer ID:[id number] Group ID:Not on file Type:Medicare Address: [facility] Pal [facility] [address] [place] [address] [employer] MEDEX SUPPLEMENT MEDICARE PART A & B [employer] MEDEX SUPPLEMENT MEDICARE PART A & B Member Subscriber Plan / Payer ( fective 2016-Present) Name:León Marquez Member ID:[id number] Relation to Subscriber:Self Name:León Marquez Subscriber ID:[id number] Payer ID:[id number] Group ID:Not on file Type:Medicare Address: [employer] [address] [place] [id number] [employer] MEDEX SUPPLEMENT MEDICARE PART A & B Member Subscriber Plan / Payer ( fective 2016-Present) Name:León Marquez Member ID:[id number] Relation to Subscriber:Self Name:León Marquez Subscriber ID:[id number] Payer ID:[id number] Group ID:Not on file Type:Medicare Address: [employer] 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 It is not the complete legal health record.[facility]
--- OUTSIDE RECORDS SUMMARY | 2025-11-05 10:35 | XMS_ITS | Encounter Summary ---
Author Organization [employer] Address [address] [place] [address] 7 [place] [address] Care Team Providers Care Manager Work Name Role Phone Zully Todd MD Primary Care Pro vider Reason for Visit * Reason Onset Date Comments [facility] 10/30/2025 Encounter Details Date Type Department Care Team (Late st Contact Info) Description 10/30/2025 Telephone [facility] MEDICINE [address] [place] [address] [phone] Zully Todd MD [address] [place] [address] [facility] Neu[facility] Social History Tobacco Use Types Packs/Day Years [...] encounter Miscellaneous Notes * Telephone Encounter - Deepthi Valdivia MA - 10/31/2025 1:00 PM EST [facility] Neurology faxed back Patient had not been scheduled yet. * Telephone Encounter - Deepthi Valdivia MA - 10/30/2025 1:48 PM EST [employer] called [facility] Neurology at [phone]. NO answer. [employer] sent Fax request of last visit note or next appointment time and date. * Telephone Encounter - Deepthi Valdivia MA - 10/30/2025 1:47 PM EST ----- Message from Zully Su MD sent at 10/29/2025 2:09 PM EST ----- Prabhakar Lacey Please can you check w neurologist office as below message from Ruby Greene ---- Neurology apt Appointment pending is document in patient chart. I try calling twice to check status no answer please have your [place] or nurse assist [phone] [facility] Neurology ----- Message ----- From: Ruby Jimenez Sent: 10/29/2025 1:59 PM EST To: Zully Su MD Appointment pending is document in patient chart. I try calling twice to check status no answer please have your [place] or nurse assist [phone] [facility] Neurology ----- Message ----- From: Zully Su MD Sent: 10/29/2025 11:39 AM EST To: Ruby Beltran please can you help me checking status of neurology referral Can not see letter done Thanks documented in this encounter Plan of Treatment Upcoming Encounters Date Type Department Care Team (Late st Contact Info) Description 12/05/2025 2:00 PM EST Office Visit [facility] MEDICINE [address] [place], [place] [phone] Jaycee Morales NP [address] [place], [place] [phone] 12/16/2025 10:00 AM EST Office Visit [address] [address] Zully Todd MD [address] [place] [address] 12/25/2025 9:30 AM EST Office Visit [address] [address] Zully Todd MD [address] [place] [address] [phone] documented as of this encounter Visit Diagnoses Not on filedocumented in this encounter Additional Health Concerns Assessment Noted Time PHQ-9 Depression Total Score: 1 09/02/20 11:03 AM EDT documented as of this encounter Care Teams Manager Work Relationship Specialty Start Date End Date Zully Todd MD [address] [place] [phone] PCP - General Internal Medicine 09/02/25 documented as of this encounter
--- OUTSIDE RECORDS SUMMARY | 2025-11-05 10:35 | XMS_ITS | Encounter Summary ---
Author Organization [employer] Address [address] [place] [address] 7 [place] [address] Care Team Providers Care Deburring And Tooling Machine Operator Name Role Phone Zully Todd MD Primary Care Pro vider Reason for Visit * Reason Comments Med Refill Encounter Details Date Type Department Care Team (Late st Contact Info) Description 10/17/2025 Refill [facility] MEDICINE [address] [place] [address] [phone] Zully Todd MD [address] [place] [address] [phone] Social History Tobacco Use Types Packs/Day Years [...] Description 12/05/2025 2:00 PM EST Office Visit [facility] MEDICINE [address] [place] [address] [phone] Jaycee Morales NP [address] [place], [place] [phone] 12/16/2025 10:00 AM EST Office Visit [address] [address] Zully Todd MD [address] [place] [address] 12/25/2025 9:30 AM EST Office Visit [address] [address] Zully Todd MD [address] [place] [address] documented as of this encounter Visit Diagnoses Not on filedocumented in this encounter Additional Health Concerns Assessment Noted Time PHQ-9 Depression Total Score: 1 09/02/20 11:03 AM EDT documented as of this encounter Care Teams Deburring And Tooling Machine Operator Relationship Specialty Start Date End Date Zully Todd MD [address] [place] [address] PCP - General Internal Medicine 09/02/25 documented as of this encounter
--- OUTSIDE RECORDS SUMMARY | 2025-11-05 10:35 | XMS_ITS | Encounter Summary ---
Author Organization [employer] Address [address] [place] [address] 7 [place] [address] Care Team Providers Care Student Assistance Counselor Name Role Phone Zully Todd MD Primary Care Pro vider Reason for Visit * Reason Onset Date Comments Med Refill 09/30/2025 Encounter Details Date Type Department Care Team (Late st Contact Info) Description 09/30/2025 Telephone [facility] MEDICINE [address] [place] [address] [phone] Zully Todd MD [address] [place] [address] Med Refill Social History Tobacco Use Types [...] 9:25 AM EST Medications were sent to [facility] Pharmacy on 09/02/25 90 day supply to [facility] for refills. * Telephone Encounter - [...] be sent to: - [facility] [address], [place] [address] Pt is going in to a program today, they medication documented in this encounter Plan of Treatment Upcoming Encounters Date Type Department Care Team (Late st Contact Info) Description 12/05/2025 2:00 PM EST Office Visit [address] [address] Jaycee Morales NP [address] [place] [address] 12/16/2025 10:00 AM EST Office Visit [address] [address] Zully Todd MD [address] [place] [address] 12/25/2025 9:30 AM EST Office Visit [address] [address] Zully Todd MD [address] [place] [address] documented as of this encounter Visit Diagnoses Not on filedocumented in this encounter Additional Health Concerns Assessment Noted Time PHQ-9 Depression Total Score: 1 09/02/20 25 11:03 AM EDT documented as of this encounter Care Teams Student Assistance Counselor Relationship Specialty Start Date End Date Zully Todd MD [address] [place] [phone] PCP - General Internal Medicine 09/02/25 documented as of this encounter
--- OUTSIDE RECORDS SUMMARY | 2025-11-05 10:35 | XMS_ITS | Clinical Summary ---
Author Organization [employer] Address [address] [facility] 7[address] [place] [address] Care Team Providers Care Mixing Place Supervisor Name Role Phone Zully Todd MD [...] constipation 60 capsule 3 10/01/20 25 Active Blood Pressure kit 1 Device Once per day. 1 kit 10/29/20 25 Active cyancobalamin e (Vitamin B-12) 250 MCG tablet Take 1 tablet (250 mcg) by mouth Once per day. 90 tablet 1 10/29/20 25 026 Active potassium chloride CR (K-Tab) 20 MEQ ER tablet TAKE 1 TABLET BY MOUTH TWICE A DAY 60 tablet 10/02/20 25 025 Discontinued potassium chloride CR (Klor-Con M20) 20 MEQ ER tablet Take 1 tablet (20 mEq) by mouth Once per day. 30 tablet 10/13/20 25 025 Discontinued potassium chloride CR (Klor-Con M20) 20 MEQ ER tablet TAKE 1 TABLET BY MOUTH ONCE DAILY 30 tablet 10/28/20 25 025 Discontinued(O ther) cyancobalamin e (Vitamin B-12) 250 MCG tablet Take 1 tablet (250 mcg) by mouth Once per day. 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 Date Type Department Care Team Description 10/30/2025 Telephone [facility] MEDICINE [address] [place] [phone] Zully Todd MD [facility] 10/29/2025 11:15 AM EST Office Visit [facility] MED[facility] [address] [place] [phone] Zully Todd MD Hypokalemia (Primary Dx); Neurocognitive disorder; Bilateral carpal tunnel syndrome; 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); Health care maintenance; Right inguinal pain; Elevated blood pressure reading; Right inguinal hernia; Anemia, unspecified type 10/29/2025 Travel 10/28/2025 Telephone [facility] [address] [place] [address] Marlyn Kong [place] 10/27/2025 Refill [facility] MEDICINE [address], [place] [phone] Zully Todd MD 10/27/2025 Telephone [facility] MEDICINE [address], [place] [address] Zully Todd MD Med Refill 10/24/2025 Telephone [facility] MEDICINE [address], [place] [address] Zully Todd MD pre op 10/17/2025 Refill [facility] MED[facility] [address], [place] [address] Zully Todd MD 10/14/2025 Telephone [facility] MEDICINE [address], [place] [address] Zully Todd MD Durable Medical Equipment (Wrist brace) 10/13/2025 Orders Only [facility] MED[facility] [address], [place] [address] Zully Todd MD Hypokalemia (Primary Dx) 10/10/2025 Orders Only [facility] MED[facility] [address], [place] [address] Zully Todd MD 10/10/2025 Refill [facility] MED[facility] [address], [place] [address] Zully Todd MD 10/07/2025 Results Follow-Up [facility] [address], [place] [address] Zully Todd MD US Pelvis Limited 10/07/2025 Orders Only [facility] [address], [place] [address] Zully Todd MD 10/07/2025 Results Follow-Up [facility] [address], [place] [address] Zully Todd MD Chlamydia/Trichomonas /Neisseria gonorrhoeae, PCR, Urine, Albumin, Random Urine W/Creatinine, CBC auto differential, Additional followed-up results: 12 10/02/2025 Refill [facility] [address], [place] [address] Zully Todd MD 10/01/2025 10:45 AM EST Office Visit [address] [address] Zully Todd MD Colon cancer screening (Primary [...] carpal tunnel syndrome 10/01/2025 Travel 09/30/[address] [address] Zully Todd MD Nurse Triage 09/30/[address] [address] Zully Todd MD Med Refill 09/04/2025 Orders Only [address] [address] Zully Todd MD 09/02/2025 10:15 AM EDT Office Visit [address] [address] Zully Todd MD Moderate episode of recurrent major depressive disorder ([facility]/HCC) ([facility]) (Primary Dx); Anxiety; Neurocognitive disorder; Annual physical exam; Unspecified sexually transmitted disease; Encounter for screening for other viral diseases; Encounter for immunization; Health care maintenance; Elevated blood pressure reading 09/02/2025 Travel 09/01/[address] [address] Dolores Alcantar [place] chartprep from Last 3 [...] Sign Reading Time Taken Comments Blood Pressure 130/80 10/29/2025 11:18 AM EST Pulse 88 10/29/2025 11:18 AM EST Temperature 36.7 C (98 F) 10/29/2025 11:18 AM EST Respiratory Rate 20 10/29/2025 11:18 AM EST Oxygen Saturation 99% 10/29/2025 11:18 AM EST Inhaled Oxygen Concentration - - Weight 79.6 kg (175 lb 8 oz) 10/29/2025 11:18 AM EST Height 170 cm (5' 6.93 ) 10/29/2025 11:18 AM EST Body Mass Index 27.54 10/29/2025 11:18 AM EST Plan of Treatment Upcoming Encounters Date Type Department Care Team (Late st Contact Info) Description 12/05/2025 2:00 PM EST Office Visit [facility] MEDICINE [address] [place] [address] Jaycee Morales NP [address] [place] [address] 12/16/2025 10:00 AM EST Office Visit [facility] MEDICINE [address] [place] [phone] Zully Todd MD [address] [place] [address] 12/25/2025 9:30 AM EST Office Visit [facility] MEDICINE [address], [place] [phone] Zully Todd MD [address], [place] [phone] Health Maintenance Due Date Last Done Comments [...] EST) Magnesium 2.0 1.6 - 2.6 mg/dL [facility] Blood Venous blood specimen / Unknown 10/28/2025 10:26 AM EST 10/28/2025 11:25 AM EST us Zully Su MD LAB BLOOD ORDERAB LES Final Result [facility] [address] [place] [phone] * (ABNORMAL) Comprehensive Metabolic Panel (10/28/2025 10:26 AM EST) Only the most recent of2 resultswithin the time period is included. Sodium 141 135 - 145 mmol/L [facility] Potassium 4.3 3.3 - 5.1 mmol/L [facility] Chloride 104 96 - 108 mmol/L [facility] Carbon Dioxide 31(H) 22 - 29 mmol/L [facility] Anion Gap 10(L) 12 - 20 [facility] Urea Nitrogen (BUN) 16 9 - 16 mg/dL [facility] Creatinine, Serum 0.88 0.5 - 1.4 mg/dL [facility] Estimated Glomerular Filt Rate >60 [facility] Comment:Chronic Kidney Disea se: Estimated GFR < 60 mL/min/[id number] Kidney Disease: Estimated GFR < 15 mL/min/1.73m2 Glucose 88 60 - 115 mg/dL [facility] Calcium 9.7 8.4 - 10.2 mg/dL [facility] Bilirubin, Total 0.3 0.0 - 1.0 mg/dL [facility] Aspartate Amino Transferase 19 5 - 37 U/L [facility] Alanine Aminotransferase 12 0 - 40 U/L [facility] Total Protein 7.1 6.5 - 8.0 g/dL [facility] Albumin Level 4.3 3.5 - 5.0 g/dL [facility] Alkaline Phosphatase 90 39 - 117 U/L [facility] Blood Venous blood specimen / Unknown 10/28/2025 10:26 AM EST 10/28/2025 11:25 AM EST us Zully Su MD LAB BLOOD ORDERAB LES Final Result [facility] [address] [place] [phone] * US Pelvis Limited (10/07/2025 5:38 PM EST) Anatomical Region Laterality Modality Pelvis Ultrasound 10/07/2025 5:38 PM EST Narrative 10/07/2025 5:40 PM EST [address] [address] Ultrasound Report Signed Patient: León Marquez MR#: [id number] : 1950 Acct:[id number] Age/Sex: 75 / M ADM Date: 10/07/25 Loc: HO.US Attending Dr: Zully Su MD Ordering Physician: Zully Todd MD Date of Service: 10/07/25 Procedure(s): US pelvic limited Accession Number(s): [id number] cc: Zully Todd MD Reason for Exam: [...] 10/07/25 1740 DD/ 1738 TD/TT: 10/07/25 1738 Tape Keller Operator: Procedure Note Donotuseinterpreter, Image - 10/07/[address] [address] Ultrasound Report Signed Patient: León MarquezMR#: [id number] : 1950cct:[id number] Age/Sex: 75 / MADM Date: 10/07/25 Loc: HO.US Attending Dr: Zully Su MD Ordering Physician: Zully Todd MD Date of Service: 10/07/25 Procedure(s): US pelvic limited Accession Number(s): [id number] cc: Zully Todd MD Reason for Exam: [...] 10/07/25 1740 DD/ 1738 TD/TT: 10/07/25 1738 Tape Keller Operator: Zully Su MD IMG US PROCEDURES Final Result * Chlamydia/Trichomonas/Neisseria gonorrhoeae, PCR, Urine (10/06/2025 8:24 AM EST) CT PCR, Urine NOT DETECTED Not Detect. [facility] Comment:A not detected test result does [...] NG PCR, Urine NOT DETECTED Not Detect. [facility] Comment:A not detected test result does [...] LES Final Result Performing Organization Address [facility] Co de Phone Number [facility] [address] [place] [phone] * Syphilis Screen (10/06/2025 8:24 AM EST) [facility] Syphilis Screen Nonreactive Nonreactive [facility] Blood 10/06/2025 8:24 AM EST 10/06/2025 11:01 AM EST Zully Su MD LAB BLOOD ORDERAB LES Final Result Performing Organization Address [facility] Co de Phone Number [facility] [address] [place] [phone] * Vitamin B12 (Cobalamin) and Folate Panel, Serum (10/06/2025 8:24 AM EST) Pathologist [facility] Vitamin B12 240 200 - 900 pg/mL [facility] Comment:NORMAL 200-900 PG/ML INDETERMINATE 160-199 PG/ML DEFICIENT < 160 PG/ML Folate 9.4 > or = 4.0 ng/mL [facility] Comment:Reference Values:> o r = 4.0 ng/mL< 4.0 ng/mL suggests folate deficiency Methotrexate, aminopterin and folinic acid(leucovorin) are chemotherapeutic agents whose molecularstructures are similar to folate; therefore, the Architectfolate assay cannot be used for patients using these drugs. Blood 10/06/2025 8:24 AM EST 10/06/2025 11:01 AM EST us Zully Su MD LAB BLOOD ORDERAB LES Final Result Performing Organization Address [facility] de Phone Number [facility] [address] [place] [phone] * TSH with Reflex to Free T4 (10/06/2025 8:24 AM EST) TSH reflex Free T4 1.49 0.32 - 4.0 uIU/mL [facility] Blood 10/06/2025 8:24 AM EST 10/06/2025 11:01 AM EST us Zully Su MD LAB BLOOD ORDERAB LES Final Result Performing Organization Address [facility] de Phone Number [facility] [address] [place] [phone] * Albumin, Random Urine W/Creatinine (10/06/2025 8:24 AM EST) Creatinine, Urine 92.08 mg/dL [facility] Microalbumin Urine <5.0 mg/L [facility] Microalbum Creatinine Ratio Ur TNP <30 ug/mg cr [facility] Comment:Unable to calculate albumin/creatinine ratio due to lowmicroalbumin or creatinine result. Urine (Urine, Random) 10/06/2025 8:24 AM EST 10/06/2025 11:04 AM EST us Zully Su MD LAB URINE ORDERAB LES Final Result Performing Organization Address [facility] Co de Phone Number [facility] [address] [place] [phone] * (ABNORMAL) CBC auto differential (10/06/2025 8:24 AM EST) White Blood Count 3.7(L) 4.8 - 10.8 X10*3/uL [facility] Red Blood Count 4.28(L) 4.60 - 5.80 X10*6/uL [facility] Hemoglobin 13.1(L) 14.0 - 18.0 g/dl [facility] Hematocrit 41.2(L) 42.0 - 52.0 % [facility] Mean Corpuscular Volume 96.3 80.0 - 98.0 fL [facility] Mean Corpuscular Hemoglobin 30.6 27.0 - 33.0 pg [facility] Mean Corpuscular HGB Conc 31.8 31.0 - 36.0 g/dl [facility] Red Cell Distribution Width 13.8 11.0 - 16.0 % [facility] Platelet Count 248 160 - 400 X10*3/uL [facility] Mean Platelet Volume 8.9(L) 9.4 - 12.4 fL [facility] Neutrophils Percent Auto 55.0 45 - 73 % [facility] Imm Gran Pct Auto 0.3 0.0 - 0.4 % [facility] Lymphocytes Percent Auto 33.9 20 - 40 % [facility] Monocytes Percent Auto 6.2 2 - 11 % [facility] Eosinophils Percent Auto 3.0 0 - 4 % [facility] Basophils Percent Auto 1.6 0 - 2 % [facility] NRBC Pct Auto 0.0 0.0 - 0.2 /100WBC [facility] Neutrophils Absolute Auto 2.0 2.0 - 8.3 x10*3/uL [facility] Imm Gran Abs Auto 0.01 0.00 - 0.03 X10*3/uL [facility] Lymphocytes Absolute Auto 1.3 1.2 - 4.9 X10*3/uL [facility] Monocytes Absolute Auto 0.2 0.1 - 1.2 X10*3/uL [facility] Eosinophils Absolute Auto 0.1 0.0 - 0.4 X10*3/uL [facility] Basophils Absolute Auto 0.1 0.0 - 0.2 X10*3/uL [facility] NRBC Abs Auto 0.000 0.0 - 0.012 X10*3/uL [facility] Blood Venous blood specimen / Unknown 10/06/2025 8:24 AM EST 10/06/2025 11:01 AM EST Zully Su MD LAB BLOOD ORDERAB LES Final Result Performing Organization Address [facility]/ZIP Co de Phone Number [facility] [address] [place] [phone] * Hepatitis C Antibody with Reflex to HCV, RNA, Quantitative, Real-Time PCR (10/06/2025 8:24 AM EST) Pathologist [facility] Hepatitis C Antibody Nonreactive Nonreactive [facility] Comment:Antibodies to HCV no t detected; does not exclude early acuteHCV infection. Blood Venous blood specimen / Unknown 10/06/2025 8:24 AM EST 10/06/2025 11:01 AM EST us Zully Su MD LAB BLOOD ORDERAB LES Final Result Performing Organization Address City/[facility]/ZIP Co de Phone Number [facility] [address] [place] [phone] * (ABNORMAL) Iron And Total Iron Binding Capacity (10/06/2025 8:24 AM EST) Iron 75 45 - 160 mcg/dL [facility] Total Iron Binding Capacity 222(L) 228 - 428 mcg/dL [facility] Percent Iron Saturation 34 15 - 50 % [facility] Unsaturated Iron Binding 147 ug/dL [facility] Blood Venous blood specimen / Unknown 10/06/2025 8:24 AM EST 10/07/2025 2:40 PM EST Zully Su MD LAB BLOOD ORDERAB LES Final Result Performing Organization Address [facility] Co de Phone Number [facility] [address] [place] [phone] * Hepatitis B surface antigen, EIA (10/06/2025 8:24 AM EST) Hepatitis B Surface Ag Negative Negative [facility] Blood Venous blood specimen / Unknown 10/06/2025 8:24 AM EST 10/06/2025 11:01 AM EST Zully Su MD LAB BLOOD ORDERAB LES Final Result Performing Organization Address [facility] Co sd Phone Number [facility] [address] [place] [phone] * Hepatitis B Core Antibody, Total (10/06/2025 8:24 AM EST) Hepatitis B Core Antibody Nonreactive Nonreactive [facility] Blood Venous blood specimen / Unknown 10/06/2025 8:24 AM EST 10/06/2025 11:01 AM EST Zully Su MD LAB BLOOD ORDERAB LES Final Result Performing Organization Address [facility] de Phone Number [facility] [address] [place] [phone] * HIV-1/2 Antigen and Antibodies, Fourth Generation, with Reflexes (10/06/2025 8:24 AM EST) HIV AB/AG Nonreactive Nonreactive [facility] Comment:HIV-1 p24 Ag and/or HIV-1/HIV-2 [...] ORDERAB LES Final Result Performing Organization Address City/[facility] Co de Phone Number [facility] [address] [place] [phone] * Hepatitis B Surface Antibody, Qualitative (10/06/2025 8:24 AM EST) ~Hepatitis B Surface Antibody NONREACTIVE Nonreactive [facility] Comment:Nonreactive: < 8.00 mIU/mL Blood Venous blood specimen / Unknown 10/06/2025 8:24 AM EST 10/06/2025 11:01 AM EST Zully Su MD LAB BLOOD ORDERAB LES Final Result Performing Organization Address City/[facility]/ZIP Co de Phone Number [facility] [address] [place] [phone] * PSA,Total (10/06/2025 8:24 AM EST) Prostate Specific Antigen 0.83 <0.05 - 4.0 ng/mL [facility] Comment:PSA methodology: Abb santiago Alinity i ChemiluminescentMicroparticle Immunoassay (CMIA) Blood Venous blood specimen / Unknown 10/06/2025 8:24 AM EST 10/06/2025 11:01 AM EST us Zully Su MD LAB BLOOD ORDERAB LES Final Result Performing Organization Address [facility]/ZIP Co de Phone Number [facility] [address] [place] [phone] * Hemoglobin A1c (10/06/2025 8:24 AM EST) Hemoglobin A1c 5.5 <6.0 % [facility] Comment:Hemoglobin A1C Refer ence Range Adults: 4.8 - 6.0 % Non diabetic: < 6.0 % Goal: < 7.0 %Additional Action Suggested: > 8.0 %Note: Hemoglobin A1c results are invalid for patients with abnormal amounts of HbF. Blood transfusions may impact the HbA1c concentration in the patient sample. Estimated Average Glucose 111 mg/dL [facility] Comment:eAG = Estimated ave rage glucose which is %A1C expressed asaverage glucose, using the formula of the [id number] Glucose study (ADAG), Diabetes Care, Vol.31,#8,2007 Blood Venous blood specimen / Unknown 10/06/2025 8:24 AM EST 10/06/2025 11:01 AM EST Zully Su MD LAB BLOOD ORDERAB LES Final Result Performing Organization Address [facility] Co de Phone Number [facility] [address] [place] [phone] * Ferritin (10/06/2025 8:24 AM EST) Ferritin 96 20 - 250 ng/mL [facility] Blood Venous blood specimen / Unknown 10/06/2025 8:24 AM EST 10/07/2025 2:40 PM EST Zully Su MD LAB BLOOD ORDERAB LES Final Result Performing Organization Address [facility] Co de Phone Number [facility] [address] [place] [phone] * Lipid Panel, Standard (10/06/2025 8:24 AM EST) Triglycerides 61 <150 mg/dL [facility] Comment:Desirable Triglyceri de: less than 150 mg/dLBorderline High Triglyceride 150-199 mg/dLHigh Triglyceride: 200-499 mg/dLVery High Triglyceride: greater than or equal to 5OO mg/dL Cholesterol 159 <200 mg/dL [facility] Comment:Desirable Cholestero l: less than 200 mg/dLBorderline High Cholesterol: 200-239 mg/dLHigh Cholesterol: greater than 239 mg/dL LDL Cholesterol Calculated 95 <100 mg/dL [facility] Comment:Desirable LDL: less than 100 mg/dLNear Optimal/Above Optimal LDL: 110- 129 mg/dLBorderline High LDL: 130-159 mg/dLHigh LDL: 160-189 mg/dLVery High LDL: greater than or equal to 190 mg/dL HDL Cholesterol 52 >40 mg/dL [facility] Comment:Desirable HDL: great er than 40 mg/dL Note: This HDL assay may give artificially low results in patients with liver disease. Blood Venous blood specimen / Unknown 10/06/2025 8:24 AM EST 10/06/2025 11:01 AM EST Zully Su MD LAB BLOOD ORDERAB LES Final Result [facility] [address] [place] [phone] from Last 3 [place] [id number] Advance Directives Documents on File Type Date Recorded Patient [employer] Officer Expl anation Advance Directives and Living Will 10/01/2025 11:54 AM Health care Proxy Power of Lathe Setup Operator 10/01/2025 11:53 AM Pow er of trial attorney Care Teams Mixing Place Supervisor Relationship Specialty Start Date End Date Zully Todd MD [address] [place] [phone] PCP - General Internal Medicine 09/02/25
--- OUTSIDE RECORDS SUMMARY | 2025-11-05 10:35 | XMS_ITS | Encounter Summary ---
Author Organization [employer] Address [address] [place] [address] [address] [place] [address] Care Team Providers Care Treating Plant Pumper Name Role Phone Zully Todd MD Primary Care Pro vider Reason for Visit * Reason Onset Date Comments Med Refill 10/27/2025 Encounter Details Date Type Department Care Team (Late st Contact Info) Description 10/27/2025 Telephone [facility] [address] [place], [place] [phone] Zully Todd MD [address] [place] [address] Med Refill Social History Tobacco Use Types [...] Description 12/05/2025 2:00 PM EST Office Visit [facility] [address] [place] [id number] Jaycee Morales NP [address] [place] [phone] 12/16/2025 10:00 AM EST Office Visit [address] [address] Zully Todd MD [address] [place] [phone] 12/25/2025 9:30 AM EST Office Visit [address] [address] Zully Todd MD [address] [place] [phone] documented as of this encounter Visit Diagnoses Not on filedocumented in this encounter Additional Health Concerns Assessment Noted Time PHQ-9 Depression Total Score: 1 09/02/20 11:03 AM EDT documented as of this encounter Care Teams Treating Plant Pumper Relationship Specialty Start Date End Date Zully Todd MD [address] [place] [phone] PCP - General Internal Medicine 09/02/25 documented as of this encounter
[2025-11-05 15:43] LABS: Alanine Aminotransferase 6 U/L (0-40); Albumin Level 4.2 g/dL (3.5-5.0); Alkaline Phosphatase 93 U/L (39-117); Anion Gap 10 (12-20); Aspartate Amino Transferase 15 U/L (5-37); Blood Urea Nitrogen 14 mg/dL (9-16); Calcium 9.4 mg/dL (8.4-10.2); Carbon Dioxide 29 mmol/L (22-29); Chloride 108 mmol/L (96-108); Estimated Glomerular Filt Rate > 60; Potassium 4.3 mmol/L (3.3-5.1); Sodium 143 mmol/L (135-145); Total Protein 6.7 g/dL (6.5-8.0)
== END 2025-11-05 10:26 | disposition home or self-care (01) ==
LOC: HO.HHCL 10:25
PROVIDERS: PCP Student in an Organized Health Care Education/Training Program; Visit Provider Student in an Organized Health Care Education/Training Program
DX: E87.6 Hypokalemia (principal)
CPT/HCPCS: 36415; 80053